=== PATIENT | male | born 1960 | race African-American/Black ===

== ENCOUNTER 2016-11-20 01:21 | Inpatient (IN) | payer MEDICARE ==
[2016-11-20] MEDS ORDERED: SODIUM CHLORIDE 1,000 ML IV STA ×2 (02:19→08:28)
--- NOTE | 2016-11-20 02:20 | PDOC ---
History of Present Illness - General History Source: Family Exam Limitations: No Limitations - History of Present Illness Initial Comments: The patient is a 56 yo M with a PMHx of HTN, nearly dx DM was discharged from [facility] 3 days with prescriptions he was unable to fill yet one was metformin. History is provided by patients nephew. Prior to presentation, the nephew noticed that the patient was having what appeared to be a seizure. Prior to presentation, pt was given multiple doses of Versed to stop the seizure and he was combative. The patient denies chest pain, palpitations and lightheadedness. The patient denies drug use. The patient is a Smoker. Allergies: NKDA <Katie Lawson - Last Filed: 11/20/16 04:18> - General History Source: Patient <CristinoJosue dowell - Last Filed: 11/24/16 19:55> - General Chief Complaint: Seizure Stated Complaint: SIEZURES Time Seen by Provider: 11/20/16 02:13 Past History <Katie Lawson - Last Filed: 11/20/16 04:18> - Past Medical History Diabetes: Yes Seizures: Yes - Psycho/Social/Smoking Cessation Hx Suicidal Ideation: No Smoking History: Unknown if ever smoked Information on smoking cessation initiated: No Hx Alcohol Use: No Drug/Substance Use Hx: No Substance Use Type: None <Josue Wyman - Last Filed: 11/24/16 19:55> - Past Medical History Allergies/Adverse Reactions: Allergies Allergy/AdvReac Type Severity Reaction Status Date / Time No Known Allergies Allergy Verified 11/20/16 01:29 Home Medications: Ambulatory Orders Amlodipine Besylate [Norvasc -] 5 mg PO DAILY 11/21/16 Aspirin [ASA -] 81 mg PO DAILY 11/21/16 Metformin HCl [Glucophage -] 850 mg PO BID 11/21/16 Simvastatin 40 mg PO DAILY 11/21/16 Review of Systems - Review of Systems Able to Perform ROS?: Yes Comments:: CONSTITUTIONAL: Absent: fever, chills, diaphoresis, generalized weakness, malaise, loss of appetite HEENT: Absent: rhinorrhea, nasal congestion, throat pain, throat swelling, difficulty swallowing, mouth swelling, ear pain, eye pain, visual Changes CARDIOVASCULAR: Absent: chest pain, syncope, palpitations, irregular heart rate, lightheadedness , peripheral edema RESPIRATORY: Absent: cough, shortness of breath, dyspnea with exertion, orthopnea, wheezing, stridor, hemoptysis GASTROINTESTINAL: Absent: abdominal pain, abdominal distension, nausea, vomiting, diarrhea, constipation, melena, hematochezia GENITOURINARY: Absent: dysuria, frequency, urgency, hesitancy, hematuria, flank pain, genital pain MUSCULOSKELETAL: Absent: myalgia, arthralgia, joint swelling SKIN: Absent: rash, itching, pallor HEMATOLOGIC/IMMUNOLOGIC: Absent: easy bleeding, easy bruising, lymphadenopathy, frequent infections ENDOCRINE: Absent: unexplained weight gain, unexplained weight loss, heat intolerance, cold intolerance NEUROLOGIC: Absent: headache, focal weakness or paresthesias, dizziness, unsteady gait, seizure, mental status changes, bladder or bowel incontinence PSYCHIATRIC: Absent: anxiety, depression, suicidal or homicidal ideation, hallucinations. <Katie Lawson - Last Filed: 11/20/16 04:18> *Physical Exam - Vital Signs Last Vital Signs Temp Pulse Resp BP Pulse Ox 97.9 F 116 H 20 80/56 95 11/20/16 01:30 11/20/16 01:30 11/20/16 01:30 11/20/16 01:30 11/20/16 01:30 - Physical Exam Comments: GENERAL: Well developed, well nourished. Alert and answering questions appropriately. No acute distress. HEENT: Normocephalic, atraumatic. PERRLA, EOMI. No conjunctival pallor. Sclera are non- icteric. Moist mucous membranes. Oropharynx is clear. NECK: Supple. Full ROM. No JVD. Carotid pulses 2+ and symmetric, without bruits. No thyromegaly. No lymphadenopathy. CARDIOVASCULAR: Regular rate and rhythm. No murmurs, rubs, or gallops. Distal pulses are 2+ and symmetric. PULMONARY: No evidence of respiratory distress. Lungs clear to auscultation bilaterally. No wheezing, rales or rhonchi. ABDOMINAL: Soft. Non-tender. Non-distended. No rebound or guarding. No organomegaly. Normoactive bowel sounds. MUSCULOSKELETAL Normal range of motion at all joints. No bony deformities or tenderness. No CVA tenderness. EXTREMITIES: No cyanosis. No clubbing. No edema. No calf tenderness. SKIN: Warm and dry. Normal capillary refill. No rashes. No jaundice. NEUROLOGICAL: No gross focal neurological deficits. PSYCHIATRIC: Cooperative. Good eye contact. Appropriate mood and affect. <Katie Lawson - Last Filed: 11/20/16 04:18> - Vital Signs Last Vital Signs Temp Pulse Resp BP Pulse Ox 97.9 F 116 H 20 80/56 95 11/20/16 01:30 11/20/16 01:30 11/20/16 01:30 11/20/16 01:30 11/20/16 01:30 <Josue Wyman - Last Filed: 11/24/16 19:55> Heart Score/ECG Review #1 NSR @ 80 bpm. Possible L atrial enlargement. Left axis deviation. Left ventricular hypertrophy with QRS widening. <Katie Lawson - Last Filed: 11/20/16 04:18> ED Treatment Course - LABORATORY CBC & Chemistry Diagram: 11/20/16 02:30 11/20/16 02:30 <Katie Lawson - Last Filed: 11/20/16 04:18> - LABORATORY CBC & Chemistry Diagram: 11/24/16 05:10 11/24/16 05:10 <Josue Wyman - Last Filed: 11/24/16 19:55> Medical Decision Making - Medical Decision Making 11/24/16 19:55 Dr. Wyman: The scribe's documentation has been prepared under my direction and personally reviewed by me in its entirery. I confirm that the note above accurately reflects all work, treatment, procedures, and medical decision making performed by me. <Josue Wyman - Last Filed: 11/24/16 19:55> *DC/Admit/Observation/Transfer - Attestations Scribe Attestion: Documentation prepared by Katie Lawson, acting as biomedical engineering internship for Josue Wyman MD/DO. <Katie Lawson - Last Filed: 11/20/16 04:18> - Discharge Dispostion Admit: Yes <Josue Wyman - Last Filed: 11/24/16 19:55> Diagnosis at time of Disposition: New onset seizure, Diabetes mellitus, new onset, Hyperglycemia
[2016-11-20 02:41] LABS: MEAN CELL VOLUME 72.2 fl (80-96)
[2016-11-20 02:44] LABS: BASOPHIL 1.1 % (0-2.0); EOSINOPHIL 0.9 % (0-4.5); MCH 22.5 pg (25.7-33.7); MCHC 31.1 g/dl (32.0-35.9); MEAN PLT VOLUME 9.3 fl (7.5-11.1); NEUTROPHILS 72.8 % (42.8-82.8); PLATELET COUNT 228 K/MM3 (134-434); RDW 13.1 % (11.9-15.9); WHITE BLOOD COUNT 9.8 K/mm3 (4.0-10.0)
[2016-11-20 02:54] LABS: INR 1.1 (0.82-1.09); PROTHROMBIN TIME (PATIENT) 12.1 SEC (9.98-11.88)
[2016-11-20 03:07] LABS: ALBUMIN 3.6 g/dl (3.4-5.0); ANION GAP 17 (8-16); BILIRUBIN,TOTAL 0.7 mg/dL (0.2-1.0); CALCIUM 8.9 mg/dL (8.5-10.1); CO2 20 mmol/L (21-32); CREATININE 1.6 mg/dL (0.7-1.3); SGPT/ALT 22 U/L (12-78); TOT PROT 7.1 g/dl (6.4-8.2)
[2016-11-20 03:10] LABS: ALK PHOS 68 U/L (45-117); TROPONIN I < 0.02 ng/ml (0.00-0.05)
[2016-11-20 03:13] LABS: SGOT/AST 26 U/L (15-37)
[2016-11-20 03:15] LABS: GLUCOSE,RANDOM 415 mg/dL (74-106)
[2016-11-20 03:33] LABS: MAGNESIUM 2.3 mg/dL (1.8-2.4)
[2016-11-20] MEDS ORDERED: INSULIN REGULAR HUMAN 100 UNITS/ML *VIAL IVPUSH ONE (03:52)
[2016-11-20] MEDS ORDERED: INSULIN REGULAR HUMAN 100 UNITS/ML *VIAL ONE (04:39)
[2016-11-20 06:27] LABS: URINE APPEARANCE CLEAR; URINE BILIRUBIN NEGATIVE (NEGATIVE); URINE BLOOD 1+ (NEGATIVE); URINE COLOR LTYELLOW; URINE GLUCOSE (UA) 3+ (NEGATIVE); URINE KETONE 1+ (NEGATIVE); URINE LEUK ESTERASE NEGATIVE (NEGATIVE); URINE NITRITE NEGATIVE (NEGATIVE); URINE UROBILINOGEN NEGATIVE mg/dL (0.2-1.0)
[2016-11-20 06:29] LABS: URINE PROTEIN 2+ (NEGATIVE)
[2016-11-20 06:31] LABS: URINE BACTERIA FEW /hpf (NONE SEEN); URINE HYALINE CAST 5 /lpf; URINE MUCUS RARE; URINE RBC 1 /hpf (0-3); URINE WBC 3 /hpf (3-5)
[2016-11-20 06:38] LABS: URINE MARIJUANA THC NEGATIVE ng/ml (CUTOFF=50)
[2016-11-20 06:48] LABS: ALBUMIN 3.5 g/dl (3.4-5.0); ALK PHOS 70 U/L (45-117); ANION GAP 13 (8-16); BILIRUBIN,TOTAL 0.8 mg/dL (0.2-1.0); CALCIUM 8.8 mg/dL (8.5-10.1); CO2 22 mmol/L (21-32); CREATININE 1.1 mg/dL (0.7-1.3); GLUCOSE,RANDOM 259 mg/dL (74-106); SGOT/AST 21 U/L (15-37); SGPT/ALT 19 U/L (12-78); TOT PROT 6.9 g/dl (6.4-8.2)
--- NOTE | 2016-11-20 07:48 | HP ---
CHIEF COMPLAINT:Seizure PCP:None HISTORY OF PRESENT ILLNESS: 56M PMH of HTN, HLD, DM, recently discharged from [facility] 3 days ago, presents to the hospital brought in by ambulance after being called by his nephews whom he lives with, for new onset seizure. He was at [facility] because of headache found to be hyperglycemic and admitted. Patient can not recall the event. History taken from the patient and the ED chart. History provided to ED by patient's nephew. Nephew saw what he thought was a seizure. Patient describes what sounds like an aura for about a minute before the event where he saw lights next thing he remembers is waking up in the hospital with a nurse. Patient denies bowel or bladder function loss. He endorses on and off blurry vision. He states he had tremors in arms and legs since 11/16/16. Denies history of seizure. Patient given a few doses of versed by EMS to stop the seizure and he was noted to be combative at that time. Patient did not waste picker any medications from the pharmacy that he was discharged with from [facility]. He states he was discharged with 4 medications. One is for blood pressure, one for diabetes which he states is metformin, one for high cholesterol, and one is aspirin. The patient denies nausea vomiting fevers chills chest pain, shortness of breath palpitations and lightheadedness. Lives at home with his nephews. ER course was notable for: (1)Labs EKG (2)CXR (3)Head CT Recent Travel:Denies PAST MEDICAL HISTORY:HTN HLD DM PAST SURGICAL HISTORY:Denies Social History: Smoking:Smoker 40 pack years Alcohol:States he used to be an alcoholic but now only has 1 drink a month Drugs:Denies Allergies Family History: Sister from massive heart attack with history of alcoholism No Known Allergies Allergy (Verified 11/20/16 01:29) HOME MEDICATIONS: REVIEW OF SYSTEMS CONSTITUTIONAL: Absent: fever, chills, diaphoresis, generalized weakness, malaise, loss of appetite, weight change HEENT: Absent: rhinorrhea, nasal congestion, throat pain, throat swelling, difficulty swallowing, mouth swelling, ear pain, eye pain, Present: On and off blurry vision CARDIOVASCULAR: Absent: chest pain, syncope, palpitations, irregular heart rate, lightheadedness , peripheral edema RESPIRATORY: Absent: cough, shortness of breath, dyspnea with exertion, orthopnea, wheezing, stridor, hemoptysis GASTROINTESTINAL: Absent: abdominal pain, abdominal distension, nausea, vomiting, diarrhea, melena , hematochezia Present: constipation GENITOURINARY: Absent: dysuria, frequency, urgency, hesitancy, hematuria, flank pain, genital pain MUSCULOSKELETAL: Absent: myalgia, arthralgia, joint swelling, back pain, neck pain SKIN: Absent: rash, itching, pallor HEMATOLOGIC/IMMUNOLOGIC: Absent: easy bleeding, easy bruising, lymphadenopathy, frequent infections ENDOCRINE: Absent: unexplained weight gain, unexplained weight loss, heat intolerance, cold intolerance NEUROLOGIC: Absent: headache, focal weakness or paresthesias, dizziness, unsteady gait, mental status changes, bladder or bowel incontinence Present: seizure, Tremor PSYCHIATRIC: Absent: anxiety, depression, suicidal or homicidal ideation, hallucinations. PHYSICAL EXAMINATION Vital Signs - 24 hr 11/20/16 07:33 Temperature 98.3 F Pulse Rate [ 81 Right] Respiratory 16 Rate Blood Pressure 154/91 [Right] O2 Sat by Pulse 98 Oximetry (%) GENERAL: Awake, alert, and fully oriented, in no acute distress. Patient has poor hygiene. HEAD: Normal with no signs of trauma. EYES: Pupils equal, round and reactive to light, extraocular movements intact, sclera anicteric, EARS, NOSE, THROAT: Dry mucous membranes. Poor dentition. Poor dental hygiene. Missing multiple teeth NECK: Normal range of motion, supple LUNGS: Breath sounds equal, clear to auscultation bilaterally. No wheezes, and no crackles. No accessory muscle use. HEART: Regular rate and rhythm, normal S1 and S2 without murmur, rub or gallop. ABDOMEN: Soft, obese, nontender, not distended, normoactive bowel sounds, no guarding, no rebound, no masses. MUSCULOSKELETAL: Normal range of motion at all joints UPPER EXTREMITIES: warm, well-perfused. No peripheral edema. LOWER EXTREMITIES: warm, well-perfused. No calf tenderness. Trace nonpitting peripheral edema. Left great toe nail bed peeling up. NEUROLOGICAL: Cranial nerves II-XII intact. Normal speech. Global muscle strength 5/5 knee jerk and biceps jerk is 2+. Dizziness present with abrupt postural changes. SKIN: Warm, dry Laboratory Results - last 24 hr 11/20/16 11/20/16 11/20/16 06:12 06:12 06:16 Sodium 137 Potassium 4.1 Chloride 102 Carbon Dioxide 22 Anion Gap 13 BUN 18 Creatinine 1.1 D Creat Clearance w eGFR > 60 Random Glucose 259 H D Calcium 8.8 Magnesium 2.5 H Total Bilirubin 0.8 AST 21 ALT 19 Alkaline Phosphatase 70 Total Protein 6.9 Albumin 3.5 Urine Color Ltyellow Urine Appearance Clear Urine pH 5.0 Urine Protein 2+ H Urine Glucose (UA) 3+ H Urine Ketones 1+ H Urine Blood 1+ H Urine Nitrite Negative Urine Bilirubin Negative Urine Urobilinogen Negative Ur Leukocyte Esterase Negative Urine RBC 1 Urine WBC 3 Ur Epithelial Cells Rare Urine Bacteria Few Hyaline Casts 5 Urine Mucus Rare Opiates Screen Methadone Screen Barbiturate Screen Phencyclidine Screen Ur Amphetamines Screen MDMA (Ecstasy) Screen Benzodiazepines Screen Cocaine Screen U Marijuana (THC) Screen 11/20/16 06:16 Sodium Potassium Chloride Carbon Dioxide Anion Gap BUN Creatinine Creat Clearance w eGFR Random Glucose Calcium Magnesium Total Bilirubin AST ALT Alkaline Phosphatase Total Protein Albumin Urine Color Urine Appearance Urine pH Urine Protein Urine Glucose (UA) Urine Ketones Urine Blood Urine Nitrite Urine Bilirubin Urine Urobilinogen Ur Leukocyte Esterase Urine RBC Urine WBC Ur Epithelial Cells Urine Bacteria Hyaline Casts Urine Mucus Opiates Screen Negative Methadone Screen Negative Barbiturate Screen Negative Phencyclidine Screen Negative Ur Amphetamines Screen Negative MDMA (Ecstasy) Screen Negative Benzodiazepines Screen Positive Cocaine Screen Negative U Marijuana (THC) Screen Negative EKG: NSR @ 80 bpm. Possible L atrial enlargement. Left axis deviation. Left ventricular hypertrophy with QRS widening\ CXR: clear on my read Head CT: unremarkable ASSESSMENT/PLAN: 56M with history of HTN HLD DM presents to the ED with new onset seizure. New onset seizure/Tremor: Denies drinking alcohol on a daily basis. Admit to med/surg Neurology consult head CT negative Needs MRI brain neurochecks q2h may need an EEG will defer neurology DM/Hyperglycemia: uncontrolled diabetes due to medication non compliance ISS ACHS BGM ACHS Lactic acidosis: 5.5 Likely transient secondary to seizure will repeat Acute kidney injury: From transient hypotension secondary to seizure vs large amounts of versed- patient was hypotensive to SBP to 80's could also be due to mild rhabdomyolysis though unlikely Now Resolved Rhabdomyolysis: CK slightly elevated secondary to seizure Give 1 liter bolus then start NS @ 50ml/hr for 24 hours HTN: Trend BP Call pharmacy and restart home medications when appropriate Will hold for now Possible orthostatic hypotension: will get orthostatics Peeling toe nail: Will consult podiatry HLD: call pharmacy restart home medications restart aspirin FEN: no IVF no electrolyte issues diabetic diet PPx: HSQ/SCDs no GI PPx indicated no PT consult needed at this time Case discussed with attending and medical team. Visit type - Emergency Visit Emergency Visit: Yes ED Registration Date: 11/20/16 Care time: The patient presented to the Emergency Department on the above date and was hospitalized for further evaluation of their emergent condition. - New Patient This patient is new to me today: Yes Date on this admission: 11/20/16 - Critical Care Critical Care patient: No
[2016-11-20] MEDS ORDERED: SODIUM CHLORIDE 1,000 ML IV SCH (09:30)
--- NOTE | 2016-11-20 10:15 | EKG ---
Test Reason : Blood Pressure : / mmHG Vent. Rate : 080 BPM Atrial Rate : 080 BPM P-R Int : 166 ms QRS Dur : 118 ms QT Int : 372 ms P-R-T Axes : 065 -42 019 degrees QTc Int : 429 ms NORMAL SINUS RHYTHM POSSIBLE LEFT ATRIAL ENLARGEMENT LEFT AXIS DEVIATION LEFT VENTRICULAR HYPERTROPHY WITH QRS WIDENING ABNORMAL ECG NO PREVIOUS ECGS AVAILABLE Confirmed by MD CAILIN, ZHANG ([id number]) on 11/20/2016 10:15:15 AM Referred By: Confirmed By:ZHANG SIMEON MD
[2016-11-20 11:20] VITALS: BMI 40.4
[2016-11-20] MEDS: INSULIN SLIDING SCALE (NOVOLOG) 1 VIAL SQ SCH ×3 (11:34→21:20)
[2016-11-20] MEDS: ASPIRIN 81 MG CHEWABLE TABLETS PO SCH (14:42)
[2016-11-20] MEDS: LISINOPRIL 10 MG TABLET (FP) PO SCH (14:42)
[2016-11-20] MEDS: HEPARIN NA (PORCINE) 5,000 UNITS/ML 1ML VIAL SQ SCH ×2 (14:42→21:16)
--- NOTE | 2016-11-20 17:00 | CON.NEURO ---
Consult Consult Specialty:: neurology - History of Present Illness History of Present Illness: 56M PMH of HTN, HLD, DM, recently discharged from [facility] 3 days ago, presents to the hospital brought in by ambulance after being called by his nephews whom he lives with, for new onset seizure. He was at [facility] because of headache found to be hyperglycemic and admitted. Patient can not recall the event. History taken from the patient and the ED chart. . Nephew saw what he thought was a seizure (he is not here now) Patient describes what sounds like an aura for about a minute before the event where he saw lights next thing he remembers is waking up in the hospital with a nurse. Patient denies bowel or bladder function loss. He endorses on and off blurry vision. He states he had tremors in arms and legs since 11/16/16. states left leg may shake then whole body may shake--they HE IS AWAKE and talking during the event. Denies history of seizure. 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. He states he was discharged with 4 medications. One is for blood pressure, one for diabetes which he states is metformin, one for high cholesterol, and one is aspirin. The patient denies nausea vomiting fevers chills chest pain, shortness of breath palpitations and lightheadedness. Lives at home with his nephews. pt back to baseline and denies any new c/o. CT HD (-) - Alcohol/Substance Use Hx Alcohol Use: No - Smoking History Smoking history: Current every day smoker Have you smoked in the past 12 months: Yes Aproximately how many cigarettes per day: 12 Home Medications - Allergies Allergies/Adverse Reactions: Allergies Allergy/AdvReac Type Severity Reaction Status Date / Time No Known Allergies Allergy Verified 11/20/16 01:29 Physical Exam-Neuro Vital Signs: Vital Signs Temperature 98.8 F 11/20/16 15:42 Pulse Rate 82 11/20/16 15:42 Respiratory Rate 18 11/20/16 15:42 Blood Pressure 125/74 11/20/16 15:42 O2 Sat by Pulse Oximetry (%) 98 11/20/16 11:05 Constitutional: Yes: Well Nourished Neck: Yes: Supple Labs: CBC, BMP 11/20/16 06:12 INR, PTT INR 1.10 (0.82-1.09) 11/20/16 02:30 - Neuro Exam Level Of Consciousness: Yes: Alert, Oriented to Person (EOMI, VFF, no facial, motor 5/5, no level, reflexes trace, ) NIH Stroke Scale - Total Score NIH Stroke Scale Score: 0 Imaging - Results Cat Scan: Report Reviewed, Image Reviewed Problem List - Problems (1) Diabetes mellitus, new onset Code(s): E11.9 - TYPE 2 DIABETES MELLITUS WITHOUT COMPLICATIONS (2) Hyperglycemia Code(s): R73.9 - HYPERGLYCEMIA, UNSPECIFIED (3) New onset seizure Code(s): R56.9 - UNSPECIFIED CONVULSIONS Assessment/Plan New onset shaking tremor episodes, though BL shaking with preserved consciousness would be unusual for seizure; though This last episode did appear to involve consciousness. ? metabolic vs rx effect vs seizure CT HD (-) would get routine EEG (not sure if feasible over weekend) . Check MRI BRAIN Can start Keppra 500BID empirically , though may not require this group home, may need VEEG ( as outpt). Dr Campo [phone]
--- NOTE | 2016-11-20 18:21 | PN ---
Teaching Attending Note Name of Resident: Eloy Montejo ATTENDING PHYSICIAN STATEMENT I saw and evaluated the patient. I reviewed the resident's note and discussed the case with the resident. I agree with the resident's findings and plan as documented. SUBJECTIVE: Patient was brought in for having Seizures. Patient admits for having headache that started on 11/10/2016. Does not remember of having seizures, denies any urinary and fecal incontinence, no bitting of his tongue. Was recently discharged from [facility]. OBJECTIVE: Vital Signs Temperature 98.2 F 11/20/16 18:06 Pulse Rate 73 11/20/16 18:06 Respiratory Rate 18 11/20/16 18:06 Blood Pressure 128/76 11/20/16 18:06 O2 Sat by Pulse Oximetry (%) 98 11/20/16 11:05 CBCD WBC 9.8 K/mm3 (4.0-10.0) 11/20/16 02:30 RBC 5.06 M/mm3 (4.00-5.60) 11/20/16 02:30 Hgb 11.4 GM/dL (11.7-16.9) L 11/20/16 02:30 Hct 36.5 % (35.4-49) 11/20/16 02:30 MCV 72.2 fl (80-96) L 11/20/16 02:30 MCHC 31.1 g/dl (32.0-35.9) L 11/20/16 02:30 RDW 13.1 % (11.9-15.9) 11/20/16 02:30 Plt Count 228 K/MM3 (134-434) 11/20/16 02:30 MPV 9.3 fl (7.5-11.1) 11/20/16 02:30 CMP Sodium 137 mmol/L (136-145) 11/20/16 06:12 Potassium 4.1 mmol/L (3.5-5.1) 11/20/16 06:12 Chloride 102 mmol/L (98-107) 11/20/16 06:12 Carbon Dioxide 22 mmol/L (21-32) 11/20/16 06:12 Anion Gap 13 (8-16) 11/20/16 06:12 BUN 18 mg/dL (7-18) 11/20/16 06:12 Creatinine 1.1 mg/dL (0.7-1.3) D 11/20/16 06:12 Creat Clearance w eGFR > 60 (>60) 11/20/16 06:12 Random Glucose 259 mg/dL (74-106) H D 11/20/16 06:12 Calcium 8.8 mg/dL (8.5-10.1) 11/20/16 06:12 Total Bilirubin 0.8 mg/dL (0.2-1.0) 11/20/16 06:12 AST 21 U/L (15-37) 11/20/16 06:12 ALT 19 U/L (12-78) 11/20/16 06:12 Alkaline Phosphatase 70 U/L (45-117) 11/20/16 06:12 Total Protein 6.9 g/dl (6.4-8.2) 11/20/16 06:12 Albumin 3.5 g/dl (3.4-5.0) 11/20/16 06:12 CARDIAC ENZYMES Creatine Kinase 622 IU/L (39-308) H 11/20/16 02:30 Troponin I < 0.02 ng/ml (0.00-0.05) 11/20/16 02:30 CBCD WBC 9.8 K/mm3 (4.0-10.0) 11/20/16 02:30 RBC 5.06 M/mm3 (4.00-5.60) 11/20/16 02:30 Hgb 11.4 GM/dL (11.7-16.9) L 11/20/16 02:30 Hct 36.5 % (35.4-49) 11/20/16 02:30 MCV 72.2 fl (80-96) L 11/20/16 02:30 MCHC 31.1 g/dl (32.0-35.9) L 11/20/16 02:30 RDW 13.1 % (11.9-15.9) 11/20/16 02:30 Plt Count 228 K/MM3 (134-434) 11/20/16 02:30 MPV 9.3 fl (7.5-11.1) 11/20/16 02:30 CMP Sodium 137 mmol/L (136-145) 11/20/16 06:12 Potassium 4.1 mmol/L (3.5-5.1) 11/20/16 06:12 Chloride 102 mmol/L (98-107) 11/20/16 06:12 Carbon Dioxide 22 mmol/L (21-32) 11/20/16 06:12 Anion Gap 13 (8-16) 11/20/16 06:12 BUN 18 mg/dL (7-18) 11/20/16 06:12 Creatinine 1.1 mg/dL (0.7-1.3) D 11/20/16 06:12 Creat Clearance w eGFR > 60 (>60) 11/20/16 06:12 Random Glucose 259 mg/dL (74-106) H D 11/20/16 06:12 Calcium 8.8 mg/dL (8.5-10.1) 11/20/16 06:12 Total Bilirubin 0.8 mg/dL (0.2-1.0) 11/20/16 06:12 AST 21 U/L (15-37) 11/20/16 06:12 ALT 19 U/L (12-78) 11/20/16 06:12 Alkaline Phosphatase 70 U/L (45-117) 11/20/16 06:12 Total Protein 6.9 g/dl (6.4-8.2) 11/20/16 06:12 Albumin 3.5 g/dl (3.4-5.0) 11/20/16 06:12 CARDIAC ENZYMES Creatine Kinase 622 IU/L (39-308) H 11/20/16 02:30 Troponin I < 0.02 ng/ml (0.00-0.05) 11/20/16 02:30 Current Medications Generic Name Dose Route Start Last Admin Trade Name Philipq PRN Reason Stop Dose Admin Aspirin 81 mg 11/20/16 13:30 11/20/16 14:42 Asa - PO 81 mg DAILY MELANIA Administration Atorvastatin Calcium 20 mg 11/20/16 22:00 Lipitor - PO HS MELANIA Heparin Sodium (Porcine) 5,000 unit 11/20/16 14:00 11/20/16 14:42 Heparin - SQ 5,000 unit TID MELANIA Administration Sodium Chloride 1,000 mls @ 50 mls/hr 11/20/16 09:30 11/20/16 09:09 Normal Saline - IV 11/21/16 09:29 50 mls/hr ASDIR MELANIA Administration Insulin Aspart 1 vial 11/20/16 11:00 11/20/16 11:34 Novolog Vial Sliding Scale - SQ 4 units ACHS MELANIA Administration Protocol Levetiracetam 500 mg 11/20/16 22:00 Keppra - PO BID MELANIA Lisinopril 10 mg 11/20/16 13:30 11/20/16 14:42 Prinivil PO 10 mg DAILY MELANIA Administration EKG: NSR @ 80 bpm. Possible L atrial enlargement. Left axis deviation. Left ventricular hypertrophy with QRS widening\ CXR: No acute pathology Head CT: unremarkable ASSESSMENT AND PLAN: Patient is a 56M PMH of HTN, HLD, DM, recently discharged from [facility] 3 days ago, presents to the hospital brought in by ambulance after being called by his nephews whom he lives with, for new onset seizure. #New onset seizure shaking vs metabolic reasons; patient is diabetic ;CT HD (-) would get routine EEG , MRI BRAIN ordered without contrast , as per neurology to start the patient on Keppra 500BID empirically , though may not require this long-term, may need VEEG ( as outpt). Neurologist ;Dr Campo. Denies drinking alcohol on a daily basis. Admit to med/surg.Neurology consult MRI brain ordered, neurochecks q2h for 8 hrs then q4, seizure precaution. #DM/Hyperglycemia: uncontrolled diabetes due to non compliance; ss with coverage # Lactic acidosis: 5.5 improved post IVF , most likely due to seizure # Acute kidney injury:1.2 now monitor, repeat labs in am # acute Rhabdomyolysis: CK slightly elevated secondary to seizure s/p 1 liter bolus then start NS @ 50ml/hr for 24 hours #Possible orthostatic hypotension: check Bp for orthostatic # Left TOE INJURY will get automobile repossessor to evaluate the patient. DVT px:
[2016-11-20] MEDS ORDERED: INSULIN (NOVOLOG) ASPART 100 UNITS/ML 10ML VIAL ONE ×2 (18:35→20:43)
[2016-11-20] MEDS: ATORVASTATIN CA 20 MG TABLET (FP) PO SCH (21:16)
[2016-11-20] MEDS ORDERED: levETIRAcetam 500 MG TABLET (FP) PO SCH (22:00)
[2016-11-21] MEDS: INSULIN SLIDING SCALE (NOVOLOG) 1 VIAL SQ SCH ×4 (06:21→21:50)
[2016-11-21] MEDS: HEPARIN NA (PORCINE) 5,000 UNITS/ML 1ML VIAL SQ SCH ×3 (06:21→21:50)
--- NOTE | 2016-11-21 07:59 | PN ---
Progress Note (short form) - Note Progress Note: 56M PMH of HTN, HLD, DM, recently discharged from [facility] 3 days ago, presents to the hospital brought in by ambulance after being called by his nephews whom he lives with, for new onset seizure. He was at [facility] because of headache found to be hyperglycemic and admitted. Patient can not recall the event. History taken from the patient and the ED chart. . Nephew saw what he thought was a seizure (he is not here now) Patient describes what sounds like an aura for about a minute before the event where he saw lights next thing he remembers is waking up in the hospital with a nurse. Patient denies bowel or bladder function loss. He endorses on and off blurry vision. He states he had tremors in arms and legs since 11/16/16. states left leg may shake then whole body may shake--they HE IS AWAKE and talking during the event. Denies history of seizure. 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 He states he was discharged with 4 medications. One is for blood pressure, one for diabetes which he states is metformin, one for high cholesterol, and one is aspirin. The patient denies nausea vomiting fevers chills chest pain, shortness of breath palpitations and lightheadedness. Lives at home with his nephews. pt back to baseline and denies any new c/o. F/U: He states that has had an episode of L body shakiness lasted few seconds last night . He c/o visual symptoms and not able to see clearly happens when he change his position and sometimes when he walks ; denies any dizziness or blackout. While I was examining him he had an episode of turning his head toward L side and not able to look at me but no AMS , was able to tell the year and his name. He felt he is shaking on the L side but I did not notice any shakiness. CT HD (-) MRI brain indicated chronic R BG infarct carotid U/S ; no stenosis PE: VS stable A & O x2 CN2-12 INT, no gaze preferance or face symmetria; eye exam optic disc sharp Motor: 5/5 Sensory: INT LT/PP Cerebellum: no dysmetria DTR: trace CV: RRR Lungs: CTA B/L A/P: New onset focal seizure with awareness , EEG pending VEEG as OP ? diabetic retinopathy R BG lacunar infarct will increase keppra 750 mg bid MRA head and neck asp 81 mg statin Ophthamology consult Thank you. Tay Munguia M.D. [phone]
[2016-11-21 08:25] LABS: MCH 22.5 pg (25.7-33.7); MCHC 30.9 g/dl (32.0-35.9); MEAN CELL VOLUME 72.7 fl (80-96); PLATELET COUNT 190 K/MM3 (134-434); RDW 13.2 % (11.9-15.9); WHITE BLOOD COUNT 8.6 K/mm3 (4.0-10.0)
[2016-11-21 08:55] LABS: ANION GAP 7 (8-16); CALCIUM 8.6 mg/dL (8.5-10.1); CO2 26 mmol/L (21-32); GLUCOSE,RANDOM 263 mg/dL (74-106); MAGNESIUM 2.1 mg/dL (1.8-2.4)
[2016-11-21] MEDS ORDERED: levETIRAcetam 250 MG TABLET (FP) PO SCH (10:00)
[2016-11-21] MEDS: levETIRAcetam 250 MG TABLET (FP) PO SCH ×2 (10:09→21:50)
[2016-11-21] MEDS: ASPIRIN 81 MG CHEWABLE TABLETS PO SCH (10:09)
[2016-11-21] MEDS: LISINOPRIL 10 MG TABLET (FP) PO SCH (10:10)
[2016-11-21] MEDS: levETIRAcetam 500 MG TABLET (FP) PO SCH ×2 (10:10→21:50)
--- NOTE | 2016-11-21 11:05 | PN ---
Progress Note (short form) - Note Progress Note: Patient is afraid to walk since states that he is having skewed like vision Vital Signs Temperature 98 F 11/21/16 10:05 Pulse Rate 78 11/21/16 10:05 Respiratory Rate 18 11/21/16 10:05 Blood Pressure 146/60 11/21/16 10:05 O2 Sat by Pulse Oximetry (%) 98 11/21/16 09:00 GENERAL: Awake, alert, and fully oriented, in no acute distress. Patient has poor hygiene. HEAD: Normal with no signs of trauma. EYES: Pupils equal, round and reactive to light, extraocular movements intact, sclera anicteric, EARS, NOSE, THROAT: Dry mucous membranes. Poor dentition. Poor dental hygiene. Missing multiple teeth NECK: Normal range of motion, supple LUNGS: Breath sounds equal, clear to auscultation bilaterally. No wheezes, and no crackles. No accessory muscle use. HEART: Regular rate and rhythm, normal S1 and S2 without murmur, rub or gallop. ABDOMEN: Soft, NT, not distended, positive bowel sounds, no guarding, no rebound , no masses. MUSCULOSKELETAL: Normal range of motion at all joints EXTREMITIES: warm, well-perfused. No calf tenderness. non-pitting peripheral edema. Left great toe nail bed peeling up. NEUROLOGICAL: Cranial nerves II-XII intact. Normal speech. Global muscle strength 5/5, knee jerk and biceps jerk is 2+. Dizziness present with abrupt postural changes. SKIN: Warm, dry , CBCD WBC 8.6 K/mm3 (4.0-10.0) 11/21/16 07:55 RBC 4.62 M/mm3 (4.00-5.60) 11/21/16 07:55 Hgb 10.4 GM/dL (11.7-16.9) L 11/21/16 07:55 Hct 33.6 % (35.4-49) L 11/21/16 07:55 MCV 72.7 fl (80-96) L 11/21/16 07:55 MCHC 30.9 g/dl (32.0-35.9) L 11/21/16 07:55 RDW 13.2 % (11.9-15.9) 11/21/16 07:55 Plt Count 190 K/MM3 (134-434) 11/21/16 07:55 MPV 8.0 fl (7.5-11.1) D 11/21/16 07:55 CMP Sodium 137 mmol/L (136-145) 11/21/16 07:55 Potassium 3.8 mmol/L (3.5-5.1) 11/21/16 07:55 Chloride 104 mmol/L (98-107) 11/21/16 07:55 Carbon Dioxide 26 mmol/L (21-32) 11/21/16 07:55 Anion Gap 7 (8-16) L 11/21/16 07:55 BUN 14 mg/dL (7-18) D 11/21/16 07:55 Creatinine 1.0 mg/dL (0.7-1.3) 11/21/16 07:55 Creat Clearance w eGFR > 60 (>60) 11/20/16 06:12 Random Glucose 263 mg/dL (74-106) H 11/21/16 07:55 Calcium 8.6 mg/dL (8.5-10.1) 11/21/16 07:55 Total Bilirubin 0.8 mg/dL (0.2-1.0) 11/20/16 06:12 AST 21 U/L (15-37) 11/20/16 06:12 ALT 19 U/L (12-78) 11/20/16 06:12 Alkaline Phosphatase 70 U/L (45-117) 11/20/16 06:12 Total Protein 6.9 g/dl (6.4-8.2) 11/20/16 06:12 Albumin 3.5 g/dl (3.4-5.0) 11/20/16 06:12 CARDIAC ENZYMES Creatine Kinase 622 IU/L (39-308) H 11/20/16 02:30 Troponin I < 0.02 ng/ml (0.00-0.05) 11/20/16 02:30 Current Medications Generic Name Dose Route Start Last Admin Trade Name Salas PRN Reason Stop Dose Admin Aspirin 81 mg 11/20/16 13:30 11/21/16 10:09 Asa - PO 81 mg DAILY MELANIA Administration Atorvastatin Calcium 20 mg 11/20/16 22:00 11/20/16 21:16 Lipitor - PO 20 mg HS MELANIA Administration Heparin Sodium (Porcine) 5,000 unit 11/20/16 14:00 11/21/16 06:21 Heparin - SQ 5,000 unit TID MELANIA Administration Insulin Aspart 1 vial 11/20/16 11:00 11/21/16 06:21 Novolog Vial Sliding Scale - SQ 6 units ACHS MELANIA Administration Protocol Levetiracetam 500 mg 11/21/16 10:00 11/21/16 10:10 Keppra - PO 500 mg BID MELANIA Administration Levetiracetam 250 mg 11/21/16 10:00 11/21/16 10:09 Keppra - PO 250 mg BID MELANIA Administration Lisinopril 10 mg 11/20/16 13:30 11/21/16 10:10 Prinivil PO 10 mg DAILY MELANIA Administration Home Medications Medication Instructions Recorded Amlodipine Besylate [Norvasc -] 5 mg PO DAILY 11/21/16 Aspirin [ASA -] 81 mg PO DAILY 11/21/16 Metformin HCl [Glucophage -] 850 mg PO BID 11/21/16 Simvastatin 40 mg PO DAILY 11/21/16 EKG: NSR @ 80 bpm. Possible L atrial enlargement. Left axis deviation. Left ventricular hypertrophy with QRS widening\ CXR: No acute pathology Head CT: unremarkable MRI of the brain: right Basal ganglia lacunar infarct. ASSESSMENT AND PLAN: Patient is a 56M PMH of HTN, HLD, DM, recently discharged from [facility] 3 days ago, presents to the hospital brought in by ambulance after being called by his nephews whom he lives with, for new onset seizure. # Right Basal Ganglia lacunar infarct on MRI report, patient has no deficits, only c/o having trouble with vision when standing up. Will get ophthalmology consult to evaluate the patient further. MRA head and neck , aspirin 81mg daily , lipitor 20mg po daily. 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 #T2Dm/Hyperglycemia: uncontrolled diabetes due to non compliance; ss with coverage # Lactic acidosis: 5.5 improved post IVF , most likely due to seizure # Acute kidney injury:1.2-->1.0 now post IVF. # acute Rhabdomyolysis: CK slightly elevated secondary to seizure s/p 1 liter bolus then start NS @ 50ml/hr for 24 hours #Possible orthostatic hypotension: check Bp for orthostatic # Left TOE INJURY will get engraver hand hard metals to evaluate the patient. DVT px: heparin Visit type - Emergency Visit Emergency Visit: Yes ED Registration Date: 11/20/16 Care time: The patient presented to the Emergency Department on the above date and was hospitalized for further evaluation of their emergent condition. - New Patient This patient is new to me today: No - Critical Care Critical Care patient: No - Discharge Referral Referred to [facility] Yes Physician Referral: Larry Morales MD ([facility])
[2016-11-21] MEDS ORDERED: PT OWN MED DRAWER 7, Y5N ONE (21:22)
[2016-11-21] MEDS: ATORVASTATIN CA 20 MG TABLET (FP) PO SCH (21:50)
--- NOTE | 2016-11-21 23:09 | FALL ---
Fall Exam - Event Witnessed fall: Yes Location of Fall: Bathroom Fall from: While ambulating (pt used bathroom and pt was receiving assistance by nursing assitant to walk out of bathroom when pt "lost his vision" and stood with his back to the walk and gently went down to floor, he sat on the floor. pt denies loss of conscionsness, can describe entire event without gaps. no abnormal extremity movements.) - Pre-Fall Fall Risk: High Risk Mental Status: Alert, Oriented, Cooperative Current Medications: Current Medications Generic Name Dose Route Start Last Admin Trade Name Salas PRN Reason Stop Dose Admin Aspirin 81 mg 11/20/16 13:30 11/21/16 10:09 Asa - PO 81 mg DAILY MELANIA Administration Atorvastatin Calcium 20 mg 11/20/16 22:00 11/21/16 21:50 Lipitor - PO 20 mg HS MELANIA Administration Heparin Sodium (Porcine) 5,000 unit 11/20/16 14:00 11/21/16 21:50 Heparin - SQ 5,000 unit TID MELANIA Administration Insulin Aspart 1 vial 11/20/16 11:00 11/21/16 21:50 Novolog Vial Sliding Scale - SQ 6 units ACHS MELANIA Administration Protocol Levetiracetam 500 mg 11/21/16 10:00 11/21/16 21:50 Keppra - PO 500 mg BID MELANIA Administration Levetiracetam 250 mg 11/21/16 10:00 11/21/16 21:50 Keppra - PO 250 mg BID MELANIA Administration Lisinopril 10 mg 11/20/16 13:30 11/21/16 10:10 Prinivil PO 10 mg DAILY MELANIA Administration 11/21/16 23:33 Pt had an MRA tonight with Head CT on 11/20 2:18AM. - Post-Fall Patient Outcome: No Injury Exam Findings: pt in no NAD. declined head CT. Treatment: None Vital Signs: Vital Signs Temperature 97.5 F L 11/21/16 18:53 Pulse Rate 73 11/21/16 18:53 Respiratory Rate 20 11/21/16 18:53 Blood Pressure 136/82 11/21/16 18:53 O2 Sat by Pulse Oximetry (%) 98 11/21/16 09:00 5/5 strength in UE and LE throughout, sensation intact, facial symmetry, clear speech. CTAB NAD s1, s2, no mrg soft obese abdomen. no LE edema. LOC Post-Fall: Unchanged, Awake, Alert, Oriented Identify factors for HIGH RISK for Head Injury: Pt on anticoagulant (witnessed fall without head trauma/abnormal extremity movements, no LOC. head CT 11/20, MRA tonight)
[2016-11-22 00:40] LABS: INR 1.05 (0.82-1.09); PROTHROMBIN TIME (PATIENT) 11.6 SEC (9.98-11.88)
[2016-11-22 00:42] LABS: ACTIVATED PTT 31.5 SECONDS (26.9-34.4)
[2016-11-22] MEDS: INSULIN SLIDING SCALE (NOVOLOG) 1 VIAL SQ SCH ×2 (06:21→11:34)
[2016-11-22] MEDS: HEPARIN NA (PORCINE) 5,000 UNITS/ML 1ML VIAL SQ SCH ×3 (06:21→22:21)
--- NOTE | 2016-11-22 09:15 | PN ---
Teaching Attending Note Name of Resident: Patrick Muniz ATTENDING PHYSICIAN STATEMENT I saw and evaluated the patient. I reviewed the resident's note and discussed the case with the resident. I agree with the resident's findings and plan as documented. SUBJECTIVE: Events are noted. As per nurses, patient had seizure ;grand mal seizure, as per patient he was aware that he was having seizure and was having tremors on his left side. c/o having headache. During the day patient had episodes of L sided body shaking with preserved consciousness. No feveror chills, no shortness of breath. OBJECTIVE: Vital Signs Temperature 99.0 F 11/22/16 06:00 Pulse Rate 66 11/22/16 06:00 Respiratory Rate 22 11/22/16 06:00 Blood Pressure 142/86 11/22/16 06:00 O2 Sat by Pulse Oximetry (%) 96 11/21/16 22:00 CBCD WBC 8.6 K/mm3 (4.0-10.0) 11/21/16 07:55 RBC 4.62 M/mm3 (4.00-5.60) 11/21/16 07:55 Hgb 10.4 GM/dL (11.7-16.9) L 11/21/16 07:55 Hct 33.6 % (35.4-49) L 11/21/16 07:55 MCV 72.7 fl (80-96) L 11/21/16 07:55 MCHC 30.9 g/dl (32.0-35.9) L 11/21/16 07:55 RDW 13.2 % (11.9-15.9) 11/21/16 07:55 Plt Count 190 K/MM3 (134-434) 11/21/16 07:55 MPV 8.0 fl (7.5-11.1) D 11/21/16 07:55 CMP Sodium 137 mmol/L (136-145) 11/21/16 07:55 Potassium 3.8 mmol/L (3.5-5.1) 11/21/16 07:55 Chloride 104 mmol/L (98-107) 11/21/16 07:55 Carbon Dioxide 26 mmol/L (21-32) 11/21/16 07:55 Anion Gap 7 (8-16) L 11/21/16 07:55 BUN 14 mg/dL (7-18) D 11/21/16 07:55 Creatinine 1.0 mg/dL (0.7-1.3) 11/21/16 07:55 Creat Clearance w eGFR > 60 (>60) 11/20/16 06:12 Random Glucose 263 mg/dL (74-106) H 11/21/16 07:55 Calcium 8.6 mg/dL (8.5-10.1) 11/21/16 07:55 Total Bilirubin 0.8 mg/dL (0.2-1.0) 11/20/16 06:12 AST 21 U/L (15-37) 11/20/16 06:12 ALT 19 U/L (12-78) 11/20/16 06:12 Alkaline Phosphatase 70 U/L (45-117) 11/20/16 06:12 Total Protein 6.9 g/dl (6.4-8.2) 11/20/16 06:12 Albumin 3.5 g/dl (3.4-5.0) 11/20/16 06:12 CARDIAC ENZYMES Creatine Kinase 622 IU/L (39-308) H 11/20/16 02:30 Troponin I < 0.02 ng/ml (0.00-0.05) 11/20/16 02:30 Current Medications Generic Name Dose Route Start Last Admin Trade Name Salas PRN Reason Stop Dose Admin Aspirin 81 mg 11/20/16 13:30 11/21/16 10:09 Asa - PO 81 mg DAILY MELANIA Administration Atorvastatin Calcium 20 mg 11/20/16 22:00 11/21/16 21:50 Lipitor - PO 20 mg HS MELANIA Administration Heparin Sodium (Porcine) 5,000 unit 11/20/16 14:00 11/22/16 06:21 Heparin - SQ 5,000 unit TID MELANIA Administration Insulin Aspart 1 vial 11/20/16 11:00 11/22/16 06:21 Novolog Vial Sliding Scale - SQ 8 units ACHS MELANIA Administration Protocol Levetiracetam 500 mg 11/21/16 10:00 11/21/16 21:50 Keppra - PO 500 mg BID MELANIA Administration Levetiracetam 250 mg 11/21/16 10:00 11/21/16 21:50 Keppra - PO 250 mg BID MELANIA Administration Lisinopril 10 mg 11/20/16 13:30 11/21/16 10:10 Prinivil PO 10 mg DAILY MELANIA Administration Home Medications Medication Instructions Recorded Amlodipine Besylate [Norvasc -] 5 mg PO DAILY 11/21/16 Aspirin [ASA -] 81 mg PO DAILY 11/21/16 Metformin HCl [Glucophage -] 850 mg PO BID 11/21/16 Simvastatin 40 mg PO DAILY 11/21/16 PE: Neurological exam: L homonymous hemianopia. weakness of left side 4/5 lower and upper. rest of physical exam by resident's note EKG: NSR @ 80 bpm. Possible L atrial enlargement. Left axis deviation. Left ventricular hypertrophy with QRS widening\ CXR: No acute pathology Head CT: unremarkable MRA head only remarkable for atherosclerosis of mid basilar artery carotid U/S : negative for stenosis MRI brain - Restricted diffusion involving R occipital cortex + R posterior temporal cortex. Chronic punctate R basil ganglia infarct. Mild chronic microvascular ischemic changes ASSESSMENT AND PLAN: Patient is a 56M PMH of HTN, HLD, DM, recently discharged from [facility] 3 days ago, presents to the hospital brought in by ambulance after being called by his nephews whom he lives with, for new onset seizure. # Acute Right occipital infarct with right posterior temporal cortex discussed with Neuro.will start the patient on Plavix and aspirin, patient is going for CTA head and neck to exclude vascular abnormalities, Discussed with Neurologist an discussed with patternmaker apprentice metal. Pending EEG, pending CTA of neck and head. # New onset focal seizure with awareness (partial seizure); witnessed seizure, on Keppra 1000mg po BId, given extra dose of Keppra today seizure precautions such as no driving , taking bathtub , swimming or operating heavy machinery was discussed with him and he verbalized understanding. # Right Basal Ganglia lacunar infarct on MRI report. added Plavix , aspirin 81mg daily, lipitor 20mg po daily. # Acute Left homonymous hemianopia. Ophthamology consult appreciated #T2Dm/Hyperglycemia: uncontrolled diabetes due to non compliance; ss with coverage # Lactic acidosis: 5.5 improved post IVF , most likely due to seizure # Acute kidney injury:1.2-->1.0 now post IVF. # acute Rhabdomyolysis: CK slightly elevated secondary to seizure s/p 1 liter bolus then start NS @ 50ml/hr for 24 hours # Left TOE INJURY ;Total nail avulsion performed with sterile scissors and forceps by certified performance technologist , appreciated. Dry dressing. DVT px: heparin
[2016-11-22] MEDS: levETIRAcetam 250 MG TABLET (FP) PO SCH (09:34)
[2016-11-22] MEDS: ASPIRIN 81 MG CHEWABLE TABLETS PO SCH (09:34)
[2016-11-22] MEDS: levETIRAcetam 500 MG TABLET (FP) PO SCH (09:34)
[2016-11-22] MEDS: LISINOPRIL 10 MG TABLET (FP) PO SCH (09:34)
[2016-11-22] MEDS ORDERED: LORAZEPAM CARPU-JECT 2 MG/ML DISP.SYRIN IVPUSH ONE ×3 (10:00→22:05)
[2016-11-22] MEDS ORDERED: levETIRAcetam 500 MG TABLET (FP) PO SCH ×2 (10:30→22:00)
[2016-11-22] MEDS ORDERED: amLODIPine BESYLATE 10 MG TABLET (FP) PO SCH (10:45)
[2016-11-22] MEDS ORDERED: levETIRAcetam 250 MG TABLET (FP) PO ONE (11:00)
[2016-11-22] MEDS ORDERED: INSULIN (NOVOLOG) ASPART 100 UNITS/ML 10ML VIAL ONE (11:28)
--- NOTE | 2016-11-22 11:57 | CONSULT ---
Consult - text type - Consultation Consultation Note: Podiatry Consultation: 56 year old DM M presents for admission for new-onset seizure activity. Podiatry consultation requested for L great toe nail loosening s/p trauma from seizure activity. Patient reports hitting his great toe during the seizure activity. Did report significant pain to the L great toe, however currently improved. Denies F/V?N/C/SOB/CP. Afebrile, VSS. PMHx: DM, HTN, HLP, (+) smoking Meds: noted in chart ALL: NKMA TAMAR: L foot: pedal pulses 1/4, TG wnl, CFT brisk to all toes. There is total loosening of L great toe nail with mild tenderness to palpation. There is some tethering to the proximal nail fold. I am able to freely manipulate the nail unit. There is no purulent drainage, no fluctuance, no periwound erythema, no ascending cellulitis, no signs of active infection. There is no active bleeding. Post-removal shows a granular nail bed with no laceration noted, no bone exposed. WBC: 8.6 L foot XR: no acute pathology noted Imp: 56 year old M with avulsed L great toe s/p trauma 1. Total nail avulsion performed with sterile scissors and forceps. No local anesthesia necessary as nail was fully loose. Patient tolerated the procedure well without complications. 2. Bacitracin + DSD L great toe. 3. No further intervention. Thank you for the courtesy of this consultation. Susan Kong DPM
[2016-11-22] MEDS ORDERED: levETIRAcetam 500 MG TABLET (FP) PO ONE (15:05)
[2016-11-22] MEDS ORDERED: SODIUM CHLORIDE 1,000 ML IV SCH ×2 (15:15→23:49)
--- NOTE | 2016-11-22 15:19 | PN ---
Progress Note (short form) - Note Progress Note: 56M PMH of HTN, HLD, DM, recently discharged from [facility] few days ago, presents to the hospital brought in by ambulance after being called by his nephews whom he lives with, for new onset seizure. He was at [facility] because of headache found to be hyperglycemic and admitted. Patient can not recall the event. F/U Today; I saw and examined the pt at the bedside . He c/o visual defect at his L side ; he reports his visual symptoms started from October and he is not able to see people standing at his L side ; he has had poor vision generally .Today like yesterday , he had another episode of head turning to the L side w mild L UE shakiness with awareness which lasted 10 seconds ;I did a full eye exam w lamp cleaner at the bedside. PE: VS : stable MS: A & O x2, no dyarthria or dysphasia CN:2-12 INT, no gaze preferance or face symmetria;EXCEPT ; L homonymous hemianopia ; eye exam , diabetic retinopathy , optic disc sharp; large cup to disc ratio at L eye ; Alvarez gun +deniz at L eye Motor: 5/5 Sensory: INT LT/PP Cerebellum: no dysmetria DTR: trace CV: RRR Lungs: CTA B/L CT HD (-) MRI brain indicated chronic R BG infarct; at my review of images ; there is small R occipital lesion , subacute/ chronic infarct so I called the radiology department and the addendum confirmed a minimal restricted diffusion at R occipital lobe and R post temporal lobe. . MRA head only remarkable for atherosclerosis of mid basilar artery carotid U/S ; no stenosis A/P: 56M PMH of HTN, HLD, DM, recently discharged from [facility] few days ago, p/w focal seizure w awareness and visual symptoms since past October ;on neuro exam, L homonymous hemianopia , Alvarez gun +deniz at L eye ; MRI / A brain official report indicated old R BG lacunar infarct initially , on my review of image there is area of minimal restricted diffusion at at L occipital . -New onset focal seizure with awareness ( formerly called simple partial seizure ) -Subacute R occipital and R post Temporal infarct due to ? thromboembolic events , not a tPA candidate , out of window . -Diabetic retinopathy -L eye glaucoma ( Large cup to disc ratio 75% at L eye) - CTA head and neck to exclude vascular abnormalities.(will review the images w radiologist ) -EEG pending -VEEG as OP -will increase keppra 1000 mg bid -Partially load w keppra 500 mg stat -start plavix + asp 81 mg for 3 months (chance study) and will c/w baby asp thereafter. -statin -ECHO -MARIE if eho unrevealing -Need hypercoagulopathy w/u to evaluate the cause of stroke in young adult , including PrC, PrS, Factor 5, ERNA, Thrombin, Lupus anticoagulant, fibrinogen, b12, RPR, ETC -Ophthamology f/u -seizure precautions such as no driving , taking bathtub , swimming or operating heavy machinery was discussed with him and he verbalized understanding. Thank you. Tay Munguia M.D. [phone] ADDENDUM; Pt has developed 2 more seizure this evening , 1 episode w L U and L ext shaking , and no LOC and second one 2 hours later w GTC and LOC ; A/P: Focal seizure w secondary generalization -Load w fosphenytoin 20 mg /kg -Dilantin 100 mg tid iv -check dilantin level 30 min later and tomorrow am -Low threshold for intubation , watch for status epilepticus -Tx to ICU -C/W Keppra -EEG stat -Plan was d/w the house staff. Thank you. GALE
--- NOTE | 2016-11-22 15:27 | CONSULT ---
Consult Consult Specialty:: Endocrinology Referred by:: Dr Magana Reason for Consultation:: HYperglycemia - History of Present Illness Chief Complaint: Seizure History of Present Illness: This is a 56 yo M with h/o HTN, T2DM since 2011,not taking any antidiabetic agents, who was discharged from [facility] 3 days ago who presented to ED , after nephew noticed that the patient was having what appeared to be a seizure. Pt found to be hyperglycemic and referred for management. Pt was admitted to [facility] with headache and found to be hyperglycemic. Pt was discharged on Metformin and medication for HTN which he hasnt' filled yet. Pt says he has taken Insulin in the past but has not been taking anything recently. Doesn't do BGM at home. Denies polyuria, polydipsia, nocturia, blurred vision or recent change in weight. Pt has left sided homonymous hemianopsia. - History Source History Provided By: Patient, Medical Record - Past Medical History Endocrine: Yes: Diabetes Mellitus - Alcohol/Substance Use Hx Alcohol Use: No - Smoking History Smoking history: Current every day smoker Have you smoked in the past 12 months: Yes Aproximately how many cigarettes per day: 12 Home Medications - Allergies Allergies/Adverse Reactions: Allergies Allergy/AdvReac Type Severity Reaction Status Date / Time No Known Allergies Allergy Verified 11/20/16 01:29 - Home Medications Home Medications: Ambulatory Orders Amlodipine Besylate [Norvasc -] 5 mg PO DAILY 11/21/16 Aspirin [ASA -] 81 mg PO DAILY 11/21/16 Metformin HCl [Glucophage -] 850 mg PO BID 11/21/16 Simvastatin 40 mg PO DAILY 11/21/16 Family Disease History - Family Disease History Family Disease History: Diabetes: Father Review of Systems - Review of Systems Constitutional: reports: No Symptoms Eyes: reports: No Symptoms HENT: reports: No Symptoms Neck: reports: No Symptoms Cardiovascular: reports: No Symptoms Respiratory: reports: No Symptoms Gastrointestinal: reports: No Symptoms Genitourinary: reports: No Symptoms Integumentary: reports: No Symptoms Neurological: reports: No Symptoms Endocrine: reports: No Symptoms Hematology/Lymphatic: reports: No Symptoms Physical Exam Vital Signs: Vital Signs Temperature 98.8 F 11/22/16 11:35 Pulse Rate 78 11/22/16 11:35 Respiratory Rate 20 11/22/16 11:35 Blood Pressure 159/81 11/22/16 11:35 O2 Sat by Pulse Oximetry (%) 96 11/22/16 09:00 Constitutional: Yes: No Distress, Calm Eyes: Yes: Conjunctiva Clear, EOM Intact HENT: Yes: Atraumatic, Normocephalic Neck: Yes: Supple, Trachea Midline Cardiovascular: Yes: Regular Rate and Rhythm Respiratory: Yes: Regular, CTA Bilaterally Gastrointestinal: Yes: Normal Bowel Sounds, Soft Musculoskeletal: Yes: WNL Extremities: Yes: Other (Left big toe dressing) Labs: CBC, BMP 11/21/16 07:55 11/21/16 07:55 Imaging - Results Cat Scan: Report Reviewed MRI: Report Reviewed Assessment/Plan T2DM: uncontrolled, A1c 11.5 Non compliant with meds Nutrition consult Start Lememir 10 units daily at HS Novolog ss coverage Seizure disorder Left homonymous hemianopia HTN Lactic Acidosis Left Big toe injury Neurology and podiatry consult noted
--- NOTE | 2016-11-22 16:20 | PN ---
Physical Exam: SUBJECTIVE: Patient seen and examined this AM. No CP, no SOB. Patient complains of headaches and continued tremors. Nurses state that patient at times will have mild tremors along with L head tilt with preserved consciousness. During the day patient had episodes of L sided body shaking with preserved consciousness. These are new findings compared to yesterday as per nurse. OBJECTIVE: Vital Signs Period Temp Pulse Resp BP Sys/Navarrete Pulse Ox Last 24 Hr 97.5 F-99.0 F 66-109 18-22 135-161/74-93 96-96 GENERAL: The patient is awake, alert, and fully oriented, in no acute distress. HEAD: Normal with no signs of trauma. EYES: PERRLA, L homonymous hemianopsia on exam, able to move eyes on command, unable to see/follow objects on left side ENT: Missing teeth, oral hygiene is compromised NECK: Trachea midline, full range of motion, supple. LUNGS: Breath sounds equal, clear to auscultation bilaterally, no wheezes, no crackles, no accessory muscle use. HEART: Regular rate and rhythm, S1, S2 without murmur, rub or gallop. ABDOMEN: Soft, nontender, nondistended, normoactive bowel sounds, no guarding, no rebound, no hepatosplenomegaly, no masses. EXTREMITIES: 2+ pulses, warm, well-perfused, no edema. NEUROLOGICAL: - Orientation: Oriented x3 - Cranial nerves III through XII grossly intact, CNII exam notes Left Homonymous Hemianopsia - Muscular: 5/5 in RUE, 4/5 in LUE, 5/5 in RLE, 3/5 in LLE - Sensation: Equal and intact in face; increased sensitivity in RLE > LLE - Reflexes: 1+ in all extremities - Cerebellar: FTN intact, difficult to perform due to L homo shaan - Normal speech, gait not observed, on seizure precautions Laboratory Results - last 24 hr 11/21/16 11/21/16 11/22/16 17:45 21:49 00:15 INR 1.05 PTT (Actin FS) 31.5 POC Glucometer 285 314 11/22/16 11/22/16 06:20 11:33 INR PTT (Actin FS) POC Glucometer 355 244 Active Medications Generic Name Dose Route Start Last Admin Trade Name Freq PRN Reason Stop Dose Admin Amlodipine Besylate 10 mg 11/22/16 10:45 11/22/16 11:32 Norvasc - PO 10 mg DAILY MELANIA Administration Aspirin 325 mg 11/23/16 10:00 Asa - PO DAILY MELANIA Atorvastatin Calcium 20 mg 11/20/16 22:00 11/21/16 21:50 Lipitor - PO 20 mg HS MELANIA Administration Heparin Sodium (Porcine) 5,000 unit 11/20/16 14:00 11/22/16 15:00 Heparin - SQ 5,000 unit TID MELANIA Administration Sodium Chloride 1,000 mls @ 75 mls/hr 11/22/16 15:15 Normal Saline - IV 11/23/16 04:34 ASDIR MELANIA Insulin Aspart 1 vial 11/22/16 22:00 Novolog Vial Sliding Scale - SQ HS MELANIA Protocol Insulin Aspart 0 units 11/22/16 16:30 Novolog SQ TIDAC MELANIA Protocol Insulin Detemir 10 units 11/22/16 22:00 Levemir Vial SQ HS MELANIA Levetiracetam 1,000 mg 11/22/16 22:00 Keppra - PO BID MELANIA Lisinopril 10 mg 11/20/16 13:30 11/22/16 09:34 Prinivil PO 10 mg DAILY MELANIA Administration IMAGING: Non-contrast CT Head - Negative MRI brain - Restricted diffusion involving R occipital cortex + R posterior temporal cortex. Chronic punctate R basil ganglia infarct. Mild chronic microvascular ischemic changes MRA head & neck - Mild stenosis of the mid basilar artery Carotid U/S - no stenosis CTA head & neck - pending ASSESSMENT/PLAN: 56M with history of HTN HLD DM presents to the ED with new onset seizure with aura. He received several doses of Versed in the ER, and was admitted for further management. He endorses new onset shaking tremors as well with preserved consciousness. # New onset Focal Seizures - likely from subacute infarct - These seizures generally involve shaking of L side of the body, with preserved consciousness (except for first one), without post-ictal phase - Most likely due to subacute/acute infarct seen on diffusion restriction involving R posterior temporal cortex. Possible new stroke causing L sided UE and LE weakness + edema causing focal seizures to the L side. 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 Ryan recommended Levemir 10u QHS + Novolog SSI with BGMs - Nutrition consult pending # Diabetic Retinopathy w/ L eye glaucoma - Pt states he has blurry vision - Opthalmology exam noted large cup to disc ratio 75% in L eye - F/u with web marketing analyst outpatient # Lactic acidosis w/ HAG - Patient presented with LA 5.5 and AG 17 which normalized quickly - Likely transient 2/2 seizure # Acute kidney injury - Presented with Cr 1.6 - Now resolved w/ IVF - Possible from transient hypotension (SBP in 80s at one pt) 2/2 seizure vs multiple doses of versed in ED vs unlikely rhabdomyolysis - Monitor especially after post-contrast from CTA of Head & neck # Elevated CK - CK slightly elevated secondary to seizure - Improved with fluids # L great toenail avulsion - Performed by Podiatry at bedside - Bacitracin + DSD for L great toe # Hx of HTN well controlled - Continue Norvasc 10mg PO QD - Will start Lisinopril 10mg QD bc patient is diabetic - Trend BPs # Hx of HLD - Started equivocal formulary dose of home statin (Atorvastatin 20mg) # CAD Risk - Was on Aspirin 81mg PO daily --> Changed to 325mgPO QD for possible stroke # FEN: - Fluids: On NS IV 75ml/hr - Electrolytes: Monitor - Nutrition: Diabetic diet # Prophylaxis - DVT: Heparin SQ, SCDs - GI: None indicated - Deconditioning: No PT consult need at this time, pt is ambulatory # Disposition - Transfer to Tele Visit type - Emergency Visit Emergency Visit: No - New Patient This patient is new to me today: No - Critical Care Critical Care patient: No - Discharge Referral Referred to [facility] No
[2016-11-22] MEDS ORDERED: Insulin (LOG) Aspart 100 UNITS/ML VIAL SQ SCH (16:30)
[2016-11-22] MEDS ORDERED: CLOPIDOGREL BISULFATE 75 MG TABLET (FP) PO SCH (16:45)
--- NOTE | 2016-11-22 20:53 | RAPID ---
Physical Examination Vital Signs: Vital Signs Temperature 98.2 F 11/22/16 14:39 Pulse Rate 88 11/22/16 14:39 Respiratory Rate 22 11/22/16 14:39 Blood Pressure 138/79 11/22/16 14:39 O2 Sat by Pulse Oximetry (%) 96 11/22/16 09:00 Last Vital Signs Labs: CBC, BMP 11/21/16 07:55 11/21/16 07:55 Rapid Response - Rapid Response Assessment: Rapid response were called for Robin Dhillon around 8. 30 PM Patient had a tonic clonic seizure in all his 4 extremities , he lost his consciousness during the seizure, which last about 15-30 seconds. It was witnessed by me and the nurse. 1 mg Ativan IVPUSH was given. patient went back to his base line after the seizure. Patient was transmitted to the ICU for better neurological monitoring Q2H His Neurologist DR. Carrillo was contacted by phone who recommend fosphenytoin 20 mg/KG IVBP as a loading dose, and 100 mg TID starting to veronica at 10 AM. His vitals t 98.6, BP 112/58, HR 89, O2 Sat 93 % on Room air.
[2016-11-22] MEDS ORDERED: PHENYTOIN SODIUM 100 MG/2 ML VIAL IVPB ONE (20:57)
[2016-11-22] MEDS ORDERED: SODIUM CHLORIDE IVPB ONE ×3 (21:15→21:30)
[2016-11-22] MEDS ORDERED: PHENYTOIN SODIUM IVPB ONE (21:15)
[2016-11-22] MEDS ORDERED: FOSPHENYTOIN SODIUM IVPB ONE ×2 (21:19→21:30)
[2016-11-22] MEDS ORDERED: INSULIN DETEMIR 100 UNITS/ML MDV SQ SCH (22:00)
[2016-11-22] MEDS ORDERED: INSULIN SLIDING SCALE (NOVOLOG) 1 VIAL SQ SCH (22:00)
[2016-11-22] MEDS ORDERED: LORazepam 2 MG/ML SDV VIAL ONE (22:03)
--- NOTE | 2016-11-22 22:20 | CONSULT ---
Consult Consult Specialty:: PULM / CCM Referred by:: Winston Greer Reason for Consultation:: Szs - History of Present Illness Chief Complaint: Szs History of Present Illness: Mr. Ace is a 56 y/o man w/ HTN, HLD, & DM, well known non-compliant) recently d/c'ed from [facility] 3 days [employer] [facility] [place], re-presents to the hospital on 11/20 BIBA for Szs. Patient denies bowel or bladder function loss. He does endorse on and off blurry vision. He states he had tremors in arms and legs since 11/16/16. Of note, pt can describe his own Sz activity: states left leg may shake then whole body may shake HE IS AWAKE and talking during the event. Denies history of seizure. The patient denies nausea vomiting fevers chills chest pain, shortness of breath palpitations and lightheadedness. W/u reveals possible micro infarcts on brain imaging. 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 ENGINEER: No: Seizure Cardio/Vascular: Yes: HTN, Hyperlipdemia Pulmonary: No: Asthma, COPD Gastrointestinal: No: Constipation, GERD Hepatobiliary: No: Cirrhosis Renal/: No: Renal Failure Heme/Onc: No: Anemia Infectious Disease: No: AIDS, HIV Psych: No: Addictions Musculoskeletal: No: Chronic low back pain Rheumatology: No: Lupus ENT: No: Allergic Rhinitis Endocrine: Yes: Diabetes Mellitus - Past Surgical History Past Surgical History: Yes: None - Alcohol/Substance Use Hx Alcohol Use: No - Smoking History Smoking history: Current every day smoker Have you smoked in the past 12 months: Yes Aproximately how many cigarettes per day: 12 - Social History Usual Living Arrangement: Other (Nephews) ADL: Independent History of Recent Travel: No Home Medications - Allergies Allergies/Adverse Reactions: Allergies Allergy/AdvReac Type Severity Reaction Status Date / Time No Known Allergies Allergy Verified 11/20/16 01:29 - Home Medications Home Medications: Ambulatory Orders Amlodipine Besylate [Norvasc -] 5 mg PO DAILY 11/21/16 Aspirin [ASA -] 81 mg PO DAILY 11/21/16 Metformin HCl [Glucophage -] 850 mg PO BID 11/21/16 Simvastatin 40 mg PO DAILY 07/22/17 Family Disease History - Family Disease History Family History: Unable to Obtain (On Ativan s/p Sz) Family Disease History: Diabetes: Father Review of Systems Unable to obtain ROS, reason: On Ativan s/p Sz Physical Exam Vital Signs: Vital Signs Temperature 98.7 F 11/22/16 20:15 Pulse Rate 88 11/22/16 20:15 Respiratory Rate 20 11/22/16 20:15 Blood Pressure 112/58 11/22/16 20:15 O2 Sat by Pulse Oximetry (%) 96 11/22/16 09:00 Intake & Output 11/20/16 11/21/16 11/22/16 11/23/16 23:59 23:59 23:59 23:59 Intake Total 450 1935 600 Output Total 900 600 Balance 450 1035 0 Weight 135.397 kg Constitutional: Yes: Well Nourished, No Distress, Calm, Poor Hygeine Eyes: Yes: WNL, Conjunctiva Clear, EOM Intact HENT: Yes: WNL, Atraumatic, Normocephalic Neck: Yes: WNL, Supple, Trachea Midline Cardiovascular: Yes: WNL, Regular Rate and Rhythm Respiratory: Yes: WNL, Regular, CTA Bilaterally Gastrointestinal: Yes: WNL, Normal Bowel Sounds, Soft, Abdomen, Obese ...Rectal Exam: Yes: Deferred Renal/: Yes: WNL Breast(s): Yes: Gynecomastia Musculoskeletal: Yes: WNL Extremities: Yes: WNL Edema: No Peripheral Pulses WNL: Yes Integumentary: Yes: WNL Neurological: Yes: WNL, Alert, Oriented ...Motor Strength: WNL Psychiatric: Yes: WNL Labs: CBC, BMP 11/21/16 07:55 11/21/16 07:55 INR, PTT INR 1.05 (0.82-1.09) 11/22/16 00:15 Imaging - Results Cat Scan: Report Reviewed MRI: Report Reviewed EKG: Image Reviewed (NSR @ 80 bpm. Possible L atrial enlargement. Left axis deviation. Left ventricular hypertrophy with QRS widening.) Problem List - Problems (1) Diabetes mellitus, new onset Code(s): E11.9 - TYPE 2 DIABETES MELLITUS WITHOUT COMPLICATIONS (2) New onset seizure Code(s): R56.9 - UNSPECIFIED CONVULSIONS (3) Hypertension Code(s): I10 - ESSENTIAL (PRIMARY) HYPERTENSION (4) Hyperlipidemia Code(s): E78.5 - HYPERLIPIDEMIA, UNSPECIFIED Assessment/Plan ASSESS: This is a 56 y/o man w/ HTN, HL, & DM whom presents now w/ NEw onset Sz- like activity. Problems: -R/o CVA -Szs -T2DM: uncontrolled, A1c 11.5 -Non compliant -?Seizure disorder -Left homonymous hemianopia -HTN -Lactic Acidosis -Left Big toe injury PLAN: -Supp FiO2 for an SpO2 > 92% -HOB > 30 -Sz Precautuions/asp precautuions -Nebs -IS -EEG -Load w/ AEDs (Keppra & Phenytoin) -Cont Ca2+ Brennan -Cont ASA -Cont Plavix -NEURO -Strict I's & O's -Trend BUN/Cr -Replete e-lytes prn -FSs -SS -Fall precautions -Nutrition consult -SQ -SCDs -Pepcid -D/c Back to floor for cont w/u
[2016-11-22] MEDS: ATORVASTATIN CA 20 MG TABLET (FP) PO SCH (22:21)
[2016-11-23] MEDS: HEPARIN NA (PORCINE) 5,000 UNITS/ML 1ML VIAL SQ SCH ×3 (05:25→21:10)
[2016-11-23] MEDS: INSULIN SLIDING SCALE (NOVOLOG) 1 VIAL SQ SCH ×3 (06:22→21:11)
[2016-11-23 06:23] LABS: MCH 22.6 pg (25.7-33.7); MCHC 30.7 g/dl (32.0-35.9); MEAN CELL VOLUME 73.5 fl (80-96); MEAN PLT VOLUME 8.9 fl (7.5-11.1); PLATELET COUNT 240 K/MM3 (134-434); RDW 13.2 % (11.9-15.9); WHITE BLOOD COUNT 10.5 K/mm3 (4.0-10.0)
[2016-11-23 06:51] LABS: ANION GAP 8 (8-16); CALCIUM 8.5 mg/dL (8.5-10.1); CO2 28 mmol/L (21-32); CREATININE 1.1 mg/dL (0.7-1.3); GLUCOSE,RANDOM 280 mg/dL (74-106)
--- NOTE | 2016-11-23 08:33 | PN ---
Physical Exam: SUBJECTIVE: Patient seen and examined this AM. Yesterday Rapid response was called on this patient. Pt had witnessed seizure with bilateral extremity movement and loss of consciousness. Dr. Munguia was notified and advised starting patient on Fosphenytoin 20mg/kg loading dose with scheduled 100mg TID starting today. Today on examination patient feels much better. States that his vision is much improved, sees more of his left side. As per nurse, patient only had an episode of focal seizure (involving UE, LE, and head turning), but no episodes of bilateral extremity tonic/clonic movements. The patient ahs no CP, no SOB, no fevers, no chills. OBJECTIVE: Vital Signs Period Temp Pulse Resp BP Sys/Navarrete Pulse Ox Last 24 Hr 98.2 F-99.6 F 66-109 13-22 112-161/58-88 96-97 GENERAL: The patient is awake, alert, and fully oriented, in no acute distress. HEAD: Normal with no signs of trauma. EYES: PERRLA, L homonymous hemianopsia on exam (much improved), able to move eyes on command, visual field restriction has gotten better ENT: Missing teeth, oral hygiene is compromised NECK: Trachea midline, full range of motion, supple. LUNGS: Breath sounds equal, clear to auscultation bilaterally, no wheezes, no crackles, no accessory muscle use. HEART: Regular rate and rhythm, S1, S2 without murmur, rub or gallop. ABDOMEN: Soft, nontender, nondistended, normoactive bowel sounds, no guarding, no rebound, no hepatosplenomegaly, no masses. EXTREMITIES: 2+ pulses, warm, well-perfused, no edema. NEUROLOGICAL: - Orientation: Oriented x3 - Cranial nerves III through XII grossly intact, CNII exam notes Left Homonymous Hemianopsia, which is improvin - Muscular: 5/5 in RUE, 5/5 in LUE, 5/5 in RLE, 4/5 in LLE - Sensation: Equal and intact in face; increased sensitivity in RLE > LLE - Reflexes: 2+ in all extremities - Cerebellar: FTN intact, difficult to perform due to L homo shaan - Normal speech, gait not observed, on seizure precautions Laboratory Results - last 24 hr 11/22/16 11/22/16 11/22/16 11:33 17:31 20:55 WBC RBC Hgb Hct MCV MCH MCHC RDW Plt Count MPV Sodium Potassium Chloride Carbon Dioxide Anion Gap BUN Creatinine POC Glucometer 244 289 216 Random Glucose Calcium Phenytoin 11/22/16 11/22/16 11/23/16 22:31 23:23 05:05 WBC 10.5 H RBC 4.54 Hgb 10.2 L Hct 33.4 L MCV 73.5 L MCH 22.6 L MCHC 30.7 L RDW 13.2 Plt Count 240 D MPV 8.9 D Sodium Potassium Chloride Carbon Dioxide Anion Gap BUN Creatinine POC Glucometer 200.71755 Random Glucose Calcium Phenytoin 27.4 H* 11/23/16 11/23/16 05:05 06:20 WBC RBC Hgb Hct MCV MCH MCHC RDW Plt Count MPV Sodium 137 Potassium 4.1 Chloride 101 Carbon Dioxide 28 Anion Gap 8 BUN 12 Creatinine 1.1 POC Glucometer 295.15829 Random Glucose 280 H Calcium 8.5 Phenytoin Active Medications Generic Name Dose Route Start Last Admin Trade Name Freq PRN Reason Stop Dose Admin Amlodipine Besylate 10 mg 11/23/16 10:00 Norvasc - PO DAILY [facility] Aspirin 81 mg 11/23/16 10:00 Ecotrin - PO DAILY [facility] Atorvastatin Calcium 20 mg 11/23/16 22:00 Lipitor - PO HS [facility] Clopidogrel Bisulfate 75 mg 11/23/16 10:00 Plavix - PO DAILY [facility] Fosphenytoin Sodium 100 mg 11/23/16 10:00 Cerebyx - IVPB TID [facility] Heparin Sodium (Porcine) 5,000 unit 11/23/16 06:00 11/23/16 05:25 Heparin - SQ 5,000 unit TID [facility] Administration Insulin Aspart 1 vial 11/23/16 22:00 Novolog Vial Sliding Scale - SQ HS [facility] Protocol Insulin Aspart 1 vial 11/23/16 07:00 11/23/16 06:22 Novolog Vial Sliding Scale - SQ 6 units TIDAC [facility] Administration Protocol Insulin Detemir 10 units 11/23/16 22:00 Levemir Vial SQ HS [facility] Levetiracetam 1,000 mg 11/23/16 10:00 Keppra - PO BID [facility] Lisinopril 10 mg 11/23/16 10:00 Prinivil PO DAILY [facility] IMAGING: Non-contrast CT Head - Negative MRI brain - Restricted diffusion involving R occipital cortex + R posterior temporal cortex. Chronic punctate R basil ganglia infarct. 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 He received several doses of Versed in the ER, and was admitted for further management. He endorses new onset shaking tremors as well with preserved consciousness. # New onset Focal Seizures - likely from subacute infarct - These seizures generally involve shaking of L side of the body, with preserved consciousness (except for first one), without post-ictal phase - Most likely due to subacute/acute infarct seen on diffusion restriction involving R posterior temporal cortex. ?CVA - CTA H&N negative for thrombus, Echo negative for clots. 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 Ryan recommended Levemir 15u QHS + Novolog SSI with BGMs - Nutrition consult pending # Diabetic Retinopathy w/ L eye glaucoma - Pt states he has blurry vision - Opthalmology exam noted large cup to disc ratio 75% in L eye - F/u with goat driver outpatient # Lactic acidosis w/ HAG - resolved - Patient presented with LA 5.5 and AG 17 which normalized quickly - Likely transient 2/2 seizure # Acute kidney injury - resolved - Presented with Cr 1.6 - Now resolved w/ IVF, Cr today is 1.1 even post CTA H&N - Possible from transient hypotension (SBP in 80s at one pt) 2/2 seizure vs multiple doses of versed in ED vs unlikely rhabdomyolysis # Elevated CK - resolving - CK slightly elevated secondary to seizure - Improved with fluids # L great toenail avulsion - Performed by Podiatry at bedside - Bacitracin + DSD for L great toe # Hx of HTN well controlled - Continue Norvasc 10mg PO QD - Continue Lisinopril 10mg QD bc patient is diabetic - Trend BPs - BP stable # Hx of HLD - Started equivocal formulary dose of home statin (Atorvastatin 20mg) # CAD Risk - On Aspirin 81mg PO daily # FEN: - Fluids: Not on fluids - Electrolytes: Monitor - Nutrition: Diabetic diet # Prophylaxis - DVT: Heparin SQ, SCDs - GI: None indicated - Deconditioning: No PT consult need at this time, pt is ambulatory # Disposition - Transfer to Tele Visit type - Emergency Visit Emergency Visit: No - New Patient This patient is new to me today: No - Critical Care Critical Care patient: No - Discharge Referral Referred to [facility] No
[2016-11-23] MEDS ORDERED: PT OWN MED DRAWER 7, Y5N ONE (09:38)
[2016-11-23] MEDS: levETIRAcetam 500 MG TABLET (FP) PO SCH ×2 (09:44→21:10)
[2016-11-23] MEDS: LISINOPRIL 10 MG TABLET (FP) PO SCH (09:44)
[2016-11-23] MEDS: ASPIRIN COATED 81 MG TABLET.EC PO SCH (09:44)
[2016-11-23] MEDS: amLODIPine BESYLATE 10 MG TABLET (FP) PO SCH (09:44)
[2016-11-23] MEDS ORDERED: CLOPIDOGREL BISULFATE 75 MG TABLET (FP) PO SCH (10:00)
[2016-11-23] MEDS ORDERED: FOSPHENYTOIN SODIUM 100 MG/2 ML VIAL IVPB SCH (10:00)
[2016-11-23] MEDS ORDERED: ASPIRIN 325 MG TABLET PO SCH (10:00)
[2016-11-23] MEDS ORDERED: ASPIRIN COATED 81 MG TABLET.EC PO SCH (10:00)
[2016-11-23] MEDS ORDERED: PHENYTOIN 50 MG TAB.CHEW PO SCH (10:00)
[2016-11-23] MEDS: FOSPHENYTOIN SODIUM 100 MG/2 ML VIAL IVPB SCH ×2 (10:46→21:11)
--- NOTE | 2016-11-23 13:25 | PN ---
Progress Note (short form) - Note Progress Note: Events noted Transferred to ICU after episode of seizure Blood sugar slightly better but suboptimal No hypos apetite good Vital Signs Period Temp Pulse Resp BP Sys/Navarrete Pulse Ox Last 24 Hr 98 F-99.6 F 66-88 13-22 112-148/58-88 97-100 PE: AOx2 Neck: Supple, No JVD HEENT:PERRL, EOMI Lungs: CTA Abd: Benign CVS: S1S2 Ext: No edema CMP Sodium 137 mmol/L (136-145) 11/23/16 05:05 Potassium 4.1 mmol/L (3.5-5.1) 11/23/16 05:05 Chloride 101 mmol/L (98-107) 11/23/16 05:05 Carbon Dioxide 28 mmol/L (21-32) 11/23/16 05:05 Anion Gap 8 (8-16) 11/23/16 05:05 BUN 12 mg/dL (7-18) 11/23/16 05:05 Creatinine 1.1 mg/dL (0.7-1.3) 11/23/16 05:05 Creat Clearance w eGFR > 60 (>60) 11/20/16 06:12 POC Glucometer 242.50550 UNITS (()) 11/23/16 11:13 Random Glucose 280 mg/dL (74-106) H 11/23/16 05:05 Hemoglobin A1c % 11.5 % (4.8-6.0) H 11/20/16 11:36 Lactic Acid 0.8 mmol/L (0.4-2.0) 11/20/16 09:22 Calcium 8.5 mg/dL (8.5-10.1) 11/23/16 05:05 Phosphorus 4.0 mg/dL (2.5-4.9) 11/21/16 07:55 Magnesium 2.1 mg/dL (1.8-2.4) 11/21/16 07:55 Total Bilirubin 0.8 mg/dL (0.2-1.0) 11/20/16 06:12 AST 21 U/L (15-37) 11/20/16 06:12 ALT 19 U/L (12-78) 11/20/16 06:12 Alkaline Phosphatase 70 U/L (45-117) 11/20/16 06:12 Creatine Kinase 622 IU/L (39-308) H 11/20/16 02:30 Creatine Kinase Index 0.3 % (0.0-5.0) 11/20/16 02:30 CK-MB (CK-2) 1.794 ng/ml (0.5-3.6) 11/20/16 02:30 CK-MB (CK-2) Rel Index Cancelled 11/20/16 02:30 Troponin I < 0.02 ng/ml (0.00-0.05) 11/20/16 02:30 Total Protein 6.9 g/dl (6.4-8.2) 11/20/16 06:12 Albumin 3.5 g/dl (3.4-5.0) 11/20/16 06:12 Lipase 137 U/L (73-393) 11/20/16 02:30 Current Medications Generic Name Dose Route Start Last Admin Trade Name Freq PRN Reason Stop Dose Admin Amlodipine Besylate 10 mg 11/23/16 10:00 11/23/16 09:44 Norvasc - PO 10 mg DAILY [facility]ELANIA Administration Aspirin 81 mg 11/23/16 10:00 11/23/16 09:44 Ecotrin - PO 81 mg DAILY [facility] Administration Atorvastatin Calcium 20 mg 11/23/16 22:00 Lipitor - PO HS [facility] Clopidogrel Bisulfate 75 mg 11/23/16 10:00 11/23/16 09:44 Plavix - PO 75 mg DAILY MELANIA Administration Fosphenytoin Sodium 100 mg 11/23/16 10:00 11/23/16 10:46 Cerebyx - IVPB 100 mg BID MELANIA Administration Heparin Sodium (Porcine) 5,000 unit 11/23/16 06:00 11/23/16 05:25 Heparin - SQ 5,000 unit TID [facility] Administration Insulin Aspart 1 vial 11/23/16 22:00 Novolog Vial Sliding Scale - SQ HS [facility] Protocol Insulin Aspart 1 vial 11/23/16 07:00 11/23/16 11:14 Novolog Vial Sliding Scale - SQ 4 units TIDAC [facility] Administration Protocol Insulin Detemir 15 units 11/23/16 22:00 Levemir Vial SQ HS [facility] Levetiracetam 1,000 mg 11/23/16 10:00 11/23/16 09:44 Keppra - PO 1,000 mg BID M[facility]ANIA Administration Lisinopril 10 mg 11/23/16 10:00 11/23/16 09:44 Prinivil PO 10 mg DAILY MELANIA Administration T2DM: uncontrolled, A1c 11.5 Non compliant with meds Nutrition consult Agree with Lememir 15 units daily at HS Increase Novolog ss coverage premeals Seizure disorder Left homonymous hemianopia HTN Lactic Acidosis Left Big toe injury Neurology and podiatry consult noted
[2016-11-23] MEDS ORDERED: INSULIN SLIDING SCALE (NOVOLOG) 1 VIAL SQ SCH ×2 (13:26→22:00)
--- NOTE | 2016-11-23 13:32 | PN ---
Teaching Attending Note Name of Resident: Jovan Shaikh ATTENDING PHYSICIAN STATEMENT I saw and evaluated the patient. I reviewed the resident's note and discussed the case with the resident. I agree with the resident's findings and plan as documented. SUBJECTIVE: Pt seen and examined in the ICU. No further seizure activity since ICU admission. Denies headache, nausea or vomiting. No fevers or chills. OBJECTIVE: Last Vital Signs Temp Pulse Resp BP Pulse Ox 98 F 74 14 120/85 100 11/23/16 10:00 11/23/16 12:00 11/23/16 12:00 11/23/16 12:00 11/23/16 09:00 Intake & Output 11/20/16 11/21/16 11/22/16 11/23/16 23:59 23:59 23:59 23:59 Intake Total 450 1935 1110 570 Output Total 900 1000 200 Balance 450 1035 110 370 Weight 298 lb 8 oz Gen: NAD at rest Heart: RRR Lung: decreased breath sounds at the bases Abd: soft, nontender Ext: no edema CBC, BMP 11/23/16 05:05 11/23/16 05:05 Active Medications Amlodipine Besylate (Norvasc -) 10 mg PO DAILY [facility] Last Admin: 11/23/16 09:44 Dose: 10 mg Aspirin (Ecotrin -) 81 mg PO DAILY [facility] Last Admin: 11/23/16 09:44 Dose: 81 mg Atorvastatin Calcium (Lipitor -) 20 mg PO HS [facility] Clopidogrel Bisulfate (Plavix -) 75 mg PO DAILY [facility] Last Admin: 11/23/16 09:44 Dose: 75 mg Fosphenytoin Sodium (Cerebyx -) 100 mg IVPB BID [facility] Last Admin: 11/23/16 10:46 Dose: 100 mg Heparin Sodium (Porcine) (Heparin -) 5,000 unit SQ TID [facility] Last Admin: 11/23/16 05:25 Dose: 5,000 unit Insulin Aspart (Novolog Vial Sliding Scale -) 1 vial SQ HS [facility] PRN Reason: Protocol Insulin Aspart (Novolog Vial Sliding Scale -) 1 vial SQ TIDAC [facility] PRN Reason: Protocol Insulin Detemir (Levemir Vial) 15 units SQ HS [facility] Levetiracetam (Keppra -) 1,000 mg PO BID [facility] Last Admin: 11/23/16 09:44 Dose: 1,000 mg Lisinopril (Prinivil) 10 mg PO DAILY [facility] Last Admin: 11/23/16 09:44 Dose: 10 mg ASSESSMENT AND PLAN: r/o Seizures Lactic Acidosis HTN DM Hyperlipidemia - antiepileptics per neuro - seizure precautions - EEG - glucose control - neuro f/u - can monitor on floor if ok with neuro
--- NOTE | 2016-11-23 15:15 | CON.CARD ---
Consult Consult Specialty:: cardiology Referred by:: camden Reason for Consultation:: cva - History of Present Illness Chief Complaint: seizure History of Present Illness: 56M PMH of HTN, HLD, DM, recently discharged from [facility] presents with new onset seizure, seen by neuro with no acute CVA and left hemianopsia resolving. Being treated for seizures without recurrence. No cp sob orthopnea, pnd or edema. Baseline exercise tolerance is poor. Echo 11/23/16 nlef, trace mr, LAE, ANOOP. - History Source History Provided By: Patient, Medical Record - Past Medical History DIRECTOR WHOLESALE: No: Seizure Cardio/Vascular: Yes: HTN, Hyperlipdemia Pulmonary: No: Asthma, COPD Gastrointestinal: No: Constipation, GERD Hepatobiliary: No: Cirrhosis Renal/: No: Renal Failure Infectious Disease: No: AIDS, HIV Psych: No: Addictions Musculoskeletal: No: Chronic low back pain Rheumatology: No: Lupus ENT: No: Allergic Rhinitis Endocrine: Yes: Diabetes Mellitus - Past Surgical History Past Surgical History: Yes: None - Alcohol/Substance Use Hx Alcohol Use: No - Smoking History Smoking history: Current every day smoker Have you smoked in the past 12 months: Yes Aproximately how many cigarettes per day: 12 - Social History Usual Living Arrangement: Other (Nephews) ADL: Independent History of Recent Travel: No Home Medications - Allergies Allergies/Adverse Reactions: Allergies Allergy/AdvReac Type Severity Reaction Status Date / Time No Known Allergies Allergy Verified 11/20/16 01:29 - Home Medications Home Medications: Ambulatory Orders Amlodipine Besylate [Norvasc -] 5 mg PO DAILY 11/21/16 Aspirin [ASA -] 81 mg PO DAILY 11/21/16 Metformin HCl [Glucophage -] 850 mg PO BID 11/21/16 Simvastatin 40 mg PO DAILY 11/21/16 Family Disease History - Family Disease History Family Disease History: Diabetes: Father Review of Systems - Review of Systems Constitutional: reports: No Symptoms Eyes: reports: Recent Change in Vision HENT: reports: No Symptoms Neck: reports: No Symptoms Cardiovascular: reports: No Symptoms Respiratory: reports: No Symptoms Vital Signs: Vital Signs Temperature 98 F 11/23/16 10:00 Pulse Rate 72 11/23/16 14:00 Respiratory Rate 16 11/23/16 14:00 Blood Pressure 92/54 11/23/16 14:00 O2 Sat by Pulse Oximetry (%) 100 11/23/16 09:00 Constitutional: Yes: No Distress, Calm Eyes: Yes: Conjunctiva Clear, EOM Intact HENT: Yes: Atraumatic, Normocephalic Neck: Yes: Supple, Trachea Midline Respiratory: Yes: CTA Bilaterally Gastrointestinal: Yes: Normal Bowel Sounds, Soft, Abdomen, Obese Cardiovascular: Yes: Regular Rate and Rhythm JVD: No Carotid Bruit: No PMI: Non-Displaced Heart Sounds: Yes: S1, S2 Edema: No Peripheral Pulses WNL: Yes - Other Data Labs, Other Data: CBC, BMP 11/23/16 05:05 11/23/16 05:05 INR, PTT INR 1.05 (0.82-1.09) 11/22/16 00:15 Imaging - Results EKG: Report Reviewed (nsr lae lvh) Assessment/Plan echo is unremarkable. Tele negative for arrhythmia, there is low suspicion of acute CVA or embolic event. would continue neuro workup. further cardiac rivera can be done as an outpatient. Continue bp and chol regimen.
--- NOTE | 2016-11-23 15:16 | PN ---
Physical Exam: SUBJECTIVE: Patient seen and examined at bedside in iCU. Pts history is inconsistent with previous chart notes and is a poor historian. He states he remembers all his seizures including the one that led him to the ICU last night. He denies biting of tongue, bowel or bladder incontinence, nausea, vomiting, post-ictal confusion. He states he slept well overall after coming to the ICU. No acute events since coming to ICU. OBJECTIVE: Vital Signs Temperature 98 F 11/23/16 10:00 Pulse Rate 72 11/23/16 14:00 Respiratory Rate 16 11/23/16 14:00 Blood Pressure 92/54 11/23/16 14:00 O2 Sat by Pulse Oximetry (%) 100 11/23/16 09:00 GENERAL: The patient is awake, alert, and fully oriented, in no acute distress. EYES: extraocular movements intact ENT: Ears normal, nares patent NECK: Trachea midline LUNGS: Breath sounds equal, clear to auscultation bilaterally HEART: Regular rate and rhythm, S1, S2 ABDOMEN: Obese, Soft, nontender, nondistended, normoactive bowel sounds EXTREMITIES: warm, well-perfused, no edema. 5/5 UE and LE strength. NEUROLOGICAL: Normal speech, gait not observed. PSYCH: Normal mood, normal affect. SKIN: Warm, dry Laboratory Results - last 24 hr 11/22/16 11/22/16 11/22/16 17:31 20:55 22:31 WBC RBC Hgb Hct MCV MCH MCHC RDW Plt Count MPV Sodium Potassium Chloride Carbon Dioxide Anion Gap BUN Creatinine POC Glucometer 289 [phone] Random Glucose Calcium Phenytoin 11/22/16 11/23/16 11/23/16 23:23 05:05 05:05 WBC 10.5 H RBC 4.54 Hgb 10.2 L Hct 33.4 L MCV 73.5 L MCH 22.6 L MCHC 30.7 L RDW 13.2 Plt Count 240 D MPV 8.9 D Sodium 137 Potassium 4.1 Chloride 101 Carbon Dioxide 28 Anion Gap 8 BUN 12 Creatinine 1.1 POC Glucometer Random Glucose 280 H Calcium 8.5 Phenytoin 27.4 H* 11/23/16 11/23/16 06:20 11:13 WBC RBC Hgb Hct MCV MCH MCHC RDW Plt Count MPV Sodium Potassium Chloride Carbon Dioxide Anion Gap BUN Creatinine POC Glucometer [phone] Random Glucose Calcium Phenytoin Active Medications Generic Name Dose Route Start Last Admin Trade Name Salas PRN Reason Stop Dose Admin Amlodipine Besylate 10 mg 11/23/16 10:00 11/23/16 09:44 Norvasc - PO 10 mg DAILY [facility] Administration Aspirin 81 mg 11/23/16 10:00 11/23/16 09:44 Ecotrin - PO 81 mg DAILY [facility] Administration Atorvastatin Calcium 20 mg 11/23/16 22:00 Lipitor - PO HS [facility] Clopidogrel Bisulfate 75 mg 11/23/16 10:00 11/23/16 09:44 Plavix - PO 75 mg DAILY [facility] Administration Fosphenytoin Sodium 100 mg 11/23/16 10:00 11/23/16 10:46 Cerebyx - IVPB 100 mg BID [facility] Administration Heparin Sodium (Porcine) 5,000 unit 11/23/16 06:00 11/23/16 14:19 Heparin - SQ 5,000 unit TID [facility] Administration Insulin Aspart 1 vial 11/23/16 22:00 Novolog Vial Sliding Scale - SQ HS [facility] Protocol Insulin Aspart 1 vial 11/23/16 22:00 Novolog Vial Sliding Scale - SQ TIDAC [facility] Protocol Insulin Detemir 15 units 11/23/16 22:00 Levemir Vial SQ HS [facility] Levetiracetam 1,000 mg 11/23/16 10:00 11/23/16 09:44 Keppra - PO 1,000 mg BID [facility] Administration Lisinopril 10 mg 11/23/16 10:00 11/23/16 09:44 Prinivil PO 10 mg DAILY [facility] Administration ASSESSMENT/PLAN: 56 y/o M w/PMH of HTN, HLD, DM (non-compliant) presents to [facility] for new onset seizures. He had a rapid response last night for witness seizure and transferred to the ICU. -Neuro -New onset seizures -c/w keppra 1000 mg po bid, fosphenytoin 100 mg bid (decreased from tid as phenytoin level elevated at 27.4) -neuro on board -f/u free phenytoin levels -case discussed with Dr. Campo (neuro) who recommends observing pt - if pt has seizure within 24 hours of last will require transfer to another facility and if no seizure will need video EEG as outpatient -Subacute chronic infarcts -f/u echo; Head and Neck CTA negative -Endocrine -DM -endocrine on board -levemir 15 units qhs -ISS TIDAC, BGMs -Cardio -HTN -c/w lisinopril 10 mg po qd, norvasc 10 mg po qd -CAD -c/w asa 81 po qd, Plavix 75 mg po qd, lipitor 20 mg po qhs -L 1st toe avulsion -podiatry on board -Prophylaxis -DVT: heparin 5000 units sq TID -FEN -no fluids -monitor electrolytes -Diabetic diet -Dispo -will continue to monitor in ICU Problem List - Problems (1) Hyperglycemia Code(s): R73.9 - HYPERGLYCEMIA, UNSPECIFIED (2) Hyperlipidemia Code(s): E78.5 - HYPERLIPIDEMIA, UNSPECIFIED (3) Hypertension Code(s): I10 - ESSENTIAL (PRIMARY) HYPERTENSION (4) New onset seizure Code(s): R56.9 - UNSPECIFIED CONVULSIONS (5) Diabetes type 2, uncontrolled Code(s): E11.65 - TYPE 2 DIABETES MELLITUS WITH HYPERGLYCEMIA Visit type - Emergency Visit Emergency Visit: Yes ED Registration Date: 11/20/16 Care time: The patient presented to the Emergency Department on the above date and was hospitalized for further evaluation of their emergent condition. - New Patient This patient is new to me today: Yes Date on this admission: 11/23/16 - Critical Care Critical Care patient: Yes Total Critical Care Time (in minutes): 35 Critical Care Statement: The care of this patient involved high complexity decision making to prevent further life threatening deterioration of the patient 's condition and/or to evalute & treat vital organ system(s) failure or risk of failure.
--- NOTE | 2016-11-23 17:00 | PN ---
Progress Note (short form) - Note Progress Note: 56M PMH of HTN, HLD, DM, recently discharged from [facility] few days ago, presents to the hospital brought in by ambulance after being called by his nephews whom he lives with, for new onset seizure. He was at [facility] because of headache found to be hyperglycemic and admitted. Patient can not recall the event. F/U Today; no seizure events after dilantin load as of 8:30 AM he deal feels faint like sensation this am, though no shaking. CTA Head and neck (-) MRI : no acute stroke PE: Vital Signs Temperature 98.6 F 11/23/16 15:31 Pulse Rate 74 11/23/16 15:31 Respiratory Rate 16 11/23/16 14:00 Blood Pressure 92/54 11/23/16 14:00 O2 Sat by Pulse Oximetry (%) 98 11/23/16 15:17 MS: A & O x2, no dyarthria or dysphasia CN:2-12 INT, no gaze preferance or face symmetria;EXCEPT ; L homonymous hemianopia ; eye exam , diabetic retinopathy , optic disc sharp; large cup to disc ratio at L eye ; Alvarez gun +deniz at L eye Motor: 5/5 Sensory: INT LT/PP Cerebellum: no dysmetria DTR: trace CV: RRR Lungs: CTA B/L CT HD (-) MRI brain indicated chronic R BG infarct; at my review of images ; there is small R occipital lesion , subacute/ chronic infarct so I called the radiology department and the addendum confirmed a minimal restricted diffusion at R occipital lobe and R post temporal lobe. . MRA head only remarkable for atherosclerosis of mid basilar artery carotid U/S ; no stenosis A/P: 56M PMH of HTN, HLD, DM, recently discharged from [facility] few days ago, p/w focal seizure w awareness and visual symptoms since past October ; ? new onset localized epilepsy , no clear strokes on MRI (chronic infarcts) and CTA (-) inconsistent field cut L--would get OPTHO eval as oupt, unclear if tied to this presentation cont Keppra and dilantin, reduce 100BID given elevated level, check level again in AM ideally if no seizure events will do get oupt EEG monitoring I have Dc plavix , and will cont ASA poorly controlled sugars--- needs endocrine /PMD FU Dr Campo Problem List - Problems (1) Diabetes mellitus, new onset Code(s): E11.9 - TYPE 2 DIABETES MELLITUS WITHOUT COMPLICATIONS (2) Hyperglycemia Code(s): R73.9 - HYPERGLYCEMIA, UNSPECIFIED (3) New onset seizure Code(s): R56.9 - UNSPECIFIED CONVULSIONS
--- NOTE | 2016-11-23 19:20 | PN ---
Teaching Attending Note Name of Resident: Patrick Muniz ATTENDING PHYSICIAN STATEMENT I saw and evaluated the patient. I reviewed the resident's note and discussed the case with the resident. I agree with the resident's findings and plan as documented. SUBJECTIVE: Events noted overnight. Patient was transferred to ICU. had seizure overnight. started the patient on Cerebyx. Patient improved his symptoms. Has no vision problems at this time. OBJECTIVE: Vital Signs Temperature 98 F 11/23/16 18:00 Pulse Rate 70 11/23/16 18:00 Respiratory Rate 16 11/23/16 18:00 Blood Pressure 100/60 11/23/16 18:00 O2 Sat by Pulse Oximetry (%) 98 11/23/16 15:17 CBCD WBC 10.5 K/mm3 (4.0-10.0) H 11/23/16 05:05 RBC 4.54 M/mm3 (4.00-5.60) 11/23/16 05:05 Hgb 10.2 GM/dL (11.7-16.9) L 11/23/16 05:05 Hct 33.4 % (35.4-49) L 11/23/16 05:05 MCV 73.5 fl (80-96) L 11/23/16 05:05 MCHC 30.7 g/dl (32.0-35.9) L 11/23/16 05:05 RDW 13.2 % (11.9-15.9) 11/23/16 05:05 Plt Count 240 K/MM3 (134-434) D 11/23/16 05:05 MPV 8.9 fl (7.5-11.1) D 11/23/16 05:05 CMP Sodium 137 mmol/L (136-145) 11/23/16 05:05 Potassium 4.1 mmol/L (3.5-5.1) 11/23/16 05:05 Chloride 101 mmol/L (98-107) 11/23/16 05:05 Carbon Dioxide 28 mmol/L (21-32) 11/23/16 05:05 Anion Gap 8 (8-16) 11/23/16 05:05 BUN 12 mg/dL (7-18) 11/23/16 05:05 Creatinine 1.1 mg/dL (0.7-1.3) 11/23/16 05:05 Creat Clearance w eGFR > 60 (>60) 11/20/16 06:12 Random Glucose 280 mg/dL (74-106) H 11/23/16 05:05 Calcium 8.5 mg/dL (8.5-10.1) 11/23/16 05:05 Total Bilirubin 0.8 mg/dL (0.2-1.0) 11/20/16 06:12 AST 21 U/L (15-37) 11/20/16 06:12 ALT 19 U/L (12-78) 11/20/16 06:12 Alkaline Phosphatase 70 U/L (45-117) 11/20/16 06:12 Total Protein 6.9 g/dl (6.4-8.2) 11/20/16 06:12 Albumin 3.5 g/dl (3.4-5.0) 11/20/16 06:12 CARDIAC ENZYMES Creatine Kinase 622 IU/L (39-308) H 11/20/16 02:30 Troponin I < 0.02 ng/ml (0.00-0.05) 11/20/16 02:30 Current Medications Generic Name Dose Route Start Last Admin Trade Name Freq PRN Reason Stop Dose Admin Amlodipine Besylate 10 mg 11/23/16 10:00 11/23/16 09:44 Norvasc - PO 10 mg DAILY [facility] Administration Aspirin 81 mg 11/23/16 10:00 11/23/16 09:44 Ecotrin - PO 81 mg DAILY [facility] Administration Atorvastatin Calcium 20 mg 11/23/16 22:00 Lipitor - PO HS [facility] Fosphenytoin Sodium 100 mg 11/23/16 10:00 11/23/16 10:46 Cerebyx - IVPB 100 mg BID [facility] Administration Heparin Sodium (Porcine) 5,000 unit 11/23/16 06:00 11/23/16 14:19 Heparin - SQ 5,000 unit TID [facility] Administration Insulin Aspart 1 vial 11/23/16 22:00 Novolog Vial Sliding Scale - SQ HS [facility] Protocol Insulin Aspart 1 vial 11/23/16 22:00 Novolog Vial Sliding Scale - SQ TIDAC [facility] Protocol Insulin Aspart 6 units 11/24/16 17:00 Novolog SQ 11/24/16 17:01 ONCE ONE Insulin Detemir 15 units 11/23/16 22:00 Levemir Vial SQ HS [facility] Levetiracetam 1,000 mg 11/23/16 10:00 11/23/16 09:44 Keppra - PO 1,000 mg BID [facility] Administration Lisinopril 10 mg 11/23/16 10:00 11/23/16 09:44 Prinivil PO 10 mg DAILY [facility] Administration Home Medications Medication Instructions Recorded Amlodipine Besylate [Norvasc -] 5 mg PO DAILY 11/21/16 Aspirin [ASA -] 81 mg PO DAILY 11/21/16 Metformin HCl [Glucophage -] 850 mg PO BID 11/21/16 Simvastatin 40 mg PO DAILY 11/21/16 PE: Neurological exam: L homonymous hemianopia improved . weakness of left side 4/5 lower and upper. rest of physical exam by resident's note EKG: NSR @ 80 bpm. Possible L atrial enlargement. Left axis deviation. Left ventricular hypertrophy with QRS widening\ CXR: No acute pathology Head CT: unremarkable MRA head only remarkable for atherosclerosis of mid basilar artery carotid U/S : negative for stenosis MRI brain - Restricted diffusion involving R occipital cortex + R posterior temporal cortex. Chronic punctate R basil ganglia infarct. Mild chronic microvascular ischemic changes CTA: negative ASSESSMENT AND PLAN: Patient is a 56M PMH of HTN, HLD, DM, recently discharged from [facility] 3 days ago, presents to the hospital brought in by ambulance after being called by his nephews whom he lives with, for new onset seizure. # Acute Right occipital infarct with right posterior temporal cortex discussed with Neuro. continue the patient on Plavix and aspirin, patient improved his symptoms . CTA head and neck negative, will get to evaluate the patient for hypercoagulable work up. Discussed with Neurologist. Pending EEG, # New onset focal seizure with awareness (partial seizure); witnessed seizure, on Keppra 1000mg po BId, addded Cerebryx , patient had no further seizure today . seizure precautions such as no driving , taking bathtub , swimming or operating heavy machinery was discussed with him and he verbalized understanding. # Right Basal Ganglia lacunar infarct on MRI report. added Plavix , aspirin 81mg daily, lipitor 20mg po daily. # Acute Left homonymous hemianopia. Ophthamology consult appreciated #T2Dm/Hyperglycemia: uncontrolled diabetes due to non compliance; ss with coverage # Lactic acidosis: 5.5 improved post IVF , most likely due to seizure # Acute kidney injury:1.2-->1.0 now post IVF. # acute Rhabdomyolysis: CK slightly elevated secondary to seizure s/p 1 liter bolus then start NS @ 50ml/hr for 24 hours # Left TOE INJURY ;Total nail avulsion performed with sterile scissors and forceps by shopping centre manager , appreciated. Dry dressing. DVT px: heparin
[2016-11-23] MEDS ORDERED: INSULIN DETEMIR 100 UNITS/ML MDV SQ SCH ×2 (22:00)
[2016-11-23] MEDS ORDERED: ATORVASTATIN CA 20 MG TABLET (FP) PO SCH (22:00)
[2016-11-24 06:06] LABS: MCH 22.7 pg (25.7-33.7); MCHC 31.2 g/dl (32.0-35.9); MEAN CELL VOLUME 72.9 fl (80-96); MEAN PLT VOLUME 8.4 fl (7.5-11.1); PLATELET COUNT 200 K/MM3 (134-434); RDW 13.6 % (11.9-15.9); WHITE BLOOD COUNT 8.7 K/mm3 (4.0-10.0)
[2016-11-24] MEDS: HEPARIN NA (PORCINE) 5,000 UNITS/ML 1ML VIAL SQ SCH ×3 (06:36→21:55)
[2016-11-24] MEDS: INSULIN SLIDING SCALE (NOVOLOG) 1 VIAL SQ SCH ×4 (06:36→21:57)
[2016-11-24 06:37] LABS: ANION GAP 8 (8-16); CALCIUM 8.4 mg/dL (8.5-10.1); CO2 28 mmol/L (21-32); CREATININE 0.8 mg/dL (0.7-1.3); GLUCOSE,RANDOM 142 mg/dL (74-106)
--- NOTE | 2016-11-24 08:07 | CONSULT ---
Consult Consult Specialty:: Hematology-Oncology Referred by:: Reason for Consultation:: ?? Hypercoagulable state - History of Present Illness Chief Complaint: New onset of seizures after discharge from [facility] History of Present Illness: History of HBP, HLD, DM, obesity, presents with new onset of seizures and found to have right occipital and right temporal infarct with old right basal ganglia infarct and microvascular ischemic changes in vessels. 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 No: Cancer, Constipation , GERD Hepatobiliary: No: Cirrhosis Renal/: No: Renal Failure, Cancer Infectious Disease: No: AIDS, HIV Psych: No: Addictions Musculoskeletal: No: Chronic low back pain Rheumatology: No: Lupus ENT: No: Allergic Rhinitis Endocrine: Yes: Diabetes Mellitus - Past Surgical History Past Surgical History: Yes: None - Alcohol/Substance Use Hx Alcohol Use: No (former heavy drinker in of one quart perr day ) - Smoking History Smoking history: Current every day smoker Have you smoked in the past 12 months: Yes Aproximately how many cigarettes per day: 12 (since age 19) - Social History ADL: Independent Occupation: currently not working History of Recent Travel: No Home Medications - Allergies Allergies/Adverse Reactions: Allergies Allergy/AdvReac Type Severity Reaction Status Date / Time No Known Allergies Allergy Verified 11/20/16 01:29 - Home Medications Home Medications: Ambulatory Orders Amlodipine Besylate [Norvasc -] 5 mg PO DAILY 11/21/16 Aspirin [ASA -] 81 mg PO DAILY 11/21/16 Metformin HCl [Glucophage -] 850 mg PO BID 11/21/16 Simvastatin 40 mg PO DAILY 11/21/16 Family Disease History - Family Disease History Family Disease History: Diabetes: Father ( , stroke), Other: Mother ( dementia- alive ), Sister ( of alcohol related issues) Other Family History: no history of cancer, blood clots, pulmonary emboli in family ; only father with history of stroke in 70's Review of Systems - Review of Systems Constitutional: denies: Malaise, Night Sweats, Unintentional Wgt. Loss Eyes: reports: Other (field cut) HENT: denies: Difficult Swallowing, Hearing Loss, Nasal Congestion, Throat Pain Neck: denies: Pain on Movement, Stiffness, Swollen Glands, Tenderness Cardiovascular: denies: Chest Pain, Palpitations, Shortness of Breath Respiratory: denies: Hemoptysis, SOB, SOB on Exertion, Wheezing Gastrointestinal: reports: Other (never had colonoscopy). denies: Melena, Nausea, Vomiting Genitourinary: reports: Frequency, Other (nocturia 4-6 x per night). denies: Burning, Discharge Musculoskeletal: denies: Back Pain, Extremity Pain, Muscle Pain, Muscle Cramps Integumentary: reports: Other. denies: Bruising, Eczema, Erythema Neurological: reports: Headache, Seizure, Other (left sided weakness) Physical Exam Vital Signs: Vital Signs Temperature 98.2 F 11/24/16 06:00 Pulse Rate 70 11/24/16 06:00 Respiratory Rate 17 11/24/16 06:00 Blood Pressure 139/99 11/24/16 06:00 O2 Sat by Pulse Oximetry (%) 98 11/23/16 20:05 Constitutional: Yes: No Distress Eyes: Yes: Conjunctiva Clear, PERRL. No: Diplopia, Ptosis, Sclera Icterus HENT: Yes: Normocephalic. No: Epistaxis, Hoarseness, Thrush, Tonsillar Exudate Neck: Yes: Supple, Trachea Midline. No: Lymphadenopathy, Tenderness, Thyromegaly Cardiovascular: Yes: Regular Rate and Rhythm Respiratory: Yes: CTA Bilaterally Gastrointestinal: Yes: Normal Bowel Sounds, Soft. No: Abdomen, Obese, Splenomegaly Renal/: No: CVA Tenderness - Left, CVA Tenderness - Right Musculoskeletal: No: Back Pain, Muscle Pain, Muscle Weakness Extremities: Yes: Internal Rotation. No: Calf Tenderness, Erythema Integumentary: No: Bruising, Erythema, Jaundice Wound/Incision: Yes: Other (toe dressed) Neurological: Yes: Oriented, Cran Nerves II-XII Intact, Seizure ...Motor Strength: WNL Psychiatric: Yes: WNL Labs: CBC, BMP 11/24/16 05:10 11/24/16 05:10 Imaging - Results Chest X-ray: Report Reviewed Cat Scan: Report Reviewed Other: Report Reviewed (right occipital and right temporal infarct ; old basal ganglia infarct) Problem List - Problems (1) Diabetes type 2, uncontrolled Assessment/Plan: Poorly controlled Code(s): E11.65 - TYPE 2 DIABETES MELLITUS WITH HYPERGLYCEMIA (2) New onset seizure Assessment/Plan: New onset of seizures with right occipital and posterior temporal infarct with old basal ganglia infarct and microvascular ischemic vessel changes Code(s): R56.9 - UNSPECIFIED CONVULSIONS (3) Hypertension Assessment/Plan: Poorly controlled Code(s): I10 - ESSENTIAL (PRIMARY) HYPERTENSION Assessment/Plan 56year old with new onset of seizures. Risk factors of obesity, poorly controlled diabetes, hypertension , hyperlipedemia. smoking, past history of alcohol and substance abuse. Has right occipital and right posterior temporal infarct and basal ganglia infarct. Will screen for hypercoagulability. History of father with stroke. No family history of blood clots , pulmonary emboli, sickle cell disease or cancer. Currently on anti-platelet and anti-seizure thrapy.
--- NOTE | 2016-11-24 08:29 | PN ---
Progress Note (short form) - Note Progress Note: 56M PMH of HTN, HLD, DM, recently discharged from [facility] few days ago, presents to the hospital brought in by ambulance after being called by his nephews whom he lives with, for new onset seizure. He was at [facility] because of headache found to be hyperglycemic and admitted. Patient can not recall the event. F/U Today; no seizure events after dilantin load no evenst > 24 hours as per team. hem notes reviewed--multiple RF for stroke, doubt primary hypercoagability CTA Head and neck (-) MRI : no acute stroke PE: Vital Signs Temperature 98.2 F 11/24/16 06:00 Pulse Rate 70 11/24/16 06:00 Respiratory Rate 17 11/24/16 06:00 Blood Pressure 139/99 11/24/16 06:00 O2 Sat by Pulse Oximetry (%) 98 11/23/16 20:05 CBCD WBC 8.7 K/mm3 (4.0-10.0) 11/24/16 05:10 RBC 4.43 M/mm3 (4.00-5.60) 11/24/16 05:10 Hgb 10.1 GM/dL (11.7-16.9) L 11/24/16 05:10 Hct 32.3 % (35.4-49) L 11/24/16 05:10 MCV 72.9 fl (80-96) L 11/24/16 05:10 MCHC 31.2 g/dl (32.0-35.9) L 11/24/16 05:10 RDW 13.6 % (11.9-15.9) 11/24/16 05:10 Plt Count 200 K/MM3 (134-434) 11/24/16 05:10 MPV 8.4 fl (7.5-11.1) 11/24/16 05:10 CMP Sodium 140 mmol/L (136-145) 11/24/16 05:10 Potassium 3.7 mmol/L (3.5-5.1) 11/24/16 05:10 Chloride 104 mmol/L (98-107) 11/24/16 05:10 Carbon Dioxide 28 mmol/L (21-32) 11/24/16 05:10 Anion Gap 8 (8-16) 11/24/16 05:10 BUN 14 mg/dL (7-18) 11/24/16 05:10 Creatinine 0.8 mg/dL (0.7-1.3) D 11/24/16 05:10 Creat Clearance w eGFR > 60 (>60) 11/20/16 06:12 Calcium 8.4 mg/dL (8.5-10.1) L 11/24/16 05:10 Total Bilirubin 0.8 mg/dL (0.2-1.0) 11/20/16 06:12 AST 21 U/L (15-37) 11/20/16 06:12 ALT 19 U/L (12-78) 11/20/16 06:12 Alkaline Phosphatase 70 U/L (45-117) 11/20/16 06:12 Total Protein 6.9 g/dl (6.4-8.2) 11/20/16 06:12 Albumin 3.5 g/dl (3.4-5.0) 11/20/16 06:12 MS: A & O x2, no dyarthria or dysphasia CN:2-12 INT, no gaze preferance or face symmetria;EXCEPT ; L homonymous hemianopia ; eye exam , diabetic retinopathy , optic disc sharp; large cup to disc ratio at L eye ; Alvarez gun +deniz at L eye Motor: 5/5 Sensory: INT LT/PP Cerebellum: no dysmetria DTR: trace CV: RRR Lungs: CTA B/L CT HD (-) MRI brain indicated chronic R BG infarct; at my review of images ; there is small R occipital lesion , subacute/ chronic infarct so I called the radiology department and the addendum confirmed a minimal restricted diffusion at R occipital lobe and R post temporal lobe. . MRA head only remarkable for atherosclerosis of mid basilar artery carotid U/S ; no stenosis A/P: 56M PMH of HTN, HLD, DM, recently discharged from [facility] few days ago, p/w focal seizure w awareness and visual symptoms since past October ; ? new onset localized epilepsy , no clear strokes on MRI (chronic infarcts) and CTA (-) inconsistent field cut L--would get OPTHO eval as oupt, unclear if tied to this presentation cont Keppra and dilantin, await Dilantin level, based on his weight, would revert back to TID (can call if questions) will obtain oupt EEG monitoring I have Dc plavix , and will cont ASA poorly controlled sugars--- needs endocrine /PMD FU neuro stable can FU him up as outpt one week Dr Campo [phone] Problem List - Problems (1) Diabetes mellitus, new onset Code(s): E11.9 - TYPE 2 DIABETES MELLITUS WITHOUT COMPLICATIONS (2) Hyperglycemia Code(s): R73.9 - HYPERGLYCEMIA, UNSPECIFIED (3) New onset seizure Code(s): R56.9 - UNSPECIFIED CONVULSIONS
--- NOTE | 2016-11-24 09:09 | PN ---
Progress Note (short form) - Note Progress Note: Denies any complaints Blood sugar 142 in the morning No hypos apetite good Vital Signs Period Temp Pulse Resp BP Sys/Navarrete Pulse Ox Last 24 Hr 98 F-98.6 F 64-74 14-18 92-140/54-99 98-98 PE: AOx2 Neck: Supple, No JVD HEENT:PERRL, EOMI Lungs: CTA Abd: Benign CVS: S1S2 Ext: No edema CMP Sodium 140 mmol/L (136-145) 11/24/16 05:10 Potassium 3.7 mmol/L (3.5-5.1) 11/24/16 05:10 Chloride 104 mmol/L (98-107) 11/24/16 05:10 Carbon Dioxide 28 mmol/L (21-32) 11/24/16 05:10 Anion Gap 8 (8-16) 11/24/16 05:10 BUN 14 mg/dL (7-18) 11/24/16 05:10 Creatinine 0.8 mg/dL (0.7-1.3) D 11/24/16 05:10 Creat Clearance w eGFR > 60 (>60) 11/20/16 06:12 POC Glucometer 377.44857 UNITS (()) 11/23/16 21:02 Random Glucose 142 mg/dL (74-106) H D 11/24/16 05:10 Hemoglobin A1c % 11.5 % (4.8-6.0) H 11/20/16 11:36 Lactic Acid 0.8 mmol/L (0.4-2.0) 11/20/16 09:22 Calcium 8.4 mg/dL (8.5-10.1) L 11/24/16 05:10 Phosphorus 4.0 mg/dL (2.5-4.9) 11/21/16 07:55 Magnesium 2.1 mg/dL (1.8-2.4) 11/21/16 07:55 Total Bilirubin 0.8 mg/dL (0.2-1.0) 11/20/16 06:12 AST 21 U/L (15-37) 11/20/16 06:12 ALT 19 U/L (12-78) 11/20/16 06:12 Alkaline Phosphatase 70 U/L (45-117) 11/20/16 06:12 Creatine Kinase 622 IU/L (39-308) H 11/20/16 02:30 Creatine Kinase Index 0.3 % (0.0-5.0) 11/20/16 02:30 CK-MB (CK-2) 1.794 ng/ml (0.5-3.6) 11/20/16 02:30 CK-MB (CK-2) Rel Index Cancelled 11/20/16 02:30 Troponin I < 0.02 ng/ml (0.00-0.05) 11/20/16 02:30 Total Protein 6.9 g/dl (6.4-8.2) 11/20/16 06:12 Albumin 3.5 g/dl (3.4-5.0) 11/20/16 06:12 Lipase 137 U/L (73-393) 11/20/16 02:30 Current Medications Generic Name Dose Route Start Last Admin Trade Name Philipq PRN Reason Stop Dose Admin Amlodipine Besylate 10 mg 11/23/16 10:00 11/23/16 09:44 Norvasc - PO 10 mg DAILY MELANIA Administration Aspirin 81 mg 11/23/16 10:00 11/23/16 09:44 Ecotrin - PO 81 mg DAILY MELANIA Administration Atorvastatin Calcium 20 mg 11/23/16 22:00 11/23/16 21:10 Lipitor - PO 20 mg HS MELANIA Administration Fosphenytoin Sodium 100 mg 11/23/16 10:00 11/23/16 21:11 Cerebyx - IVPB 100 mg BID MELANIA Administration Heparin Sodium (Porcine) 5,000 unit 11/23/16 06:00 11/24/16 06:36 Heparin - SQ 5,000 unit TID MELANIA Administration Insulin Aspart 1 vial 11/23/16 22:00 11/23/16 21:12 Novolog Vial Sliding Scale - SQ Not Given HS [facility] Protocol Insulin Aspart 1 vial 11/23/16 22:00 11/24/16 06:36 Novolog Vial Sliding Scale - SQ 2 units TIDAC MELANIA Administration Protocol Insulin Aspart 6 units 11/24/16 17:00 Novolog SQ 11/24/16 17:01 ONCE ONE Insulin Detemir 15 units 11/23/16 22:00 11/23/16 21:12 Levemir Vial SQ 15 units HS MELANIA Administration Levetiracetam 1,000 mg 11/23/16 10:00 11/23/16 21:10 Keppra - PO 1,000 mg BID MELANIA Administration Lisinopril 10 mg 11/23/16 10:00 11/23/16 09:44 Prinivil PO 10 mg DAILY MELANIA Administration T2DM: uncontrolled, A1c 11.5 Non compliant with meds Nutrition consult Lememir 15 units daily at HS Novolog ss coverage premeals. Monitor blood sugar on current regimen. Pt got no Novolog for dinner yesterday and got Novolog today morning at 6:36 a.m. Will need to recheck BGM and give Novolog for breakfast if necessary Seizure disorder Left homonymous hemianopia HTN Lactic Acidosis Left Big toe injury
[2016-11-24] MEDS: FOSPHENYTOIN SODIUM 100 MG/2 ML VIAL IVPB SCH ×3 (09:37→22:06)
[2016-11-24] MEDS: ASPIRIN COATED 81 MG TABLET.EC PO SCH (09:38)
[2016-11-24] MEDS: amLODIPine BESYLATE 10 MG TABLET (FP) PO SCH (09:38)
[2016-11-24] MEDS: levETIRAcetam 500 MG TABLET (FP) PO SCH ×2 (09:38→21:56)
[2016-11-24] MEDS: LISINOPRIL 10 MG TABLET (FP) PO SCH ×2 (09:38→12:00)
--- NOTE | 2016-11-24 10:39 | CONS ---
DATE OF CONSULTATION: 11/22/2016 Consult called by the hospitalist regarding this patient with complaints of visual disorientation. Patient was admitted with seizures and for diabetic workup on November 20, 2016, and was being followed in the hospital by Neurology, Dr. Munguia. He has had a CT of the head and an MRI of the brain during his hospital stay, and his current complaints are for blurry vision in both eyes, equal, as well as loss of field of vision which he states comes when he has a seizure and then clears up after the seizure event is over. He has no significant past ocular or past ocular surgical history. He does not have an medication coordinator. He has only been checked for reading glasses in the past, nothing recently, and he has not had his potential diabetic retinopathy ever checked. After reviewing the chart completely, the following are significant findings: Visual acuity is 20/60 at near in both eyes without correction equal. Intraocular pressure is finger tension normal and measured at 18 mmHg in both eyes. External exam reveals full ductions and versions without limitation or restriction. No evidence of nystagmus. Cranial nerves 3, 5, and 7 are intact. He is orthophoric. The anterior segment reveals the conjunctivae not injected. Cornea clear. Anterior chambers deep and clear. Lens is clear. Iris and pupil round and reactive with the possibility of a mild afferent pupillary defect in the left eye of less than 1. However, it is possible this patient did receive eye drops prior to the exam and prior to my arrival. Funduscopic exam reveals sharp and pink optic nerves without papilledema or papillitis. The cup-to-disc ratios are large at 0.5 and 0.6, respectively right to left. The macular area is flat and clear, devoid of hemorrhage or exudates. There are scattered dot hemorrhages outside of the macular arcades. The peripheral retina is flat and clear 360 degrees without retinal detachment, tear or hole. The vitreous is clear in both eyes. Further exam revealed visual field by confrontation was constricted and showed what appears to be a fairly consistent left homonymous hemianopia, which will be consistent with a vascular cerebral event. However, it does appear that there may be an element of left homonymous quadrantanopia. ASSESSMENT: 1. Significant visual field defect with a left homonymous hemianopia, left homonymous quadrantanopia which would be consistent with either a cerebral event, a cerebrovascular accident, or a temporal lobe lesion if the quadrantanopia played out on visual field testing which would have to be done as an outpatient. However, his MRI and CT scans have been read as essentially within normal limits with no evidence of acute intracranial hemorrhage or ischemic changes, and therefore, I believe that these scans need to be relooked at, and I have spoken with the neurologist regarding this as well as CT scan with angiogram and CT with contrast to further delineate any missed lesion. It would be extremely unusual to have these field defects without some evidence of a cerebral accident. Carotid Dopplers have been done, but carotid angiogram should be done if no further evidence of cerebrovascular accident has been found. At this point, given the patient's seizures which are being treated during his hospital stay, I do not believe they are related to this event, and it is questionable as to how long this patient has had the current visual field defect. 2. Evidence of mild background diabetic retinopathy which will be evaluated as an outpatient. 3. Cupping of the optic nerve consistent with glaucoma which will be evaluated as an outpatient. 4. No evidence of retinal detachment which would account for a field defect. 5. No evidence of macular degenerative change which would account for visual disorientation or vision loss. I have spoken directly with the neurologist and the house physician who will further work up this patient on a neurologic basis. If I can be of further assistance during his hospital stay, please feel free to contact me at your convenience. Best regards, NANCY RABAGO M.D. [phone]
--- NOTE | 2016-11-24 12:27 | PN ---
Teaching Attending Note Name of Resident: Jovan Shaikh ATTENDING PHYSICIAN STATEMENT I saw and evaluated the patient. I reviewed the resident's note and discussed the case with the resident. I agree with the resident's findings and plan as documented. SUBJECTIVE: Pt seen and examined in the ICU. No further seizures. Still some visual disturbances but no headache or nausea. OBJECTIVE: Last Vital Signs Temp Pulse Resp BP Pulse Ox 98 F 74 16 154/88 96 11/24/16 10:00 11/24/16 10:00 11/24/16 10:00 11/24/16 10:00 11/24/16 09:00 Intake & Output 11/21/16 11/22/16 11/23/16 11/24/16 23:59 23:59 23:59 23:59 Intake Total 1935 1110 1780 100 Output Total 900 1000 1600 Balance 1035 110 180 100 Weight 309 lb 8.464 oz Gen: NAD at rest Heart: RRR Lung: decreased breath sounds at the bases Abd: soft, nontender Ext: no edema CBC, BMP 11/24/16 05:10 11/24/16 05:10 Active Medications Amlodipine Besylate (Norvasc -) 10 mg PO DAILY [facility] Last Admin: 11/24/16 09:38 Dose: 10 mg Aspirin (Ecotrin -) 81 mg PO DAILY [facility] Last Admin: 11/24/16 09:38 Dose: 81 mg Atorvastatin Calcium (Lipitor -) 20 mg PO HS [facility] Last Admin: 11/23/16 21:10 Dose: 20 mg Fosphenytoin Sodium (Cerebyx -) 100 mg IVPB TID [facility] Heparin Sodium (Porcine) (Heparin -) 5,000 unit SQ TID [facility] Last Admin: 11/24/16 06:36 Dose: 5,000 unit Insulin Aspart (Novolog Vial Sliding Scale -) 1 vial SQ [facility] PRN Reason: Protocol Last Admin: 11/23/16 21:12 Dose: Not Given Insulin Aspart (Novolog Vial Sliding Scale -) 1 vial SQ [facility]IDAC [facility] PRN Reason: Protocol Last Admin: 11/24/16 11:30 Dose: 4 units Insulin Aspart (Novolog) 6 units SQ ONCE ONE Stop: 11/24/16 17:01 Insulin Detemir (Levemir Vial) 15 units SQ [facility] Last Admin: 11/23/16 21:12 Dose: 15 units Levetiracetam (Keppra -) 1,000 mg PO BID [facility] Last Admin: 11/24/16 09:38 Dose: 1,000 mg Lisinopril (Prinivil) 10 mg PO DAILY [facility] Last Admin: 11/23/16 09:44 Dose: 10 mg ASSESSMENT AND PLAN: Seizures Lactic Acidosis HTN DM Hyperlipidemia - antiepileptics per neuro - seizure precautions - glucose control - neuro f/u - can monitor on floor
[2016-11-24] MEDS ORDERED: FOSPHENYTOIN SODIUM 100 MG/2 ML VIAL IVPB SCH (14:00)
--- NOTE | 2016-11-24 14:14 | PN ---
Physical Exam: SUBJECTIVE: Patient seen and examined at bedside in ICU. Pt denies any issues overnight. States he had no trouble sleeping, denies any seizure like activity. He denies N/V/F/C, SOB, CP. He feels like his weakness has overall improved. OBJECTIVE: Vital Signs Temperature 98 F 11/24/16 10:00 Pulse Rate 70 11/24/16 12:00 Respiratory Rate 16 11/24/16 12:00 Blood Pressure 126/64 11/24/16 12:00 O2 Sat by Pulse Oximetry (%) 96 11/24/16 09:00 GENERAL: The patient is awake, alert, and fully oriented, in no acute distress. EYES: extraocular movements intact ENT: Ears normal, nares patent NECK: Trachea midline LUNGS: Breath sounds equal, clear to auscultation bilaterally HEART: Regular rate and rhythm, S1, S2 ABDOMEN: Obese, Soft, nontender, nondistended, normoactive bowel sounds EXTREMITIES: warm, well-perfused, no edema. 5/5 UE and LE strength. NEUROLOGICAL: Normal speech, gait not observed. PSYCH: Normal mood, normal affect. SKIN: Warm, dry Laboratory Results - last 24 hr 11/23/16 11/23/16 11/24/16 16:53 21:02 05:10 WBC 8.7 RBC 4.43 Hgb 10.1 L Hct 32.3 L MCV 72.9 L MCH 22.7 L MCHC 31.2 L RDW 13.6 Plt Count 200 MPV 8.4 Sodium Potassium Chloride Carbon Dioxide Anion Gap BUN Creatinine POC Glucometer 335.21940 377.84351 Random Glucose Calcium 11/24/16 11/24/16 11/24/16 05:10 05:44 11:24 WBC RBC Hgb Hct MCV MCH MCHC RDW Plt Count MPV Sodium 140 Potassium 3.7 Chloride 104 Carbon Dioxide 28 Anion Gap 8 BUN 14 Creatinine 0.8 D POC Glucometer 145.00395 182.39569 Random Glucose 142 H D Calcium 8.4 L Active Medications Generic Name Dose Route Start Last Admin Trade Name Freq PRN Reason Stop Dose Admin Amlodipine Besylate 10 mg 11/25/16 10:00 Norvasc - PO DAILY MELANIA Aspirin 81 mg 11/25/16 10:00 Ecotrin - PO DAILY MELANIA Atorvastatin Calcium 20 mg 11/24/16 22:00 Lipitor - PO HS MELANIA Fosphenytoin Sodium 100 mg 11/24/16 14:00 Cerebyx - IVPB TID [facility] Heparin Sodium (Porcine) 5,000 unit 11/24/16 14:00 Heparin - SQ TID [facility] Insulin Aspart 1 vial 11/24/16 16:30 Novolog Vial Sliding Scale - SQ TIDAC [facility] Protocol Insulin Aspart 1 vial 11/24/16 22:00 Novolog Vial Sliding Scale - SQ HS [facility] Protocol Insulin Aspart 6 units 11/24/16 17:00 Novolog SQ 11/24/16 17:01 ONCE ONE Insulin Detemir 15 units 11/24/16 22:00 Levemir Vial SQ HS [facility] Levetiracetam 1,000 mg 11/24/16 22:00 Keppra - PO BID MELANIA Lisinopril 10 mg 11/25/16 10:00 Prinivil PO DAILY [facility] ASSESSMENT/PLAN: 56 y/o M w/PMH of HTN, HLD, DM (non-compliant) presents to [facility] for new onset seizures. He had a rapid response last night for witness seizure and transferred to the ICU. -Neuro -New onset seizures -c/w keppra 1000 mg po bid, increase fosphenytoin 100 mg tid -neuro on board -f/u free phenytoin levels -case discussed with Dr. Campo (neuro) who recommends fosphenytoin 100 mg tid and keppra 1000 mg bid for outpatient regimen and to f/u with neuro within 1 week of discharge. -Subacute chronic infarcts -echo - no cardiac source of emboli noted. LV is borderline dilated. LVSF is normal. RV is normal in size and function. Trace mitral regurg. LA and RA are both mildly dilated. -Endocrine -DM -endocrine on board -levemir 15 units qhs -ISS TIDAC, BGMs -Cardio -HTN -c/w lisinopril 10 mg po qd, norvasc 10 mg po qd -CAD -c/w asa 81 po qd, Plavix 75 mg po qd, lipitor 20 mg po qhs -L 1st toe avulsion -podiatry on board -Prophylaxis -DVT: heparin 5000 units sq TID -FEN -no fluids -monitor electrolytes -Diabetic diet -Dispo -transfer to med-surg Problem List - Problems (1) Hyperglycemia Code(s): R73.9 - HYPERGLYCEMIA, UNSPECIFIED (2) Hyperlipidemia Code(s): E78.5 - HYPERLIPIDEMIA, UNSPECIFIED (3) Hypertension Code(s): I10 - ESSENTIAL (PRIMARY) HYPERTENSION (4) New onset seizure Code(s): R56.9 - UNSPECIFIED CONVULSIONS (5) Diabetes type 2, uncontrolled Code(s): E11.65 - TYPE 2 DIABETES MELLITUS WITH HYPERGLYCEMIA Visit type - Emergency Visit Emergency Visit: Yes ED Registration Date: 11/20/16 Care time: The patient presented to the Emergency Department on the above date and was hospitalized for further evaluation of their emergent condition. - New Patient This patient is new to me today: No - Critical Care Critical Care patient: Yes Total Critical Care Time (in minutes): 35 Critical Care Statement: The care of this patient involved high complexity decision making to prevent further life threatening deterioration of the patient 's condition and/or to evalute & treat vital organ system(s) failure or risk of failure.
[2016-11-24] MEDS ORDERED: Insulin (LOG) Aspart 100 UNITS/ML VIAL SQ ONE ×2 (17:00)
--- NOTE | 2016-11-24 17:17 | PN ---
Teaching Attending Note Name of Resident: Patrick Muniz ATTENDING PHYSICIAN STATEMENT I saw and evaluated the patient. I reviewed the resident's note and discussed the case with the resident. I agree with the resident's findings and plan as documented. SUBJECTIVE: Patient is feeling better, vision is better, no further seizure today. OBJECTIVE: Vital Signs Temperature 98 F 11/24/16 16:00 Pulse Rate 74 11/24/16 16:00 Respiratory Rate 18 11/24/16 16:00 Blood Pressure 128/68 11/24/16 16:00 O2 Sat by Pulse Oximetry (%) 96 11/24/16 09:00 CBCD WBC 8.7 K/mm3 (4.0-10.0) 11/24/16 05:10 RBC 4.43 M/mm3 (4.00-5.60) 11/24/16 05:10 Hgb 10.1 GM/dL (11.7-16.9) L 11/24/16 05:10 Hct 32.3 % (35.4-49) L 11/24/16 05:10 MCV 72.9 fl (80-96) L 11/24/16 05:10 MCHC 31.2 g/dl (32.0-35.9) L 11/24/16 05:10 RDW 13.6 % (11.9-15.9) 11/24/16 05:10 Plt Count 200 K/MM3 (134-434) 11/24/16 05:10 MPV 8.4 fl (7.5-11.1) 11/24/16 05:10 CMP Sodium 140 mmol/L (136-145) 11/24/16 05:10 Potassium 3.7 mmol/L (3.5-5.1) 11/24/16 05:10 Chloride 104 mmol/L (98-107) 11/24/16 05:10 Carbon Dioxide 28 mmol/L (21-32) 11/24/16 05:10 Anion Gap 8 (8-16) 11/24/16 05:10 BUN 14 mg/dL (7-18) 11/24/16 05:10 Creatinine 0.8 mg/dL (0.7-1.3) D 11/24/16 05:10 Creat Clearance w eGFR > 60 (>60) 11/20/16 06:12 Random Glucose 142 mg/dL (74-106) H D 11/24/16 05:10 Calcium 8.4 mg/dL (8.5-10.1) L 11/24/16 05:10 Total Bilirubin 0.8 mg/dL (0.2-1.0) 11/20/16 06:12 AST 21 U/L (15-37) 11/20/16 06:12 ALT 19 U/L (12-78) 11/20/16 06:12 Alkaline Phosphatase 70 U/L (45-117) 11/20/16 06:12 Total Protein 6.9 g/dl (6.4-8.2) 11/20/16 06:12 Albumin 3.5 g/dl (3.4-5.0) 11/20/16 06:12 CARDIAC ENZYMES Creatine Kinase 622 IU/L (39-308) H 11/20/16 02:30 Troponin I < 0.02 ng/ml (0.00-0.05) 11/20/16 02:30 Current Medications Generic Name Dose Route Start Last Admin Trade Name Salas PRN Reason Stop Dose Admin Amlodipine Besylate 10 mg 11/25/16 10:00 Norvasc - PO DAILY [facility] Aspirin 81 mg 11/25/16 10:00 Ecotrin - PO DAILY [facility] Atorvastatin Calcium 20 mg 11/24/16 22:00 Lipitor - PO HS [facility] Fosphenytoin Sodium 100 mg 11/24/16 14:00 11/24/16 14:42 Cerebyx - IVPB 100 mg TID [facility] Administration Heparin Sodium (Porcine) 5,000 unit 11/24/16 14:00 11/24/16 14:47 Heparin - SQ 5,000 unit TID [facility] Administration Insulin Aspart 1 vial 11/24/16 16:30 11/24/16 16:21 Novolog Vial Sliding Scale - SQ 6 units TIDAC [facility] Administration Protocol Insulin Aspart 1 vial 11/24/16 22:00 Novolog Vial Sliding Scale - SQ HS [facility] Protocol Insulin Detemir 15 units 11/24/16 22:00 Levemir Vial SQ HS [facility] Levetiracetam 1,000 mg 11/24/16 22:00 Keppra - PO BID [facility] Lisinopril 10 mg 11/25/16 12:00 Prinivil PO DAILY@1200 [facility] Home Medications Medication Instructions Recorded Amlodipine Besylate [Norvasc -] 5 mg PO DAILY 11/21/16 Aspirin [ASA -] 81 mg PO DAILY 11/21/16 Metformin HCl [Glucophage -] 850 mg PO BID 11/21/16 Simvastatin 40 mg PO DAILY 11/21/16 PE: Neurological exam: L homonymous hemianopia improving . weakness of left side 4/5 lower and upper. rest of physical exam by resident's note EKG: NSR @ 80 bpm. Possible L atrial enlargement. Left axis deviation. Left ventricular hypertrophy with QRS widening\ CXR: No acute pathology Head CT: unremarkable MRA head only remarkable for atherosclerosis of mid basilar artery carotid U/S : negative for stenosis MRI brain - Restricted diffusion involving R occipital cortex + R posterior temporal cortex. Chronic punctate R basil ganglia infarct. Mild chronic microvascular ischemic changes CTA: negative ASSESSMENT AND PLAN: Patient is a 56M PMH of HTN, HLD, DM, recently discharged from [facility] 3 days ago, presents to the hospital brought in by ambulance after being called by his nephews whom he lives with, for new onset seizure. # Acute Right occipital infarct with right posterior temporal cortex with left homonymous hemianopia discussed with Neuro. , Discontinued Plavix per neuro ,continue aspirin, patient improving symptoms . CTA head and neck negative, hypercoagulable work up is in process by . Pending EEG. # New onset focal seizure with awareness (partial seizure); witnessed seizure, on Keppra 1000mg po BId, addded Cerebryx , no further seizure noted . seizure precautions such as no driving , taking bathtub , swimming or operating heavy machinery was discussed with him and he verbalized understanding. # Right Basal Ganglia lacunar infarct on MRI report. Off Plavix , continue aspirin 81mg daily, lipitor 20mg po daily. # Acute Left homonymous hemianopia. Ophthamology consult appreciated #T2Dm/Hyperglycemia: uncontrolled diabetes due to non compliance; ss with coverage # Lactic acidosis: 5.5 improved post IVF , most likely due to seizure # Acute kidney injury:1.2-->1.0 now post IVF. # acute Rhabdomyolysis resolved: CK slightly elevated secondary to seizure s/ p 1 liter bolus then start NS @ 50ml/hr for 24 hours # Left TOE INJURY ;Total nail avulsion performed with sterile scissors and forceps by parts processor , appreciated. Dry dressing. DVT px: heparin possible discharge to rehab.
[2016-11-24] MEDS ORDERED: PT OWN MED DRAWER 7, Y5N ONE (21:27)
--- NOTE | 2016-11-24 21:43 | PN ---
Physical Exam: SUBJECTIVE: Patient seen and examined this AM. No complaints. No CP, no SOB, no headaches. During the exam, patient had episode of left head turning with eyes deviating towards the left. Patient was not shaking. Stated his name, , location during the episode. States that he feels light and like "he is falling into an abyss". OBJECTIVE: Vital Signs Period Temp Pulse Resp BP Sys/Navarrete Pulse Ox Last 24 Hr 98 F-98.2 F 64-74 14-18 102-154/63-99 96 GENERAL: The patient is awake, alert, and fully oriented, in no acute distress. HEAD: Normal with no signs of trauma. EYES: PERRLA, L homonymous hemianopsia on exam, able to move eyes on command, visual field restriction has gotten better ENT: Missing teeth, oral hygiene is compromised NECK: Trachea midline, full range of motion, supple. LUNGS: Breath sounds equal, clear to auscultation bilaterally, no wheezes, no crackles, no accessory muscle use. HEART: Regular rate and rhythm, S1, S2 without murmur, rub or gallop. ABDOMEN: Soft, nontender, nondistended, normoactive bowel sounds, no guarding, no rebound, no hepatosplenomegaly, no masses. EXTREMITIES: 2+ pulses, warm, well-perfused, no edema. NEUROLOGICAL: - Orientation: Oriented x3 - Cranial nerves III through XII grossly intact, CNII exam notes Left Homonymous Hemianopsia, which is improvin - Muscular: 5/5 in RUE, 5/5 in LUE, 5/5 in RLE, 4/5 in LLE - Sensation: Equal and intact in face; equal and intact in body - Reflexes: 2+ in all extremities - Cerebellar: FTN intact - Normal speech, gait not observed, on seizure precautions Laboratory Results - last 24 hr 11/23/16 11/24/16 11/24/16 21:02 05:10 05:10 WBC 8.7 RBC 4.43 Hgb 10.1 L Hct 32.3 L MCV 72.9 L MCH 22.7 L MCHC 31.2 L RDW 13.6 Plt Count 200 MPV 8.4 Sodium 140 Potassium 3.7 Chloride 104 Carbon Dioxide 28 Anion Gap 8 BUN 14 Creatinine 0.8 D POC Glucometer [phone] Random Glucose 142 H D Calcium 8.4 L 11/24/16 11/24/16 11/24/16 05:44 11:24 16:15 WBC RBC Hgb Hct MCV MCH MCHC RDW Plt Count MPV Sodium Potassium Chloride Carbon Dioxide Anion Gap BUN Creatinine POC Glucometer [phone] [phone] Random Glucose Calcium Active Medications Generic Name Dose Route Start Last Admin Trade Name Freq PRN Reason Stop Dose Admin Amlodipine Besylate 10 mg 11/25/16 10:00 Norvasc - PO DAILY [facility] Aspirin 81 mg 11/25/16 10:00 Ecotrin - PO DAILY [facility] Atorvastatin Calcium 20 mg 11/24/16 22:00 Lipitor - PO HS [facility] Fosphenytoin Sodium 100 mg 11/24/16 14:00 11/24/16 14:42 Cerebyx - IVPB 100 mg TID [facility] Administration Heparin Sodium (Porcine) 5,000 unit 11/24/16 14:00 11/24/16 14:47 Heparin - SQ 5,000 unit TID [facility] Administration Insulin Aspart 1 vial 11/24/16 16:30 11/24/16 16:21 Novolog Vial Sliding Scale - SQ 6 units TIDAC [facility] Administration Protocol Insulin Aspart 1 vial 11/24/16 22:00 Novolog Vial Sliding Scale - SQ HS [facility] Protocol Insulin Detemir 15 units 11/24/16 22:00 Levemir Vial SQ HS [facility] Levetiracetam 1,000 mg 11/24/16 22:00 Keppra - PO BID [facility] Lisinopril 10 mg 11/25/16 12:00 Prinivil PO DAILY@1200 [facility] ASSESSMENT/PLAN: IMAGING: Non-contrast CT Head - Negative MRI brain - Restricted diffusion involving R occipital cortex + R posterior temporal cortex. Chronic punctate R basil ganglia infarct. 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 He received several doses of Versed in the ER, and was admitted for further management. He has had subsequent episodes of focal seizures with preserved consciousness. # New onset Focal Seizures - likely from subacute infarct - Possibly due to subacute/acute infarct seen on diffusion restriction involving R posterior temporal cortex. ?Thromboembolic event - CTA H&N negative for thrombus, Echo negative for clots. 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 Ryan on case - Nutrition consult pending # Diabetic Retinopathy w/ L eye glaucoma - Pt states he has blurry vision - Opthalmology exam noted large cup to disc ratio 75% in L eye - F/u with table setter outpatient # Lactic acidosis w/ HAG - resolved - Patient presented with LA 5.5 and AG 17 which normalized quickly - Likely transient 2/2 seizure # Acute kidney injury - resolved - Presented with Cr 1.6 - Now resolved w/ IVF, Cr today is 1.1 even post CTA H&N - Possible from transient hypotension (SBP in 80s at one pt) 2/2 seizure vs multiple doses of versed in ED vs unlikely rhabdomyolysis # Elevated CK - resolving - CK slightly elevated secondary to seizure - Improved with fluids # L great toenail avulsion - Performed by Podiatry at bedside - Bacitracin + DSD for L great toe # Hx of HTN well controlled - Continue Norvasc 10mg PO QD - Continue Lisinopril 10mg QD bc patient is diabetic - Trend BPs - BP stable # Hx of HLD - Started equivocal formulary dose of home statin (Atorvastatin 20mg) # CAD Risk - On Aspirin 81mg PO daily # FEN: - Fluids: Not on fluids - Electrolytes: Monitor - Nutrition: Diabetic diet # Prophylaxis - DVT: Heparin SQ, SCDs - GI: None indicated - Deconditioning: PT consult prior to discharge # Disposition - Transfer from ICU to Tele Visit type - Emergency Visit Emergency Visit: No - New Patient This patient is new to me today: No - Critical Care Critical Care patient: No - Discharge Referral Referred to [facility] Med P.C.: No
[2016-11-24] MEDS: ATORVASTATIN CA 20 MG TABLET (FP) PO SCH (21:57)
[2016-11-24] MEDS ORDERED: INSULIN (NOVOLOG) ASPART 100 UNITS/ML 10ML VIAL ONE (22:03)
[2016-11-24] MEDS: INSULIN DETEMIR 100 UNITS/ML MDV SQ SCH (22:07)
[2016-11-25] MEDS: FOSPHENYTOIN SODIUM 100 MG/2 ML VIAL IVPB SCH ×2 (06:30→16:18)
[2016-11-25] MEDS: HEPARIN NA (PORCINE) 5,000 UNITS/ML 1ML VIAL SQ SCH ×3 (06:31→23:20)
[2016-11-25] MEDS: INSULIN SLIDING SCALE (NOVOLOG) 1 VIAL SQ SCH ×4 (06:32→23:27)
[2016-11-25 08:52] LABS: MCHC 31.2 g/dl (32.0-35.9); MEAN CELL VOLUME 73.9 fl (80-96); MEAN PLT VOLUME 8.4 fl (7.5-11.1); PLATELET COUNT 183 K/MM3 (134-434); RDW 13.3 % (11.9-15.9); WHITE BLOOD COUNT 8.2 K/mm3 (4.0-10.0)
[2016-11-25 09:23] LABS: ANION GAP 10 (8-16); CO2 27 mmol/L (21-32); CREATININE 0.8 mg/dL (0.7-1.3); GLUCOSE,RANDOM 144 mg/dL (74-106); LDH 148 U/L (87-241)
--- NOTE | 2016-11-25 09:31 | PN ---
Progress Note, Physician History of Present Illness: Pt. reports he is doing well, no further seizures. On Keppra/Cerebyx. F/U Today; no seizure events after dilantin load no evenst > 24 hours as per team. hem notes reviewed--multiple RF for stroke, doubt primary hypercoagability CTA Head and neck (-) MRI : no acute stroke Suggest: Can change to oral Dilantin 100mg tid. Cont. Keppra. Kindly have pt. f/u as outpt. with us. Thanks, Dmitry Thompson MD [phone] - Current Medication List Current Medications: Active Medications Amlodipine Besylate (Norvasc -) 10 mg PO DAILY [facility] Aspirin (Ecotrin -) 81 mg PO DAILY [facility] Atorvastatin Calcium (Lipitor -) 20 mg PO HS [facility] Last Admin: 11/24/16 21:57 Dose: 20 mg Fosphenytoin Sodium (Cerebyx -) 100 mg IVPB TID [facility] Last Admin: 11/25/16 06:30 Dose: 100 mg Heparin Sodium (Porcine) (Heparin -) 5,000 unit SQ TID [facility] Last Admin: 11/25/16 06:31 Dose: 5,000 unit Insulin Aspart (Novolog Vial Sliding Scale -) 1 vial SQ TIDAC [facility] PRN Reason: Protocol Last Admin: 11/25/16 06:32 Dose: 4 units Insulin Aspart (Novolog Vial Sliding Scale -) 1 vial SQ HS [facility] PRN Reason: Protocol Last Admin: 11/24/16 21:57 Dose: Not Given Insulin Detemir (Levemir Vial) 15 units SQ HS [facility] Last Admin: 11/24/16 22:07 Dose: 15 units Levetiracetam (Keppra -) 1,000 mg PO BID [facility] Last Admin: 11/24/16 21:56 Dose: 1,000 mg Lisinopril (Prinivil) 10 mg PO DAILY@1200 [facility] - Objective Vital Signs: Vital Signs Temperature 98.4 F 11/25/16 06:12 Pulse Rate 72 11/25/16 06:12 Respiratory Rate 18 11/25/16 06:12 Blood Pressure 116/72 11/25/16 06:12 O2 Sat by Pulse Oximetry (%) 96 11/24/16 21:00 Labs: CBC, BMP 11/25/16 06:35 11/25/16 06:35 INR, PTT INR 1.05 (0.82-1.09) 11/22/16 00:15
[2016-11-25] MEDS: ASPIRIN COATED 81 MG TABLET.EC PO SCH (09:44)
[2016-11-25] MEDS: amLODIPine BESYLATE 10 MG TABLET (FP) PO SCH (09:44)
[2016-11-25] MEDS: levETIRAcetam 500 MG TABLET (FP) PO SCH ×2 (09:44→23:20)
[2016-11-25] MEDS ORDERED: LISINOPRIL 10 MG TABLET (FP) PO SCH (10:00)
[2016-11-25] MEDS ORDERED: INSULIN (NOVOLOG) ASPART 100 UNITS/ML 10ML VIAL ONE ×2 (11:45→22:22)
[2016-11-25] MEDS: LISINOPRIL 10 MG TABLET (FP) PO SCH (11:46)
[2016-11-25] MEDS ORDERED: PT OWN MED DRAWER 7, Y5N ONE ×3 (14:07→23:22)
[2016-11-25] MEDS: BACITRACIN 15 GM TUBE TOPICAL OINTMENT TP SCH (16:20)
--- NOTE | 2016-11-25 18:21 | PN ---
Teaching Attending Note Name of Resident: Patrick Muniz ATTENDING PHYSICIAN STATEMENT I saw and evaluated the patient. I reviewed the resident's note and discussed the case with the resident. I agree with the resident's findings and plan as documented. SUBJECTIVE: no fever or chills. has o weakness, numbness or tingling. has no HUNG or visual changes , no seizure activity over night OBJECTIVE: NAD , AAOx3. MMM CV : RRR Lungs: CTAB Ext : no edema or erythema Neuro: EOMI, no facial droop, round equal pupils reactive to light, nl facial sensation, strength 5/5 in upper and lower ext proximally and distally. sensation to light touch is nl. reflexes : 1+ knee jerk and 1+ biceps reflexes b/l. visual filed , NL ASSESSMENT AND PLAN: 56 y/o gentleman with h/o HTN, DM , HLP who presented with a new onset seizure like activity. he was to have R occiptal stroke . 1- New onset focal seizure: nor ecurrence on cerebyx, and keppra. pending further Neuro recs on Out patient regimen might need VEEG as out pt 2- R occipital acute stroke. causing L homonymous hemianopsia : now improved - cont aspirin - was started o n lipitor 20 . will check level of LDL - cont ACEi - echo reviewed. - hypercoagulable w/u in progress - MRA with mild stenosis in mid basilar artery , no other lesions or aneurysms 3- uncontrolled Dm , not on any meds at home. no sugar is better controlled. - cont levemir 15 u at HS - cont ssi - unlikely was in DKA at presentation 4- lactic acidosis with elevated AG at presentation , likely due to seizure , resolved 5- MALOU : due to rahabdo, resolved with IVF 6- PT eval , pt did not walk . will repeat in AM ( dc held for that )
--- NOTE | 2016-11-25 19:47 | PN ---
Addendum entered and electronically signed by Patrick Muniz RES 11/25/16 21: 37: Correction: #New onset seizures - likely from a focus in the R frontal lobe since it affects frontal eye sequeira, unlikely from the subacute infarct. Original Note: Physical Exam: SUBJECTIVE: Patient seen and examined this AM. No Cp, no SOB, no fevers, no chills. States he felt drowsy this AM. OBJECTIVE: Vital Signs Period Temp Pulse Resp BP Sys/Navarrete Pulse Ox Last 24 Hr 98.1 F-98.7 F 70-80 17-18 116-143/55-84 96-97 GENERAL: The patient is awake, alert, and fully oriented, in no acute distress. HEAD: Normal with no signs of trauma. EYES: PERRLA, much improved L homonymous hemianopsia on exam, able to move eyes on command, visual field restriction has gotten better ENT: Missing teeth, oral hygiene is compromised NECK: Trachea midline, full range of motion, supple. LUNGS: Breath sounds equal, clear to auscultation bilaterally, no wheezes, no crackles, no accessory muscle use. HEART: Regular rate and rhythm, S1, S2 without murmur, rub or gallop. ABDOMEN: Soft, nontender, nondistended, normoactive bowel sounds, no guarding, no rebound, no hepatosplenomegaly, no masses. EXTREMITIES: 2+ pulses, warm, well-perfused, no edema. NEUROLOGICAL: - Orientation: Oriented x3 - Cranial nerves III through XII grossly intact, CNII exam notes major improvement of LHH - Muscular: 5/5 in RUE, 5/5 in LUE, 5/5 in RLE, 4/5 in LLE - Sensation: Equal and intact in face; equal and intact in body - Reflexes: 2+ in all extremities - Cerebellar: FTN intact - Normal speech, gait slow, shuffled, says he has ankle pain Laboratory Results - last 24 hr 11/24/16 11/25/16 11/25/16 21:45 05:38 06:35 WBC RBC Hgb Hct MCV MCH MCHC RDW Plt Count MPV PTT (Actin FS) Fibrinogen 386.0 Sodium Potassium Chloride Carbon Dioxide Anion Gap BUN Creatinine POC Glucometer 193 188 Random Glucose Calcium LD Total Globulin Albumin/Globulin Ratio IgG IgA IgM 11/25/16 11/25/1617 06:35 06:35 06:35 WBC RBC Hgb Hct MCV MCH MCHC RDW Plt Count MPV PTT (Actin FS) 33.2 Fibrinogen Sodium 141 Potassium 3.5 Chloride 104 Carbon Dioxide 27 Anion Gap 10 BUN 10 D Creatinine 0.8 POC Glucometer Random Glucose 144 H Calcium 8.0 L LD Total 148 Globulin Cancelled Albumin/Globulin Ratio Cancelled IgG Cancelled IgA Cancelled IgM Cancelled 11/25/16 11/25/16 11/25/16 06:35 11:41 17:25 WBC 8.2 RBC 4.19 Hgb 9.6 L Hct 31.0 L MCV 73.9 L MCH 23.0 L MCHC 31.2 L RDW 13.3 Plt Count 183 MPV 8.4 PTT (Actin FS) Fibrinogen Sodium Potassium Chloride Carbon Dioxide Anion Gap BUN Creatinine POC Glucometer 280 292 Random Glucose Calcium LD Total Globulin Albumin/Globulin Ratio IgG IgA IgM Active Medications Generic Name Dose Route Start Last Admin Trade Name Freq PRN Reason Stop Dose Admin Amlodipine Besylate 10 mg 11/25/16 10:00 11/25/16 09:44 Norvasc - PO 10 mg DAILY [facility] Administration Aspirin 81 mg 11/25/16 10:00 11/25/16 09:44 Ecotrin - PO 81 mg DAILY [facility] Administration Atorvastatin Calcium 20 mg 11/24/16 22:00 11/24/16 21:57 Lipitor - PO 20 mg HS [facility] Administration Bacitracin 1 applic 11/25/16 14:45 11/25/16 16:20 Bacitracin - TP 1 applic DAILY [facility] Administration Heparin Sodium (Porcine) 5,000 unit 11/24/16 14:00 11/25/16 16:19 Heparin - SQ 5,000 unit TID [facility] Administration Insulin Aspart 1 vial 11/24/16 16:30 11/25/16 17:25 Novolog Vial Sliding Scale - SQ 8 units TIDAC [facility] Administration Protocol Insulin Aspart 1 vial 11/24/16 22:00 11/24/16 21:57 Novolog Vial Sliding Scale - SQ Not Given HS [facility] Protocol Insulin Detemir 15 units 11/24/16 22:00 11/24/16 22:07 Levemir Vial SQ 15 units HS [facility] Administration Levetiracetam 1,000 mg 11/24/16 22:00 11/25/16 09:44 Keppra - PO 1,000 mg BID [facility] Administration Lisinopril 10 mg 11/25/16 12:00 11/25/16 11:46 Prinivil PO 10 mg DAILY@1200 [facility] Administration Phenytoin Sodium 100 mg 11/25/16 22:00 Dilantin - PO TID [facility] IMAGING: Non-contrast CT Head - Negative MRI brain - Restricted diffusion involving R occipital cortex + R posterior temporal cortex. Chronic punctate R basil ganglia infarct. 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 He received several doses of Versed in the ER, and was admitted for further management. He has had subsequent episodes of focal seizures with preserved consciousness. 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 ?Hypercoagulable - heme consulted, labs ordered - On ASA 81mg - Echo + Hypercoag workup pending # DM/Hyperglycemia (A1C 11.5) - not controlled - Uncontrolled diabetes due to medication non compliance - Pt on Levemir 15u QHS + Novolog SSI with BGMs, will d/c on metformin - Endocrinology Dr. Ryan on case # Diabetic Retinopathy w/ L eye glaucoma - Pt states he has blurry vision - Opthalmology exam noted large cup to disc ratio 75% in L eye - F/u with infrastructure tech outpatient # Lactic acidosis w/ HAG - resolved - Patient presented with LA 5.5 and AG 17 which normalized quickly - Likely transient 2/2 seizure # Acute kidney injury - resolved - Presented with Cr 1.6 - Now resolved w/ IVF, Cr today is 1.1 even post CTA H&N - Possible from transient hypotension (SBP in 80s at one pt) 2/2 seizure vs multiple doses of versed in ED vs unlikely rhabdomyolysis # Elevated CK - resolving - CK slightly elevated secondary to seizure - Improved with fluids # L great toenail avulsion - Performed by Podiatry at bedside - Bacitracin + DSD for L great toe # Hx of HTN well controlled - Continue Norvasc 10mg PO QD - Continue Lisinopril 10mg QD bc patient is diabetic - Trend BPs - BP stable # Hx of HLD - Started equivocal formulary dose of home statin (Atorvastatin 20mg) # CAD Risk - On Aspirin 81mg PO daily # FEN: - Fluids: Not on fluids - Electrolytes: Monitor - Nutrition: Diabetic diet # Prophylaxis - DVT: Heparin SQ, SCDs - GI: None indicated - Deconditioning: PT consult prior to discharge # Disposition - Awaiting PT tmrw, PT was not able to walk with patient today because they state he got dizzy and could not see. Visit type - Emergency Visit Emergency Visit: No - New Patient This patient is new to me today: No - Critical Care Critical Care patient: No - Discharge Referral Referred to [facility] Med P.C.: No
[2016-11-25] MEDS: PHENYTOIN NA EXTENDED 100 MG CAPSULE (FP) PO SCH (23:20)
[2016-11-25] MEDS: ATORVASTATIN CA 20 MG TABLET (FP) PO SCH (23:21)
[2016-11-25] MEDS: INSULIN DETEMIR 100 UNITS/ML MDV SQ SCH (23:28)
[2016-11-26 00:10] LABS: PROTEIN C FUNCTIONAL 147 % (73-180); PROTEIN S FREE 73 % (57-157); PROTEIN S TOTAL 96 % (60-150)
[2016-11-26 06:06] LABS: ANTITHROMBIN III 108 % (75-135); BETA-2-GLYCOPROTEIN I IGA <9 (0-25)
--- NOTE | 2016-11-26 06:37 | PN ---
Physical Exam: SUBJECTIVE: Patient seen and examined this AM. No complaints, no seizure activity last night. Statse that he was unable to walk yesterday because of L foot pain. He will try again today. No Cp, no SOB, no fevers, no chills. OBJECTIVE: Vital Signs Period Temp Pulse Resp BP Sys/Navarrete Pulse Ox Last 24 Hr 98.1 F-98.7 F 70-81 17-18 123-146/55-79 97-97 GENERAL: The patient is awake, alert, and fully oriented, in no acute distress. HEAD: Normal with no signs of trauma. EYES: PERRLA, much improved L homonymous hemianopsia on exam, able to move eyes on command, visual field restriction has gotten better ENT: Missing teeth, oral hygiene is compromised NECK: Trachea midline, full range of motion, supple. LUNGS: Breath sounds equal, clear to auscultation bilaterally, no wheezes, no crackles, no accessory muscle use. HEART: Regular rate and rhythm, S1, S2 without murmur, rub or gallop. ABDOMEN: Soft, nontender, nondistended, normoactive bowel sounds, no guarding, no rebound, no hepatosplenomegaly, no masses. EXTREMITIES: 2+ pulses, warm, well-perfused, no edema. No tenderness to palpation in L foot NEUROLOGICAL: - Orientation: Oriented x3 - Cranial nerves III through XII grossly intact, no L homonymous hemianopsia - Muscular: 5/5 in RUE, 5/5 in LUE, 5/5 in RLE, 5/5 in LLE - Sensation: Equal and intact in face; equal and intact in body - Reflexes: 2+ in all extremities - Cerebellar: FTN intact - Normal speech, gait slow, shuffled, says he has ankle pain Laboratory Results - last 24 hr 11/23/16 11/24/16 11/24/16 05:05 05:10 11:15 WBC RBC Hgb Hct MCV MCH MCHC RDW Plt Count MPV PTT (Actin FS) Fibrinogen Free Protein S Total Protein S Func Antithrombin III 108 Sodium Potassium Chloride Carbon Dioxide Anion Gap BUN Creatinine POC Glucometer Random Glucose Calcium LD Total Globulin Albumin/Globulin Ratio Mtyl-3-Fcnoplxlfblt Free/Total Phenytoin 1.9 2.2 H IgG IgA IgM Mivc-8-Ozaeftnpcdca Ab Beta-2-GPI IgM Ab Anti-Cardiolipin IgG Ab Anti-Cardiolipin IgA Ab Anti-Cardiolipin IgM Ab 11/24/16 11/25/16 11/25/16 11:15 06:35 06:35 WBC RBC Hgb Hct MCV MCH MCHC RDW Plt Count MPV PTT (Actin FS) Fibrinogen 386.0 Free Protein S 73 Total Protein S 96 Func Antithrombin III Sodium 141 Potassium 3.5 Chloride 104 Carbon Dioxide 27 Anion Gap 10 BUN 10 D Creatinine 0.8 POC Glucometer Random Glucose 144 H Calcium 8.0 L LD Total 148 Globulin Albumin/Globulin Ratio Fhkn-4-Wbpwepvkjmkq <9 Free/Total Phenytoin IgG IgA IgM Zpqp-7-Udcugqqiykpx Ab <9 Beta-2-GPI IgM Ab <9 Anti-Cardiolipin IgG Ab <9 Anti-Cardiolipin IgA Ab <9 Anti-Cardiolipin IgM Ab <9 11/25/16 11/25/16 11/25/16 06:35 06:35 06:35 WBC 8.2 RBC 4.19 Hgb 9.6 L Hct 31.0 L MCV 73.9 L MCH 23.0 L MCHC 31.2 L RDW 13.3 Plt Count 183 MPV 8.4 PTT (Actin FS) 33.2 Fibrinogen Free Protein S Total Protein S Func Antithrombin III Sodium Potassium Chloride Carbon Dioxide Anion Gap BUN Creatinine POC Glucometer Random Glucose Calcium LD Total Globulin Cancelled Albumin/Globulin Ratio Cancelled Srqg-4-Jmcfnaaayudi Free/Total Phenytoin IgG Cancelled IgA Cancelled IgM Cancelled Lijc-6-Enfgbepwjfff Ab Beta-2-GPI IgM Ab Anti-Cardiolipin IgG Ab Anti-Cardiolipin IgA Ab Anti-Cardiolipin IgM Ab 11/25/16 11/25/16 11/25/16 11:41 17:25 23:26 WBC RBC Hgb Hct MCV MCH MCHC RDW Plt Count MPV PTT (Actin FS) Fibrinogen Free Protein S Total Protein S Func Antithrombin III Sodium Potassium Chloride Carbon Dioxide Anion Gap BUN Creatinine POC Glucometer 280 292 208 Random Glucose Calcium LD Total Globulin Albumin/Globulin Ratio Rffc-4-Sveathwbraii Free/Total Phenytoin IgG IgA IgM Uors-0-Qgkhltdxzufy Ab Beta-2-GPI IgM Ab Anti-Cardiolipin IgG Ab Anti-Cardiolipin IgA Ab Anti-Cardiolipin IgM Ab Active Medications Generic Name Dose Route Start Last Admin Trade Name Freq PRN Reason Stop Dose Admin Amlodipine Besylate 10 mg 11/25/16 10:00 11/25/16 09:44 Norvasc - PO 10 mg DAILY [facility] Administration Aspirin 81 mg 11/25/16 10:00 11/25/16 09:44 Ecotrin - PO 81 mg DAILY [facility] Administration Atorvastatin Calcium 20 mg 11/24/16 22:00 11/25/16 23:21 Lipitor - PO 20 mg HS [facility] Administration Bacitracin 1 applic 11/25/16 14:45 11/25/16 16:20 Bacitracin - TP 1 applic DAILY [facility] Administration Heparin Sodium (Porcine) 5,000 unit 11/24/16 14:00 11/25/16 23:20 Heparin - SQ 5,000 unit TID [facility] Administration Insulin Aspart 1 vial 11/24/16 16:30 11/25/16 17:25 Novolog Vial Sliding Scale - SQ 8 units TIDAC [facility] Administration Protocol Insulin Aspart 1 vial 11/24/16 22:00 11/25/16 23:27 Novolog Vial Sliding Scale - SQ 2 units HS [facility] Administration Protocol Insulin Detemir 15 units 11/24/16 22:00 11/25/16 23:28 Levemir Vial SQ 15 units HS [facility] Administration Levetiracetam 1,000 mg 11/24/16 22:00 11/25/16 23:20 Keppra - PO 1,000 mg BID [facility] Administration Lisinopril 10 mg 11/25/16 12:00 11/25/16 11:46 Prinivil PO 10 mg DAILY@1200 [facility] Administration Phenytoin Sodium 100 mg 11/25/16 22:00 11/25/16 23:20 Dilantin - PO 100 mg TID [facility] Administration ASSESSMENT/PLAN:
[2016-11-26] MEDS: HEPARIN NA (PORCINE) 5,000 UNITS/ML 1ML VIAL SQ SCH ×2 (06:55→14:08)
[2016-11-26] MEDS: PHENYTOIN NA EXTENDED 100 MG CAPSULE (FP) PO SCH ×2 (06:56→14:08)
[2016-11-26] MEDS: INSULIN SLIDING SCALE (NOVOLOG) 1 VIAL SQ SCH ×3 (07:03→17:30)
[2016-11-26 07:53] LABS: ANION GAP 8 (8-16); CALCIUM 8.3 mg/dL (8.5-10.1); CHOLESTEROL 195 mg/dL (50-200); CO2 29 mmol/L (21-32); CREATININE 0.9 mg/dL (0.7-1.3); GLUCOSE,RANDOM 172 mg/dL (74-106)
[2016-11-26 08:03] LABS: LDL CHOLESTEROL (ONLY SJRH) 121 mg/dL (5-100); URIC ACID 4.8 mg/dL (2.6-7.2)
--- NOTE | 2016-11-26 09:17 | PN ---
Teaching Attending Note Name of Resident: Patrick Muniz ATTENDING PHYSICIAN STATEMENT I saw and evaluated the patient. I reviewed the resident's note and discussed the case with the resident. I agree with the resident's findings and plan as documented. SUBJECTIVE: no fever or chills , has n o pain or SOB. has no weakness. reported not doing well with PT yesterday due to foot pain. he denied any dizziness with PT yesterday. Denies an y colored vision OBJECTIVE: NAD, AAOx3. MMM CV: RRR. 2/6 SM at RUSB , no radiation to carotids Lungs: CTAB Ext: no edema or erythema Neuro: EOMI, no facial droop, round equal pupils reactive to light, nl facial sensation, strength 5/5 in upper and lower ext proximally and distally. sensation to light touch is nl. reflexes : 1+ knee jerk and 1+ biceps reflexes b/l. visual filed , NL ASSESSMENT AND PLAN: 56 y/o gentleman with h/o HTN, DM , HLP who presented with a new onset seizure like activity. he was to have R occiptal stroke . 1- New onset focal seizure: no events lately might need VEEG as out pt COnt Dilantin and Keppra after dc 2- R occipital acute stroke. causing L homonymous hemianopsia : now visual filed is NL - cont aspirin - LDL 121, above goal . cont lipitor ( started here ) - cont ACEI - hypercoagulable w/u in progress. To follow with house repairer as out pt - MRA with mild stenosis in mid basilar artery , no other lesions or aneurysms 3- Uncontrolled Dm , not on any meds at home. - Increase HS levemir - cont SSI 4- Lactic acidosis with elevated AG at presentation , likely due to seizure , resolved 5- MALOU : due to rahabdo, resolved with IVF Dispo : repeat PT eval twice today. Does not qualify for rehab due to lack of insurance. plan to dc home if safe per PT
[2016-11-26] MEDS ORDERED: PT OWN MED DRAWER 7, Y5N ONE (10:44)
[2016-11-26] MEDS: ASPIRIN COATED 81 MG TABLET.EC PO SCH (10:46)
[2016-11-26] MEDS: levETIRAcetam 500 MG TABLET (FP) PO SCH (10:46)
[2016-11-26] MEDS: amLODIPine BESYLATE 10 MG TABLET (FP) PO SCH (10:46)
[2016-11-26] MEDS: BACITRACIN 15 GM TUBE TOPICAL OINTMENT TP SCH (10:49)
[2016-11-26] MEDS: LISINOPRIL 10 MG TABLET (FP) PO SCH (11:42)
[2016-11-26] MEDS ORDERED: INSULIN DETEMIR 100 UNITS/ML MDV SQ SCH (11:50)
--- NOTE | 2016-11-26 16:00 | DS ---
Physical Exam: SUBJECTIVE: Patient seen and examined this AM without complaints. No headaches, no seizure activity. No CP, no SOB, no fever, no chills. OBJECTIVE: Vital Signs Period Temp Pulse Resp BP Sys/Navarrete Pulse Ox Last 24 Hr 98.1 F-99.3 F 68-81 16-19 125-146/59-79 94-97 PHYSICAL EXAM GENERAL: The patient is awake, alert, and fully oriented, in no acute distress. HEAD: Normal with no signs of trauma. EYES: PERRLA, no L homonymous hemianopsia on exam, able to move eyes on command , visual field restriction has gotten better ENT: Missing teeth, oral hygiene is compromised NECK: Trachea midline, full range of motion, supple. LUNGS: Breath sounds equal, clear to auscultation bilaterally, no wheezes, no crackles, no accessory muscle use. HEART: Regular rate and rhythm, S1, S2 without murmur, rub or gallop. ABDOMEN: Soft, nontender, nondistended, normoactive bowel sounds, no guarding, no rebound, no hepatosplenomegaly, no masses. EXTREMITIES: 2+ pulses, warm, well-perfused, no edema. No tenderness to palpation in L foot NEUROLOGICAL: - Orientation: Oriented x3 - Cranial nerves III through XII grossly intact, no L homonymous hemianopsia - Muscular: 5/5 in RUE, 5/5 in LUE, 5/5 in RLE, 5/5 in LLE - Sensation: Equal and intact in face; equal and intact in body - Reflexes: 2+ in all extremities - Cerebellar: FTN intact - Normal speech, gait slow, shuffled, says he has ankle pain LABS Laboratory Results - last 24 hr 11/23/16 11/24/16 11/24/16 05:05 05:10 11:15 Free Protein S Total Protein S Func Antithrombin III 108 Sodium Potassium Chloride Carbon Dioxide Anion Gap BUN Creatinine POC Glucometer Random Glucose Uric Acid Calcium Triglycerides Cholesterol Total LDL Cholesterol HDL Cholesterol Phospholipids Rvmu-1-Syjdnajzevob Phenytoin Free/Total Phenytoin 1.9 2.2 H Wlis-7-Pultuwrxnelg Ab Beta-2-GPI IgM Ab Anti-Cardiolipin IgG Ab Anti-Cardiolipin IgA Ab Anti-Cardiolipin IgM Ab 11/24/16 11/25/16 11/25/16 11:15 11:41 17:25 Free Protein S 73 Total Protein S 96 Func Antithrombin III Sodium Potassium Chloride Carbon Dioxide Anion Gap BUN Creatinine POC Glucometer 280 292 Random Glucose Uric Acid Calcium Triglycerides Cholesterol Total LDL Cholesterol HDL Cholesterol Phospholipids 219 Qidc-9-Fafrhuuqnipa <9 Phenytoin Free/Total Phenytoin Oukk-0-Efahigpnckhz Ab <9 Beta-2-GPI IgM Ab <9 Anti-Cardiolipin IgG Ab <9 Anti-Cardiolipin IgA Ab <9 Anti-Cardiolipin IgM Ab <9 11/25/16 11/26/16 11/26/16 23:26 06:35 06:35 Free Protein S Total Protein S Func Antithrombin III Sodium 141 Potassium 3.9 Chloride 104 Carbon Dioxide 29 Anion Gap 8 BUN 10 Creatinine 0.9 POC Glucometer 208 Random Glucose 172 H Uric Acid 4.8 Calcium 8.3 L Triglycerides 204 H Cholesterol 195 Total LDL Cholesterol 121 H HDL Cholesterol 38 L Phospholipids Tkhv-4-Zjicqneobgoo Phenytoin 17.5 D Free/Total Phenytoin Qktp-3-Vhfzfxvtmjuy Ab Beta-2-GPI IgM Ab Anti-Cardiolipin IgG Ab Anti-Cardiolipin IgA Ab Anti-Cardiolipin IgM Ab 11/26/16 11/26/16 06:58 11:30 Free Protein S Total Protein S Func Antithrombin III Sodium Potassium Chloride Carbon Dioxide Anion Gap BUN Creatinine POC Glucometer 169 214 Random Glucose Uric Acid Calcium Triglycerides Cholesterol Total LDL Cholesterol HDL Cholesterol Phospholipids Fvmk-7-Rrobtnrnzako Phenytoin Free/Total Phenytoin Oobz-9-Dozavaietsde Ab Beta-2-GPI IgM Ab Anti-Cardiolipin IgG Ab Anti-Cardiolipin IgA Ab Anti-Cardiolipin IgM Ab IMAGING: Non-contrast CT Head - Negative MRI brain - Restricted diffusion involving R occipital cortex + R posterior temporal cortex. Chronic punctate R basil ganglia infarct. Mild chronic microvascular ischemic changes MRA head & neck - Mild stenosis of the mid basilar artery Carotid U/S - no stenosis CTA head & neck - negative HOSPITAL COURSE: Date of Admission:11/20/16 Date of Discharge: 11/26/16 Mr. Robin Ace is a 56yo M with HTN, HLD, Uncontrolled DM2 who presented to the ER with new onset seizures witnessed by the patient's nephew and hyperglycemia. # New onset focal seizures - The patient was given multiple doses of Versed in the ED, with resolution of seizures. Noncontrast Head CT showed no acute bleeds. During the hospitalization , the patient has had focal seizures involving L arm and L leg shaking with L head turning and L eye deviation with preserved consciousness. He also had 2 episodes of bilateral upper and lower extremity movements with loss of consciousness. Dr Campo and Dr. Canada from Neurology were consulted and the patient was started on Keppra 500mg PO BID which was titrated up to 1000mg BID with the addition of IV Fosphenytoin 100mg TID to better control the seizures. The patient has had no seizures since the new seizure regimen has been initiated. The patient will be discharged on Keppra 1,000mg BID + Phenytoin 100mg TID. The patients Dilantin level is currently therapeutic at 17.8 # Subacute CVA - Brain MRI was significant for minimal restricted diffusions in the right occipital and right posterior temporal cortices. There was concern for a CVA, since the patient also developed L sided weakness and sensation loss and had new onset left homonymous hemianopsia. A stroke workup was initiated. The patient was started on ASA and Plavix. Carotid Doppler was negative and CTA Head & Neck showed patency of all vessels. Echocardiogram was negative for clots. A hypercoagulable workup was performed and most of those labs are still pending and need to be followed up by a PCP. The patients L sided deficits resolved with time, and upon discharge, there were no focal neurological findings. The visual field deficits improved with time, and on discharge there were no field deficits. # Diabetes mellitus - uncontrolled (HgbA1c 11.5) - The patient admits to noncompliance with his meds, and presented with a blood glucose of 415. The patient was treated with insulin, and his blood glucose was controlled with a basal and sliding scale insulin. The patient was seen by ophthalmology who noted that he has L eye glaucoma with evidence of mild background diabetic retinopathy. We were going to discharge him on Levemir 20u QHS and a sliding scale insulin, but all basal insulins were too expensive for the patient and he is still working on getting insurance. We discharged the patient on Glipizide 10mg QD, and would request him to switch to followup with a PCP and switch to a basal insulin when he obtains insurance. We would also like him to follow up with Ophthalmology as an outpatient # Other - L Great Toe Nail Avulsion No fracture noted on XR, seen by podiatry and given Bacitracin and DSD, needs podiatry O/P followup - Lactic acidosis Initial lactate was 5.5 in the ED secondary to seizure activity. Repeat lactic acid resolved to 0.8. - Acute Kidney Injury Initial Cr was 1.6, likely due to rhabdo/seizure activity , but resolved with fluids to 0.8 - Hx of Hypertension - controlled with home medications of Norvasc 10mg PO QD. Lisinopril 10mg PO QD was added per patient's diabetic status. - Hx of Hyperlipidemia (controlled) - Patient will be discharged on home statin The patient was made aware of the hospital course and agrees with the plan PLEASE NOTE THAT DISCHARGE MEDICATIONS BELOW ARE INCORRECT: THE PATIENT WAS NOT DISCONTINUED ON LEVEMIR 20u QHS, HE WAS DISCHARGED ON GLIPIZIDE 10mg QD DUE TO MEDICATION COST Minutes to complete discharge: 55 Discharge Summary Reason For Visit: NEW ONSET SEIZURE HYPERGLYCEMIA DIABETES Current Active Problems New onset seizure (Acute) Diabetes mellitus, new onset (Chronic) Diabetes type 2, uncontrolled (Chronic) Hyperlipidemia (Chronic) Hypertension (Chronic) Condition: Improved - Instructions Diet, Activity, Other Instructions: You were admitted to the hospital because you had a new onset seizure that was witnessed by your nephew. We believe your left sided tremors are called focal seizures, and sometimes they can cause a whole body tremors which are called generalized seizures. We are starting you on anti-seizure medications, and you MUST take them without missing a dose New Seizure Medications: Keppra 1,000mg two times a day Phenytoin ER 100mg three times a day Please avoid driving, swimming, climbing trees, using ladders or heavy machinery until your neurologist tells you that you can resume those activities. You will also need a video EEG. We are also adding you on New Diabetes Medications: Levemir 20 units at night Aspart Sliding Scale Insulin For the Sliding Scale Insulin, please check your glucose before meals and give yourself the following units of insulin depending on your blood glucose BLOOD GLUCOSE UNITS 101-150 --> 0 151-200 --> 2 201-250 --> 4 251-300 --> 6 301-350 --> 8 351-400 --> 10 > 400 --> 12 Please followup with your management architect, your neurologist Because you do not have a primary care provider, we recommend you go to Dr. Morales ([phone]) in 2 weeks. If that does not work out, you can call our free clinic at [facility] and come in for a free appointment ([phone]) If you have any serious symptoms please return to the ER Referrals: Larry Dixon MD [Staff Physician] - 2 Weeks (Patient does not have PCP. No insurance.) Sunny Campo DO [Staff Physician] - 1 Week (Needs VEEG) Alhaji Mccall MD [Staff Physician] - Akbar Tapia MD [Staff Physician] - 2 Weeks Delores Redd MD [Staff Physician] - Disposition: HOME - Home Medications Comprehensive Discharge Medication List: Ambulatory Orders Aspirin [ASA -] 81 mg PO DAILY 11/21/16 Metformin HCl [Glucophage -] 850 mg PO BID 11/21/16 Simvastatin 40 mg PO DAILY 11/21/16 Amlodipine Besylate [Norvasc -] 10 mg PO DAILY #30 tablet 11/25/16 Bacitracin - [Bacitracin Topical Ointment -] 1 applic TP DAILY #1 tube 11/25/16 Levetiracetam [Keppra -] 1,000 mg PO BID #60 tablet 11/25/16 Lisinopril [Prinivil] 10 mg PO DAILY@1200 #30 tablet 11/25/16 Insulin (Levemir) [Levemir Flexpen -] 20 units SQ HS #2 pen 11/26/16 Insulin Aspart [Novolog Flexpen] See Protocol SQ AC #1 insuln.pen 11/26/16 Miscellaneous Medical Supply [Outpatient Order] 1 each ASDIR #1 misc Phenytoin Na Extended [Dilantin -] 100 mg PO TID #90 capsule 11/26/16 This patient is new to me today: No Emergency Visit: No Critical Care patient: No - Discharge Referral Referred to [facility] Med [facility].C[facility] No Physician Referral: Larry Morales MD ([facility])
[2016-11-26] MEDS ORDERED: INSULIN (NOVOLOG) ASPART 100 UNITS/ML 10ML VIAL ONE ×2 (17:23→17:41)
[2016-11-26] MEDS ORDERED: INSULIN DETEMIR 100 UNITS/ML MDV SQ ONE (17:41)
[2016-11-26 19:11] VITALS: BP 124/69; PULSE 82; TEMP 98.4
[2016-11-27 00:07] LABS: REFERENCES 131 % (.)
[2016-11-27 14:16] LABS: Hgb A2 1.9 % (0.7-3.1)
[2016-11-28 00:08] LABS: ALBUMIN 2.9 g/dL (2.9-4.4); ALPHA-1-GLOBULIN 0.2 g/dL (0.0-0.4); GAMMA GLOBULIN 1.1 g/dL (0.4-1.8); GLOBULIN, TOTAL 3.2 g/dL (2.2-3.9); M-SPIKE Not Observed g/dL (Not Observed); TOTAL PROTEIN 6.1 g/dL (6.0-8.5)
== END 2016-11-26 19:14 | disposition home or self-care (01) | DRG 420 ==
LOC: JER 01:21 → JERBED 05:14 → UNDOADMIN 06:29 → JERBED 06:29 → J5S 10:46 → J4W 11-22 19:36 → JICU 11-22 21:37 → J5S 11-24 16:54
PROVIDERS: ADMIT Internal Medicine; ATTEND Internal Medicine
PROC: 0HDRXZZ Extraction of Toe Nail, External Approach (ICD-10-PCS; principal; 2016-11-22)
DX: E11.65 Type 2 diabetes mellitus with hyperglycemia (principal); E87.2 Acidosis; H53.462 Homonymous bilateral field defects, left side; N17.9 Acute kidney failure, unspecified; M62.82 Rhabdomyolysis; F17.210 Nicotine dependence, cigarettes, uncomplicated; I95.1 Orthostatic hypotension; H53.47 Heteronymous bilateral field defects; S91.209A Unspecified open wound of unspecified toe(s) with damage to nail, initial encounter; W18.39XA Other fall on same level, initial encounter; Y92.89 Other specified places as the place of occurrence of the external cause; E11.319 Type 2 diabetes mellitus with unspecified diabetic retinopathy without macular edema; Z91.14 Patient's other noncompliance with medication regimen; E78.5 Hyperlipidemia, unspecified; I10 Essential (primary) hypertension; E66.8 Other obesity; Z68.41 Body mass index [BMI] 40.0-44.9, adult; H40.812 Glaucoma with increased episcleral venous pressure, left eye; I63.8 Other cerebral infarction
CPT/HCPCS: 36415; 70450-TC; 70496-TC; 70498-TC; 70544-TC; 70547-TC; 70551-TC; 71010-TC; 73630-TC-LT; 80048; 80053; 80061; 80185; 80186; 80307; 81003; 81015; 81240; 81241; 81291; 82550; 82553; 82784; 83021; 83036; 83090; 83605; 83615; 83690; 83721; 83735; 84100; 84155; 84165; 84311; 84484; 84550; 85025; 85027; 85300; 85303; 85305; 85306; 85384; 85610; 85660; 85730; 86146; 86334; 86850; 86900; 86901; 93005; 93010; 93306-TC; 93880-TC; 95816; 97116-GP; 97162-GP; 99283-25; J1644

== ENCOUNTER 2016-11-29 03:09 | Inpatient (IN) | payer OTHER ==
--- NOTE | 2016-11-29 03:48 | PDOC ---
History of Present Illness - General History Source: Patient Exam Limitations: No Limitations - History of Present Illness Initial Comments: 11/29/16 03:58 Patient is 56 year old male with a significant past medical history of HTN, DM, HLD and seizure who presents to the ED with left leg swelling. Patient reports swelling of the left LE and calf tenderness. He states that he was dc from [facility] 2 days ago after being admitted for new onset seizure. He denies any cp, nausea or fever. He denies hx of DVT. He denies any recent trauma. SH - 40 pack year history, hx of alcoholism now drinks 1/month ALL - NKA <Paty Giordano - Last Filed: 11/29/16 04:10> <Cecily Cleary - Last Filed: 11/29/16 06:12> - General Stated Complaint: LEFT LEG IN PAIN Time Seen by Provider: 11/29/16 03:40 Past History <Paty Giordano - Last Filed: 11/29/16 04:10> - Past Medical History Diabetes: Yes Seizures: Yes - Psycho/Social/Smoking Cessation Hx Suicidal Ideation: No Smoking History: Unknown if ever smoked Have you smoked in the past 12 months: Yes Number of Cigarettes Smoked Daily: 12 (since age 19) 'Breaking Loose' booklet given: 11/20/16 Hx Alcohol Use: No Drug/Substance Use Hx: No Substance Use Type: None <Cecily Cleary - Last Filed: 11/29/16 06:12> - Past Medical History Allergies/Adverse Reactions: Allergies Allergy/AdvReac Type Severity Reaction Status Date / Time No Known Allergies Allergy Verified 11/20/16 01:29 Home Medications: Ambulatory Orders Amlodipine Besylate [Norvasc -] 10 mg PO DAILY #30 tablet 11/25/16 Bacitracin - [Bacitracin Topical Ointment -] 1 applic TP DAILY #1 tube 11/25/16 Levetiracetam [Keppra -] 1,000 mg PO BID #60 tablet 11/25/16 Lisinopril [Prinivil] 10 mg PO DAILY@1200 #30 tablet 11/25/16 Aspirin [ASA -] 81 mg PO DAILY #30 tab 11/26/16 Glipizide [Glipizide ER] 10 mg PO DAILY #10 tab.er.24 11/26/16 Insulin Aspart [Novolog Flexpen] See Protocol SQ AC #1 insuln.pen 11/26/16 Metformin HCl [Glucophage -] 850 mg PO BID #60 tab 11/26/16 Miscellaneous Medical Supply [Outpatient Order] 1 each ASDIR #1 misc Phenytoin Na Extended [Dilantin -] 100 mg PO TID #90 capsule 11/26/16 Simvastatin 40 mg PO DAILY #30 tab 11/26/16 Review of Systems - Review of Systems Able to Perform ROS?: Yes Comments:: 11/29/16 03:59 GENERAL/CONSTITUTIONAL: No fever or chills. No weakness. HEAD, EYES, EARS, NOSE AND THROAT: No change in vision. No ear pain or discharge. No sore throat. CARDIOVASCULAR: No chest pain or shortness of breath. RESPIRATORY: No cough, wheezing, or hemoptysis. GASTROINTESTINAL: No nausea, vomiting, diarrhea or constipation. GENITOURINARY: No dysuria, frequency, or change in urination. MUSCULOSKELETAL: (+)left calf tenderness and swelling. No neck or back pain. SKIN: No rash NEUROLOGIC: No headache, vertigo, loss of consciousness, or change in strength/ sensation. ENDOCRINE: No increased thirst. No abnormal weight change. HEMATOLOGIC/LYMPHATIC: No anemia, easy bleeding, or history of blood clots. ALLERGIC/IMMUNOLOGIC: No hives or skin allergy. <Paty Giordano - Last Filed: 11/29/16 04:10> *Physical Exam - Physical Exam Comments: 11/29/16 03:59 GENERAL: Awake, alert, and fully oriented, in no acute distress HEAD: No signs of trauma EYES: PERRLA, EOMI, sclera anicteric, conjunctiva clear ENT: Auricles normal inspection, hearing grossly normal, nares patent, oropharynx clear without exudates. Moist mucosa NECK: Normal ROM, supple, no lymphadenopathy, JVD, or masses LUNGS: Breath sounds equal, clear to auscultation bilaterally. No wheezes, and no crackles HEART: Regular rate and rhythm, normal S1 and S2, no murmurs, rubs or gallops ABDOMEN: Soft, nontender, normoactive bowel sounds. No guarding, no rebound. No masses EXTREMITIES: (+) left LE erythema and warmth up to the knee. +left calf tenderness, edema but not rock hard. Good pulses. Left leg warmer than right, left first toe nail came off no surrounding cellulitis or erythema. Normal range of motion. No clubbing or cyanosis. No cords. NEUROLOGICAL: Cranial nerves II through XII grossly intact. Normal speech. SKIN: Warm, Dry, normal turgor, no rashes or lesions noted. <Paty Giordano - Last Filed: 11/29/16 04:10> ED Treatment Course - LABORATORY CBC & Chemistry Diagram: 11/29/16 04:11 11/29/16 04:57 <Cecily Cleary - Last Filed: 11/29/16 06:12> Medical Decision Making - Medical Decision Making 11/29/16 06:10 PT COMES WITH SWOLLEN LEFT LOWER LEG AND CALF PAIN. HE WAS ADMITTED TO OUR HOSPITAL LAST WEEK AND HE WAS DISCHARGED HOME 2 DAYS AGO. PT WILL BE TREATED FOR DVT GIVEN HIS CLINICAL PICTURE. PT'S CALF IS NOR ROCK HARD, AND HE HAS NO PAIN WITH PASSIVE ROM; PT DOESN'T HAVE A COMPARTMENT SYNDROME. PT HAS GOOD PULSES AND THE SWOLLEN LEG IS MINIMALLY HOTTER THAT THE NON-SWOLLEN LEG. HE HAS NO FOVER AND THIS IS NOT CELLIULITIS OR OTHER INFECTION. PT WILL BE ADMITTED TO HOSPITALIST FOR DVT WORKUP. SONOGRAM LEGS CAN BE DONE IN THE MORNING. <Cecily Cleary - Last Filed: 11/29/16 06:12> *DC/Admit/Observation/Transfer - Attestations Scribe Attestion: 11/29/16 03:59 Documentation prepared by VIRGINIA Brennan, acting as medical staffing coordinator for Cecily Cleary MD. <Paty Giordano - Last Filed: 11/29/16 04:10> - Discharge Dispostion Admit: Yes <Cecily Cleary - Last Filed: 11/29/16 06:12> Diagnosis at time of Disposition: Left leg swelling - Discharge Dispostion Condition at time of disposition: Fair - Referrals Referrals: STAFF,NOT ON [Primary Care Provider] -
[2016-11-29] MEDS ORDERED: ENOXAPARIN NA (PORCINE) 120 MG/0.8 ML DISP.SYRIN SQ ONE (04:00)
[2016-11-29] MEDS ORDERED: ENOXAPARIN NA (PORCINE) 120 MG/0.8 ML DISP.SYRIN SQ SCH (04:00)
[2016-11-29 04:33] LABS: MCH 22.6 pg (25.7-33.7); MCHC 30.3 g/dl (32.0-35.9); MEAN CELL VOLUME 74.6 fl (80-96); MEAN PLT VOLUME 8.1 fl (7.5-11.1); PLATELET COUNT 224 K/MM3 (134-434); WHITE BLOOD COUNT 19.2 K/mm3 (4.0-10.0)
[2016-11-29 05:32] LABS: INR 1.26 (0.82-1.09); PROTHROMBIN TIME (PATIENT) 13.9 SEC (9.98-11.88)
[2016-11-29 05:35] LABS: ACTIVATED PTT 38.9 SECONDS (26.9-34.4)
[2016-11-29 05:48] LABS: ALBUMIN 3.9 g/dl (3.4-5.0); ANION GAP 17 (8-16); BILIRUBIN,TOTAL 0.8 mg/dL (0.2-1.0); CALCIUM 8.8 mg/dL (8.5-10.1); CO2 22 mmol/L (21-32); CREATININE 2.1 mg/dL (0.7-1.3); GLUCOSE,RANDOM 258 mg/dL (74-106); SGOT/AST 27 U/L (15-37); SGPT/ALT 33 U/L (12-78)
[2016-11-29 05:49] LABS: ALK PHOS 121 U/L (45-117)
[2016-11-29 05:54] LABS: INR 1.27 (0.82-1.09)
[2016-11-29 05:56] LABS: D-DIMER > 5000 ng/ml (<200-235)
[2016-11-29 05:59] LABS: PLATELET ESTIMATE ADEQUATE (NORMAL)
[2016-11-29 06:00] LABS: ANISOCYTOSIS 1+; HYPOCHROMIA 1+; MICROCYTOSIS 1+; PLATELET COMMENT2 NO CLOTTING DETECTED; POIKILOCYTOSIS 1+; POLYCHROMASIA 1+
[2016-11-29] MEDS ORDERED: SODIUM CHLORIDE 0.9% 500 ML INFUS.BAG IV ONE (06:21)
--- NOTE | 2016-11-29 08:17 | HP ---
CHIEF COMPLAINT: left lower extremity swelling PCP: none, will refer to Dr. Morales HISTORY OF PRESENT ILLNESS: 56 yr old man with newly diagnosed seizure d/o/HTN/DM II, presents with 2 days of left lower leg swelling and pain in his thigh since this morning. He was recently discharged from [facility]. Since discharge he has not been ambulating much, mostly to the bathroom and back to sofa/bed. Swelling developed gradually, pain was sudden in the anterior thigh this morning and has been continous since onset , is worse with weight bearing, does not radiate. Has not been able get the walker yet. Has been talking his medications as prescribed from the previous admission. BGM's at home between 100-130's, nothing greater or lower. Tmax at home 99F. denies sob, chest pain, lightheadedness, dysuria, vomiting, diarrhea, seizures, change urine color/frequency/dysuria, fever, chills, cough, changes in vision. No change in left great toe wound. ER course was notable for: (1) ekg- no acute changes (2) cxy: no acute pathology (3) left leg u/s - positive for DVT, given lovenox 120mg once Recent Travel: none PAST MEDICAL HISTORY: newly dx'd HTN, HLD, DM, seizure d/o PAST SURGICAL HISTORY: none Social History: Smoking: current everyday smoker, started at age 19 Alcohol: hx of alcoholism, "now for yrs only drinks rarely" Drugs: denies Family History: sister from [place] Allergies No Known Allergies Allergy (Verified 11/20/16 01:29) HOME MEDICATIONS: Home Medications Medication Instructions Recorded Amlodipine Besylate [Norvasc -] 10 mg PO DAILY #30 tablet 11/25/16 Bacitracin - [Bacitracin Topical 1 applic TP DAILY #1 tube 11/25/16 Ointment -] Levetiracetam [Keppra -] 1,000 mg PO BID #60 tablet 11/25/16 Lisinopril [Prinivil] 10 mg PO DAILY@1200 #30 tablet 11/25/16 Aspirin [ASA -] 81 mg PO DAILY #30 tab 11/26/16 Glipizide [Glipizide ER] 10 mg PO DAILY #10 tab.er.24 11/26/16 Insulin Aspart [Novolog Flexpen] See Protocol SQ AC #1 insuln.pen 11/26/16 Metformin HCl [Glucophage -] 850 mg PO BID #60 tab 11/26/16 Miscellaneous Medical Supply 1 each ASDIR #1 mis 11/26/16 [Outpatient Order] Phenytoin Na Extended [Dilantin -] 100 mg PO TID #90 capsule 11/26/16 Simvastatin 40 mg PO DAILY #30 tab 11/26/16 REVIEW OF SYSTEMS CONSTITUTIONAL: Present:fever, Absent: chills, diaphoresis, generalized weakness, malaise, loss of appetite, weight change HEENT: Absent: throat pain, throat swelling, difficulty swallowing, visual changes CARDIOVASCULAR: Present: peripheral edema Absent: chest pain, syncope, palpitations, irregular heart rate, lightheadedness , RESPIRATORY: Absent: cough, shortness of breath, hemoptysis GASTROINTESTINAL: Absent: abdominal pain, abdominal distension, nausea, vomiting, diarrhea, constipation, melena, hematochezia GENITOURINARY: Absent: dysuria, frequency, urgency, hesitancy, hematuria, flank pain MUSCULOSKELETAL: Absent: myalgia, arthralgia, joint swelling, back pain, neck pain SKIN: Absent: rash, itching, pallor NEUROLOGIC: Absent: headache, focal weakness or paresthesias, dizziness, unsteady gait, seizure, mental status changes, bladder or bowel incontinence PSYCHIATRIC: Absent: anxiety, depression, suicidal or homicidal ideation, hallucinations. PHYSICAL EXAMINATION Vital Signs - 24 hr 11/29/16 07:16 Temperature 98.6 F Pulse Rate [ 78 Left Apical] Respiratory 16 Rate Blood Pressure 107/74 [Right Arm] O2 Sat by Pulse 98 Oximetry (%) Laboratory Results - last 24 hr 11/29/16 11/29/16 11/29/16 04:11 04:11 04:11 WBC 19.2 H D RBC 4.77 Hgb 10.8 L D Hct 35.6 MCV 74.6 L MCH 22.6 L MCHC 30.3 L RDW 14.0 Plt Count 224 D MPV 8.1 Neutrophils % 76.0 Lymphocytes % 16.0 Monocytes % 4.0 Band Neutrophils 4.0 Platelet Estimate Adequate Platelet Comment No clotting detected Polychromasia 1+ Hypochromic-Microcytic 1+ Poikilocytosis 1+ Anisocytosis 1+ Microcytosis 1+ INR Cancelled PTT (Actin FS) D-Dimer Sodium Cancelled Potassium Cancelled Chloride Cancelled Carbon Dioxide Cancelled Anion Gap Cancelled BUN Cancelled Creatinine Cancelled Creat Clearance w eGFR Cancelled POC Glucometer Random Glucose Cancelled Lactic Acid Calcium Cancelled Total Bilirubin Cancelled AST Cancelled ALT Cancelled Alkaline Phosphatase Cancelled Total Protein Cancelled Albumin Cancelled Urine Color Urine Appearance Urine pH Urine Protein Urine Glucose (UA) Urine Ketones Urine Blood Urine Nitrite Urine Bilirubin Urine Urobilinogen Ur Leukocyte Esterase Urine RBC Urine WBC Ur Epithelial Cells Urine Mucus Ur Random Sodium Ur Random Potassium Ur Random Chloride Ur Random Urea Nitrogn Urine Creatinine 11/29/16 11/29/16 11/29/16 04:11 04:53 04:57 WBC RBC Hgb Hct MCV MCH MCHC RDW Plt Count MPV Neutrophils % Lymphocytes % Monocytes % Band Neutrophils Platelet Estimate Platelet Comment Polychromasia Hypochromic-Microcytic Poikilocytosis Anisocytosis Microcytosis INR 1.27 H 1.26 H PTT (Actin FS) 38.9 H D-Dimer Cancelled > 5000 H Sodium Potassium Chloride Carbon Dioxide Anion Gap BUN Creatinine Creat Clearance w eGFR POC Glucometer Random Glucose Lactic Acid Calcium Total Bilirubin AST ALT Alkaline Phosphatase Total Protein Albumin Urine Color Urine Appearance Urine pH Urine Protein Urine Glucose (UA) Urine Ketones Urine Blood Urine Nitrite Urine Bilirubin Urine Urobilinogen Ur Leukocyte Esterase Urine RBC Urine WBC Ur Epithelial Cells Urine Mucus Ur Random Sodium Ur Random Potassium Ur Random Chloride Ur Random Urea Nitrogn Urine Creatinine 11/29/16 11/29/16 11/29/16 04:57 07:33 08:30 WBC RBC Hgb Hct MCV MCH MCHC RDW Plt Count MPV Neutrophils % Lymphocytes % Monocytes % Band Neutrophils Platelet Estimate Platelet Comment Polychromasia Hypochromic-Microcytic Poikilocytosis Anisocytosis Microcytosis INR PTT (Actin FS) D-Dimer Sodium 133 L Potassium 4.8 D Chloride 94 L Carbon Dioxide 22 D Anion Gap 17 H BUN 18 D Creatinine 2.1 H D Creat Clearance w eGFR 32.95 POC Glucometer Random Glucose 258 H D Lactic Acid Calcium 8.8 Total Bilirubin 0.8 AST 27 D ALT 33 D Alkaline Phosphatase 121 H D Total Protein 8.0 Albumin 3.9 Urine Color Urine Appearance Urine pH Urine Protein Urine Glucose (UA) Urine Ketones Urine Blood Urine Nitrite Urine Bilirubin Urine Urobilinogen Ur Leukocyte Esterase Urine RBC Urine WBC Ur Epithelial Cells Urine Mucus Ur Random Sodium 62 Ur Random Potassium 46.7 Ur Random Chloride 60 Ur Random Urea Nitrogn 707 Urine Creatinine 282.0 Cancelled 11/29/16 11/29/16 11/29/16 08:30 08:30 10:21 WBC RBC Hgb Hct MCV MCH MCHC RDW Plt Count MPV Neutrophils % Lymphocytes % Monocytes % Band Neutrophils Platelet Estimate Platelet Comment Polychromasia Hypochromic-Microcytic Poikilocytosis Anisocytosis Microcytosis INR PTT (Actin FS) D-Dimer Sodium Potassium Chloride Carbon Dioxide Anion Gap BUN Creatinine Creat Clearance w eGFR POC Glucometer 310 Random Glucose Lactic Acid 3.8 H* Calcium Total Bilirubin AST ALT Alkaline Phosphatase Total Protein Albumin Urine Color Crystal Urine Appearance Cloudy Urine pH 5.0 Urine Protein 2+ H Urine Glucose (UA) Negative Urine Ketones 1+ H Urine Blood Negative Urine Nitrite Negative Urine Bilirubin Negative Urine Urobilinogen 4.0 e.u/dl Ur Leukocyte Esterase 1+ H Urine RBC 22 Urine WBC 71 Ur Epithelial Cells Moderate Urine Mucus Many Ur Random Sodium Ur Random Potassium Ur Random Chloride Ur Random Urea Nitrogn Urine Creatinine Active Medications Atorvastatin Calcium (Lipitor -) 20 mg PO HS MELANIA Bacitracin (Bacitracin -) 1 applic TP DAILY MELANIA Ceftriaxone Sodium (Rocephin 1gm Ivpb (Pre-Docked)) 50 mls @ 100 mls/hr IVPB DAILY MELANIA Sodium Chloride (Normal Saline -) 1,000 mls @ 125 mls/hr IV ASDIR MELANIA Insulin Aspart (Novolog Vial Sliding Scale -) 1 vial SQ Q2H MELANIA PRN Reason: Protocol Phenytoin Sodium (Dilantin -) 100 mg PO TID MELANIA Warfarin Sodium (Coumadin -) 5 mg PO ONCE@1800 ONE Stop: 11/29/16 18:01 GENERAL: Awake, alert, and fully oriented, in no acute distress. HEAD: Normal with no signs of trauma. EYES: Pupils equal, round and reactive to light, extraocular movements intact, sclera anicteric, conjunctiva clear. No lid lag. EARS, NOSE, THROAT: Ears normal, nares patent, oropharynx clear without exudates. moist mucous membranes. poor dentition/missing dentition, no oral lesions NECK: Normal range of motion, supple without lymphadenopathy, JVD, or masses. LUNGS: Breath sounds equal, clear to auscultation bilaterally. No wheezes, and no crackles. No accessory muscle use. HEART: Regular rate and rhythm, normal S1 and S2 without murmur, rub or gallop. ABDOMEN: Obese, soft, nontender, not distended, normoactive bowel sounds, no guarding, no rebound, no masses MUSCULOSKELETAL: Normal range of motion at all joints. No CVA tenderness. UPPER EXTREMITIES: 2+ radial b/l pulses, warm, well-perfused. No cyanosis. No clubbing. No peripheral edema. LOWER EXTREMITIES: Left lower leg swelling from anklet to thigh, nonpitting edema, no erythema, nontender, pulses intact 1+ at DP, TP, weak popliteal and 2+ femoral. mildly warmer than right leg. No calf tenderness. sensation intact throughout. --great toe with toenail missing, no surrounding erythema, no drainage, no erythema, nontender, covered in clean dry gauze. small scab on 2nd toe anteriorly without drainage/erythema. Right lower leg: no edema, no calf tenderness. FROM at hip, knee and ankle. NEUROLOGICAL: Cranial nerves II-XII intact. Normal speech. facial symmetry PSYCHIATRIC: Cooperative. Good eye contact. Appropriate mood and affect. SKIN: Warm, dry, normal turgor, no rashes or lesions noted, normal capillary refill. ASSESSMENT/PLAN: 56 yr old man with multiple co-morbidities recently discharged from [facility] admitted for MALOU, acute DVT, possible DKA and UTI. #Acute DVT in left lower leg - likely provoked from prolonged immobilization/poor ambulation - given lovenox in ED, due to elevated Cr, will start on warfarin 5mg tonight and continue for treatment of DVT #Lactic acidosis - multiple etiologies possibly due to metformin or keppra or infective source from UTI - blood and urine cx to r.o infection - treat UTI (leuk est +, not positive on previous admission) rocephin 1gm daily - hold metformin and keppra - consult Dr. Campo for recommendations on alternatives for keppra #MALOU - likley prerenal from poor po intake and new medication use - FeNa 0.3% and FeUrea 29.2% - indicates pre-renal cause, continue IVF - keppra held that is the cause of his MALOU - consult Dr. Campo for recommendation on alternatives for keppra #Leucocytosis - reactive or infectious, either from DVT or UTI - 1gm rocephin - will repeat in the AM IDDM - uncontrolled - NISS, BGM ACHS - diabetic diet HTN - hold amlodipine and lisinopril for now, will restart if BP rises Seizure d/o - dilantin 100mg po TID Left great toe wound - keep clean and dry, dressing changes daily, apply bacitracin daily DVT prophylaxis - received lovenox, will be on warfarin diet: low sodium/diabetic Visit type - Emergency Visit Emergency Visit: Yes ED Registration Date: 11/29/16 Care time: The patient presented to the Emergency Department on the above date and was hospitalized for further evaluation of their emergent condition. - New Patient This patient is new to me today: Yes Date on this admission: 11/29/16 - Critical Care Critical Care patient: No
[2016-11-29 08:45] LABS: URINE APPEARANCE CLOUDY; URINE BILIRUBIN NEGATIVE (NEGATIVE); URINE BLOOD NEGATIVE (NEGATIVE); URINE COLOR AMBER; URINE GLUCOSE (UA) NEGATIVE (NEGATIVE); URINE KETONE 1+ (NEGATIVE); URINE NITRITE NEGATIVE (NEGATIVE); URINE UROBILINOGEN 4.0 E.U/dl mg/dL (0.2-1.0)
[2016-11-29 08:51] LABS: URINE LEUK ESTERASE 1+ (NEGATIVE); URINE PROTEIN 2+ (NEGATIVE)
[2016-11-29 08:57] LABS: URINE MUCUS MANY; URINE RBC 22 /hpf (0-3); URINE WBC 71 /hpf (3-5)
[2016-11-29] MEDS ORDERED: SODIUM CHLORIDE 1,000 ML IV SCH (09:45)
[2016-11-29] MEDS ORDERED: BACITRACIN 15 GM TUBE TOPICAL OINTMENT TP SCH (10:00)
[2016-11-29] MEDS ORDERED: INSULIN (NOVOLOG) ASPART 100 UNITS/ML 10ML VIAL SQ STA (10:37)
--- NOTE | 2016-11-29 10:55 | PN ---
Teaching Attending Note Name of Resident: Shaheen Benson ATTENDING PHYSICIAN STATEMENT I saw and evaluated the patient. I reviewed the resident's note and discussed the case with the resident. I agree with the resident's findings and plan as documented. SUBJECTIVE:c/o LLE pain that been progressively worsening since recent discharge. states he is compliant with his medications and have been taking them daily. FS at home 100-250. no seizure like activity at home. denies CP, SOB ,fever, chills, N/V/C/D, dysuria, hematuria or urinary frequency OBJECTIVE: Last Vital Signs Temp Pulse Resp BP Pulse Ox 97.5 F L 92 H 20 99/57 98 11/29/16 09:35 11/29/16 09:35 11/29/16 09:35 11/29/16 09:35 11/29/16 07:16 General NAD CV S1 S2 RRR no murmur/rub/gallop Lungs CTA B/L no wheezing/rales/rhonchi Abdomen soft NT/ND no suprapubic tenderness Extremities LLE swollen and calf tenderness no pitting edema ASSESSMENT AND PLAN: 56yo M with PMH DM, HTN, seizure, dyslipidemia presented to the ER with LLE swelling 1. LLE DVT- medicine admission. possible from decreased mobility and hospital stay but was on hep sq during that time which minimizes risk however can still develop DVT. will need workup for DVT as outpatient after completion of treatment. will start coumadin at this time as pt has no insurance and will not be able to afford NOAC. pt is hemodynamically stable 2. AG metabolic acidosis- likely due to lactic acidosis presumably from metformin use however can not r/o DKA. will give insulin 8units now and repeat labs in 2H. NPO, IVF. initiate DKA protocol 3. Lactic acidosis- likely due to metformin however cannot r/o infectious or metabolic etiology. IVF. repeat in 2H 4. UTI-will treat in setting of leukocytosis, lactic acidosis and is diabetic despite being asymptomatic. start Ceftriaxone 1g 5. MALOU- possible due to keppra or ACEI vs infection. will hold for now. check urine studies. renal u/s. avoid nephrotoxic agents. 6. Pseudohyponatremia- Corrected Na 137. IVF. repeat 7. seizure- no seizure like activity. cont dilantin. hold keppra due to malou. consult neuro for further recommendations. seizure and fall precautions 8. HTN- currently hypotensive. hold oral agents 9. dyslipidemia- cont statin
[2016-11-29] MEDS ORDERED: INSULIN SLIDING SCALE (NOVOLOG) 1 VIAL SQ SCH (11:00)
[2016-11-29] MEDS ORDERED: CEFTRIAXONE 50 ML IVPB SCH (11:15)
[2016-11-29 11:18] VITALS: BMI 41.8
[2016-11-29] MEDS: INSULIN SLIDING SCALE (NOVOLOG) 1 VIAL SQ SCH ×7 (13:00→23:32)
[2016-11-29] MEDS ORDERED: cefTRIAXone SODIUM 1 GM VIAL ONE (13:04)
[2016-11-29] MEDS ORDERED: DEXTROSE 5%-WATER - 50 ML IVPB ONE (13:04)
[2016-11-29] MEDS: SODIUM CHLORIDE 1,000 ML IV SCH ×2 (13:07→21:21)
[2016-11-29] MEDS: PHENYTOIN NA EXTENDED 100 MG CAPSULE (FP) PO SCH ×2 (13:08→21:21)
[2016-11-29 13:54] LABS: ANION GAP 14 (8-16); CALCIUM 8.7 mg/dL (8.5-10.1); CO2 23 mmol/L (21-32); CREATININE 2.5 mg/dL (0.7-1.3); GLUCOSE,RANDOM 239 mg/dL (74-106)
[2016-11-29] MEDS ORDERED: SODIUM POLYSTYRENE SULFONATE 15 GM/60 ML BOTTLE PO ONE (14:55)
[2016-11-29] MEDS: CEFTRIAXONE 1 GM in DEXTROSE 5%-WATER - 50 ML IVPB SCH (15:20)
--- NOTE | 2016-11-29 17:05 | CON.NEURO ---
Consult Consult Specialty:: NEUROLOGY-PASTORA TRUONG Reason for Consultation:: Hx. of recently dx. seizures. - History of Present Illness History of Present Illness: 56 yr old man with newly diagnosed seizure d/o/HTN/DM II, presents with 2 days of left lower leg swelling and pain in his thigh since this morning. He was recently discharged from [facility]. Since discharge he has not been ambulating much, mostly to the bathroom and back to sofa/bed. Swelling developed gradually, pain was sudden in the anterior thigh this morning and has been continous since onset , is worse with weight bearing, does not radiate. Has not been able get the walker yet. Has been talking his medications as prescribed from the previous admission. BGM's at home between 100-130's, nothing greater or lower. Tmax at home 99F. denies sob, chest pain, lightheadedness, dysuria, vomiting, diarrhea, seizures, change urine color/frequency/dysuria, fever, chills, cough, changes in vision. No change in left great toe wound. Pt. denies further seizures since discharge.He reports taking both Dilantin and Keppra 1000mg bid at home, these were his discharge meds from last admission last week. ER course was notable for: (1) ekg- no acute changes (2) cxy: no acute pathology (3) left leg u/s - positive for DVT, given lovenox 120mg once Reviewed pts chart/Dr. Menard note- essentially pt. had his first seizure on the 17 of November, was admitted to [facility] where he was placed on Dilantin. He was admitted on 11/19 to this hospital with what is described a s a gen. seizure with aura and was placed on Keppra 1000mg bid in addition to Dilantin, he reports he was taking both Dilantin and Keppra. Denies all neurologic complaints , on Warfarin now for left leg DVT. - Past Medical History [employer]: Yes: Seizure, Other (neew onset seizures) Cardio/Vascular: Yes: HTN, Hyperlipdemia Gastrointestinal: Yes: Other (never had colonoscopy). No: Cancer, Constipation , GERD Renal/: No: Renal Failure, Cancer Endocrine: Yes: Diabetes Mellitus - Past Surgical History Past Surgical History: Yes: None - Alcohol/Substance Use Hx Alcohol Use: No - Smoking History Smoking history: Unknown if ever smoked Have you smoked in the past 12 months: Yes Aproximately how many cigarettes per day: 12 (since age 19) - Social History Usual Living Arrangement: Other ([employer]) ADL: Independent Occupation: currently not working History of Recent Travel: No Home Medications - Allergies Allergies/Adverse Reactions: Allergies Allergy/AdvReac Type Severity Reaction Status Date / Time No Known Allergies Allergy Verified 11/20/16 01:29 - Home Medications Home Medications: Ambulatory Orders Amlodipine Besylate [Norvasc -] 10 mg PO DAILY #30 tablet 11/25/16 Bacitracin - [Bacitracin Topical Ointment -] 1 applic TP DAILY #1 tube 11/25/16 Levetiracetam [Keppra -] 1,000 mg PO BID #60 tablet 11/25/16 Lisinopril [Prinivil] 10 mg PO DAILY@1200 #30 tablet 11/25/16 Aspirin [ASA -] 81 mg PO DAILY #30 tab 11/26/16 Glipizide [Glipizide ER] 10 mg PO DAILY #10 tab.er.24 11/26/16 Insulin Aspart [Novolog Flexpen] See Protocol SQ AC #1 insuln.pen 11/26/16 Metformin HCl [Glucophage -] 850 mg PO BID #60 tab 11/26/16 Miscellaneous Medical Supply [Outpatient Order] 1 each ASDIR #1 misc Phenytoin Na Extended [Dilantin -] 100 mg PO TID #90 capsule 11/26/16 Simvastatin 40 mg PO DAILY #30 tab 11/26/16 Family Disease History - Family Disease History Family Disease History: Diabetes: Father ( , stroke), Other: Mother ( dementia- alive ), Sister ( of alcohol related issues) Physical Exam-Neuro Vital Signs: Vital Signs Temperature 99.0 F 11/29/16 14:40 Pulse Rate 82 11/29/16 14:40 Respiratory Rate 20 11/29/16 09:35 Blood Pressure 165/77 11/29/16 14:40 O2 Sat by Pulse Oximetry (%) 98 11/29/16 07:16 Labs: CBC, BMP 11/29/16 12:50 INR, PTT INR 1.26 (0.82-1.09) H 11/29/16 04:57 - Neuro Exam DTR's: 0 Left Achilles (Unable to test), 1+ Left Bicep, 1+ Right Bicep, 1+ Left Tricep, 1+ Right Tricep, 1+ Left Brachioradialis, 1+ Right Brachioradialis, 1+ Right Achilles Babinski: Absent Response to light touch: Normal Response to pain prick: Normal (Left leg-Left lower leg swelling from ankle to thigh, nonpitting edema, no erythema, nontender, pulses intact 1+ at DP, TP, mildly warmer than right leg. No calf tenderness. sensation intact throughout. Indurated) NIH Stroke Scale - Total Score NIH Stroke Scale Score: 0 Imaging - Results Cat Scan: Report Reviewed MRI: Report Reviewed (MRI brain last admission-probable punctate righ BG punctate infarct. MRA Brain without sig. abn) Assessment/Plan Pt. with hx. of recently diagnosed seizure d/o. The type/character of seizures is unclear and he was deemed a candidate for VEEG monitoring electively, on Dilantin and Keppra at home. Now without seizures, admitted for DVT, placed on Warfain. Suggest: 1) Would restart Keppra 1000mg BID and cont Dilantin for now with the idea that Dilantin will be d/quinn because of its possible interactions with Warfarin- Warfarin reduces phenytoin levels and phenytoin elevates warfarin levels. 2) Will d/w Dr. Campo. 3) Will follow. Thank you, Dmitry Thompson MD [phone]
--- NOTE | 2016-11-29 17:08 | EKG ---
Test Reason : Blood Pressure : / mmHG Vent. Rate : 089 BPM Atrial Rate : 089 BPM P-R Int : 174 ms QRS Dur : 140 ms QT Int : 384 ms P-R-T Axes : 065 -49 088 degrees QTc Int : 467 ms NORMAL SINUS RHYTHM LEFT ATRIAL ABNORMALITY CLBBB ABNORMAL ECG WHEN COMPARED WITH ECG OF 20-NOV-2016 04:11, QRS DURATION HAS INCREASED CLINICAL CORRELATION IS RECOMMENDED Confirmed by SÁNCHEZ ALFRED MD ([id number]) on 11/29/2016 5:08:53 PM Referred By: Confirmed By:SÁNCHEZ ALFRED MD
[2016-11-29] MEDS ORDERED: WARFARIN NA 5 MG TABLET (UD) PO ONE (18:00)
[2016-11-29] MEDS: levETIRAcetam 500 MG TABLET (FP) PO SCH (21:21)
[2016-11-29] MEDS: ATORVASTATIN CA 20 MG TABLET (FP) PO SCH (21:21)
[2016-11-30] MEDS: INSULIN SLIDING SCALE (NOVOLOG) 1 VIAL SQ SCH ×6 (01:44→16:57)
[2016-11-30] MEDS ORDERED: morphine CARPU-JECT 4 MG/1 ML DISP.SYRIN IVPUSH ONE (01:56)
[2016-11-30] MEDS: SODIUM CHLORIDE 1,000 ML IV SCH ×2 (04:00→13:39)
[2016-11-30] MEDS: PHENYTOIN NA EXTENDED 100 MG CAPSULE (FP) PO SCH ×3 (06:12→22:39)
[2016-11-30 07:06] LABS: BASOPHIL 0.5 % (0-2.0); EOSINOPHIL 3.8 % (0-4.5); MCH 23.2 pg (25.7-33.7); MCHC 31.3 g/dl (32.0-35.9); MEAN PLT VOLUME 7.9 fl (7.5-11.1); NEUTROPHILS 64.5 % (42.8-82.8); PLATELET COUNT 196 K/MM3 (134-434); RDW 13.8 % (11.9-15.9)
[2016-11-30 07:07] LABS: INR 1.23 (0.82-1.09); PROTHROMBIN TIME (PATIENT) 13.6 SEC (9.98-11.88)
[2016-11-30 07:28] LABS: ANION GAP 11 (8-16); CALCIUM 8.1 mg/dL (8.5-10.1); CO2 26 mmol/L (21-32); CREATININE 1.9 mg/dL (0.7-1.3); GLUCOSE,RANDOM 142 mg/dL (74-106)
[2016-11-30] MEDS ORDERED: HEPARIN NA (PORCINE) 5,000 UNITS/ML 1ML VIAL IVPUSH PRN ×2 (08:15)
[2016-11-30] MEDS ORDERED: HEPARIN NA (PORCINE) 5,000 UNITS/ML 1ML VIAL IVPUSH ONE (08:20)
[2016-11-30] MEDS ORDERED: cefTRIAXone SODIUM 1 GM VIAL ONE (08:29)
[2016-11-30] MEDS ORDERED: DEXTROSE 5%-WATER - 50 ML IVPB ONE (08:30)
[2016-11-30] MEDS ORDERED: oxyCODONE HCL 5 MG TABLET PO ONE (09:28)
[2016-11-30] MEDS: CEFTRIAXONE 1 GM in DEXTROSE 5%-WATER - 50 ML IVPB SCH (09:32)
[2016-11-30] MEDS: HEPARIN - 25,000 UNIT in SODIUM CHLORIDE 495 ML IV SCH ×2 (09:33→22:47)
[2016-11-30] MEDS: levETIRAcetam 500 MG TABLET (FP) PO SCH ×2 (09:39→22:39)
[2016-11-30] MEDS ORDERED: INSULIN (NOVOLOG) ASPART 100 UNITS/ML 10ML VIAL ONE ×2 (11:19→16:39)
[2016-11-30] MEDS: BACITRACIN 15 GM TUBE TOPICAL OINTMENT TP SCH (11:21)
--- NOTE | 2016-11-30 12:08 | PN ---
Teaching Attending Note Name of Resident: Patrick Muniz ATTENDING PHYSICIAN STATEMENT I saw and evaluated the patient. I reviewed the resident's note and discussed the case with the resident. I agree with the resident's findings and plan as documented. SUBJECTIVE: has pain in L leg , has no PC or SOB , has no fever or chills . denies any numbness tingling or weakness in Legs OBJECTIVE: NAD, AAOx3. MMM CV: RRR. 2/6 SM at RUSB , no radiation to carotids Lungs: CTAB EXT : L LE circumference > RLE . TTP over the leg and thigh , has tight skin and erythema over leg. DP 2+ on R , can't feel a DP or TP on L. has nl feeling to light touch in L leg and foot , can move his ankle and toes. limited L knee flexion due to pain ASSESSMENT AND PLAN: 56 y/o gentleman with h/o HTN, DM , HLP, newly diagnosed with seizure and occipital stroke last admission , who presented with L LE pain and edema . 1- LLE DVT: it seems like there is a compromise of blood flow due to the DVT in LLE . - Heparin gtt . goal PTT 60-80. cont bridging to coumadin - ? thrombectomy - spoke to Dr. Shaikh , who will evaluate patient urgently - Keep NPO in if he needs a procedure 2- Seizure disorder ( partial and partial seizures with secondary generalization ) . - no events in house . - cont Keppra and Dilantin. 3- Recent diagnosis of a stroke : - while on AC, will hold asa 4- LActic acidosis ,probably due to severe sepsis from UTI. - cont Ceftriaxone - follow blood and urine cx - cont IVF 5- DM: - SSI . - might start glipizid in am 6- MALOU: likely due to sepsis , newly start ACEI, and possible prerenal component - cont IVF - renal US reviewed. 7- DVT px : on heparin gtt HLOC
--- NOTE | 2016-11-30 13:10 | CONSULT ---
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 No: Cancer, Constipation , GERD Renal/: No: Renal Failure, Cancer Endocrine: Yes: Diabetes Mellitus - Past Surgical History Past Surgical History: Yes: None - Alcohol/Substance Use Hx Alcohol Use: No - Smoking History Smoking history: Unknown if ever smoked Have you smoked in the past 12 months: Yes Aproximately how many cigarettes per day: 12 (since age 19) - Social History Usual Living Arrangement: Other ([employer]) ADL: Independent Occupation: currently not working History of Recent Travel: No Home Medications - Allergies Allergies/Adverse Reactions: Allergies Allergy/AdvReac Type Severity Reaction Status Date / Time No Known Allergies Allergy Verified 11/20/16 01:29 - Home Medications Home Medications: Ambulatory Orders Amlodipine Besylate [Norvasc -] 10 mg PO DAILY #30 tablet 11/25/16 Bacitracin - [Bacitracin Topical Ointment -] 1 applic TP DAILY #1 tube 11/25/16 Levetiracetam [Keppra -] 1,000 mg PO BID #60 tablet 11/25/16 Lisinopril [Prinivil] 10 mg PO DAILY@1200 #30 tablet 11/25/16 Aspirin [ASA -] 81 mg PO DAILY #30 tab 11/26/16 Glipizide [Glipizide ER] 10 mg PO DAILY #10 tab.er.24 11/26/16 Insulin Aspart [Novolog Flexpen] See Protocol SQ AC #1 insuln.pen 11/26/16 Metformin HCl [Glucophage -] 850 mg PO BID #60 tab 11/26/16 Miscellaneous Medical Supply [Outpatient Order] 1 each ASDIR #1 misc Phenytoin Na Extended [Dilantin -] 100 mg PO TID #90 capsule 11/26/16 Simvastatin 40 mg PO DAILY #30 tab 11/26/16 Family Disease History - Family Disease History Family Disease History: Diabetes: Father ( , stroke), Other: Mother ( dementia- alive ), Sister ( of alcohol related issues) Physical Exam Vital Signs: Vital Signs Temperature 98.6 F 11/30/16 05:00 Pulse Rate 95 H 11/30/16 10:00 Respiratory Rate 18 11/30/16 10:00 Blood Pressure 122/66 11/30/16 10:00 O2 Sat by Pulse Oximetry (%) 98 11/29/16 21:00 Labs: CBC, BMP 11/30/16 05:55 11/30/16 05:55 Assessment/Plan VAscular Surgery Patient is 56 year old male with a significant past medical history of HTN, DM, HLD and seizure who presents to the ED with left leg swelling. Patient reports swelling of the left LE and calf tenderness. He states that he was dc from [facility] 2 days ago after being admitted for new onset seizure. He denies any cp, nausea or fever. He denies hx of DVT. He denies any recent trauma. SH - 40 pack year history, hx of alcoholism now drinks 1/month ALL - NKA <Paty Giordano - Last Filed: 11/29/16 04:10> <Cecily Cleary - Last Filed: 11/29/16 06:12> - General Stated Complaint: LEFT LEG IN PAIN Time Seen by Provider: 11/29/16 03:40 Past History <Paty Giordano - Last Filed: 11/29/16 04:10> - Past Medical History Diabetes: Yes Seizures: Yes - Psycho/Social/Smoking Cessation Hx Suicidal Ideation: No Smoking History: Unknown if ever smoked Have you smoked in the past 12 months: Yes Number of Cigarettes Smoked Daily: 12 (since age 19) 'Breaking Loose' booklet given: 11/20/16 Hx Alcohol Use: No Drug/Substance Use Hx: No Substance Use Type: None <Cecily Cleary - Last Filed: 11/29/16 06:12> - Past Medical History Allergies/Adverse Reactions: Allergies Allergy/AdvReac Type Severity Reaction Status Date / Time No Known Allergies Allergy Verified 11/20/16 01:29 Home Medications: Ambulatory Orders Amlodipine Besylate [Norvasc -] 10 mg PO DAILY #30 tablet 11/25/16 Bacitracin - [Bacitracin Topical Ointment -] 1 applic TP DAILY #1 tube 11/25/16 Levetiracetam [Keppra -] 1,000 mg PO BID #60 tablet 11/25/16 Lisinopril [Prinivil] 10 mg PO DAILY@1200 #30 tablet 11/25/16 Aspirin [ASA -] 81 mg PO DAILY #30 tab 11/26/16 Glipizide [Glipizide ER] 10 mg PO DAILY #10 tab.er.24 11/26/16 Insulin Aspart [Novolog Flexpen] See Protocol SQ AC #1 insuln.pen 11/26/16 Metformin HCl [Glucophage -] 850 mg PO BID #60 tab 11/26/16 Miscellaneous Medical Supply [Outpatient Order] 1 each ASDIR #1 misc Phenytoin Na Extended [Dilantin -] 100 mg PO TID #90 capsule 11/26/16 Simvastatin 40 mg PO DAILY #30 tab 11/26/16 PE Head - NC/AT Lung - cTA Heart - RRR abd - soft,nt,nd ext - warm, LLE swelling. Motor and sensory intact. RAnge of motion intact. Due to DM no palpable pulses in bl feet. A/P Left Lower ext DVT. 1. IV heparin. 2. Will re-evaluate evita after 24 hours of heparin. If not better can do suction thrombectomy of DVT on wed. 3.Will follow. Jose Shaikh DO
[2016-11-30] MEDS ORDERED: SODIUM CHLORIDE 1,000 ML IV SCH (20:02)
--- NOTE | 2016-11-30 20:14 | PN ---
Physical Exam: SUBJECTIVE: Patient seen and examined this AM. Has pain in LLE. Received a dose of oxycodone. No fevers, chills, CP, SOB OBJECTIVE: Vital Signs Period Temp Pulse Resp BP Sys/Navarrete Pulse Ox Last 24 Hr 98.2 F-98.6 F 88-95 16-20 103-131/66-78 98 GENERAL: The patient is awake, alert, and fully oriented, in no acute distress. HEENT: PERRLA, EOMi, No LAD LUNGS: CTABL, No accessory muscle use HEART: S1, S2, RRR, no murmurs ABD: Soft, nontender, nondistended, normoactive bowel sounds UPPER EXTREMITIES: 2+ pulses, no edema, no erythema LOWER EXTREMITIES: 2+ pulse on RLE, non-palpable on LLE, L thigh + leg circumference > R thigh + leg, no erythema, no pitting edema NEURO: Cranial nerves intact, no facial droop. Sensation intact in face and body bilaterally, muscle strength 5/5 Laboratory Results - last 24 hr 11/29/16 11/29/16 11/30/16 21:19 23:29 01:35 WBC RBC Hgb Hct MCV MCH MCHC RDW Plt Count MPV Neutrophils % Lymphocytes % Monocytes % Eosinophils % Basophils % INR PTT (Actin FS) Sodium Potassium Chloride Carbon Dioxide Anion Gap BUN Creatinine POC Glucometer 183 152 129 Random Glucose Calcium 11/30/16 11/30/16 11/30/16 03:08 05:35 05:55 WBC 13.0 H D RBC 4.05 Hgb 9.4 L D Hct 30.0 L D MCV 74.0 L MCH 23.2 L MCHC 31.3 L RDW 13.8 Plt Count 196 MPV 7.9 Neutrophils % 64.5 Lymphocytes % 25.1 D Monocytes % 6.1 Eosinophils % 3.8 D Basophils % 0.5 INR PTT (Actin FS) Sodium Potassium Chloride Carbon Dioxide Anion Gap BUN Creatinine POC Glucometer 128 144 Random Glucose Calcium 11/30/16 11/30/16 11/30/16 05:55 05:55 06:53 WBC RBC Hgb Hct MCV MCH MCHC RDW Plt Count MPV Neutrophils % Lymphocytes % Monocytes % Eosinophils % Basophils % INR 1.23 H PTT (Actin FS) Sodium 135 L Potassium 4.3 D Chloride 98 Carbon Dioxide 26 Anion Gap 11 BUN 28 H D Creatinine 1.9 H D POC Glucometer 174 Random Glucose 142 H D Calcium 8.1 L 11/30/16 11/30/16 11/30/16 11:12 13:03 15:47 WBC RBC Hgb Hct MCV MCH MCHC RDW Plt Count MPV Neutrophils % Lymphocytes % Monocytes % Eosinophils % Basophils % INR PTT (Actin FS) 163.8 H D 157.3 H Sodium Potassium Chloride Carbon Dioxide Anion Gap BUN Creatinine POC Glucometer 247 Random Glucose Calcium 11/30/16 16:35 WBC RBC Hgb Hct MCV MCH MCHC RDW Plt Count MPV Neutrophils % Lymphocytes % Monocytes % Eosinophils % Basophils % INR PTT (Actin FS) Sodium Potassium Chloride Carbon Dioxide Anion Gap BUN Creatinine POC Glucometer 222 Random Glucose Calcium Active Medications Generic Name Dose Route Start Last Admin Trade Name Freq PRN Reason Stop Dose Admin Atorvastatin Calcium 20 mg 11/29/16 22:00 11/29/16 21:21 Lipitor - PO 20 mg HS MELANIA Administration Bacitracin 1 applic 11/29/16 10:00 11/30/16 11:21 Bacitracin - TP 1 applic DAILY MELANIA Administration Heparin Sodium (Porcine) 1,000 unit 11/30/16 08:15 Heparin - IVPUSH PRN PRN Heparin Heparin Sodium (Porcine) 5,000 unit 11/30/16 08:15 Heparin - IVPUSH PRN PRN Heparin Ceftriaxone Sodium 1 gm/ 50 mls @ 100 mls/hr 11/29/16 13:15 11/30/16 09:32 Dextrose IVPB 100 mls/hr DAILY MELANIA Administration Heparin Sodium (Porcine) 25, 500 mls @ 50 mls/hr 11/30/16 08:15 11/30/16 17:02 000 unit/ Sodium Chloride IV 2,200 unit/hr TITR MELANIA Titration Protocol 2,500 UNIT/HR Insulin Aspart 1 vial 11/30/16 11:00 11/30/16 16:57 Novolog Vial Sliding Scale - SQ 4 unit TIDAC MELANIA Administration Protocol Levetiracetam 1,000 mg 11/29/16 22:00 11/30/16 09:39 Keppra - PO 1,000 mg BID MELANIA Administration Phenytoin Sodium 100 mg 11/29/16 14:00 11/30/16 13:43 Dilantin - PO 100 mg TID MELANIA Administration ASSESSMENT/PLAN: Pt is a 56yo M with PMHx of seizure disorder, DM2, HTN, recently discharged from the hospital with new complaint of LLE swelling, found to have thrombus in L common femoral, femora, popliteal, and posterior tibial veins. # Acute LLE DVT - Thrombus extends from posterior tibial to common femoral - Likely due to immobility after d/c - Heparin drip --> then bridge to Coumadin - Pt has no palpable pulse LLE, Dr. Shaikh urgently consulted - Reassess pulses tomorrow - Possible thrombectomy - Keep NPO # UTI - UA shows pyuria + leuk esterase - Rocefin 1g QD - F/u urine cultures # Lactic Acidosis - resolved - Unlikely due to medication sfx - F/u blood + urine cultures to r/o infection - Held metformin # MALOU - improving - Pre-renal vs lisinopril (new med) vs keppra (new med) - IVF 100mL/hr - d/c'd Lisinopril - continue Keppra as per Neuro # Leukocytosis - Reactive vs infectious - Monitor # IDDM - BGM + SSI TID - Can start Glipizide tomorrow # Hx of HTN - Presented with low BP, held BP meds Amlodipine + Lisinopril - Can restart Amlodipine if BP can toelrate # Hx of Seizure Disorder - No seizure episodes - Continue Keppra + Dilantin # FEN - Fluids: 100mL/hr - Electrolytes: Continue to monitor - Nutrition: NPO for possible thrombectomy # Prophylaxis - DVT: On heparin drip - GI: Not indicated - PT: PT on hold until after procedure Visit type - Emergency Visit Emergency Visit: No - New Patient This patient is new to me today: No - Critical Care Critical Care patient: No - Discharge Referral Referred to [facility] Med P.C.: No
[2016-11-30] MEDS: ATORVASTATIN CA 20 MG TABLET (FP) PO SCH (22:39)
[2016-12-01] MEDS: HEPARIN - 25,000 UNIT in SODIUM CHLORIDE 495 ML IV SCH ×3 (01:32→21:30)
[2016-12-01] MEDS: PHENYTOIN NA EXTENDED 100 MG CAPSULE (FP) PO SCH ×3 (06:36→21:12)
[2016-12-01] MEDS: INSULIN SLIDING SCALE (NOVOLOG) 1 VIAL SQ SCH ×3 (06:37→16:59)
[2016-12-01 07:40] LABS: MCH 23.3 pg (25.7-33.7); MCHC 31.4 g/dl (32.0-35.9); MEAN CELL VOLUME 74.2 fl (80-96); MEAN PLT VOLUME 8.1 fl (7.5-11.1); PLATELET COUNT 164 K/MM3 (134-434); RDW 13.7 % (11.9-15.9); WHITE BLOOD COUNT 10.5 K/mm3 (4.0-10.0)
[2016-12-01 08:20] LABS: ANION GAP 7 (8-16); CALCIUM 8.1 mg/dL (8.5-10.1); CO2 25 mmol/L (21-32); CREATININE 1.1 mg/dL (0.7-1.3); GLUCOSE,RANDOM 160 mg/dL (74-106)
--- NOTE | 2016-12-01 09:09 | PN ---
Progress Note (short form) - Note Progress Note: 56 yr old man with newly diagnosed seizure d/o/HTN/DM II, presents with 2 days of left lower leg swelling and pain in his thigh since this morning. He was recently discharged from [facility]. Since discharge he has not been ambulating much, mostly to the bathroom and back to sofa/bed. Swelling developed gradually, pain was sudden in the anterior thigh this morning and has been continous since onset , is worse with weight bearing, does not radiate. Has not been able get the walker yet. Has been talking his medications as prescribed from the previous admission. BGM's at home between 100-130's, nothing greater or lower. Tmax at home 99F. denies sob, chest pain, lightheadedness, dysuria, vomiting, diarrhea, seizures, change urine color/frequency/dysuria, fever, chills, cough, changes in vision. No change in left great toe wound. Pt. denies further seizures since discharge.He reports taking both Dilantin and Keppra 1000mg bid at home, these were his discharge meds from last admission last week. FU : no neuro issues or seizures being trated for DVT on Warfarin now for left leg DVT. 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 No: Cancer, Constipation , GERD Renal/: No: Renal Failure, Cancer Endocrine: Yes: Diabetes Mellitus - Past Surgical History Past Surgical History: Yes: None - Alcohol/Substance Use Hx Alcohol Use: No - Smoking History Smoking history: Unknown if ever smoked Have you smoked in the past 12 months: Yes Aproximately how many cigarettes per day: 12 (since age 19) - Social History Usual Living Arrangement: Other ([employer]hews) ADL: Independent Occupation: currently not working History of Recent Travel: No Home Medications - Allergies Allergies/Adverse Reactions: Allergies Allergy/AdvReac Type Severity Reaction Status Date / Time No Known Allergies Allergy Verified 11/20/16 01:29 - Home Medications Home Medications: Ambulatory Orders Amlodipine Besylate [Norvasc -] 10 mg PO DAILY #30 tablet 11/25/16 Bacitracin - [Bacitracin Topical Ointment -] 1 applic TP DAILY #1 tube 11/25/16 Levetiracetam [Keppra -] 1,000 mg PO BID #60 tablet 11/25/16 Lisinopril [Prinivil] 10 mg PO DAILY@1200 #30 tablet 11/25/16 Aspirin [ASA -] 81 mg PO DAILY #30 tab 11/26/16 Glipizide [Glipizide ER] 10 mg PO DAILY #10 tab.er.24 11/26/16 Insulin Aspart [Novolog Flexpen] See Protocol SQ AC #1 insuln.pen 11/26/16 Metformin HCl [Glucophage -] 850 mg PO BID #60 tab 11/26/16 Miscellaneous Medical Supply [Outpatient Order] 1 each ASDIR #1 misc Phenytoin Na Extended [Dilantin -] 100 mg PO TID #90 capsule 11/26/16 Simvastatin 40 mg PO DAILY #30 tab 11/26/16 Family Disease History - Family Disease History Family Disease History: Diabetes: Father ( , stroke), Other: Mother ( dementia- alive ), Sister ( of alcohol related issues) Physical Exam-Neuro Vital Signs: Vital Signs Temperature 98.8 F 12/01/16 06:06 Pulse Rate 78 12/01/16 06:06 Respiratory Rate 18 12/01/16 06:06 Blood Pressure 149/89 12/01/16 06:06 O2 Sat by Pulse Oximetry (%) 98 11/30/16 21:00 Labs: CBCD WBC 10.5 K/mm3 (4.0-10.0) H 12/01/16 06:10 RBC 3.50 M/mm3 (4.00-5.60) L 12/01/16 06:10 Hgb 8.2 GM/dL (11.7-16.9) L D 12/01/16 06:10 Hct 26.0 % (35.4-49) L 12/01/16 06:10 MCV 74.2 fl (80-96) L 12/01/16 06:10 MCHC 31.4 g/dl (32.0-35.9) L 12/01/16 06:10 RDW 13.7 % (11.9-15.9) 12/01/16 06:10 Plt Count 164 K/MM3 (134-434) 12/01/16 06:10 MPV 8.1 fl (7.5-11.1) 12/01/16 06:10 CMP Sodium 135 mmol/L (136-145) L 12/01/16 06:00 Potassium 4.1 mmol/L (3.5-5.1) 12/01/16 06:00 Chloride 103 mmol/L (98-107) 12/01/16 06:00 Carbon Dioxide 25 mmol/L (21-32) 12/01/16 06:00 Anion Gap 7 (8-16) L 12/01/16 06:00 BUN 17 mg/dL (7-18) D 12/01/16 06:00 Creatinine 1.1 mg/dL (0.7-1.3) D 12/01/16 06:00 Creat Clearance w eGFR 32.95 (>60) 11/29/16 04:57 Random Glucose 160 mg/dL (74-106) H 12/01/16 06:00 Calcium 8.1 mg/dL (8.5-10.1) L 12/01/16 06:00 Total Bilirubin 0.8 mg/dL (0.2-1.0) 11/29/16 04:57 AST 27 U/L (15-37) D 11/29/16 04:57 ALT 33 U/L (12-78) D 11/29/16 04:57 Alkaline Phosphatase 121 U/L (45-117) H D 11/29/16 04:57 Total Protein 8.0 g/dl (6.4-8.2) 11/29/16 04:57 Albumin 3.9 g/dl (3.4-5.0) 11/29/16 04:57 - Neuro Exam DTR's: 0 Left Achilles (Unable to test), 1+ Left Bicep, 1+ Right Bicep, 1+ Left Tricep, 1+ Right Tricep, 1+ Left Brachioradialis, 1+ Right Brachioradialis, 1+ Right Achilles Babinski: Absent Response to light touch: Normal Response to pain prick: Normal (Left leg-Left lower leg swelling from ankle to thigh, nonpitting edema, no erythema, nontender, pulses intact 1+ at DP, TP, mildly warmer than right leg. No calf tenderness. sensation intact throughout. Indurated) NIH Stroke Scale - Total Score NIH Stroke Scale Score: 0 Imaging - Results Cat Scan: Report Reviewed MRI: Report Reviewed (MRI brain last admission-probable punctate righ BG punctate infarct. MRA Brain without sig. abn) Assessment/Plan Pt. with hx. of recently diagnosed seizure d/o. The type/character of seizures is unclear and he was deemed a candidate for VEEG monitoring electively, on Dilantin and Keppra at home. Now without seizures, admitted for DVT, placed on Warfain. Suggest: maintain Keppra 1000mg BID and attempt to taper dilantin (as may intercat with warfarin) 100BID today and in AM qd and then off; if he has more seziure like vents may have to be restarted. Dr Campo
[2016-12-01] MEDS ORDERED: DEXTROSE 5%-WATER - 50 ML IVPB ONE (09:28)
[2016-12-01] MEDS ORDERED: cefTRIAXone SODIUM 1 GM VIAL ONE (09:28)
[2016-12-01] MEDS: CEFTRIAXONE 1 GM in DEXTROSE 5%-WATER - 50 ML IVPB SCH (09:35)
[2016-12-01] MEDS: levETIRAcetam 500 MG TABLET (FP) PO SCH ×2 (09:37→21:13)
--- NOTE | 2016-12-01 09:49 | PN ---
Progress Note (short form) - Note Progress Note: Vascular Surgery Pt seen and examined. Left lower ext with swelling. On iv heparin Will do left femoral vein suction thrombectomy via popliteal approach evita to help decompress the leg. NPO past midnight. Jose Shaikh DO
[2016-12-01 13:28] LABS: INR 1.23 (0.82-1.09); PROTHROMBIN TIME (PATIENT) 13.6 SEC (9.98-11.88)
[2016-12-01] MEDS: BACITRACIN 15 GM TUBE TOPICAL OINTMENT TP SCH (16:05)
--- NOTE | 2016-12-01 17:53 | PN ---
Physical Exam: SUBJECTIVE: Patient seen and examined this AM. Still complains of leg pain. No CP, no SOB, no fevers, no chills. OBJECTIVE: Vital Signs Period Temp Pulse Resp BP Sys/Navarrete Pulse Ox Last 24 Hr 98.2 F-99.1 F 77-88 18-20 110-149/66-89 98-98 GENERAL: The patient is awake, alert, and fully oriented, in no acute distress. HEENT: PERRLA, EOMi, No LAD LUNGS: CTABL, No accessory muscle use HEART: S1, S2, RRR, no murmurs ABD: Soft, nontender, nondistended, normoactive bowel sounds UPPER EXTREMITIES: 2+ pulses, no edema, no erythema LOWER EXTREMITIES: 2+ pulse on RLE, non-palpable on LLE, feet still warm, well perfused, no concern of total compromise of arterial circulation, L thigh + leg circumference > R thigh + leg, no erythema, no pitting edema NEURO: Cranial nerves intact, no facial droop. Sensation intact in face and body bilaterally, muscle strength 5/5 Laboratory Results - last 24 hr 12/01/16 12/01/16 12/01/16 00:15 05:48 06:00 WBC RBC Hgb Hct MCV MCH MCHC RDW Plt Count MPV INR PTT (Actin FS) 94.3 H D Sodium 135 L Potassium 4.1 Chloride 103 Carbon Dioxide 25 Anion Gap 7 L BUN 17 D Creatinine 1.1 D POC Glucometer 171 Random Glucose 160 H Calcium 8.1 L 12/01/16 12/01/16 12/01/16 06:10 11:22 12:00 WBC 10.5 H RBC 3.50 L Hgb 8.2 L D Hct 26.0 L MCV 74.2 L MCH 23.3 L MCHC 31.4 L RDW 13.7 Plt Count 164 MPV 8.1 INR PTT (Actin FS) 59.5 H D Sodium Potassium Chloride Carbon Dioxide Anion Gap BUN Creatinine POC Glucometer 183 Random Glucose Calcium 12/01/16 12/01/16 12:00 16:19 WBC RBC Hgb Hct MCV MCH MCHC RDW Plt Count MPV INR 1.23 H PTT (Actin FS) Sodium Potassium Chloride Carbon Dioxide Anion Gap BUN Creatinine POC Glucometer 268 Random Glucose Calcium Active Medications Generic Name Dose Route Start Last Admin Trade Name Freq PRN Reason Stop Dose Admin Amlodipine Besylate 10 mg 12/02/16 10:00 Norvasc - PO DAILY MELANIA Atorvastatin Calcium 20 mg 11/29/16 22:00 11/30/16 22:39 Lipitor - PO 20 mg HS MELANIA Administration Bacitracin 1 applic 11/29/16 10:00 12/01/16 16:05 Bacitracin - TP 1 applic DAILY MELANIA Administration Heparin Sodium (Porcine) 1,000 unit 11/30/16 08:15 12/01/16 14:01 Heparin - IVPUSH 1,000 unit PRN PRN Administration Heparin Heparin Sodium (Porcine) 5,000 unit 11/30/16 08:15 Heparin - IVPUSH PRN PRN Heparin Ceftriaxone Sodium 1 gm/ 50 mls @ 100 mls/hr 11/29/16 13:15 12/01/16 09:35 Dextrose IVPB 100 mls/hr DAILY MELANIA Administration Heparin Sodium (Porcine) 25, 500 mls @ 50 mls/hr 11/30/16 08:15 12/01/16 16:04 000 unit/ Sodium Chloride IV 42 mls/hr TITR MELANIA Administration Protocol 2,500 UNIT/HR Sodium Chloride 1,000 mls @ 100 mls/hr 11/30/16 20:02 11/30/16 20:13 Normal Saline - IV 100 mls/hr ASDIR MELANIA Administration Insulin Aspart 1 vial 11/30/16 11:00 12/01/16 16:59 Novolog Vial Sliding Scale - SQ 6 unit TIDAC MELANIA Administration Protocol Levetiracetam 1,000 mg 11/29/16 22:00 12/01/16 09:37 Keppra - PO 1,000 mg BID MELANIA Administration Phenytoin Sodium 100 mg 12/01/16 10:00 12/01/16 12:17 Dilantin - PO 100 mg BID MELANIA Administration Warfarin Sodium 7.5 mg 12/01/16 18:00 12/01/16 16:59 Coumadin - PO 12/01/16 18:01 7.5 mg ONCE@1800 ONE Administration ASSESSMENT/PLAN: Pt is a 56yo M with PMHx of seizure disorder, DM2, HTN, recently discharged from the hospital with new complaint of LLE swelling, found to have thrombus in L common femoral, femora, popliteal, and posterior tibial veins. # Acute LLE DVT - Thrombus extends from posterior tibial to common femoral - Likely due to immobility after d/c - Heparin drip --> then bridge to Coumadin Heparin started on 11/30, continue Heparin drip for 5 days (last day December 04) After 5 days, check INR When therapeutic, overlap with Coumadin for 24 hours After 24 hrs, d/c heparin and continue Coumadin - Dr. Shaikh to do suction thrombectomy tomorrow - NPO after midnight # UTI - UA shows pyuria + leuk esterase - Rocefin 1g QD - F/u urine cx # Lactic Acidosis - resolved - Unlikely due to medication sfx - F/u blood + urine cultures to r/o infection - Held metformin # MALOU - improving - Pre-renal vs lisinopril (new med) vs keppra (new med) - IVF 100mL/hr - d/c'd Lisinopril - can continue if Cr is back to normal - continue Keppra as per Neuro # Hx of Seizure Disorder - No seizure episodes - Continue Keppra - Taper Dilantin from 100mg TID --> BID bc of interaction with Warfarin - Tomorrow 100mg QD, on Dec 03 d/c Dilantin - Watch for seizures - restart if needed # Leukocytosis - Reactive vs infectious - Monitor # IDDM - BGM + SSI TID - Can start Glipizide tomorrow # Hx of HTN - Presented with low BP, held BP meds Amlodipine + Lisinopril - Restarted Amlodipine # FEN - Fluids: 100mL/hr - Electrolytes: Continue to monitor - Nutrition: NPO after midnight for suction thrombectomy # Prophylaxis - DVT: On heparin drip - GI: Not indicated - PT: PT on hold until after procedure Visit type - Emergency Visit Emergency Visit: No - New Patient This patient is new to me today: No - Critical Care Critical Care patient: No - Discharge Referral Referred to [facility] Med P.C.: No
[2016-12-01] MEDS ORDERED: WARFARIN NA 7.5 MG TABLET (FP) PO ONE (18:00)
--- NOTE | 2016-12-01 18:49 | PN ---
Teaching Attending Note Name of Resident: Patrick Muniz ATTENDING PHYSICIAN STATEMENT I saw and evaluated the patient. I reviewed the resident's note and discussed the case with the resident. I agree with the resident's findings and plan as documented. SUBJECTIVE: no fever or chills has improved pain in LLE OBJECTIVE: NAD, AAOx3. MMM CV: RRR. 2/6 SM at RUSB , no radiation to carotids Lungs: CTAB EXT : L LE circumference > RLE . TTP over the leg and thigh , has tight skin and erythema over leg. DP 2+ on R , can't feel a DP or TP on L. has nl feeling to light touch in L leg and foot , can move his ankle and toes. limproved L knee flexion ASSESSMENT AND PLAN: 56 y/o gentleman with h/o HTN, DM , HLP, newly diagnosed with seizure and occipital stroke last admission , who presented with L LE pain and edema . 1- LLE DVT: with loss of pulse - cont Heparin gtt. goal PTT 60-80. - coumadin 7.5 otnight ( can't afford noacs ) - Suction thrombectomy tomorrow . d/w Dr. Shaikh - Keep NPO after mid night 2- Seizure disorder ( partial and partial seizures with secondary generalization ) . - no events in house . - cont Keppra 1000 bID - d/w Dr. Campo. his seizure was controlled last admision after adding dilantin . there is concern of recurrent seizures with Dc dilantin . will keep dilantin at 100 BID , and adjust coumadin dose according to INR ( interaction ) 3- Recent diagnosis of a stroke : - while on AC, will hold asa 4- LActic acidosis ,probably due to severe sepsis from UTI. - Urine cx neg , but it was drawn 1 day after starting Abx . - will treat for 10 days . Rocephin fro now can switch to po agent when WBC is NL. pay attention to INR 5- DM: - SSI . - might start 5 mg of glipizide on . NPO tomorrow for procedure 6- MALOU: likely due to sepsis , newly start ACEI, and possible prerenal component - cdc IVF 7- DVT px : on heparin gtt HLOC needs to finish bridging in house
[2016-12-01] MEDS: ATORVASTATIN CA 20 MG TABLET (FP) PO SCH (21:13)
[2016-12-02] MEDS: HEPARIN - 25,000 UNIT in SODIUM CHLORIDE 495 ML IV SCH ×2 (04:10→07:55)
[2016-12-02] MEDS: INSULIN SLIDING SCALE (NOVOLOG) 1 VIAL SQ SCH ×3 (06:11→18:05)
[2016-12-02 07:45] LABS: MCH 23.4 pg (25.7-33.7); MCHC 31.7 g/dl (32.0-35.9); MEAN CELL VOLUME 73.9 fl (80-96); MEAN PLT VOLUME 7.9 fl (7.5-11.1); PLATELET COUNT 209 K/MM3 (134-434); RDW 13.4 % (11.9-15.9); WHITE BLOOD COUNT 10.8 K/mm3 (4.0-10.0)
[2016-12-02 07:57] LABS: INR 1.18 (0.82-1.09)
[2016-12-02 08:21] LABS: ANION GAP 8 (8-16); CALCIUM 8.3 mg/dL (8.5-10.1); CO2 27 mmol/L (21-32); GLUCOSE,RANDOM 169 mg/dL (74-106)
[2016-12-02 08:23] LABS: CREATININE 0.9 mg/dL (0.7-1.3)
--- NOTE | 2016-12-02 08:38 | PN ---
Physical Exam: SUBJECTIVE: Patient seen and examined this AM. Still complains of leg pain. No CP, no SOB, no fevers, no chills OBJECTIVE: Vital Signs Period Temp Pulse Resp BP Sys/Navarrete Pulse Ox Last 24 Hr 98.6 F-99.1 F 76-96 18-20 118-150/66-85 98-98 GENERAL: The patient is awake, alert, and fully oriented, in no acute distress. HEENT: PERRLA, EOMi, No LAD LUNGS: CTABL, No accessory muscle use HEART: S1, S2, RRR, no murmurs ABD: Soft, nontender, nondistended, normoactive bowel sounds UPPER EXTREMITIES: 2+ pulses, no edema, no erythema LOWER EXTREMITIES: 2+ pulse on RLE, non-palpable on LLE, feet still warm, well perfused, no concern of total compromise of arterial circulation, L thigh + leg circumference > R thigh + leg, no erythema, no pitting edema NEURO: Cranial nerves intact, no facial droop. Sensation intact in face and body bilaterally, muscle strength 5/5 Laboratory Results - last 24 hr 12/01/16 12/01/16 12/01/16 11:22 12:00 12:00 WBC RBC Hgb Hct MCV MCH MCHC RDW Plt Count MPV INR 1.23 H PTT (Actin FS) 59.5 H D POC Glucometer 183 12/01/16 12/01/16 12/02/16 16:19 19:45 04:00 WBC RBC Hgb Hct MCV MCH MCHC RDW Plt Count MPV INR PTT (Actin FS) 87.8 H D 65.1 H POC Glucometer 268 12/02/16 12/02/16 12/02/16 06:06 07:00 07:00 WBC 10.8 H RBC 3.52 L Hgb 8.2 L Hct 26.0 L MCV 73.9 L MCH 23.4 L MCHC 31.7 L RDW 13.4 Plt Count 209 D MPV 7.9 INR PTT (Actin FS) 71.3 H POC Glucometer 178 12/02/16 07:00 WBC RBC Hgb Hct MCV MCH MCHC RDW Plt Count MPV INR 1.18 H PTT (Actin FS) POC Glucometer Active Medications Generic Name Dose Route Start Last Admin Trade Name Freq PRN Reason Stop Dose Admin Amlodipine Besylate 10 mg 12/02/16 10:00 Norvasc - PO DAILY MELANIA Atorvastatin Calcium 20 mg 11/29/16 22:00 12/01/16 21:13 Lipitor - PO 20 mg HS MELANIA Administration Bacitracin 1 applic 11/29/16 10:00 12/01/16 16:05 Bacitracin - TP 1 applic DAILY MELANIA Administration Heparin Sodium (Porcine) 1,000 unit 11/30/16 08:15 12/01/16 14:01 Heparin - IVPUSH 1,000 unit PRN PRN Administration Heparin Heparin Sodium (Porcine) 5,000 unit 11/30/16 08:15 Heparin - IVPUSH PRN PRN Heparin Heparin Sodium (Porcine) 25, 500 mls @ 50 mls/hr 11/30/16 08:15 12/02/16 07:55 000 unit/ Sodium Chloride IV 40 mls/hr TITR MELANIA Administration Protocol 2,500 UNIT/HR Insulin Aspart 1 vial 11/30/16 11:00 12/02/16 06:11 Novolog Vial Sliding Scale - SQ 2 unit TIDAC MELANIA Administration Protocol Levetiracetam 1,000 mg 11/29/16 22:00 12/01/16 21:13 Keppra - PO 1,000 mg BID MELANIA Administration Phenytoin Sodium 100 mg 12/01/16 10:00 12/01/16 21:12 Dilantin - PO 100 mg BID MELANIA Administration ASSESSMENT/PLAN: Pt is a 56yo M with PMHx of seizure disorder, DM2, HTN, recently discharged from the hospital with new complaint of LLE swelling, found to have thrombus in L common femoral, femora, popliteal, and posterior tibial veins. # Acute LLE DVT - Thrombus extends from posterior tibial to common femoral - Likely due to immobility after d/c - Dr. Shaikh to do suction thrombectomy today - Heparin drip --> then bridge to Coumadin Heparin started on 11/30, continue Heparin drip for 5 days (last day December 04) After 5 days, check INR When therapeutic, overlap with Coumadin for 24 hours After 24 hrs, d/c heparin and continue Coumadin - Pt received 7.5mg Coumadin yest, possibly 5mg tonight bc of Dilantin and prior abx - Monitor PT/INR # Lactic Acidosis - resolved - Unlikely due to medication sfx - F/u blood + urine cultures to r/o infection - Held metformin # MALOU - improving - Pre-renal vs lisinopril (new med) vs keppra (new med) - improved with fluids - d/c'd Lisinopril - can continue if Cr is back to normal - continue Keppra as per Neuro # Hx of Seizure Disorder - No seizure episodes - Continue Keppra - Taper Dilantin from 100mg TID --> BID bc of interaction with Warfarin - Watch for seizures # Leukocytosis - Reactive vs infectious - Monitor # Pyuria - Ucx negative, dc'd antibiotics # IDDM - BGM + SSI TID - Can start Glipizide on # Hx of HTN - Presented with low BP, held BP meds Amlodipine + Lisinopril - Restarted Amlodipine # FEN - Fluids: None - Electrolytes: Continue to monitor - Nutrition: NPO after midnight for suction thrombectomy # Prophylaxis - DVT: On heparin drip - GI: Not indicated - PT: PT on hold until after procedure Visit type - Emergency Visit Emergency Visit: No - New Patient This patient is new to me today: No - Critical Care Critical Care patient: No - Discharge Referral Referred to [facility] Med P.C.: No
--- NOTE | 2016-12-02 08:47 | PN ---
Progress Note (short form) - Note Progress Note: 56 yr old man with newly diagnosed seizure d/o/HTN/DM II, presents with 2 days of left lower leg swelling and pain in his thigh since this morning. He was recently discharged from [facility]. Since discharge he has not been ambulating much, mostly to the bathroom and back to sofa/bed. Swelling developed gradually, pain was sudden in the anterior thigh this morning and has been continous since onset , is worse with weight bearing, does not radiate. Has not been able get the walker yet. Has been talking his medications as prescribed from the previous admission. BGM's at home between 100-130's, nothing greater or lower. Tmax at home 99F. denies sob, chest pain, lightheadedness, dysuria, vomiting, diarrhea, seizures, change urine color/frequency/dysuria, fever, chills, cough, changes in vision. No change in left great toe wound. Pt. denies further seizures since discharge.He reports taking both Dilantin and Keppra 1000mg bid at home, these were his discharge meds from last admission last week. FU : no neuro issues or seizures being treated for DVT on dilantin 100BID on Warfarin now for left leg DVT. 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 No: Cancer, Constipation , GERD Renal/: No: Renal Failure, Cancer Endocrine: Yes: Diabetes Mellitus - Past Surgical History Past Surgical History: Yes: None - Alcohol/Substance Use Hx Alcohol Use: No - Smoking History Smoking history: Unknown if ever smoked Have you smoked in the past 12 months: Yes Aproximately how many cigarettes per day: 12 (since age 19) - Social History Usual Living Arrangement: Other (Nephews) ADL: Independent Occupation: currently not working History of Recent Travel: No Home Medications - Allergies Allergies/Adverse Reactions: Allergies Allergy/AdvReac Type Severity Reaction Status Date / Time No Known Allergies Allergy Verified 11/20/16 01:29 - Home Medications Home Medications: Ambulatory Orders Amlodipine Besylate [Norvasc -] 10 mg PO DAILY #30 tablet 11/25/16 Bacitracin - [Bacitracin Topical Ointment -] 1 applic TP DAILY #1 tube 11/25/16 Levetiracetam [Keppra -] 1,000 mg PO BID #60 tablet 11/25/16 Lisinopril [Prinivil] 10 mg PO DAILY@1200 #30 tablet 11/25/16 Aspirin [ASA -] 81 mg PO DAILY #30 tab 11/26/16 Glipizide [Glipizide ER] 10 mg PO DAILY #10 tab.er.24 11/26/16 Insulin Aspart [Novolog Flexpen] See Protocol SQ AC #1 insuln.pen 11/26/16 Metformin HCl [Glucophage -] 850 mg PO BID #60 tab 11/26/16 Miscellaneous Medical Supply [Outpatient Order] 1 each ASDIR #1 misc Phenytoin Na Extended [Dilantin -] 100 mg PO TID #90 capsule 11/26/16 Simvastatin 40 mg PO DAILY #30 tab 11/26/16 Family Disease History - Family Disease History Family Disease History: Diabetes: Father ( , stroke), Other: Mother ( dementia- alive ), Sister ( of alcohol related issues) Physical Exam-Neuro Vital Signs: Vital Signs Temperature 98.6 F 12/02/16 08:11 Pulse Rate 76 12/02/16 08:11 Respiratory Rate 18 12/02/16 08:11 Blood Pressure 144/85 12/02/16 08:11 O2 Sat by Pulse Oximetry (%) 98 12/01/16 21:00 Labs: CBCD WBC 10.5 K/mm3 (4.0-10.0) H 12/01/16 06:10 RBC 3.50 M/mm3 (4.00-5.60) L 12/01/16 06:10 Hgb 8.2 GM/dL (11.7-16.9) L D 12/01/16 06:10 Hct 26.0 % (35.4-49) L 12/01/16 06:10 MCV 74.2 fl (80-96) L 12/01/16 06:10 MCHC 31.4 g/dl (32.0-35.9) L 12/01/16 06:10 RDW 13.7 % (11.9-15.9) 12/01/16 06:10 Plt Count 164 K/MM3 (134-434) 12/01/16 06:10 MPV 8.1 fl (7.5-11.1) 12/01/16 06:10 CMP Sodium 135 mmol/L (136-145) L 12/01/16 06:00 Potassium 4.1 mmol/L (3.5-5.1) 12/01/16 06:00 Chloride 103 mmol/L (98-107) 12/01/16 06:00 Carbon Dioxide 25 mmol/L (21-32) 12/01/16 06:00 Anion Gap 7 (8-16) L 12/01/16 06:00 BUN 17 mg/dL (7-18) D 12/01/16 06:00 Creatinine 1.1 mg/dL (0.7-1.3) D 12/01/16 06:00 Creat Clearance w eGFR 32.95 (>60) 11/29/16 04:57 Random Glucose 160 mg/dL (74-106) H 12/01/16 06:00 Calcium 8.1 mg/dL (8.5-10.1) L 12/01/16 06:00 Total Bilirubin 0.8 mg/dL (0.2-1.0) 11/29/16 04:57 AST 27 U/L (15-37) D 11/29/16 04:57 ALT 33 U/L (12-78) D 11/29/16 04:57 Alkaline Phosphatase 121 U/L (45-117) H D 11/29/16 04:57 Total Protein 8.0 g/dl (6.4-8.2) 11/29/16 04:57 Albumin 3.9 g/dl (3.4-5.0) 11/29/16 04:57 - Neuro Exam DTR's: 0 Left Achilles (Unable to test), 1+ Left Bicep, 1+ Right Bicep, 1+ Left Tricep, 1+ Right Tricep, 1+ Left Brachioradialis, 1+ Right Brachioradialis, 1+ Right Achilles Babinski: Absent Response to light touch: Normal Response to pain prick: Normal (Left leg-Left lower leg swelling from ankle to thigh, nonpitting edema, no erythema, nontender, pulses intact 1+ at DP, TP, mildly warmer than right leg. No calf tenderness. sensation intact throughout. Indurated) NIH Stroke Scale - Total Score NIH Stroke Scale Score: 0 Imaging - Results Cat Scan: Report Reviewed MRI: Report Reviewed (MRI brain last admission-probable punctate righ BG punctate infarct. MRA Brain without sig. abn) Assessment/Plan Pt. with hx. of recently diagnosed seizure d/o. The type/character of seizures is unclear and he was deemed a candidate for VEEG monitoring electively, on Dilantin and Keppra at home. Now without seizures, admitted for DVT, placed on Warfain. Suggest: maintain Keppra 1000mg BID and will maintain dilantin 100BID (as prior seizures were eventually stabilized with dual AED TX) coumadin to be adjusted based on RX metabolism , check dilantin level Dr Campo
[2016-12-02] MEDS: levETIRAcetam 500 MG TABLET (FP) PO SCH ×2 (09:32→22:17)
[2016-12-02] MEDS: PHENYTOIN NA EXTENDED 100 MG CAPSULE (FP) PO SCH ×2 (09:32→22:17)
[2016-12-02] MEDS: BACITRACIN 15 GM TUBE TOPICAL OINTMENT TP SCH ×2 (09:33→11:27)
[2016-12-02] MEDS ORDERED: amLODIPine BESYLATE 10 MG TABLET (FP) PO SCH (10:00)
[2016-12-02] MEDS ORDERED: PT OWN MED DRAWER 7, Y5N ONE (11:26)
[2016-12-02] MEDS ORDERED: ALTEPLASE 2 MG VIAL IVPB ONE (13:15)
[2016-12-02] MEDS ORDERED: HEPARIN NA (PORCINE) 5,000 UNITS/ML 1ML VIAL ONE (13:33)
[2016-12-02] MEDS ORDERED: LIDOCAINE HCL 1%, 10 MG/ML (20ML VIAL) ONE (13:33)
[2016-12-02] MEDS ORDERED: MIDAZOLAM HCL 2 MG/2 ML SINGLE DOSE VIAL ONE ×5 (14:09→15:32)
[2016-12-02] MEDS ORDERED: ceFAZolin SODIUM 1 GM VIAL IVPB ONE (14:14)
[2016-12-02] MEDS ORDERED: ceFAZolin SODIUM 1 GM VIAL ONE (14:20)
--- NOTE | 2016-12-02 16:03 | OP ---
Operative Note - Note: Operative Date: 12/02/16 Pre-Operative Diagnosis: LLE DVT Operation: LLE femoral vein, iliac vein, IVC venogram, thrombolysis of femoral, iliac vein, Suction thrombectomy of femoral vein and iliac vein. Findings: femoral, iliac vein DVT Post-Operative Diagnosis: Same as Pre-op Surgeon: Jose Shaikh Anesthesia: Fractional Estimated Blood Loss (mls): 50 Operative Report Dictated: Yes
[2016-12-02] MEDS ORDERED: HEPARIN NA (PORCINE) 5,000 UNITS/ML 1ML VIAL IVPUSH PRN (16:04)
[2016-12-02] MEDS ORDERED: ONDANSETRON 4 MG/2 ML VIAL IVPUSH PRN (16:30)
[2016-12-02] MEDS ORDERED: WARFARIN NA 5 MG TABLET (UD) PO ONE (18:00)
[2016-12-02] MEDS: HEPARIN INFUSION - 500 ML IVPB SCH (18:08)
[2016-12-02] MEDS ORDERED: oxyCODONE HCL 5 MG TABLET PO PRN (18:33)
[2016-12-02] MEDS ORDERED: ACETAMINOPHEN 325 MG TABLET (FP) PO PRN (18:33)
[2016-12-02] MEDS: oxyCODONE HCL 5 MG TABLET PO PRN (18:45)
[2016-12-02] MEDS: ACETAMINOPHEN 325 MG TABLET (FP) PO PRN (18:46)
--- NOTE | 2016-12-02 18:51 | PN ---
Teaching Attending Note Name of Resident: Patrick Muniz ATTENDING PHYSICIAN STATEMENT I saw and evaluated the patient. I reviewed the resident's note and discussed the case with the resident. I agree with the resident's findings and plan as documented. SUBJECTIVE: Patient is comfortable with no acute distress, no shortness of breath, comfortable. OBJECTIVE: Vital Signs Temperature 97.8 F 12/02/16 18:31 Pulse Rate 88 12/02/16 18:31 Respiratory Rate 20 12/02/16 18:31 Blood Pressure 161/110 12/02/16 18:31 O2 Sat by Pulse Oximetry (%) 98 12/02/16 18:31 CBCD WBC 10.8 K/mm3 (4.0-10.0) H 12/02/16 07:00 RBC 3.52 M/mm3 (4.00-5.60) L 12/02/16 07:00 Hgb 8.2 GM/dL (11.7-16.9) L 12/02/16 07:00 Hct 26.0 % (35.4-49) L 12/02/16 07:00 MCV 73.9 fl (80-96) L 12/02/16 07:00 MCHC 31.7 g/dl (32.0-35.9) L 12/02/16 07:00 RDW 13.4 % (11.9-15.9) 12/02/16 07:00 Plt Count 209 K/MM3 (134-434) D 12/02/16 07:00 MPV 7.9 fl (7.5-11.1) 12/02/16 07:00 CMP Sodium 138 mmol/L (136-145) 12/02/16 07:00 Potassium 4.1 mmol/L (3.5-5.1) 12/02/16 07:00 Chloride 103 mmol/L (98-107) 12/02/16 07:00 Carbon Dioxide 27 mmol/L (21-32) 12/02/16 07:00 Anion Gap 8 (8-16) 12/02/16 07:00 BUN 10 mg/dL (7-18) D 12/02/16 07:00 Creatinine 0.9 mg/dL (0.7-1.3) 12/02/16 07:00 Creat Clearance w eGFR 32.95 (>60) 11/29/16 04:57 Random Glucose 169 mg/dL (74-106) H 12/02/16 07:00 Calcium 8.3 mg/dL (8.5-10.1) L 12/02/16 07:00 Total Bilirubin 0.8 mg/dL (0.2-1.0) 11/29/16 04:57 AST 27 U/L (15-37) D 11/29/16 04:57 ALT 33 U/L (12-78) D 11/29/16 04:57 Alkaline Phosphatase 121 U/L (45-117) H D 11/29/16 04:57 Total Protein 8.0 g/dl (6.4-8.2) 11/29/16 04:57 Albumin 3.9 g/dl (3.4-5.0) 11/29/16 04:57 Current Medications Generic Name Dose Route Start Last Admin Trade Name Freq PRN Reason Stop Dose Admin Acetaminophen 325 mg 12/02/16 18:26 12/02/16 18:46 Tylenol - PO 325 mg Q6H PRN Administration PAIN Acetaminophen 325 mg 12/02/16 18:33 Tylenol - PO Q6H PRN PAIN Amlodipine Besylate 10 mg 12/03/16 10:00 Norvasc - PO DAILY COUNT INCLUDES [facility] Atorvastatin Calcium 20 mg 12/02/16 22:00 Lipitor - PO HS COUNT INCLUDES THE [facility] Bacitracin 1 applic 12/03/16 10:00 Bacitracin - TP DAILY COUNT INCLUDES THE [facility] Fentanyl 50 mcg 12/02/16 16:30 Sublimaze Injection - IVPUSH 12/05/16 16:31 [id number] PRN PAIN Glipizide 10 mg 12/03/16 07:00 Glucotrol Xl - PO DAILY@0700 COUNT INCLUDES THE [facility] Heparin Sodium (Porcine) 5,000 unit 12/02/16 18:04 Heparin - IVPUSH PRN PRN Heparin Heparin Sodium (Porcine) 1,000 unit 12/02/16 16:04 Heparin - IVPUSH PRN PRN Heparin Heparin Sodium/Dextrose 500 mls @ 20 mls/hr 12/02/16 18:15 12/02/16 18:08 Heparin Infusion - IVPB 20 mls/hr TITR COUNT INCLUDES THE [facility] Administration Protocol 1,000 UNITS/HR Insulin Aspart 1 vial 12/03/16 07:00 Novolog Vial Sliding Scale - SQ TIDAC COUNT INCLUDES THE [facility] Protocol Levetiracetam 1,000 mg 12/02/16 22:00 Keppra - PO BID COUNT INCLUDES THE [facility] Ondansetron HCl 4 mg 12/02/16 16:30 Zofran Injection IVPUSH 12/02/16 22:31 Q6H PRN NAUSEA AND/OR VOMITING Oxycodone HCl 5 mg 12/02/16 18:26 12/02/16 18:45 Roxicodone - PO 5 mg Q6H PRN Administration PAIN Oxycodone HCl 5 mg 12/02/16 18:33 Roxicodone - PO Q6H PRN PAIN Phenytoin Sodium 100 mg 12/02/16 22:00 Dilantin - PO BID COUNT INCLUDES THE [facility] Home Medications Medication Instructions Recorded Amlodipine Besylate [Norvasc -] 10 mg PO DAILY #30 tablet 11/25/16 Bacitracin - [Bacitracin Topical 1 applic TP DAILY #1 tube 11/25/16 Ointment -] Levetiracetam [Keppra -] 1,000 mg PO BID #60 tablet 11/25/16 Lisinopril [Prinivil] 10 mg PO DAILY@1200 #30 tablet 11/25/16 Aspirin [ASA -] 81 mg PO DAILY #30 tab 11/26/16 Glipizide [Glipizide ER] 10 mg PO DAILY #10 tab.er.24 11/26/16 Insulin Aspart [Novolog Flexpen] See Protocol SQ AC #1 insuln.pen 11/26/16 Metformin HCl [Glucophage -] 850 mg PO BID #60 tab 11/26/16 Miscellaneous Medical Supply 1 each ASDIR #1 misc 11/26/16 [Outpatient Order] Phenytoin Na Extended [Dilantin -] 100 mg PO TID #90 capsule 11/26/16 Simvastatin 40 mg PO DAILY #30 tab 11/26/16 CHEST: CTABL Heart: S1S2 positive Extremities: LLE swollen 2x more than RLE, pulses are positive. ASSESSMENT AND PLAN: 56 y/o gentleman with h/o HTN, DM , HLP, newly diagnosed with seizure and occipital stroke last admission , who presented with LLE pain and edema . # Acute LLE DVT: s/p loss of pulse on heparin gtt. bridging with coumadin , s/ p suction thrombectomy of femoral vein and iliac vein regained pulses of LLE now , will monitor , continue goal PTT 60-80. on coumadin with PT/INR daily , s/p Suction thrombectomy of femoral vein and iliac vein. LLE femoral vein, iliac vein, IVC venogram, thrombolysis of femoral, iliac vein. Discussed with vascular surgeon , patient needs to be on it for life long. # Seizure disorder On Phenytoin and Keppra continue . # Recent diagnosis of a stroke with vision changes : On heparin drip and bridging with coumadin. # LActic acidosis ,probably due to severe sepsis from UTI. On IV Rocephin IV for now. Switch to po agent when WBC is NL. PT/INR daily # T2DM: SSI with coverage . # MALOU: likely due to sepsis , newly start ACEI, and possible prerenal component # Acute UTI given Rocephin and given Cefazolin IV today DVT px : on heparin gtt /coumadin
[2016-12-02] MEDS: ATORVASTATIN CA 20 MG TABLET (FP) PO SCH (22:17)
[2016-12-03] MEDS: ACETAMINOPHEN 325 MG TABLET (FP) PO PRN ×3 (00:43→21:17)
[2016-12-03] MEDS: oxyCODONE HCL 5 MG TABLET PO PRN ×3 (00:44→21:17)
[2016-12-03] MEDS: glipiZIDE-XL 10 MG TAB.ER.24 (FP) PO SCH (06:49)
[2016-12-03] MEDS: INSULIN SLIDING SCALE (NOVOLOG) 1 VIAL SQ SCH ×3 (06:50→16:43)
--- NOTE | 2016-12-03 07:40 | PN ---
Physical Exam: SUBJECTIVE: Patient seen and examined this AM. No CP, no SOB. Pt still has leg pain in L leg. Pt had fevers last night Tmax 100.5. Received Tylenol for pain. Tachy 101. No signs of infection. OBJECTIVE: Vital Signs Period Temp Pulse Resp BP Sys/Navarrete Pulse Ox Last 24 Hr 97.8 F-100.5 F 76-101 16-20 107-170/60-110 98-100 GENERAL: The patient is awake, alert, and fully oriented, in no acute distress. HEENT: PERRLA, EOMi, No LAD LUNGS: CTABL, No accessory muscle use HEART: S1, S2, RRR, no murmurs ABD: Soft, nontender, nondistended, normoactive bowel sounds UPPER EXTREMITIES: 2+ pulses, no edema, no erythema LOWER EXTREMITIES: 2+ pulse on RLE, faint pulses on LLE, feet still warm, well perfused, no concern of total compromise of arterial circulation, L thigh + leg circumference > R thigh + leg, no erythema, no pitting edema NEURO: Cranial nerves intact, no facial droop. Sensation intact in face and body bilaterally, muscle strength 5/5 Laboratory Results - last 24 hr 12/02/16 12/02/16 12/02/16 07:00 07:00 07:00 WBC 10.8 H RBC 3.52 L Hgb 8.2 L Hct 26.0 L MCV 73.9 L MCH 23.4 L MCHC 31.7 L RDW 13.4 Plt Count 209 D MPV 7.9 INR 1.18 H PTT (Actin FS) 71.3 H Sodium Potassium Chloride Carbon Dioxide Anion Gap BUN Creatinine POC Glucometer Random Glucose Calcium Phenytoin 12/02/16 12/02/16 12/02/16 07:00 07:00 11:10 WBC RBC Hgb Hct MCV MCH MCHC RDW Plt Count MPV INR PTT (Actin FS) Sodium 138 Potassium 4.1 Chloride 103 Carbon Dioxide 27 Anion Gap 8 BUN 10 D Creatinine 0.9 POC Glucometer 144 Random Glucose 169 H Calcium 8.3 L Phenytoin 9.8 L D 12/02/16 12/02/16 12/03/16 17:29 22:15 06:48 WBC RBC Hgb Hct MCV MCH MCHC RDW Plt Count MPV INR PTT (Actin FS) Sodium Potassium Chloride Carbon Dioxide Anion Gap BUN Creatinine POC Glucometer 167 247 204 Random Glucose Calcium Phenytoin Active Medications Generic Name Dose Route Start Last Admin Trade Name Freq PRN Reason Stop Dose Admin Acetaminophen 325 mg 12/02/16 18:26 12/03/16 00:43 Tylenol - PO 325 mg Q6H PRN Administration PAIN Acetaminophen 325 mg 12/02/16 18:33 Tylenol - PO Q6H PRN PAIN Amlodipine Besylate 10 mg 12/03/16 10:00 Norvasc - PO DAILY [facility] Atorvastatin Calcium 20 mg 12/02/16 22:00 12/02/16 22:17 Lipitor - PO 20 mg HS [facility] Administration Bacitracin 1 applic 12/03/16 10:00 Bacitracin - TP DAILY [facility] Fentanyl 50 mcg 12/02/16 16:30 Sublimaze Injection - IVPUSH 12/05/16 16:31 [id number] PRN PAIN Glipizide 10 mg 12/03/16 07:00 12/03/16 06:49 Glucotrol Xl - PO 10 mg DAILY@0700 [facility] Administration Heparin Sodium (Porcine) 5,000 unit 12/02/16 18:04 Heparin - IVPUSH PRN PRN Heparin Heparin Sodium (Porcine) 1,000 unit 12/02/16 16:04 Heparin - IVPUSH PRN PRN Heparin Heparin Sodium/Dextrose 500 mls @ 20 mls/hr 12/02/16 18:15 12/02/16 18:08 Heparin Infusion - IVPB 20 mls/hr TITR [facility] Administration Protocol 1,000 UNITS/HR Insulin Aspart 1 vial 12/03/16 07:00 12/03/16 06:50 Novolog Vial Sliding Scale - SQ 4 units TIDAC [facility] Administration Protocol Levetiracetam 1,000 mg 12/02/16 22:00 12/02/16 22:17 Keppra - PO 1,000 mg BID [facility] Administration Oxycodone HCl 5 mg 12/02/16 18:26 12/03/16 00:44 Roxicodone - PO 5 mg Q6H PRN Administration PAIN Oxycodone HCl 5 mg 12/02/16 18:33 Roxicodone - PO Q6H PRN PAIN Phenytoin Sodium 100 mg 12/02/16 22:00 12/02/16 22:17 Dilantin - PO 100 mg BID [facility] Administration ASSESSMENT/PLAN: Pt is a 56yo M with PMHx of seizure disorder, DM2, HTN, recently discharged from the hospital with new complaint of LLE swelling, found to have thrombus in L common femoral, femoral, popliteal, and posterior tibial veins. # Acute LLE DVT - Likely due to immobility after d/c - POD1 from suction thrombectomy (on 12/02) - Post-op fever, Tmax 100.5. No obvious signs of infection, continue to monitor - Heparin drip (started on 11/30) --> then bridge to Coumadin (Started 12/02) - Pt received 5mg yest bc of Dilantin and prior abx, 5mg today - Monitor PT/INR # Leukocytosis - More likely reactive, no signs of infection - Monitor # Lactic Acidosis - resolved - Unlikely due to medication sfx - F/u blood + urine cultures to r/o infection - Held metformin # MALOU - improving - Pre-renal vs lisinopril (new med) vs keppra (new med) - improved with fluids - d/c'd Lisinopril - can continue if Cr is back to normal - continue Keppra as per Neuro # Hx of Seizure Disorder - No seizure episodes - Continue Keppra - New dose of Dilantin 100mg BID bc of interaction with Warfarin - Watch for seizures # Pyuria - Ucx negative, dc'd antibiotics # IDDM - BGM + SSI TID - Continue glipizide 10mg # Hx of HTN - Continue amlodipine + lisinopril 10mg # FEN - Fluids: None - Electrolytes: Continue to monitor - Nutrition: Diabetic/sodium diet # Prophylaxis - DVT: On heparin drip - GI: Not indicated - PT: PT on hold until after procedure Visit type - Emergency Visit Emergency Visit: No - New Patient This patient is new to me today: No - Critical Care Critical Care patient: No
[2016-12-03 07:53] LABS: MCH 22.9 pg (25.7-33.7); MCHC 30.9 g/dl (32.0-35.9); MEAN CELL VOLUME 74.1 fl (80-96); MEAN PLT VOLUME 7.8 fl (7.5-11.1); PLATELET COUNT 208 K/MM3 (134-434); RDW 13.5 % (11.9-15.9); WHITE BLOOD COUNT 11.1 K/mm3 (4.0-10.0)
[2016-12-03 08:17] LABS: CALCIUM 8.8 mg/dL (8.5-10.1)
[2016-12-03 08:20] LABS: ANION GAP 9 (8-16); CO2 25 mmol/L (21-32); CREATININE 0.9 mg/dL (0.7-1.3); GLUCOSE,RANDOM 194 mg/dL (74-106)
[2016-12-03 08:23] LABS: INR 1.45 (0.82-1.09); PROTHROMBIN TIME (PATIENT) 16.1 SEC (9.98-11.88)
--- NOTE | 2016-12-03 08:38 | OP ---
DATE OF OPERATION: 12/02/2016 PREOPERATIVE DIAGNOSIS: Left lower extremity deep vein thrombosis. POSTOPERATIVE DIAGNOSIS: Left lower extremity deep vein thrombosis. PROCEDURE: Venogram, femoral vein, iliac vein, inferior vena cava; thrombolysis of the femoral and iliac vein; suction thrombectomy of femoral and iliac vein. SURGEON: Jose Hunter DO ANESTHESIA: Fractional. BLOOD LOSS: 50 mL. The patient is a 56-year-old male that came in with a left lower extremity DVT and he developed severe swelling. Preoperative ultrasound showed that he has DVT of the popliteal vein, femoral vein. It was decided that he would need suction thrombectomy with possible thrombolysis. Patient was consented for the procedure, understanding all risks, benefits, and alternatives. Then brought into the operating room and laid down in a prone manner. We then prepped and draped the left lower extremity in a sterile surgical manner. We then went ahead and visualized the left femoral vein above the knee and 10 mL of lidocaine 1% was injected there. We then took our micropuncture needle and punctured the vein. Micropuncture wire was inserted. Micropuncture sheath was inserted and a traditional 8-Samoan sheath was inserted. IV heparin 5000 units was administered to the patient. We then went ahead and brought up our guidewire along with a Priyank catheter all the way up into the iliac vein and a venogram was shot of the iliac vein showing that there was still clot in the iliac vein. We then shot a venogram of the femoral vein and there was clot present there as well. At this point, we placed a wire all the way up into the IVC and took a picture of the IVC and it was patent with a venogram. We then went ahead and took our Zelante catheter from [place] and did power pulse using 10 mg of tPA in 100 mL of normal saline and we went ahead and power pulsed the entire femoral vein and iliac vein with tPA. We then waited 10 minutes and we then went ahead and used the Zelante catheter and performed suction thrombectomy of the common femoral vein, the iliac vein, all the way up into the IVC. Completion venogram was then performed showing that the femoral vein was patent, the iliac vein was patent, and the IVC was patent. At this point, we removed the catheters and the sheath was removed and pressure was held on the left femoral vein for 5 minutes after which there was no bleeding. The area was wet and dried and Dermabond was placed. Patient tolerated the procedure with no complication. Patient transferred to PACU in stable condition. JOSE HUNTER DO NP/[id number]
[2016-12-03] MEDS: HEPARIN NA (PORCINE) 5,000 UNITS/ML 1ML VIAL IVPUSH PRN ×3 (09:00→23:41)
[2016-12-03] MEDS ORDERED: PT OWN MED DRAWER 7, Y5N ONE (09:19)
[2016-12-03] MEDS: levETIRAcetam 500 MG TABLET (FP) PO SCH ×2 (09:19→21:18)
[2016-12-03] MEDS: BACITRACIN 15 GM TUBE TOPICAL OINTMENT TP SCH (09:20)
[2016-12-03] MEDS: PHENYTOIN NA EXTENDED 100 MG CAPSULE (FP) PO SCH ×2 (09:20→21:17)
[2016-12-03] MEDS: amLODIPine BESYLATE 10 MG TABLET (FP) PO SCH (09:20)
[2016-12-03] MEDS ORDERED: INSULIN (NOVOLOG) ASPART 100 UNITS/ML 10ML VIAL ONE ×2 (12:14→16:33)
[2016-12-03] MEDS ORDERED: WARFARIN NA 5 MG TABLET (UD) PO ONE (18:00)
--- NOTE | 2016-12-03 19:41 | PN ---
Teaching Attending Note Name of Resident: Patrick Muniz ATTENDING PHYSICIAN STATEMENT I saw and evaluated the patient. I reviewed the resident's note and discussed the case with the resident. I agree with the resident's findings and plan as documented. SUBJECTIVE: Comfortable with no acute distress. OBJECTIVE: Vital Signs Temperature 98.2 F 12/03/16 16:04 Pulse Rate 84 12/03/16 16:04 Respiratory Rate 20 12/03/16 16:04 Blood Pressure 127/60 12/03/16 16:04 O2 Sat by Pulse Oximetry (%) 98 12/02/16 21:00 CBCD WBC 11.1 K/mm3 (4.0-10.0) H 12/03/16 06:00 RBC 3.45 M/mm3 (4.00-5.60) L 12/03/16 06:00 Hgb 7.9 GM/dL (11.7-16.9) L 12/03/16 06:00 Hct 25.6 % (35.4-49) L 12/03/16 06:00 MCV 74.1 fl (80-96) L 12/03/16 06:00 MCHC 30.9 g/dl (32.0-35.9) L 12/03/16 06:00 RDW 13.5 % (11.9-15.9) 12/03/16 06:00 Plt Count 208 K/MM3 (134-434) 12/03/16 06:00 MPV 7.8 fl (7.5-11.1) 12/03/16 06:00 CMP Sodium 136 mmol/L (136-145) 12/03/16 06:00 Potassium 4.3 mmol/L (3.5-5.1) 12/03/16 06:00 Chloride 102 mmol/L (98-107) 12/03/16 06:00 Carbon Dioxide 25 mmol/L (21-32) 12/03/16 06:00 Anion Gap 9 (8-16) 12/03/16 06:00 BUN 8 mg/dL (7-18) 12/03/16 06:00 Creatinine 0.9 mg/dL (0.7-1.3) 12/03/16 06:00 Creat Clearance w eGFR 32.95 (>60) 11/29/16 04:57 Random Glucose 194 mg/dL (74-106) H 12/03/16 06:00 Calcium 8.8 mg/dL (8.5-10.1) 12/03/16 06:00 Total Bilirubin 0.8 mg/dL (0.2-1.0) 11/29/16 04:57 AST 27 U/L (15-37) D 11/29/16 04:57 ALT 33 U/L (12-78) D 11/29/16 04:57 Alkaline Phosphatase 121 U/L (45-117) H D 11/29/16 04:57 Total Protein 8.0 g/dl (6.4-8.2) 11/29/16 04:57 Albumin 3.9 g/dl (3.4-5.0) 11/29/16 04:57 Current Medications Generic Name Dose Route Start Last Admin Trade Name Freq PRN Reason Stop Dose Admin Acetaminophen 325 mg 12/02/16 18:26 12/03/16 09:31 Tylenol - PO 325 mg Q6H PRN Administration PAIN Acetaminophen 325 mg 12/02/16 18:33 Tylenol - PO Q6H PRN PAIN Amlodipine Besylate 10 mg 12/03/16 10:00 12/03/16 09:20 Norvasc - PO 10 mg DAILY MELANIA Administration Atorvastatin Calcium 20 mg 12/02/16 22:00 12/02/16 22:17 Lipitor - PO 20 mg HS MELANIA Administration Bacitracin 1 applic 12/03/16 10:00 12/03/16 09:20 Bacitracin - TP 1 applic DAILY MELANIA Administration Fentanyl 50 mcg 12/02/16 16:30 Sublimaze Injection - IVPUSH 12/05/16 16:31 [id number] PRN PAIN Glipizide 10 mg 12/03/16 07:00 12/03/16 06:49 Glucotrol Xl - PO 10 mg DAILY@0700 MELANIA Administration Heparin Sodium (Porcine) 5,000 unit 12/02/16 18:04 12/03/16 16:35 Heparin - IVPUSH 5,000 unit PRN PRN Administration Heparin Heparin Sodium (Porcine) 1,000 unit 12/02/16 16:04 Heparin - IVPUSH PRN PRN Heparin Heparin Sodium/Dextrose 500 mls @ 20 mls/hr 12/02/16 18:15 12/03/16 16:35 Heparin Infusion - IVPB 1,300 units/hr TITR MELANIA Titration Protocol 1,000 UNITS/HR Insulin Aspart 1 vial 12/03/16 07:00 12/03/16 16:43 Novolog Vial Sliding Scale - SQ Not Given TIDAC [facility] Protocol Levetiracetam 1,000 mg 12/02/16 22:00 12/03/16 09:19 Keppra - PO 1,000 mg BID MELANIA Administration Lisinopril 10 mg 12/04/16 10:00 Prinivil PO DAILY MELANIA Oxycodone HCl 5 mg 12/02/16 18:26 12/03/16 09:31 Roxicodone - PO 5 mg Q6H PRN Administration PAIN Oxycodone HCl 5 mg 12/02/16 18:33 Roxicodone - PO Q6H PRN PAIN Phenytoin Sodium 100 mg 12/02/16 22:00 12/03/16 09:20 Dilantin - PO 100 mg BID MELANIA Administration Home Medications Medication Instructions Recorded Amlodipine Besylate [Norvasc -] 10 mg PO DAILY #30 tablet 11/25/16 Bacitracin - [Bacitracin Topical 1 applic TP DAILY #1 tube 11/25/16 Ointment -] Levetiracetam [Keppra -] 1,000 mg PO BID #60 tablet 11/25/16 Lisinopril [Prinivil] 10 mg PO DAILY@1200 #30 tablet 11/25/16 Aspirin [ASA -] 81 mg PO DAILY #30 tab 11/26/16 Glipizide [Glipizide ER] 10 mg PO DAILY #10 tab.er.24 11/26/16 Insulin Aspart [Novolog Flexpen] See Protocol SQ AC #1 insuln.pen 11/26/16 Metformin HCl [Glucophage -] 850 mg PO BID #60 tab 11/26/16 Miscellaneous Medical Supply 1 each ASDIR #1 misc 11/26/16 [Outpatient Order] Phenytoin Na Extended [Dilantin -] 100 mg PO TID #90 capsule 11/26/16 Simvastatin 40 mg PO DAILY #30 tab 11/26/16 PE: per resident's note Extremities: positive for pulses ASSESSMENT AND PLAN: 56 y/o gentleman with h/o HTN, DM , HLP, newly diagnosed with seizure and occipital stroke last admission , who presented with LLE pain and edema . # Acute LLE DVT: s/p suction thrombectomy of femoral vein and iliac vein regained pulses of LLE now,On heparin drip bridging with coumadin, PT/INR daily . Discussed with vascular surgeon , patient needs to be on it for life long. # Seizure disorder On Phenytoin and Keppra continue . # Recent diagnosis of a stroke with vision changes : On heparin drip and bridging with coumadin. # s/p LActic acidosis s/p UTI. s/p IV Rocephin # T2DM: SSI with coverage . # MALOU: likely due to sepsis , newly start ACEI, and possible prerenal component # s/p Acute UTI completed Rocephin and s/p Cefazolin IV. DVT px : on heparin gtt /coumadin
[2016-12-03] MEDS: ATORVASTATIN CA 20 MG TABLET (FP) PO SCH (21:17)
[2016-12-03] MEDS: HEPARIN INFUSION - 500 ML IVPB SCH ×2 (21:19→23:41)
[2016-12-03 22:29] LABS: INR 1.41 (0.82-1.09); PROTHROMBIN TIME (PATIENT) 15.6 SEC (9.98-11.88)
[2016-12-03 22:31] LABS: ACTIVATED PTT 36.2 SECONDS (26.9-34.4)
[2016-12-03] MEDS ORDERED: diphenhydrAMINE HCL 25 MG CAPSULE (FP) PO ONE (23:33)
[2016-12-04] MEDS: oxyCODONE HCL 5 MG TABLET PO PRN ×3 (03:23→20:38)
[2016-12-04] MEDS: ACETAMINOPHEN 325 MG TABLET (FP) PO PRN ×3 (03:24→20:39)
[2016-12-04] MEDS ORDERED: INSULIN (NOVOLOG) ASPART 100 UNITS/ML 10ML VIAL ONE ×3 (06:04→16:58)
[2016-12-04] MEDS: glipiZIDE-XL 10 MG TAB.ER.24 (FP) PO SCH (06:06)
[2016-12-04] MEDS: INSULIN SLIDING SCALE (NOVOLOG) 1 VIAL SQ SCH ×3 (06:06→17:00)
[2016-12-04 08:30] LABS: MCH 23.1 pg (25.7-33.7); MEAN CELL VOLUME 74.4 fl (80-96); MEAN PLT VOLUME 7.9 fl (7.5-11.1); PLATELET COUNT 237 K/MM3 (134-434); RDW 13.3 % (11.9-15.9); WHITE BLOOD COUNT 11.5 K/mm3 (4.0-10.0)
--- NOTE | 2016-12-04 08:32 | PN ---
Physical Exam: SUBJECTIVE: Patient seen and examined this AM. Pt states that pain is now in his medial L upper thigh. TTP, no signs of localized skin erythema, nodules, or infection. States pain is 10/10. On oxycodone + tylenol PRN for pain. Post-op fever resolved, no CP, no SOB, no fevers, no chills. On re-examination in the afternoon, the pain improved with massage. OBJECTIVE: Vital Signs Period Temp Pulse Resp BP Sys/Navarrete Pulse Ox Last 24 Hr 98.0 F-99.3 F 84-88 18-20 124-140/60-78 99 GENERAL: The patient is awake, alert, and fully oriented, in no acute distress. HEENT: PERRLA, EOMi, No LAD LUNGS: CTABL, No accessory muscle use HEART: S1, S2, RRR, no murmurs ABD: Soft, nontender, nondistended, normoactive bowel sounds UPPER EXTREMITIES: 2+ pulses, no edema, no erythema LOWER EXTREMITIES: 2+ pulse on RLE, 1+ on LLE, feet still warm, well perfused, no concern of total compromise of arterial circulation, L thigh circumference > R thigh, L leg circumference decreasing, no erythema, no pitting edema - TTP in medial L upper thigh, no signs of localized skin erythema, nodule, or infection NEURO: Cranial nerves intact, no facial droop. Sensation intact in face and body bilaterally, muscle strength 5/5 Laboratory Results - last 24 hr 12/03/16 12/03/16 12/03/16 06:00 06:00 11:05 INR 1.45 H PTT (Actin FS) Sodium 136 Potassium 4.3 Chloride 102 Carbon Dioxide 25 Anion Gap 9 BUN 8 Creatinine 0.9 POC Glucometer 179 Random Glucose 194 H Calcium 8.8 12/03/16 12/03/16 12/03/16 15:30 16:39 21:21 INR PTT (Actin FS) 39.6 H Sodium Potassium Chloride Carbon Dioxide Anion Gap BUN Creatinine POC Glucometer 127 167 Random Glucose Calcium 12/03/16 12/04/16 21:53 06:01 INR 1.41 H PTT (Actin FS) 36.2 H Sodium Potassium Chloride Carbon Dioxide Anion Gap BUN Creatinine POC Glucometer 158 Random Glucose Calcium Active Medications Generic Name Dose Route Start Last Admin Trade Name Freq PRN Reason Stop Dose Admin Acetaminophen 325 mg 12/02/16 18:26 12/04/16 03:24 Tylenol - PO 325 mg Q6H PRN Administration PAIN Acetaminophen 325 mg 12/02/16 18:33 Tylenol - PO Q6H PRN PAIN Amlodipine Besylate 10 mg 12/03/16 10:00 12/03/16 09:20 Norvasc - PO 10 mg DAILY MELANIA Administration Atorvastatin Calcium 20 mg 12/02/16 22:00 12/03/16 21:17 Lipitor - PO 20 mg HS MELANIA Administration Bacitracin 1 applic 12/03/16 10:00 12/03/16 09:20 Bacitracin - TP 1 applic DAILY [facility] Administration Fentanyl 50 mcg 12/02/16 16:30 Sublimaze Injection - IVPUSH 12/05/16 16:31 [id number] PRN PAIN Glipizide 10 mg 12/03/16 07:00 12/04/16 06:06 Glucotrol Xl - PO 10 mg DAILY@0700 MELANIA Administration Heparin Sodium (Porcine) 5,000 unit 12/02/16 18:04 12/03/16 23:41 Heparin - IVPUSH 5,000 unit PRN PRN Administration Heparin Heparin Sodium (Porcine) 1,000 unit 12/02/16 16:04 Heparin - IVPUSH PRN PRN Heparin Heparin Sodium/Dextrose 500 mls @ 20 mls/hr 12/02/16 18:15 12/03/16 23:41 Heparin Infusion - IVPB 29 mls/hr TITR MELANIA Administration Protocol 1,000 UNITS/HR Insulin Aspart 1 vial 12/03/16 07:00 12/04/16 06:06 Novolog Vial Sliding Scale - SQ 2 units TIDAC [facility] Administration Protocol Levetiracetam 1,000 mg 12/02/16 22:00 12/03/16 21:18 Keppra - PO 1,000 mg BID MELANIA Administration Lisinopril 10 mg 12/04/16 10:00 Prinivil PO DAILY [facility] Oxycodone HCl 5 mg 12/02/16 18:26 12/04/16 03:23 Roxicodone - PO 5 mg Q6H PRN Administration PAIN Oxycodone HCl 5 mg 12/02/16 18:33 Roxicodone - PO Q6H PRN PAIN Phenytoin Sodium 100 mg 12/02/16 22:00 12/03/16 21:17 Dilantin - PO 100 mg BID MELANIA Administration ASSESSMENT/PLAN: Pt is a 56yo M with PMHx of seizure disorder, DM2, HTN, recently discharged from the hospital with new complaint of LLE swelling, found to have thrombus in L common femoral, femora, popliteal, and posterior tibial veins. # Acute LLE DVT - Likely due to immobility after d/c - POD2 from suction thrombectomy (on 12/02) - Post-op fever resolved - Heparin drip (started on 11/30) --> then bridge to Coumadin (Started 12/02) - INR still not therapeutic, will give 7.5mg Coumadin today and monitor PT/INR - Monitor PT/INR # Leukocytosis - Still elevated, more likely reactive, no signs of infection - Continue to monitor # Lactic Acidosis - resolved - Unlikely due to medication sfx - Blood cx/Ucx negative - Held metformin # MALOU - resolved - Pre-renal vs lisinopril (new med) vs keppra (new med) - improved with fluids - Restarted Lisinopril 10mg # Hx of Seizure Disorder - No seizure episodes - Continue Keppra - New dose of Dilantin 100mg BID bc of interaction with Warfarin # Pyuria - Ucx negative, dc'd Rocephin antibiotics # IDDM - BGM + SSI TID - Continue glipizide 10mg # Hx of HTN - Continue amlodipine + lisinopril 10mg # FEN - Fluids: None - Electrolytes: Continue to monitor - Nutrition: Diabetic/sodium diet # Prophylaxis - DVT: On heparin drip + coumadin - GI: Not indicated - PT: Walked 60 feet with PT today # Disposition - Reach therapeutic INR and bridge to coumadin - Pain control Visit type - Emergency Visit Emergency Visit: No - New Patient This patient is new to me today: No - Critical Care Critical Care patient: No
[2016-12-04 09:38] LABS: INR 1.43 (0.82-1.09); PROTHROMBIN TIME (PATIENT) 15.9 SEC (9.98-11.88)
[2016-12-04] MEDS: HEPARIN NA (PORCINE) 5,000 UNITS/ML 1ML VIAL IVPUSH PRN ×2 (09:38→18:14)
[2016-12-04] MEDS: levETIRAcetam 500 MG TABLET (FP) PO SCH ×2 (09:38→21:24)
[2016-12-04] MEDS: PHENYTOIN NA EXTENDED 100 MG CAPSULE (FP) PO SCH ×2 (09:40→21:24)
[2016-12-04] MEDS: LISINOPRIL 10 MG TABLET (FP) PO SCH (09:40)
[2016-12-04] MEDS: amLODIPine BESYLATE 10 MG TABLET (FP) PO SCH (09:40)
[2016-12-04] MEDS: BACITRACIN 15 GM TUBE TOPICAL OINTMENT TP SCH (09:40)
--- NOTE | 2016-12-04 12:34 | PN ---
Progress Note (short form) - Note Progress Note: Vascular surgery Pt seen and examined. Doing well. Pt was complaining of left thigh pain. Feels better. PT for ambulation. Bridge to coumadin. Jose Shaikh DO
[2016-12-04] MEDS: HEPARIN INFUSION - 500 ML IVPB SCH ×2 (15:31→21:24)
[2016-12-04] MEDS ORDERED: WARFARIN NA 7.5 MG TABLET (FP) PO ONE (18:00)
--- NOTE | 2016-12-04 19:26 | PN ---
Teaching Attending Note Name of Resident: Patrick Muniz ATTENDING PHYSICIAN STATEMENT I saw and evaluated the patient. I reviewed the resident's note and discussed the case with the resident. I agree with the resident's findings and plan as documented. SUBJECTIVE: Comfortable with no acute distress, no nausea or vomiting. OBJECTIVE: Vital Signs Temperature 99.8 F H 12/04/16 15:46 Pulse Rate 92 H 12/04/16 15:46 Respiratory Rate 20 12/04/16 15:46 Blood Pressure 116/79 12/04/16 15:46 O2 Sat by Pulse Oximetry (%) 99 12/04/16 09:00 CBCD WBC 11.5 K/mm3 (4.0-10.0) H 12/04/16 06:00 RBC 3.32 M/mm3 (4.00-5.60) L 12/04/16 06:00 Hgb 7.6 GM/dL (11.7-16.9) L 12/04/16 06:00 Hct 24.7 % (35.4-49) L 12/04/16 06:00 MCV 74.4 fl (80-96) L 12/04/16 06:00 MCHC 31.0 g/dl (32.0-35.9) L 12/04/16 06:00 RDW 13.3 % (11.9-15.9) 12/04/16 06:00 Plt Count 237 K/MM3 (134-434) 12/04/16 06:00 MPV 7.9 fl (7.5-11.1) 12/04/16 06:00 CMP Sodium 136 mmol/L (136-145) 12/03/16 06:00 Potassium 4.3 mmol/L (3.5-5.1) 12/03/16 06:00 Chloride 102 mmol/L (98-107) 12/03/16 06:00 Carbon Dioxide 25 mmol/L (21-32) 12/03/16 06:00 Anion Gap 9 (8-16) 12/03/16 06:00 BUN 8 mg/dL (7-18) 12/03/16 06:00 Creatinine 0.9 mg/dL (0.7-1.3) 12/03/16 06:00 Creat Clearance w eGFR 32.95 (>60) 11/29/16 04:57 Random Glucose 194 mg/dL (74-106) H 12/03/16 06:00 Calcium 8.8 mg/dL (8.5-10.1) 12/03/16 06:00 Total Bilirubin 0.8 mg/dL (0.2-1.0) 11/29/16 04:57 AST 27 U/L (15-37) D 11/29/16 04:57 ALT 33 U/L (12-78) D 11/29/16 04:57 Alkaline Phosphatase 121 U/L (45-117) H D 11/29/16 04:57 Total Protein 8.0 g/dl (6.4-8.2) 11/29/16 04:57 Albumin 3.9 g/dl (3.4-5.0) 11/29/16 04:57 Home Medications Medication Instructions Recorded Amlodipine Besylate [Norvasc -] 10 mg PO DAILY #30 tablet 11/25/16 Bacitracin - [Bacitracin Topical 1 applic TP DAILY #1 tube 11/25/16 Ointment -] Levetiracetam [Keppra -] 1,000 mg PO BID #60 tablet 11/25/16 Lisinopril [Prinivil] 10 mg PO DAILY@1200 #30 tablet 11/25/16 Aspirin [ASA -] 81 mg PO DAILY #30 tab 11/26/16 Glipizide [Glipizide ER] 10 mg PO DAILY #10 tab.er.24 11/26/16 Insulin Aspart [Novolog Flexpen] See Protocol SQ AC #1 insuln.pen 11/26/16 Metformin HCl [Glucophage -] 850 mg PO BID #60 tab 11/26/16 Miscellaneous Medical Supply 1 each ASDIR #1 misc 11/26/16 [Outpatient Order] Phenytoin Na Extended [Dilantin -] 100 mg PO TID #90 capsule 11/26/16 Simvastatin 40 mg PO DAILY #30 tab 11/26/16 Laboratory Tests 12/02/16 12/03/16 12/03/16 07:00 06:00 21:53 INR 1.18 H 1.45 H 1.41 H 12/04/16 06:00 INR 1.43 H Current Medications Generic Name Dose Route Start Last Admin Trade Name Freq PRN Reason Stop Dose Admin Acetaminophen 325 mg 12/02/16 18:26 12/04/16 09:39 Tylenol - PO 325 mg Q6H PRN Administration PAIN Acetaminophen 325 mg 12/02/16 18:33 Tylenol - PO Q6H PRN PAIN Amlodipine Besylate 10 mg 12/03/16 10:00 12/04/16 09:40 Norvasc - PO 10 mg DAILY MELANIA Administration Atorvastatin Calcium 20 mg 12/02/16 22:00 12/03/16 21:17 Lipitor - PO 20 mg HS MELANIA Administration Bacitracin 1 applic 12/03/16 10:00 12/04/16 09:40 Bacitracin - TP 1 applic DAILY [facility] Administration Fentanyl 50 mcg 12/02/16 16:30 Sublimaze Injection - IVPUSH 12/05/16 16:31 [id number] PRN PAIN Glipizide 10 mg 12/03/16 07:00 12/04/16 06:06 Glucotrol Xl - PO 10 mg DAILY@0700 MELANIA Administration Heparin Sodium (Porcine) 5,000 unit 12/02/16 18:04 12/03/16 23:41 Heparin - IVPUSH 5,000 unit PRN PRN Administration Heparin Heparin Sodium (Porcine) 1,000 unit 12/02/16 16:04 12/04/16 18:14 Heparin - IVPUSH 1,000 unit PRN PRN Administration Heparin Heparin Sodium/Dextrose 500 mls @ 20 mls/hr 12/02/16 18:15 12/04/16 15:31 Heparin Infusion - IVPB 31 mls/hr TITR MELANIA Administration Protocol 1,000 UNITS/HR Insulin Aspart 1 vial 12/03/16 07:00 12/04/16 17:00 Novolog Vial Sliding Scale - SQ 4 units TIDAC [facility] Administration Protocol Levetiracetam 1,000 mg 12/02/16 22:00 12/04/16 09:38 Keppra - PO 1,000 mg BID MELANIA Administration Lisinopril 10 mg 12/04/16 10:00 12/04/16 09:40 Prinivil PO 10 mg DAILY MELANIA Administration Oxycodone HCl 5 mg 12/02/16 18:26 12/04/16 09:38 Roxicodone - PO 5 mg Q6H PRN Administration PAIN Oxycodone HCl 5 mg 12/02/16 18:33 Roxicodone - PO Q6H PRN PAIN Phenytoin Sodium 100 mg 12/02/16 22:00 12/04/16 09:40 Dilantin - PO 100 mg BID MELANIA Administration PE: per resident's note Extremities: positive for pulses ASSESSMENT AND PLAN: 56 y/o gentleman with h/o HTN, DM , HLP, newly diagnosed with seizure and occipital stroke last admission , who presented with LLE pain and edema . # Acute LLE DVT: s/p suction thrombectomy of femoral vein and iliac vein regained pulses of LLE now,On heparin drip bridging with coumadin, PT/INR daily . Discussed with vascular surgeon , patient needs to be on it for life long. # Seizure disorder On Phenytoin and Keppra continue . # Recent diagnosis of a stroke with vision changes : On heparin drip and bridging with coumadin 7.5mg tonight. daily PT/INR # s/p LActic acidosis s/p UTI. s/p IV Rocephin # T2DM: SSI with coverage . # MALOU: likely due to sepsis , newly start ACEI, and possible prerenal component # s/p Acute UTI completed Rocephin and s/p Cefazolin IV. DVT px : on heparin gtt /coumadin
[2016-12-04] MEDS: ATORVASTATIN CA 20 MG TABLET (FP) PO SCH (21:24)
[2016-12-05] MEDS: HEPARIN NA (PORCINE) 5,000 UNITS/ML 1ML VIAL IVPUSH PRN (01:32)
[2016-12-05] MEDS: HEPARIN INFUSION - 500 ML IVPB SCH ×2 (01:33→09:04)
[2016-12-05] MEDS: oxyCODONE HCL 5 MG TABLET PO PRN (02:26)
[2016-12-05] MEDS: ACETAMINOPHEN 325 MG TABLET (FP) PO PRN ×2 (02:28→20:09)
[2016-12-05] MEDS ORDERED: INSULIN (NOVOLOG) ASPART 100 UNITS/ML 10ML VIAL ONE (06:24)
[2016-12-05] MEDS: glipiZIDE-XL 10 MG TAB.ER.24 (FP) PO SCH (06:25)
[2016-12-05] MEDS: INSULIN SLIDING SCALE (NOVOLOG) 1 VIAL SQ SCH ×3 (06:25→17:14)
[2016-12-05 07:46] LABS: MCH 22.6 pg (25.7-33.7); MCHC 30.8 g/dl (32.0-35.9); MEAN CELL VOLUME 73.4 fl (80-96); MEAN PLT VOLUME 7.6 fl (7.5-11.1); PLATELET COUNT 267 K/MM3 (134-434); RDW 13.4 % (11.9-15.9)
[2016-12-05 08:07] LABS: INR 1.46 (0.82-1.09); PROTHROMBIN TIME (PATIENT) 16.2 SEC (9.98-11.88)
[2016-12-05 08:13] LABS: ANION GAP 9 (8-16); CALCIUM 8.3 mg/dL (8.5-10.1); CO2 27 mmol/L (21-32); CREATININE 0.8 mg/dL (0.7-1.3); GLUCOSE,RANDOM 149 mg/dL (74-106)
[2016-12-05] MEDS: PHENYTOIN NA EXTENDED 100 MG CAPSULE (FP) PO SCH ×2 (09:05→22:31)
[2016-12-05] MEDS: LISINOPRIL 10 MG TABLET (FP) PO SCH (09:05)
[2016-12-05] MEDS: amLODIPine BESYLATE 10 MG TABLET (FP) PO SCH (09:05)
[2016-12-05] MEDS: BACITRACIN 15 GM TUBE TOPICAL OINTMENT TP SCH (09:05)
[2016-12-05] MEDS: levETIRAcetam 500 MG TABLET (FP) PO SCH ×2 (09:05→22:31)
--- NOTE | 2016-12-05 10:42 | PN ---
Physical Exam: SUBJECTIVE: Patient seen and examined Patient is feeling better, no hemoptysis, no hematochezia. Patient mostly lying in bed, was explained that needs to sit up on the chair,needs to walk, not just lying in bed. OBJECTIVE: Vital Signs Temperature 99.2 F 12/05/16 06:00 Pulse Rate 82 12/05/16 06:00 Respiratory Rate 22 12/05/16 06:00 Blood Pressure 130/78 12/05/16 06:00 O2 Sat by Pulse Oximetry (%) 96 12/04/16 20:24 GENERAL: The patient is awake, alert, and fully oriented, in no acute distress. HEAD: Normal with no signs of trauma. EYES: PERRL, extraocular movements intact, sclera anicteric, conjunctiva clear. No ptosis. ENT: Ears normal, nares patent, oropharynx clear without exudates, moist mucous membranes. NECK: Trachea midline, full range of motion, supple. LUNGS: Breath sounds equal, clear to auscultation bilaterally, no wheezes, no crackles, no accessory muscle use. HEART: Regular rate and rhythm, S1, S2 without murmur, rub or gallop. ABDOMEN: Soft, nontender, nondistended, normoactive bowel sounds, no guarding, no rebound, no hepatosplenomegaly, no masses. EXTREMITIES: 2+ pulses, warm, well-perfused, left lower extremity 2x the size of right LE NEUROLOGICAL: Cranial nerves II through XII grossly intact. Normal speech, gait not observed. PSYCH: Normal mood, normal affect. SKIN: Warm, dry, normal turgor, no rashes or lesions noted Laboratory Results - last 24 hr 12/04/16 12/04/16 12/04/16 11:21 16:00 16:34 WBC RBC Hgb Hct MCV MCH MCHC RDW Plt Count MPV INR PTT (Actin FS) 51.1 H Sodium Potassium Chloride Carbon Dioxide Anion Gap BUN Creatinine POC Glucometer 182 205 Random Glucose Calcium Blood Type Antibody Screen Crossmatch 12/04/16 12/05/16 12/05/16 23:15 06:22 07:30 WBC RBC Hgb Hct MCV MCH MCHC RDW Plt Count MPV INR PTT (Actin FS) 46.3 H 72.0 H D Sodium Potassium Chloride Carbon Dioxide Anion Gap BUN Creatinine POC Glucometer 175 Random Glucose Calcium Blood Type Antibody Screen Crossmatch 12/05/16 12/05/16 12/05/16 07:31 07:31 07:31 WBC 12.0 H RBC 3.04 L Hgb 6.9 L* Hct 22.3 L MCV 73.4 L MCH 22.6 L MCHC 30.8 L RDW 13.4 Plt Count 267 MPV 7.6 INR 1.46 H PTT (Actin FS) Sodium 135 L Potassium 4.0 Chloride 99 Carbon Dioxide 27 Anion Gap 9 BUN 9 Creatinine 0.8 POC Glucometer Random Glucose 149 H D Calcium 8.3 L Blood Type Antibody Screen Crossmatch 12/05/16 08:40 WBC RBC Hgb Hct MCV MCH MCHC RDW Plt Count MPV INR PTT (Actin FS) Sodium Potassium Chloride Carbon Dioxide Anion Gap BUN Creatinine POC Glucometer Random Glucose Calcium Blood Type A POSITIVE Antibody Screen Negative Crossmatch See Detail Active Medications Generic Name Dose Route Start Last Admin Trade Name Freq PRN Reason Stop Dose Admin Acetaminophen 325 mg 12/02/16 18:26 12/05/16 02:28 Tylenol - PO 325 mg Q6H PRN Administration PAIN Acetaminophen 325 mg 12/02/16 18:33 Tylenol - PO Q6H PRN PAIN Amlodipine Besylate 10 mg 12/03/16 10:00 12/05/16 09:05 Norvasc - PO 10 mg DAILY MELANIA Administration Atorvastatin Calcium 20 mg 12/02/16 22:00 12/04/16 21:24 Lipitor - PO 20 mg HS MELANIA Administration Bacitracin 1 applic 12/03/16 10:00 12/05/16 09:05 Bacitracin - TP 1 applic DAILY MELANIA Administration Docusate Sodium 100 mg 12/05/16 10:45 Colace - PO BID MELANIA Fentanyl 50 mcg 12/02/16 16:30 Sublimaze Injection - IVPUSH 12/05/16 16:31 [id number] PRN PAIN Glipizide 10 mg 12/03/16 07:00 12/05/16 06:25 Glucotrol Xl - PO 10 mg DAILY@0700 MELANIA Administration Heparin Sodium (Porcine) 5,000 unit 12/02/16 18:04 12/03/16 23:41 Heparin - IVPUSH 5,000 unit PRN PRN Administration Heparin Heparin Sodium (Porcine) 1,000 unit 12/02/16 16:04 12/05/16 01:32 Heparin - IVPUSH 1,000 unit PRN PRN Administration Heparin Heparin Sodium/Dextrose 500 mls @ 20 mls/hr 12/02/16 18:15 12/05/16 09:04 Heparin Infusion - IVPB 33 mls/hr TITR MELANIA Administration Protocol 1,000 UNITS/HR Insulin Aspart 1 vial 12/03/16 07:00 12/05/16 06:25 Novolog Vial Sliding Scale - SQ 2 units TIDAC MELANIA Administration Protocol Levetiracetam 1,000 mg 12/02/16 22:00 12/05/16 09:05 Keppra - PO 1,000 mg BID MELANIA Administration Lisinopril 10 mg 12/04/16 10:00 12/05/16 09:05 Prinivil PO 10 mg DAILY MELANIA Administration Phenytoin Sodium 100 mg 12/02/16 22:00 12/05/16 09:05 Dilantin - PO 100 mg BID MELANIA Administration Warfarin Sodium 10 mg 12/05/16 18:00 Coumadin - PO 12/05/16 18:01 [email or web address] ONE Home Medications Medication Instructions Recorded Amlodipine Besylate [Norvasc -] 10 mg PO DAILY #30 tablet 11/25/16 Bacitracin - [Bacitracin Topical 1 applic TP DAILY #1 tube 11/25/16 Ointment -] Levetiracetam [Keppra -] 1,000 mg PO BID #60 tablet 11/25/16 Lisinopril [Prinivil] 10 mg PO DAILY@1200 #30 tablet 11/25/16 Aspirin [ASA -] 81 mg PO DAILY #30 tab 11/26/16 Glipizide [Glipizide ER] 10 mg PO DAILY #10 tab.er.24 11/26/16 Insulin Aspart [Novolog Flexpen] See Protocol SQ AC #1 insuln.pen 11/26/16 Metformin HCl [Glucophage -] 850 mg PO BID #60 tab 11/26/16 Miscellaneous Medical Supply 1 each ASDIR #1 misc 11/26/16 [Outpatient Order] Phenytoin Na Extended [Dilantin -] 100 mg PO TID #90 capsule 11/26/16 Simvastatin 40 mg PO DAILY #30 tab 11/26/16 ASSESSMENT/PLAN: 56 y/o gentleman with h/o HTN, DM , HLP, newly diagnosed with seizure and occipital stroke last admission , who presented with LLE pain and edema . # Acute anemia: type and cross for 2 units and transfuse will monitor # Acute LLE DVT: s/p suction thrombectomy of femoral vein and iliac vein regained pulses of LLE now,On heparin drip bridging with coumadin, PT/INR daily . Discussed with vascular surgeon , patient needs to be on it for life long. # Seizure disorder On Phenytoin and Keppra continue . # Acuet Constipation ; colace 200mg po tid. Miralax bid # Recent diagnosis of a stroke with vision changes : On heparin drip and bridging with coumadin 10mg tonight. daily PT/INR # s/p LActic acidosis s/p UTI. s/p IV Rocephin # T2DM: SSI with coverage . # MALOU: likely due to sepsis , newly start ACEI, and possible prerenal component # s/p Acute UTI completed Rocephin and s/p Cefazolin IV. DVT px : on heparin gtt /coumadin Subtherapeutic INR : will give 10mg coumadin tonight Visit type - Emergency Visit Emergency Visit: Yes ED Registration Date: 11/29/16 Care time: The patient presented to the Emergency Department on the above date and was hospitalized for further evaluation of their emergent condition. - New Patient This patient is new to me today: No - Critical Care Critical Care patient: No
[2016-12-05 11:49] LABS: PLATELET COMMENT2 NO CLOTTING DETECTED; PLATELET ESTIMATE ADEQUATE (NORMAL)
[2016-12-05 11:50] LABS: ANISOCYTOSIS 1+; HYPOCHROMIA 2+; POLYCHROMASIA 1+
[2016-12-05] MEDS: POLYETHYLENE GLYCOL 3350 119 GM BTL PO SCH ×2 (14:25→22:36)
[2016-12-05] MEDS: DOCUSATE SODIUM 100 MG CAPSULE (FP) PO SCH ×2 (14:26→22:31)
[2016-12-05] MEDS ORDERED: WARFARIN NA 10 MG TABLET (FP) PO ONE (18:00)
[2016-12-05] MEDS ORDERED: oxyCODONE HCL 5 MG TABLET PO PRN (19:41)
[2016-12-05] MEDS: ATORVASTATIN CA 20 MG TABLET (FP) PO SCH (22:31)
[2016-12-06] MEDS: HEPARIN INFUSION - 500 ML IVPB SCH ×3 (00:05→21:50)
[2016-12-06] MEDS: INSULIN SLIDING SCALE (NOVOLOG) 1 VIAL SQ SCH ×3 (06:24→17:15)
[2016-12-06] MEDS: glipiZIDE-XL 10 MG TAB.ER.24 (FP) PO SCH (06:24)
[2016-12-06] MEDS ORDERED: PT OWN MED DRAWER 7, Y5N ONE (10:43)
[2016-12-06] MEDS: PHENYTOIN NA EXTENDED 100 MG CAPSULE (FP) PO SCH ×2 (10:43→21:40)
[2016-12-06] MEDS: DOCUSATE SODIUM 100 MG CAPSULE (FP) PO SCH ×2 (10:43→21:40)
[2016-12-06] MEDS: levETIRAcetam 500 MG TABLET (FP) PO SCH ×2 (10:43→21:40)
[2016-12-06] MEDS: amLODIPine BESYLATE 10 MG TABLET (FP) PO SCH (10:44)
[2016-12-06] MEDS: LISINOPRIL 10 MG TABLET (FP) PO SCH (10:44)
[2016-12-06] MEDS: POLYETHYLENE GLYCOL 3350 119 GM BTL PO SCH ×2 (10:44→21:41)
[2016-12-06] MEDS: BACITRACIN 15 GM TUBE TOPICAL OINTMENT TP SCH (10:46)
[2016-12-06 11:28] LABS: MCH 23.7 pg (25.7-33.7); MEAN CELL VOLUME 74.1 fl (80-96); PLATELET COUNT 313 K/MM3 (134-434); RDW 14.1 % (11.9-15.9)
[2016-12-06 11:41] LABS: INR 1.56 (0.82-1.09); PROTHROMBIN TIME (PATIENT) 17.3 SEC (9.98-11.88)
--- NOTE | 2016-12-06 13:39 | PN ---
Progress Note (short form) - Note Progress Note: Comfortable with no acute distress. Temperature 99.0 F 12/06/16 07:55 Pulse Rate 84 12/06/16 07:55 Respiratory Rate 18 12/06/16 07:55 Blood Pressure 130/70 12/06/16 07:55 O2 Sat by Pulse Oximetry (%) 97 12/06/16 09:00 GENERAL: The patient is awake, alert, and fully oriented, in no acute distress. HEAD: Normal with no signs of trauma. EYES: PERRL, extraocular movements intact, sclera anicteric, conjunctiva clear. No ptosis. ENT: Ears normal, nares patent, oropharynx clear without exudates, moist mucous membranes. NECK: Trachea midline, full range of motion, supple. LUNGS: Breath sounds equal, clear to auscultation bilaterally, no wheezes, no crackles, no accessory muscle use. HEART: Regular rate and rhythm, S1, S2 without murmur, rub or gallop. ABDOMEN: Soft, nontender, nondistended, normoactive bowel sounds, no guarding, no rebound, no hepatosplenomegaly, no masses. EXTREMITIES: 2+ pulses, warm, well-perfused, left lower extremity 2x the size of right LE NEUROLOGICAL: Cranial nerves II through XII grossly intact. Normal speech, gait not observed. PSYCH: Normal mood, normal affect. SKIN: Warm, dry, normal turgor, no rashes or lesions noted CBCD WBC 11.0 K/mm3 (4.0-10.0) H 12/06/16 11:00 RBC 3.56 M/mm3 (4.00-5.60) L 12/06/16 11:00 Hgb 8.4 GM/dL (11.7-16.9) L D 12/06/16 11:00 Hct 26.4 % (35.4-49) L D 12/06/16 11:00 MCV 74.1 fl (80-96) L 12/06/16 11:00 MCHC 32.0 g/dl (32.0-35.9) 12/06/16 11:00 RDW 14.1 % (11.9-15.9) 12/06/16 11:00 Plt Count 313 K/MM3 (134-434) 12/06/16 11:00 MPV 7.0 fl (7.5-11.1) L 12/06/16 11:00 CMP Sodium 135 mmol/L (136-145) L 12/05/16 07:31 Potassium 4.0 mmol/L (3.5-5.1) 12/05/16 07:31 Chloride 99 mmol/L (98-107) 12/05/16 07:31 Carbon Dioxide 27 mmol/L (21-32) 12/05/16 07:31 Anion Gap 9 (8-16) 12/05/16 07:31 BUN 9 mg/dL (7-18) 12/05/16 07:31 Creatinine 0.8 mg/dL (0.7-1.3) 12/05/16 07:31 Creat Clearance w eGFR 32.95 (>60) 11/29/16 04:57 Random Glucose 149 mg/dL (74-106) H D 12/05/16 07:31 Calcium 8.3 mg/dL (8.5-10.1) L 12/05/16 07:31 Total Bilirubin 0.8 mg/dL (0.2-1.0) 11/29/16 04:57 AST 27 U/L (15-37) D 11/29/16 04:57 ALT 33 U/L (12-78) D 11/29/16 04:57 Alkaline Phosphatase 121 U/L (45-117) H D 11/29/16 04:57 Total Protein 8.0 g/dl (6.4-8.2) 11/29/16 04:57 Albumin 3.9 g/dl (3.4-5.0) 11/29/16 04:57 Current Medications Generic Name Dose Route Start Last Admin Trade Name Freq PRN Reason Stop Dose Admin Acetaminophen 325 mg 12/02/16 18:26 12/05/16 20:09 Tylenol - PO 325 mg Q6H PRN Administration PAIN Acetaminophen 325 mg 12/02/16 18:33 Tylenol - PO Q6H PRN PAIN Amlodipine Besylate 10 mg 12/03/16 10:00 12/06/16 10:44 Norvasc - PO 10 mg DAILY MELANIA Administration Atorvastatin Calcium 20 mg 12/02/16 22:00 12/05/16 22:31 Lipitor - PO 20 mg HS MELANIA Administration Bacitracin 1 applic 12/03/16 10:00 12/06/16 10:46 Bacitracin - TP 1 applic DAILY MELANIA Administration Docusate Sodium 100 mg 12/05/16 10:45 12/06/16 10:43 Colace - PO 100 mg BID MELANIA Administration Glipizide 10 mg 12/03/16 07:00 12/06/16 06:24 Glucotrol Xl - PO 10 mg DAILY@0700 MELANIA Administration Heparin Sodium (Porcine) 5,000 unit 12/02/16 18:04 12/03/16 23:41 Heparin - IVPUSH 5,000 unit PRN PRN Administration Heparin Heparin Sodium (Porcine) 1,000 unit 12/02/16 16:04 12/05/16 01:32 Heparin - IVPUSH 1,000 unit PRN PRN Administration Heparin Heparin Sodium/Dextrose 500 mls @ 20 mls/hr 12/02/16 18:15 12/06/16 13:13 Heparin Infusion - IVPB 35 mls/hr [facility] Administration Protocol 1,000 UNITS/HR Insulin Aspart 1 vial 12/03/16 07:00 12/06/16 11:20 Novolog Vial Sliding Scale - SQ Not Given [facility]AC [facility] Protocol Levetiracetam 1,000 mg 12/02/16 22:00 12/06/16 10:43 Keppra - PO 1,000 mg BID MELANIA Administration Lisinopril 10 mg 12/04/16 10:00 12/06/16 10:44 Prinivil PO 10 mg DAILY MELANIA Administration Oxycodone HCl 5 mg 12/05/16 19:41 12/05/16 20:10 Roxicodone - PO 5 mg Q6H PRN Administration PAIN Phenytoin Sodium 100 mg 12/02/16 22:00 12/06/16 10:43 Dilantin - PO 100 mg BID MELANIA Administration Polyethylene Glycol 17 gm 12/05/16 10:45 12/06/16 10:44 Miralax (For Daily Use) - PO 17 gm BID MELANIA Administration Home Medications Medication Instructions Recorded Amlodipine Besylate [Norvasc -] 10 mg PO DAILY #30 tablet 11/25/16 Bacitracin - [Bacitracin Topical 1 applic TP DAILY #1 tube 11/25/16 Ointment -] Levetiracetam [Keppra -] 1,000 mg PO BID #60 tablet 11/25/16 Lisinopril [Prinivil] 10 mg PO DAILY@1200 #30 tablet 11/25/16 Aspirin [ASA -] 81 mg PO DAILY #30 tab 11/26/16 Glipizide [Glipizide ER] 10 mg PO DAILY #10 tab.er.24 11/26/16 Insulin Aspart [Novolog Flexpen] See Protocol SQ AC #1 insuln.pen 11/26/16 Metformin HCl [Glucophage -] 850 mg PO BID #60 tab 11/26/16 Miscellaneous Medical Supply 1 each ASDIR #1 misc 11/26/16 [Outpatient Order] Phenytoin Na Extended [Dilantin -] 100 mg PO TID #90 capsule 11/26/16 Simvastatin 40 mg PO DAILY #30 tab 11/26/16 A/P: 56 y/o gentleman with h/o HTN, DM , HLP, newly diagnosed with seizure and occipital stroke last admission , who presented with LLE pain and edema . # Acute anemia: s/p 2 units of PRBC ;H/H 8.4 post transfusion, discussed with , possible that patient will have an IVC filter # Acute LLE DVT: s/p suction thrombectomy of femoral vein and iliac vein regained pulses of LLE now,On heparin drip bridging with coumadin, PT/INR daily . Discussed with vascular surgeon , patient needs to be on it for life long. # Seizure disorder On Phenytoin and Keppra continue . # Acuet Constipation ; colace 200mg po tid. Miralax bid # Recent diagnosis of a stroke with vision changes : On heparin drip and bridging with coumadin 12.5mg tonight. daily PT/INR # s/p LActic acidosis s/p UTI. s/p IV Rocephin # T2DM: SSI with coverage . # MALOU: likely due to sepsis , newly start ACEI, and possible prerenal component # s/p Acute UTI completed Rocephin and s/p Cefazolin IV. DVT px : on heparin gtt /coumadin Subtherapeutic INR : will give 12.5mg coumadin tonight; Daily PT/INR Visit type - Emergency Visit Emergency Visit: Yes ED Registration Date: 11/29/16 Care time: The patient presented to the Emergency Department on the above date and was hospitalized for further evaluation of their emergent condition. - New Patient This patient is new to me today: No - Critical Care Critical Care patient: No
[2016-12-06] MEDS ORDERED: WARFARIN NA 10 MG, WARFARIN NA 2.5 MG PO ONE (18:00)
[2016-12-06] MEDS ORDERED: WARFARIN NA 10 MG TABLET (FP) PO ONE (18:00)
[2016-12-06] MEDS ORDERED: WARFARIN NA 2.5 MG TABLET (FP) PO ONE (18:00)
[2016-12-06] MEDS: ATORVASTATIN CA 20 MG TABLET (FP) PO SCH (21:40)
[2016-12-06] MEDS: HEPARIN NA (PORCINE) 5,000 UNITS/ML 1ML VIAL IVPUSH PRN (21:40)
[2016-12-07] MEDS: glipiZIDE-XL 10 MG TAB.ER.24 (FP) PO SCH (05:59)
[2016-12-07] MEDS: INSULIN SLIDING SCALE (NOVOLOG) 1 VIAL SQ SCH ×3 (06:00→17:35)
[2016-12-07 07:59] LABS: BASOPHIL 0.6 % (0-2.0); MCH 23.6 pg (25.7-33.7); MCHC 31.6 g/dl (32.0-35.9); MEAN CELL VOLUME 74.7 fl (80-96); MEAN PLT VOLUME 7.1 fl (7.5-11.1); NEUTROPHILS 58.6 % (42.8-82.8); PLATELET COUNT 343 K/MM3 (134-434); RDW 14.3 % (11.9-15.9); WHITE BLOOD COUNT 11.4 K/mm3 (4.0-10.0)
[2016-12-07 08:15] LABS: INR 1.64 (0.82-1.09); PROTHROMBIN TIME (PATIENT) 18.2 SEC (9.98-11.88)
--- NOTE | 2016-12-07 08:19 | PN ---
Physical Exam: SUBJECTIVE: Patient seen and examined this AM. Still complains of L thigh pain, states he is not walking enough, encouraged to walk more. No CP, no SOB, no fevers, no chills. OBJECTIVE: Vital Signs Period Temp Pulse Resp BP Sys/Navarrete Pulse Ox Last 24 Hr 98.9 F-100.5 F 78-80 18-20 112-131/70-71 96-97 GENERAL: AAO x 3, AND HEENT: PERRLA, EOMi, No LAD LUNGS: CTABL, No accessory muscle use HEART: S1, S2, RRR, no murmurs ABD: Soft, nontender, nondistended, normoactive BS UPPER EXTREMITIES: 2+ pulses, no edema, no erythema LOWER EXTREMITIES: 2+ pulse on RLE, 1+ LLE, feet still warm, well perfused, no concern of total compromise of arterial circulation, L thigh + leg circumference > R thigh + leg, no erythema, no pitting edema NEURO: Cranial nerves intact, no facial droop. Sensation intact in face and body bilaterally, muscle strength 5/5 Laboratory Results - last 24 hr 12/06/16 12/06/16 12/06/16 11:00 11:00 11:00 WBC 11.0 H RBC 3.56 L Hgb 8.4 L D Hct 26.4 L D MCV 74.1 L MCH 23.7 L MCHC 32.0 RDW 14.1 Plt Count 313 MPV 7.0 L Neutrophils % Lymphocytes % Monocytes % Eosinophils % Basophils % INR 1.56 H PTT (Actin FS) 45.1 H D POC Glucometer 12/06/16 12/06/16 12/06/16 11:20 17:08 20:15 WBC RBC Hgb Hct MCV MCH MCHC RDW Plt Count MPV Neutrophils % Lymphocytes % Monocytes % Eosinophils % Basophils % INR PTT (Actin FS) 26.5 L D POC Glucometer 138 186 12/07/16 12/07/16 05:52 07:05 WBC 11.4 H RBC 3.55 L Hgb 8.4 L Hct 26.5 L MCV 74.7 L MCH 23.6 L MCHC 31.6 L RDW 14.3 Plt Count 343 MPV 7.1 L Neutrophils % 58.6 Lymphocytes % 30.7 D Monocytes % 7.1 Eosinophils % 3.0 Basophils % 0.6 INR PTT (Actin FS) POC Glucometer 147 Active Medications Generic Name Dose Route Start Last Admin Trade Name Freq PRN Reason Stop Dose Admin Acetaminophen 325 mg 12/02/16 18:26 12/05/16 20:09 Tylenol - PO 325 mg Q6H PRN Administration PAIN Acetaminophen 325 mg 12/02/16 18:33 Tylenol - PO Q6H PRN PAIN Amlodipine Besylate 10 mg 12/03/16 10:00 12/06/16 10:44 Norvasc - PO 10 mg DAILY MELANIA Administration Atorvastatin Calcium 20 mg 12/02/16 22:00 12/06/16 21:40 Lipitor - PO 20 mg HS [facility] Administration Bacitracin 1 applic 12/03/16 10:00 12/06/16 10:46 Bacitracin - TP 1 applic DAILY [facility] Administration Docusate Sodium 100 mg 12/05/16 10:45 12/06/16 21:40 Colace - PO 100 mg BID M[facility]ANIA Administration Glipizide 10 mg 12/03/16 07:00 12/07/16 05:59 Glucotrol Xl - PO 10 mg DAILY@0700 MELANIA Administration Heparin Sodium (Porcine) 5,000 unit 12/02/16 18:04 12/06/16 21:40 Heparin - IVPUSH 5,000 unit PRN PRN Administration Heparin Heparin Sodium (Porcine) 1,000 unit 12/02/16 16:04 12/05/16 01:32 Heparin - IVPUSH 1,000 unit PRN PRN Administration Heparin Heparin Sodium/Dextrose 500 mls @ 20 mls/hr 12/02/16 18:15 12/06/16 21:50 Heparin Infusion - IVPB 38 mls/hr TITR [facility] Administration Protocol 1,000 UNITS/HR Insulin Aspart 1 vial 12/03/16 07:00 12/07/16 06:00 Novolog Vial Sliding Scale - SQ Not Given TIDAC [facility] Protocol Levetiracetam 1,000 mg 12/02/16 22:00 12/06/16 21:40 Keppra - PO 1,000 mg BID M[facility] Administration Lisinopril 10 mg 12/04/16 10:00 12/06/16 10:44 Prinivil PO 10 mg DAILY MELANIA Administration Oxycodone HCl 5 mg 12/05/16 19:41 12/05/16 20:10 Roxicodone - PO 5 mg Q6H PRN Administration PAIN Phenytoin Sodium 100 mg 12/02/16 22:00 12/06/16 21:40 Dilantin - PO 100 mg BID M[facility] Administration Polyethylene Glycol 17 gm 12/05/16 10:45 12/06/16 21:41 Miralax (For Daily Use) - PO 17 gm BID MELANIA Administration ASSESSMENT/PLAN: Pt is a 56yo M with PMHx of seizure disorder, DM2, HTN, recently discharged from the hospital with immobility at home presents with new complaint of LLE swelling, found to have thrombus in L common femoral, femoral, popliteal, and posterior tibial veins. He received a suction thrombectomy (on 12/02) and is on Heparin drip (started 11/30), bridging with Coumadin (started 12/02) # Acute LLE DVT - POD5 from suction thrombectomy - Heparin Bridge to Coumadin - Will give 12.5mg today, INR still subtherapeutic - Monitor PT/INR - Minimal ambulation in hospital, encourage movement # Microcytic Anemia - S/p 2 units PRBC - improved - No bleeding - Consider Fe panel and o/p Colonoscopy # Leukocytosis - Still elevated, no signs of infection - Monitor # Lactic Acidosis - resolved - Unknown etiology, no infection - Blood and Ucx negative - Held metformin # MALOU - improving - Likely pre-renal - Improved with fluids - Restarted Lisinopril 10mg # Hx of Seizure Disorder - No seizure episodes - Continue Keppra - Continue Dilantin 100mg BID # Pyuria - Ucx negative, dc'd antibiotics # IDDM - BGM + SSI TID - Continue glipizide 10mg # Hx of HTN - Continue amlodipine + lisinopril 10mg # FEN - Fluids: None - Electrolytes: Continue to monitor - Nutrition: Diabetic/sodium diet # Prophylaxis - DVT: On heparin drip - GI: Not indicated - PT: PT ordered # Disposition - Reach thereapeutic INR and bridge to Coumadin - Pt has no insurance, spoke to about d/c meds Dr. Patrick Muniz MD - PGY1 Internal Medicine Visit type - Emergency Visit Emergency Visit: No - New Patient This patient is new to me today: No - Critical Care Critical Care patient: No - Discharge Referral Referred to [facility] Med P.C.: No
--- NOTE | 2016-12-07 09:26 | PN ---
Teaching Attending Note Name of Resident: Patrick Muniz ATTENDING PHYSICIAN STATEMENT I saw and evaluated the patient. I reviewed the resident's note and discussed the case with the resident. I agree with the resident's findings and plan as documented. SUBJECTIVE: Patient is feeling better, with no acute distress. OBJECTIVE: Vital Signs Temperature 98.2 F 12/07/16 08:43 Pulse Rate 73 12/07/16 08:43 Respiratory Rate 18 12/07/16 08:43 Blood Pressure 127/81 12/07/16 08:43 O2 Sat by Pulse Oximetry (%) 96 12/06/16 20:44 CBCD WBC 11.4 K/mm3 (4.0-10.0) H 12/07/16 07:05 RBC 3.55 M/mm3 (4.00-5.60) L 12/07/16 07:05 Hgb 8.4 GM/dL (11.7-16.9) L 12/07/16 07:05 Hct 26.5 % (35.4-49) L 12/07/16 07:05 MCV 74.7 fl (80-96) L 12/07/16 07:05 MCHC 31.6 g/dl (32.0-35.9) L 12/07/16 07:05 RDW 14.3 % (11.9-15.9) 12/07/16 07:05 Plt Count 343 K/MM3 (134-434) 12/07/16 07:05 MPV 7.1 fl (7.5-11.1) L 12/07/16 07:05 CMP Sodium 135 mmol/L (136-145) L 12/05/16 07:31 Potassium 4.0 mmol/L (3.5-5.1) 12/05/16 07:31 Chloride 99 mmol/L (98-107) 12/05/16 07:31 Carbon Dioxide 27 mmol/L (21-32) 12/05/16 07:31 Anion Gap 9 (8-16) 12/05/16 07:31 BUN 9 mg/dL (7-18) 12/05/16 07:31 Creatinine 0.8 mg/dL (0.7-1.3) 12/05/16 07:31 Creat Clearance w eGFR 32.95 (>60) 11/29/16 04:57 Random Glucose 149 mg/dL (74-106) H D 12/05/16 07:31 Calcium 8.3 mg/dL (8.5-10.1) L 12/05/16 07:31 Total Bilirubin 0.8 mg/dL (0.2-1.0) 11/29/16 04:57 AST 27 U/L (15-37) D 11/29/16 04:57 ALT 33 U/L (12-78) D 11/29/16 04:57 Alkaline Phosphatase 121 U/L (45-117) H D 11/29/16 04:57 Total Protein 8.0 g/dl (6.4-8.2) 11/29/16 04:57 Albumin 3.9 g/dl (3.4-5.0) 11/29/16 04:57 Current Medications Generic Name Dose Route Start Last Admin Trade Name Freq PRN Reason Stop Dose Admin Acetaminophen 325 mg 12/02/16 18:26 12/05/16 20:09 Tylenol - PO 325 mg Q6H PRN Administration PAIN Acetaminophen 325 mg 12/02/16 18:33 Tylenol - PO Q6H PRN PAIN Amlodipine Besylate 10 mg 12/03/16 10:00 12/06/16 10:44 Norvasc - PO 10 mg DAILY MELANIA Administration Atorvastatin Calcium 20 mg 12/02/16 22:00 12/06/16 21:40 Lipitor - PO 20 mg HS MELANIA Administration Bacitracin 1 applic 12/03/16 10:00 12/06/16 10:46 Bacitracin - TP 1 applic DAILY [facility] Administration Docusate Sodium 100 mg 12/05/16 10:45 12/06/16 21:40 Colace - PO 100 mg BID M[facility] Administration Glipizide 10 mg 12/03/16 07:00 12/07/16 05:59 Glucotrol Xl - PO 10 mg DAILY@0700 M[facility]ANIA Administration Heparin Sodium (Porcine) 5,000 unit 12/02/16 18:04 12/06/16 21:40 Heparin - IVPUSH 5,000 unit PRN PRN Administration Heparin Heparin Sodium (Porcine) 1,000 unit 12/02/16 16:04 12/05/16 01:32 Heparin - IVPUSH 1,000 unit PRN PRN Administration Heparin Heparin Sodium/Dextrose 500 mls @ 20 mls/hr 12/02/16 18:15 12/06/16 21:50 Heparin Infusion - IVPB 38 mls/hr TITR [facility] Administration Protocol 1,000 UNITS/HR Insulin Aspart 1 vial 12/03/16 07:00 12/07/16 06:00 Novolog Vial Sliding Scale - SQ Not Given TIDAC [facility] Protocol Levetiracetam 1,000 mg 12/02/16 22:00 12/06/16 21:40 Keppra - PO 1,000 mg BID M[facility] Administration Lisinopril 10 mg 12/04/16 10:00 12/06/16 10:44 Prinivil PO 10 mg DAILY [facility] Administration Oxycodone HCl 5 mg 12/05/16 19:41 12/05/16 20:10 Roxicodone - PO 5 mg Q6H PRN Administration PAIN Phenytoin Sodium 100 mg 12/02/16 22:00 12/06/16 21:40 Dilantin - PO 100 mg BID [facility] Administration Polyethylene Glycol 17 gm 12/05/16 10:45 12/06/16 21:41 Miralax (For Daily Use) - PO 17 gm BID M[facility]ANIA Administration PE: per resident's note ASSESSMENT AND PLAN: 56 y/o gentleman with h/o HTN, DM , HLP, newly diagnosed with seizure and occipital stroke last admission , who presented with LLE pain and edema . # Acute LLE DVT: s/p suction thrombectomy of femoral vein and iliac vein regained pulses of LLE now,On heparin drip bridging with coumadin, PT/INR daily . Discussed with vascular surgeon , patient needs to be on it for life long. As per ,had a long conversation with pt regarding anticoagulation and compliance with the coumadin the importance of it. Pt understands that he has to take coumadin -- probably life long. Explained to pt how important it is to not miss any doses. Explained to pt that if he feels he will not take his meds -- he will need a IVC filter to protect him from future DVT's leading to PE. Pt says he does not want a filter and that he will take his coumadin. He claims he has a very good support system at home. # Acute anemia: s/p 2 units of PRBC ;H/H 8.4 post transfusion, discussed with Dr.king , possible that patient will have an IVC filter # Seizure disorder On Phenytoin and Keppra continue . # Acuet Constipation ; colace 200mg po tid. Miralax bid # Recent diagnosis of a stroke with vision changes : On heparin drip and bridging with coumadin 12.5mg tonight. daily PT/INR # s/p LActic acidosis s/p UTI. s/p IV Rocephin # T2DM: SSI with coverage . # MALOU: likely due to sepsis , newly start ACEI, and possible prerenal component # s/p Acute UTI completed Rocephin and s/p Cefazolin IV. DVT px : on heparin gtt /coumadin Subtherapeutic INR : will give 12.5mg coumadin tonight; Daily PT/INR
[2016-12-07] MEDS: HEPARIN INFUSION - 500 ML IVPB SCH ×2 (10:00→18:39)
[2016-12-07] MEDS: PHENYTOIN NA EXTENDED 100 MG CAPSULE (FP) PO SCH ×2 (11:18→21:09)
[2016-12-07] MEDS: levETIRAcetam 500 MG TABLET (FP) PO SCH ×2 (11:18→21:09)
[2016-12-07] MEDS: DOCUSATE SODIUM 100 MG CAPSULE (FP) PO SCH ×2 (11:18→21:09)
[2016-12-07] MEDS: BACITRACIN 15 GM TUBE TOPICAL OINTMENT TP SCH (11:19)
[2016-12-07] MEDS: LISINOPRIL 10 MG TABLET (FP) PO SCH (11:19)
[2016-12-07] MEDS: amLODIPine BESYLATE 10 MG TABLET (FP) PO SCH (11:19)
[2016-12-07] MEDS: POLYETHYLENE GLYCOL 3350 119 GM BTL PO SCH ×2 (11:24→21:13)
[2016-12-07] MEDS ORDERED: WARFARIN NA 10 MG TABLET (FP) PO ONE (18:00)
[2016-12-07] MEDS ORDERED: WARFARIN NA PO ONE (18:00)
[2016-12-07] MEDS ORDERED: WARFARIN NA 5 MG TABLET (UD) ONE (18:24)
[2016-12-07] MEDS ORDERED: WARFARIN NA 7.5 MG TABLET (FP) ONE (18:24)
--- NOTE | 2016-12-07 19:34 | PN ---
Progress Note (short form) - Note Progress Note: Vascular Surgery Pt seen and examined. Had long conversation with pt Pt understands that he has to take coumadin -- probably life long. Explained to pt how important it is to not miss any doses. Explained to pt that if he feels he will not take his meds -- he will need a IVC filter to protect him from future DVT's leading to PE. Pt says he does not want a filter and that he will take his coumadin. He claims he has a very good support system at home. Jose Shaikh DO
[2016-12-07] MEDS: ATORVASTATIN CA 20 MG TABLET (FP) PO SCH (21:09)
[2016-12-08] MEDS ORDERED: PT OWN MED DRAWER 7, Y5N ONE (06:07)
[2016-12-08] MEDS: glipiZIDE-XL 10 MG TAB.ER.24 (FP) PO SCH (06:48)
[2016-12-08] MEDS: INSULIN SLIDING SCALE (NOVOLOG) 1 VIAL SQ SCH ×3 (06:48→17:12)
[2016-12-08] MEDS: HEPARIN INFUSION - 500 ML IVPB SCH ×3 (06:49→18:48)
[2016-12-08 09:47] LABS: MCH 24.2 pg (25.7-33.7); MCHC 32.3 g/dl (32.0-35.9); MEAN PLT VOLUME 7.2 fl (7.5-11.1); PLATELET COUNT 407 K/MM3 (134-434); RDW 14.6 % (11.9-15.9); WHITE BLOOD COUNT 10.6 K/mm3 (4.0-10.0)
[2016-12-08 10:01] LABS: INR 1.68 (0.82-1.09); PROTHROMBIN TIME (PATIENT) 18.7 SEC (9.98-11.88)
[2016-12-08] MEDS: POLYETHYLENE GLYCOL 3350 119 GM BTL PO SCH ×2 (10:44→21:56)
[2016-12-08] MEDS: PHENYTOIN NA EXTENDED 100 MG CAPSULE (FP) PO SCH ×2 (10:44→21:51)
[2016-12-08] MEDS: DOCUSATE SODIUM 100 MG CAPSULE (FP) PO SCH ×2 (10:44→21:51)
[2016-12-08] MEDS: levETIRAcetam 500 MG TABLET (FP) PO SCH ×2 (10:44→21:51)
[2016-12-08] MEDS: LISINOPRIL 10 MG TABLET (FP) PO SCH (10:44)
[2016-12-08] MEDS: amLODIPine BESYLATE 10 MG TABLET (FP) PO SCH (10:44)
--- NOTE | 2016-12-08 10:45 | PN ---
Physical Exam: SUBJECTIVE: Patient seen and examined this AM. Feels much better after ambulating more last night and this morning. No more leg pain, no CP, no SOB, fever has resolved. OBJECTIVE: Vital Signs Period Temp Pulse Resp BP Sys/Navarrete Pulse Ox Last 24 Hr 98.0 F-99.5 F 69-81 18-21 104-135/60-76 96 GENERAL: AAO x 3, AND HEENT: PERRLA, EOMi, No LAD LUNGS: CTABL, No accessory muscle use HEART: S1, S2, RRR, no murmurs ABD: Soft, nontender, nondistended, normoactive BS UPPER EXTREMITIES: 2+ pulses, no edema, no erythema LOWER EXTREMITIES: 2+ pulse on RLE, 1+ LLE, feet still warm, well perfused, no concern of total compromise of arterial circulation, L thigh + leg circumference > R thigh + leg, no erythema, no pitting edema NEURO: Cranial nerves intact, no facial droop. Sensation intact in face and body bilaterally, muscle strength 5/5 LABS: CBC, BMP 12/08/16 09:30 12/05/16 07:31 INR - 1.64 --> 1.68 Hypercoag Labs taken from previous admission: Fibrinogen - WNL Free Protein S - WNL Antithrombin III - WNL Factor 5 Leiden - Negative AUNG M- SPike - Negative Beta 2 Glycoprotein Ab - WNL Beta 2 GPI IgM Ab - WNL Anti-Cardiolipin IgG Ab - WNL Anti-Cardiolipin IgA Ab - WNL Anti-Cardiolipin IgM Ab - WNL MTHFR DNA Mutation - Negative Prothrombin [id number] Mutation - Negative Active Medications Generic Name Dose Route Start Last Admin Trade Name Freq PRN Reason Stop Dose Admin Acetaminophen 325 mg 12/02/16 18:26 12/05/16 20:09 Tylenol - PO 325 mg Q6H PRN Administration PAIN Acetaminophen 325 mg 12/02/16 18:33 Tylenol - PO Q6H PRN PAIN Amlodipine Besylate 10 mg 12/03/16 10:00 12/07/16 11:19 Norvasc - PO 10 mg DAILY [facility] Administration Atorvastatin Calcium 20 mg 12/02/16 22:00 12/07/16 21:09 Lipitor - PO 20 mg HS [facility] Administration Bacitracin 1 applic 12/03/16 10:00 12/07/16 11:19 Bacitracin - TP 1 applic DAILY [facility] Administration Docusate Sodium 100 mg 12/05/16 10:45 12/07/16 21:09 Colace - PO 100 mg BID [facility] Administration Glipizide 10 mg 12/03/16 07:00 12/08/16 06:48 Glucotrol Xl - PO 10 mg DAILY@0700 [facility] Administration Heparin Sodium (Porcine) 5,000 unit 12/02/16 18:04 12/06/16 21:40 Heparin - IVPUSH 5,000 unit PRN PRN Administration Heparin Heparin Sodium (Porcine) 1,000 unit 12/02/16 16:04 12/05/16 01:32 Heparin - IVPUSH 1,000 unit PRN PRN Administration Heparin Heparin Sodium/Dextrose 500 mls @ 20 mls/hr 12/02/16 18:15 12/08/16 06:49 Heparin Infusion - IVPB 39 mls/hr TITR [facility] Administration Protocol 1,000 UNITS/HR Insulin Aspart 1 vial 12/03/16 07:00 12/08/16 06:48 Novolog Vial Sliding Scale - SQ Not Given TIDAC [facility] Protocol Levetiracetam 1,000 mg 12/02/16 22:00 12/07/16 21:09 Keppra - PO 1,000 mg BID [facility] Administration Lisinopril 10 mg 12/04/16 10:00 12/07/16 11:19 Prinivil PO 10 mg DAILY [facility] Administration Oxycodone HCl 5 mg 12/05/16 19:41 12/05/16 20:10 Roxicodone - PO 5 mg Q6H PRN Administration PAIN Phenytoin Sodium 100 mg 12/02/16 22:00 12/07/16 21:09 Dilantin - PO 100 mg BID [facility] Administration Polyethylene Glycol 17 gm 12/05/16 10:45 12/07/16 21:13 Miralax (For Daily Use) - PO Not Given BID [facility] ASSESSMENT/PLAN: Pt is a 56yo M with PMHx of seizure disorder, DM2, HTN, recently discharged from the hospital with immobility at home presents with new complaint of LLE swelling, found to have thrombus in L common femoral, femoral, popliteal, and posterior tibial veins. He received a suction thrombectomy (on 12/02) and is on Heparin drip (started 11/30), bridging with Coumadin (started 12/02) # Acute LLE DVT - POD5 from suction thrombectomy - Heparin Bridge to Coumadin, pt aware he needs lifelong AC - Will give another 12.5mg today, INR still subtherapeutic - Hypercoagulable labs frmo last admission negative - Monitor PT/INR - Pt is ambulating more # Microcytic Anemia - S/p 2 units PRBC - improved - No bleeding - Consider Fe panel and o/p Colonoscopy # Leukocytosis - Down-trending, no signs of infection - Monitor # Lactic Acidosis - resolved - Unknown etiology, no infection - Blood and Ucx negative - Held metformin # MALOU - improving - Likely pre-renal - Improved with fluids - Restarted Lisinopril 10mg # Hx of Seizure Disorder - No seizure episodes - Continue Keppra - Continue Dilantin 100mg BID # Pyuria - Ucx negative, dc'd antibiotics # IDDM - BGM + SSI TID - Continue glipizide 10mg # Hx of HTN - Continue amlodipine + lisinopril 10mg # FEN - Fluids: None - Electrolytes: Continue to monitor - Nutrition: Diabetic/sodium diet # Prophylaxis - DVT: On heparin drip - GI: Not indicated - PT: PT on board # Disposition - Reach thereapeutic INR and bridge to Coumadin - Encourage compliance with Coumadin as o/p - F/u with Dr. Morales for INR monitoring Dr. Patrick Muniz MD - PGY1 Internal Medicine Visit type - Emergency Visit Emergency Visit: No - New Patient This patient is new to me today: No - Critical Care Critical Care patient: No - Discharge Referral Referred to [facility] Med P.C.: No
[2016-12-08] MEDS: BACITRACIN 15 GM TUBE TOPICAL OINTMENT TP SCH (10:46)
[2016-12-08] MEDS ORDERED: INSULIN (NOVOLOG) ASPART 100 UNITS/ML 10ML VIAL ONE ×2 (11:13→17:19)
--- NOTE | 2016-12-08 16:06 | PN ---
Teaching Attending Note Name of Resident: Patrick Muniz ATTENDING PHYSICIAN STATEMENT I saw and evaluated the patient. I reviewed the resident's note and discussed the case with the resident. I agree with the resident's findings and plan as documented. SUBJECTIVE: Patient is sitting on the bed. Comfortably OBJECTIVE: Vital Signs Temperature 98.0 F 12/08/16 08:38 Pulse Rate 81 12/08/16 08:38 Respiratory Rate 18 12/08/16 08:38 Blood Pressure 135/60 12/08/16 08:38 O2 Sat by Pulse Oximetry (%) 96 12/07/16 21:00 CBCD WBC 10.6 K/mm3 (4.0-10.0) H 12/08/16 09:30 RBC 3.72 M/mm3 (4.00-5.60) L 12/08/16 09:30 Hgb 9.0 GM/dL (11.7-16.9) L 12/08/16 09:30 Hct 27.9 % (35.4-49) L 12/08/16 09:30 MCV 75.0 fl (80-96) L 12/08/16 09:30 MCHC 32.3 g/dl (32.0-35.9) 12/08/16 09:30 RDW 14.6 % (11.9-15.9) 12/08/16 09:30 Plt Count 407 K/MM3 (134-434) 12/08/16 09:30 MPV 7.2 fl (7.5-11.1) L 12/08/16 09:30 CMP Sodium 135 mmol/L (136-145) L 12/05/16 07:31 Potassium 4.0 mmol/L (3.5-5.1) 12/05/16 07:31 Chloride 99 mmol/L (98-107) 12/05/16 07:31 Carbon Dioxide 27 mmol/L (21-32) 12/05/16 07:31 Anion Gap 9 (8-16) 12/05/16 07:31 BUN 9 mg/dL (7-18) 12/05/16 07:31 Creatinine 0.8 mg/dL (0.7-1.3) 12/05/16 07:31 Creat Clearance w eGFR 32.95 (>60) 11/29/16 04:57 Random Glucose 149 mg/dL (74-106) H D 12/05/16 07:31 Calcium 8.3 mg/dL (8.5-10.1) L 12/05/16 07:31 Total Bilirubin 0.8 mg/dL (0.2-1.0) 11/29/16 04:57 AST 27 U/L (15-37) D 11/29/16 04:57 ALT 33 U/L (12-78) D 11/29/16 04:57 Alkaline Phosphatase 121 U/L (45-117) H D 11/29/16 04:57 Total Protein 8.0 g/dl (6.4-8.2) 11/29/16 04:57 Albumin 3.9 g/dl (3.4-5.0) 11/29/16 04:57 Current Medications Generic Name Dose Route Start Last Admin Trade Name Freq PRN Reason Stop Dose Admin Acetaminophen 325 mg 12/02/16 18:26 12/05/16 20:09 Tylenol - PO 325 mg Q6H PRN Administration PAIN Acetaminophen 325 mg 12/02/16 18:33 Tylenol - PO Q6H PRN PAIN Amlodipine Besylate 10 mg 12/03/16 10:00 12/08/16 10:44 Norvasc - PO 10 mg DAILY MELANIA Administration Atorvastatin Calcium 20 mg 12/02/16 22:00 12/07/16 21:09 Lipitor - PO 20 mg HS MELANIA Administration Bacitracin 1 applic 12/03/16 10:00 12/08/16 10:46 Bacitracin - TP 1 applic DAILY MELANIA Administration Docusate Sodium 100 mg 12/05/16 10:45 12/08/16 10:44 Colace - PO 100 mg BID MELANIA Administration Glipizide 10 mg 12/03/16 07:00 12/08/16 06:48 Glucotrol Xl - PO 10 mg DAILY@0700 MELANIA Administration Heparin Sodium (Porcine) 5,000 unit 12/02/16 18:04 12/06/16 21:40 Heparin - IVPUSH 5,000 unit PRN PRN Administration Heparin Heparin Sodium (Porcine) 1,000 unit 12/02/16 16:04 12/05/16 01:32 Heparin - IVPUSH 1,000 unit PRN PRN Administration Heparin Heparin Sodium/Dextrose 500 mls @ 20 mls/hr 12/02/16 18:15 12/08/16 06:49 Heparin Infusion - IVPB 39 mls/hr TITR MELNAIA Administration Protocol 1,000 UNITS/HR Insulin Aspart 1 vial 12/03/16 07:00 12/08/16 11:30 Novolog Vial Sliding Scale - SQ Not Given TIDAC [facility] Protocol Levetiracetam 1,000 mg 12/02/16 22:00 12/08/16 10:44 Keppra - PO 1,000 mg BID MELANIA Administration Lisinopril 10 mg 12/04/16 10:00 12/08/16 10:44 Prinivil PO 10 mg DAILY MELANIA Administration Oxycodone HCl 5 mg 12/05/16 19:41 12/05/16 20:10 Roxicodone - PO 5 mg Q6H PRN Administration PAIN Phenytoin Sodium 100 mg 12/02/16 22:00 12/08/16 10:44 Dilantin - PO 100 mg BID MELANIA Administration Polyethylene Glycol 17 gm 12/05/16 10:45 12/08/16 10:44 Miralax (For Daily Use) - PO Not Given BID [facility] Home Medications Medication Instructions Recorded Amlodipine Besylate [Norvasc -] 10 mg PO DAILY #30 tablet 11/25/16 Bacitracin - [Bacitracin Topical 1 applic TP DAILY #1 tube 11/25/16 Ointment -] Levetiracetam [Keppra -] 1,000 mg PO BID #60 tablet 11/25/16 Lisinopril [Prinivil] 10 mg PO DAILY@1200 #30 tablet 11/25/16 Aspirin [ASA -] 81 mg PO DAILY #30 tab 11/26/16 Glipizide [Glipizide ER] 10 mg PO DAILY #10 tab.er.24 11/26/16 Insulin Aspart [Novolog Flexpen] See Protocol SQ AC #1 insuln.pen 11/26/16 Metformin HCl [Glucophage -] 850 mg PO BID #60 tab 11/26/16 Miscellaneous Medical Supply 1 each ASDIR #1 misc 11/26/16 [Outpatient Order] Phenytoin Na Extended [Dilantin -] 100 mg PO TID #90 capsule 11/26/16 Simvastatin 40 mg PO DAILY #30 tab 11/26/16 Laboratory Tests 12/02/16 12/03/16 12/03/16 07:00 06:00 21:53 INR 1.18 H 1.45 H 1.41 H PTT (Actin FS) 12/04/16 12/05/16 12/06/16 06:00 07:31 11:00 INR 1.43 H 1.46 H 1.56 H PTT (Actin FS) 12/07/16 12/07/16 12/08/16 07:05 07:05 06:00 INR 1.64 H 1.68 H PTT (Actin FS) 57.1 H D PE: per resident's note ASSESSMENT AND PLAN: 56 y/o gentleman with h/o HTN, DM , HLP, newly diagnosed with seizure and occipital stroke last admission , who presented with LLE pain and edema . # Acute LLE DVT: s/p suction thrombectomy of femoral vein and iliac vein regained pulses of LLE now,On heparin drip bridging with coumadin, PT/INR daily . INR is 1.68 today given 12.5mg dose yesterday , Discussed with vascular surgeon , patient needs to be on it for life long. As per ,had a long conversation with pt regarding anticoagulation and compliance with the coumadin the importance of it. Pt understands that he has to take coumadin -- probably life long. Explained to pt how important it is to not miss any doses. Explained to pt that if he feels he will not take his meds -- he will need a IVC filter to protect him from future DVT's leading to PE. Pt says he does not want a filter and that he will take his coumadin. He claims he has a very good support system at home. # Acute anemia: s/p 2 units of PRBC ;H/H 8.4 post transfusion, discussed with , possible that patient might need an IVC filter but patient is refusing IVC now. # Seizure disorder On Phenytoin and Keppra continue . # Acute Constipation ; colace 200mg po tid. Miralax bid # Recent diagnosis of a stroke with vision changes : On heparin drip and bridging with coumadin 12.5mg tonight. daily PT/INR # s/p LActic acidosis s/p UTI. s/p IV Rocephin # T2DM: SSI with coverage . # MALOU: likely due to sepsis , newly start ACEI, and possible prerenal component # s/p Acute UTI completed Rocephin and s/p Cefazolin IV. DVT px : on heparin gtt /coumadin Subtherapeutic INR : will give 12.5mg coumadin tonight( 3rd dose of 12.5MG) ; Daily PT/INR
[2016-12-08] MEDS ORDERED: WARFARIN NA PO ONE ×2 (19:30→21:45)
[2016-12-08] MEDS ORDERED: WARFARIN NA 5 MG TABLET (UD) ONE (21:49)
[2016-12-08] MEDS ORDERED: WARFARIN NA 7.5 MG TABLET (FP) ONE (21:49)
[2016-12-08] MEDS: ATORVASTATIN CA 20 MG TABLET (FP) PO SCH (21:51)
[2016-12-09] MEDS: glipiZIDE-XL 10 MG TAB.ER.24 (FP) PO SCH (06:46)
[2016-12-09] MEDS: INSULIN SLIDING SCALE (NOVOLOG) 1 VIAL SQ SCH ×3 (06:46→17:05)
[2016-12-09] MEDS: HEPARIN INFUSION - 500 ML IVPB SCH ×2 (08:41→21:53)
[2016-12-09 09:27] LABS: BASOPHIL 2.8 % (0-2.0); EOSINOPHIL 3.5 % (0-4.5); MCH 23.9 pg (25.7-33.7); MCHC 31.7 g/dl (32.0-35.9); MEAN CELL VOLUME 75.4 fl (80-96); MEAN PLT VOLUME 7.1 fl (7.5-11.1); NEUTROPHILS 50.3 % (42.8-82.8); PLATELET COUNT 398 K/MM3 (134-434); RDW 14.7 % (11.9-15.9); WHITE BLOOD COUNT 10.6 K/mm3 (4.0-10.0)
--- NOTE | 2016-12-09 09:30 | PN ---
Progress Note (short form) - Note Progress Note: 56 yr old man with newly diagnosed seizure d/o/HTN/DM II, presents with 2 days of left lower leg swelling and pain in his thigh since this morning. He was recently discharged from [facility]. Since discharge he has not been ambulating much, mostly to the bathroom and back to sofa/bed. Swelling developed gradually, pain was sudden in the anterior thigh this morning and has been continous since onset , is worse with weight bearing, does not radiate. Has not been able get the walker yet. Has been talking his medications as prescribed from the previous admission. BGM's at home between 100-130's, nothing greater or lower. Tmax at home 99F. denies sob, chest pain, lightheadedness, dysuria, vomiting, diarrhea, seizures, change urine color/frequency/dysuria, fever, chills, cough, changes in vision. No change in left great toe wound. Pt. denies further seizures since discharge.He reports taking both Dilantin and Keppra 1000mg bid at home, these were his discharge meds from last admission last week. FU : no neuro issues or seizures being treated for DVT on dilantin 100BID on Warfarin now for left leg DVT. INr still subtx - Past Medical History [employer]: Yes: Seizure, Other (neew onset seizures) Cardio/Vascular: Yes: HTN, Hyperlipdemia Gastrointestinal: Yes: Other (never had colonoscopy). No: Cancer, Constipation , GERD Renal/: No: Renal Failure, Cancer Endocrine: Yes: Diabetes Mellitus - Past Surgical History Past Surgical History: Yes: None - Alcohol/Substance Use Hx Alcohol Use: No - Smoking History Smoking history: Unknown if ever smoked Have you smoked in the past 12 months: Yes Aproximately how many cigarettes per day: 12 (since age 19) - Social History Usual Living Arrangement: Other (Nephews) ADL: Independent Occupation: currently not working History of Recent Travel: No Home Medications - Allergies Allergies/Adverse Reactions: Allergies Allergy/AdvReac Type Severity Reaction Status Date / Time No Known Allergies Allergy Verified 11/20/16 01:29 - Home Medications Home Medications: Ambulatory Orders Amlodipine Besylate [Norvasc -] 10 mg PO DAILY #30 tablet 11/25/16 Bacitracin - [Bacitracin Topical Ointment -] 1 applic TP DAILY #1 tube 11/25/16 Levetiracetam [Keppra -] 1,000 mg PO BID #60 tablet 11/25/16 Lisinopril [Prinivil] 10 mg PO DAILY@1200 #30 tablet 11/25/16 Aspirin [ASA -] 81 mg PO DAILY #30 tab 11/26/16 Glipizide [Glipizide ER] 10 mg PO DAILY #10 tab.er.24 11/26/16 Insulin Aspart [Novolog Flexpen] See Protocol SQ AC #1 insuln.pen 11/26/16 Metformin HCl [Glucophage -] 850 mg PO BID #60 tab 11/26/16 Miscellaneous Medical Supply [Outpatient Order] 1 each ASDIR #1 misc Phenytoin Na Extended [Dilantin -] 100 mg PO TID #90 capsule 11/26/16 Simvastatin 40 mg PO DAILY #30 tab 11/26/16 Family Disease History - Family Disease History Family Disease History: Diabetes: Father ( , stroke), Other: Mother ( dementia- alive ), Sister ( of alcohol related issues) Physical Exam-Neuro Vital Signs: Vital Signs Temperature 98.2 F 12/09/16 08:26 Pulse Rate 68 12/09/16 08:26 Respiratory Rate 18 12/09/16 08:26 Blood Pressure 92/58 12/09/16 08:26 O2 Sat by Pulse Oximetry (%) 96 12/08/16 09:00 Labs: CBCD WBC 10.6 K/mm3 (4.0-10.0) H 12/08/16 09:30 RBC 3.72 M/mm3 (4.00-5.60) L 12/08/16 09:30 Hgb 9.0 GM/dL (11.7-16.9) L 12/08/16 09:30 Hct 27.9 % (35.4-49) L 12/08/16 09:30 MCV 75.0 fl (80-96) L 12/08/16 09:30 MCHC 32.3 g/dl (32.0-35.9) 12/08/16 09:30 RDW 14.6 % (11.9-15.9) 12/08/16 09:30 Plt Count 407 K/MM3 (134-434) 12/08/16 09:30 MPV 7.2 fl (7.5-11.1) L 12/08/16 09:30 CMP Sodium 135 mmol/L (136-145) L 12/05/16 07:31 Potassium 4.0 mmol/L (3.5-5.1) 12/05/16 07:31 Chloride 99 mmol/L (98-107) 12/05/16 07:31 Carbon Dioxide 27 mmol/L (21-32) 12/05/16 07:31 Anion Gap 9 (8-16) 12/05/16 07:31 BUN 9 mg/dL (7-18) 12/05/16 07:31 Creatinine 0.8 mg/dL (0.7-1.3) 12/05/16 07:31 Creat Clearance w eGFR 32.95 (>60) 11/29/16 04:57 Calcium 8.3 mg/dL (8.5-10.1) L 12/05/16 07:31 Total Bilirubin 0.8 mg/dL (0.2-1.0) 11/29/16 04:57 AST 27 U/L (15-37) D 11/29/16 04:57 ALT 33 U/L (12-78) D 11/29/16 04:57 Alkaline Phosphatase 121 U/L (45-117) H D 11/29/16 04:57 Total Protein 8.0 g/dl (6.4-8.2) 11/29/16 04:57 Albumin 3.9 g/dl (3.4-5.0) 11/29/16 04:57 - Neuro Exam DTR's: 0 Left Achilles (Unable to test), 1+ Left Bicep, 1+ Right Bicep, 1+ Left Tricep, 1+ Right Tricep, 1+ Left Brachioradialis, 1+ Right Brachioradialis, 1+ Right Achilles Babinski: Absent Response to light touch: Normal Response to pain prick: Normal (Left leg-Left lower leg swelling from ankle to thigh, nonpitting edema, no erythema, nontender, pulses intact 1+ at DP, TP, mildly warmer than right leg. No calf tenderness. sensation intact throughout. Indurated) NIH Stroke Scale - Total Score NIH Stroke Scale Score: 0 Imaging - Results Cat Scan: Report Reviewed MRI: Report Reviewed (MRI brain last admission-probable punctate righ BG punctate infarct. MRA Brain without sig. abn) Assessment/Plan Pt. with hx. of recently diagnosed seizure d/o. Now without seizures, admitted for DVT, placed on Warfain. will inc dilantin to 100TID , perhaps CP450 metabolism , may inc INR/ effect of coumadin. Dr Campo
[2016-12-09 09:40] LABS: INR 1.67 (0.82-1.09); PROTHROMBIN TIME (PATIENT) 18.6 SEC (9.98-11.88)
[2016-12-09] MEDS: DOCUSATE SODIUM 100 MG CAPSULE (FP) PO SCH ×2 (10:43→21:48)
[2016-12-09] MEDS: amLODIPine BESYLATE 10 MG TABLET (FP) PO SCH (10:43)
[2016-12-09] MEDS: POLYETHYLENE GLYCOL 3350 119 GM BTL PO SCH ×2 (10:43→21:52)
[2016-12-09] MEDS: LISINOPRIL 10 MG TABLET (FP) PO SCH (10:43)
[2016-12-09] MEDS: levETIRAcetam 500 MG TABLET (FP) PO SCH ×2 (10:43→21:48)
[2016-12-09] MEDS: BACITRACIN 15 GM TUBE TOPICAL OINTMENT TP SCH (10:47)
[2016-12-09] MEDS: PHENYTOIN NA EXTENDED 100 MG CAPSULE (FP) PO SCH ×2 (13:39→21:48)
--- NOTE | 2016-12-09 14:17 | PN ---
Physical Exam: SUBJECTIVE: Patient seen and examined this AM. No complaints, no fevers, no chills, No CP, no SOB. Pt is ambulating more. Leg pain is less than before. OBJECTIVE: Vital Signs Period Temp Pulse Resp BP Sys/Navarrete Pulse Ox Last 24 Hr 98.0 F-98.6 F 64-76 18-20 92-118/49-71 GENERAL: AAO x 3, Pt ambulating well HEENT: PERRLA, EOMi, No LAD LUNGS: CTABL, No accessory muscle use HEART: S1, S2, RRR, no murmurs ABD: Soft, nontender, nondistended, normoactive BS UPPER EXTREMITIES: 2+ pulses, no edema, no erythema LOWER EXTREMITIES: 2+ pulse on RLE, 1+ LLE, L thigh circumference improving NEURO: Cranial nerves intact, no facial droop. Sensation intact in face and body bilaterally, muscle strength 5/5 Laboratory Results - last 24 hr 12/05/16 12/08/16 12/08/16 08:40 16:57 17:25 WBC RBC Hgb Hct MCV MCH MCHC RDW Plt Count MPV Neutrophils % Lymphocytes % Monocytes % Eosinophils % Basophils % INR PTT (Actin FS) 64.6 H POC Glucometer 175 Blood Type A POSITIVE Antibody Screen Negative Crossmatch See Detail 12/09/16 12/09/16 12/09/16 05:53 09:23 09:23 WBC 10.6 H RBC 3.49 L Hgb 8.3 L Hct 26.3 L MCV 75.4 L MCH 23.9 L MCHC 31.7 L RDW 14.7 Plt Count 398 MPV 7.1 L Neutrophils % 50.3 Lymphocytes % 39.2 D Monocytes % 4.2 Eosinophils % 3.5 Basophils % 2.8 H D INR 1.67 H PTT (Actin FS) POC Glucometer 135 Blood Type Antibody Screen Crossmatch 12/09/16 12/09/16 11:00 11:39 WBC RBC Hgb Hct MCV MCH MCHC RDW Plt Count MPV Neutrophils % Lymphocytes % Monocytes % Eosinophils % Basophils % INR PTT (Actin FS) 82.0 H POC Glucometer 128 Blood Type Antibody Screen Crossmatch Active Medications Generic Name Dose Route Start Last Admin Trade Name Freq PRN Reason Stop Dose Admin Amlodipine Besylate 10 mg 12/03/16 10:00 12/09/16 10:43 Norvasc - PO 10 mg DAILY MELANIA Administration Atorvastatin Calcium 20 mg 12/02/16 22:00 12/08/16 21:51 Lipitor - PO 20 mg HS MELANIA Administration Bacitracin 1 applic 12/03/16 10:00 12/09/16 10:47 Bacitracin - TP 1 applic DAILY MELANIA Administration Docusate Sodium 100 mg 12/05/16 10:45 12/09/16 10:43 Colace - PO 100 mg BID MELANIA Administration Glipizide 10 mg 12/03/16 07:00 12/09/16 06:46 Glucotrol Xl - PO 10 mg DAILY@0700 MELANIA Administration Heparin Sodium (Porcine) 5,000 unit 12/02/16 18:04 12/06/16 21:40 Heparin - IVPUSH 5,000 unit PRN PRN Administration Heparin Heparin Sodium (Porcine) 1,000 unit 12/02/16 16:04 12/05/16 01:32 Heparin - IVPUSH 1,000 unit PRN PRN Administration Heparin Heparin Sodium/Dextrose 500 mls @ 20 mls/hr 12/02/16 18:15 12/09/16 08:41 Heparin Infusion - IVPB 36 mls/hr TITR [facility] Administration Protocol 1,000 UNITS/HR Insulin Aspart 1 vial 12/03/16 07:00 12/09/16 12:02 Novolog Vial Sliding Scale - SQ Not Given TIDAC [facility] Protocol Levetiracetam 1,000 mg 12/02/16 22:00 12/09/16 10:43 Keppra - PO 1,000 mg BID MELANIA Administration Lisinopril 10 mg 12/04/16 10:00 12/09/16 10:43 Prinivil PO 10 mg DAILY MELANIA Administration Phenytoin Sodium 100 mg 12/09/16 14:00 12/09/16 13:39 Dilantin - PO 100 mg TID MELANIA Administration Polyethylene Glycol 17 gm 12/05/16 10:45 12/09/16 10:43 Miralax (For Daily Use) - PO 17 gm BID MELANIA Administration Warfarin Sodium 5 mg/ Warfarin 12.5 mg 12/09/16 18:00 Sodium 7.5 mg PO 12/09/16 18:01 ONCE@1800 ONE ASSESSMENT/PLAN: Pt is a 56yo M with PMHx of seizure disorder, DM2, HTN, recently discharged from the hospital with immobility at home presents with new complaint of LLE swelling, found to have thrombus in L common femoral, femoral, popliteal, and posterior tibial veins. He received a suction thrombectomy (on 12/02) and is on Heparin drip (started 11/30), bridging with Coumadin (started 12/02) # Acute LLE DVT - POD #6 from suction thrombectomy - Heparin Bridge to Coumadin, pt aware he needs lifelong AC - Will give another 12.5mg today, INR still subtherapeutic - Hypercoagulable labs from last admission negative - Will increase Dilantin to TID to help increase INR - Monitor PT/INR # Sever Sepsis - Resolved - Pt had pyuria, received 4 days of ceftriaxone - Ucx neg as it was drawn on abx. - We will repeat urine cx # Microcytic Anemia - S/p 2 units PRBC - improved - No bleeding - Consider Fe panel and o/p Colonoscopy # Leukocytosis - Down-trending, no signs of infection - Monitor # Lactic Acidosis - resolved - Unknown etiology, no infection - Blood and Ucx negative - Held metformin # MALOU - improving - Likely pre-renal - Improved with fluids - Restarted Lisinopril 10mg # Hx of Seizure Disorder - No seizure episodes - Continue Keppra - Increased Dilantin 100mg BID --> TID # IDDM - BGM + SSI TID - Continue glipizide 10mg # Hx of HTN - Continue amlodipine + lisinopril 10mg # FEN - Fluids: None - Electrolytes: Continue to monitor - Nutrition: Diabetic/sodium diet # Prophylaxis - DVT: On heparin drip - GI: Not indicated - PT: PT on board # Disposition - Reach thereapeutic INR and bridge to Coumadin - F/u with Dr. Morales for INR monitoring Dr. Patrick Muniz MD - PGY1 Internal Medicine Visit type - Emergency Visit Emergency Visit: No - New Patient This patient is new to me today: No - Critical Care Critical Care patient: No - Discharge Referral Referred to [facility] No
--- NOTE | 2016-12-09 16:10 | PN ---
Teaching Attending Note Name of Resident: Patrick Muniz ATTENDING PHYSICIAN STATEMENT I saw and evaluated the patient. I reviewed the resident's note and discussed the case with the resident. I agree with the resident's findings and plan as documented. SUBJECTIVE: no fever or chills . has decreased pain in LLE . no SOB or CP OBJECTIVE: NAD, AAOx3. MMM CV: RRR. 2/6 SM at RUSB , no radiation to carotids Lungs: CTAB EXT: L LE circumference > RLE but decreased from before. 2+ DP pulses ASSESSMENT AND PLAN: 56 y/o gentleman with h/o HTN, DM , HLP, newly diagnosed with seizure and occipital stroke last admission , who presented with L LE pain and edema . 1- LLE DVT: s/p thrombectomy with [facility] of DP pulse - cont heparin. Give 12.5 tonight - cont heparin gtt 2- Recent diagnosis of Seizure disorder - no events in house . - cont Keppra 1000 bID - d/w Dr. Campo. Increase dilantin to 100 TID 3- Recent diagnosis of a stroke : - while on AC, will hold asa 4- Severe sepsis, resolved . - pt received 4 days of ceftriaxone . U cx neg as it was drawn on abx. - repeat urine cx . 5- DM: - SSI . - cont glipizide 6- MALOU: resolved 7- DVT px : on heparin gtt HLOC pending therapeutic INR
[2016-12-09] MEDS ORDERED: WARFARIN NA 7.5 MG TABLET (FP) ONE (16:46)
[2016-12-09] MEDS ORDERED: INSULIN (NOVOLOG) ASPART 100 UNITS/ML 10ML VIAL ONE (16:47)
[2016-12-09] MEDS ORDERED: WARFARIN NA 5 MG TABLET (UD) ONE (16:47)
[2016-12-09] MEDS ORDERED: WARFARIN NA PO ONE (18:00)
[2016-12-09] MEDS ORDERED: WARFARIN NA 10 MG TABLET (FP) PO ONE ×2 (18:00)
[2016-12-09] MEDS: ATORVASTATIN CA 20 MG TABLET (FP) PO SCH (21:48)
[2016-12-10] MEDS: PHENYTOIN NA EXTENDED 100 MG CAPSULE (FP) PO SCH ×3 (06:36→21:39)
[2016-12-10] MEDS: glipiZIDE-XL 10 MG TAB.ER.24 (FP) PO SCH (06:36)
[2016-12-10] MEDS: INSULIN SLIDING SCALE (NOVOLOG) 1 VIAL SQ SCH ×3 (06:37→16:44)
[2016-12-10 09:04] LABS: INR 1.57 (0.82-1.09); PROTHROMBIN TIME (PATIENT) 17.4 SEC (9.98-11.88)
[2016-12-10 09:10] LABS: MCH 23.8 pg (25.7-33.7); MCHC 31.6 g/dl (32.0-35.9); MEAN CELL VOLUME 75.5 fl (80-96); MEAN PLT VOLUME 6.8 fl (7.5-11.1); PLATELET COUNT 410 K/MM3 (134-434); RDW 14.7 % (11.9-15.9)
[2016-12-10] MEDS: HEPARIN INFUSION - 500 ML IVPB SCH (09:38)
[2016-12-10] MEDS: levETIRAcetam 500 MG TABLET (FP) PO SCH ×2 (09:38→21:39)
[2016-12-10] MEDS: DOCUSATE SODIUM 100 MG CAPSULE (FP) PO SCH ×2 (09:38→21:39)
[2016-12-10] MEDS: amLODIPine BESYLATE 10 MG TABLET (FP) PO SCH (09:39)
[2016-12-10] MEDS: LISINOPRIL 10 MG TABLET (FP) PO SCH (09:39)
[2016-12-10] MEDS: BACITRACIN 15 GM TUBE TOPICAL OINTMENT TP SCH (09:41)
[2016-12-10] MEDS: POLYETHYLENE GLYCOL 3350 119 GM BTL PO SCH ×2 (09:42→21:42)
--- NOTE | 2016-12-10 14:50 | PN ---
Teaching Attending Note Name of Resident: Patrick Muniz ATTENDING PHYSICIAN STATEMENT I saw and evaluated the patient. I reviewed the resident's note and discussed the case with the resident. I agree with the resident's findings and plan as documented. SUBJECTIVE: pain has much improved in L leg . Cont to ambulate OBJECTIVE: NAD, AAOx3. MMM CV: RRR. 2/6 SM at RUSB , no radiation to carotids Lungs: CTAB EXT: L LE circumference > RLE . 1+ DP pulse on L , 2+ on R ASSESSMENT AND PLAN: 56 y/o gentleman with h/o HTN, DM , HLP, newly diagnosed with seizure and occipital stroke last admission , who presented with L LE pain and edema . 1- LLE DVT: s/p thrombectomy with tenriism of DP pulse - cont heparin. Give 15 mg of coumadin tonight - cont heparin gtt 2- Recent diagnosis of Seizure disorder - cont Keppra 1000 BID - cont dilantin to 100 TID 3- Recent diagnosis of a stroke : - while on AC, will hold asa 4- Severe sepsis, resolved . - s/p 4 days of bx - repeat urine cx pending . 5- DM: - SSI . - cont glipizide 6- MALOU: resolved 7- DVT px : on heparin gtt HLOC pending therapeutic INR
[2016-12-10] MEDS ORDERED: WARFARIN NA 5 MG TABLET (UD) PO ONE (18:00)
--- NOTE | 2016-12-10 21:07 | PN ---
Physical Exam: SUBJECTIVE: Patient seen and examined this AM. No complaints. No CP, no SOB, no fevers, no chills OBJECTIVE: Vital Signs Period Temp Pulse Resp BP Sys/Navarrete Pulse Ox Last 24 Hr 97.9 F-98.8 F 62-69 18-20 98-122/48-71 GENERAL: AAO x 3, Pt ambulating well HEENT: PERRLA, EOMi, No LAD LUNGS: CTABL, No accessory muscle use HEART: S1, S2, RRR, no murmurs ABD: Soft, nontender, nondistended, normoactive BS UPPER EXTREMITIES: 2+ pulses, no edema, no erythema LOWER EXTREMITIES: 2+ pulse on RLE, 1+ LLE, L thigh circumference improving NEURO: Cranial nerves intact, no facial droop. Sensation intact in face and body bilaterally, muscle strength 5/5 Laboratory Results - last 24 hr 12/10/16 12/10/16 12/10/16 06:05 08:40 08:40 WBC 10.0 RBC 3.60 L Hgb 8.6 L Hct 27.2 L MCV 75.5 L MCH 23.8 L MCHC 31.6 L RDW 14.7 Plt Count 410 MPV 6.8 L INR 1.57 H PTT (Actin FS) POC Glucometer 143 Stool Occult Blood 12/10/16 12/10/16 12/10/16 08:40 11:47 16:42 WBC RBC Hgb Hct MCV MCH MCHC RDW Plt Count MPV INR PTT (Actin FS) 85.6 H POC Glucometer 136 107 Stool Occult Blood 12/10/16 18:30 WBC RBC Hgb Hct MCV MCH MCHC RDW Plt Count MPV INR PTT (Actin FS) POC Glucometer Stool Occult Blood Negative Active Medications Generic Name Dose Route Start Last Admin Trade Name Freq PRN Reason Stop Dose Admin Amlodipine Besylate 10 mg 12/03/16 10:00 12/10/16 09:39 Norvasc - PO 10 mg DAILY MELANIA Administration Atorvastatin Calcium 20 mg 12/02/16 22:00 12/09/16 21:48 Lipitor - PO 20 mg HS MELANIA Administration Bacitracin 1 applic 12/03/16 10:00 12/10/16 09:41 Bacitracin - TP 1 applic DAILY MELANIA Administration Docusate Sodium 100 mg 12/05/16 10:45 12/10/16 09:38 Colace - PO 100 mg BID MELANIA Administration Glipizide 10 mg 12/03/16 07:00 12/10/16 06:36 Glucotrol Xl - PO 10 mg DAILY@0700 MELANIA Administration Heparin Sodium (Porcine) 5,000 unit 12/02/16 18:04 12/06/16 21:40 Heparin - IVPUSH 5,000 unit PRN PRN Administration Heparin Heparin Sodium (Porcine) 1,000 unit 12/02/16 16:04 12/05/16 01:32 Heparin - IVPUSH 1,000 unit PRN PRN Administration Heparin Heparin Sodium/Dextrose 500 mls @ 20 mls/hr 12/02/16 18:15 12/10/16 09:38 Heparin Infusion - IVPB 35 mls/hr TITR MELANIA Administration Protocol 1,000 UNITS/HR Insulin Aspart 1 vial 12/03/16 07:00 12/10/16 16:44 Novolog Vial Sliding Scale - SQ Not Given TIDAC [facility] Protocol Levetiracetam 1,000 mg 12/02/16 22:00 12/10/16 09:38 Keppra - PO 1,000 mg BID MELANIA Administration Lisinopril 10 mg 12/04/16 10:00 12/10/16 09:39 Prinivil PO 10 mg DAILY MELANIA Administration Phenytoin Sodium 100 mg 12/09/16 14:00 12/10/16 14:02 Dilantin - PO 100 mg TID MELANIA Administration Polyethylene Glycol 17 gm 12/05/16 10:45 12/10/16 09:42 Miralax (For Daily Use) - PO Not Given BID [facility] ASSESSMENT/PLAN: Pt is a 56yo M with PMHx of seizure disorder, DM2, HTN, recently discharged from the hospital with immobility at home presents with new complaint of LLE swelling, found to have thrombus in L common femoral, femoral, popliteal, and posterior tibial veins. He received a suction thrombectomy (on 12/02) and is on Heparin drip (started 11/30), bridging with Coumadin (started 12/02) # Acute LLE DVT - POD #6 from suction thrombectomy - Heparin Bridge to Coumadin, pt aware he needs lifelong AC - Will give 15mg today, INR still subtherapeutic - Hypercoagulable labs from last admission negative - Monitor PT/INR # Sever Sepsis - Resolved - Pt had pyuria, received 4 days of ceftriaxone - Ucx neg as it was drawn on abx. - Repeat Ucx pending # Microcytic Anemia - S/p 2 units PRBC - improved - No bleeding - Consider Fe panel and o/p Colonoscopy # Leukocytosis - Down-trending, no signs of infection - Monitor # Lactic Acidosis - resolved - Unknown etiology, no infection - Blood and Ucx negative - Held metformin # MALOU - improving - Likely pre-renal - Improved with fluids - Restarted Lisinopril 10mg # Hx of Seizure Disorder - No seizure episodes - Continue Keppra - Continue Dilantin 100mg TID # IDDM - BGM + SSI TID - Continue glipizide 10mg # Hx of HTN - Continue amlodipine + lisinopril 10mg # FEN - Fluids: None - Electrolytes: Continue to monitor - Nutrition: Diabetic/sodium diet # Prophylaxis - DVT: On heparin drip - GI: Not indicated - PT: PT on board # Disposition - Reach thereapeutic INR and bridge to Coumadin - F/u with Dr. Morales for INR monitoring Dr. Patrick Muniz MD - PGY1 Internal Medicine Visit type - Emergency Visit Emergency Visit: No - New Patient This patient is new to me today: No - Critical Care Critical Care patient: No - Discharge Referral Referred to [facility] No
[2016-12-10] MEDS: ATORVASTATIN CA 20 MG TABLET (FP) PO SCH (21:39)
[2016-12-11] MEDS: HEPARIN INFUSION - 500 ML IVPB SCH ×3 (00:51→21:15)
[2016-12-11] MEDS ORDERED: PT OWN MED DRAWER 7, Y5N ONE (05:15)
[2016-12-11] MEDS: INSULIN SLIDING SCALE (NOVOLOG) 1 VIAL SQ SCH ×3 (06:10→16:46)
[2016-12-11] MEDS: PHENYTOIN NA EXTENDED 100 MG CAPSULE (FP) PO SCH ×3 (06:11→21:15)
[2016-12-11] MEDS: glipiZIDE-XL 10 MG TAB.ER.24 (FP) PO SCH (06:11)
[2016-12-11] MEDS: POLYETHYLENE GLYCOL 3350 119 GM BTL PO SCH ×2 (09:51→21:23)
[2016-12-11] MEDS: levETIRAcetam 500 MG TABLET (FP) PO SCH ×2 (09:51→21:15)
[2016-12-11] MEDS: DOCUSATE SODIUM 100 MG CAPSULE (FP) PO SCH ×2 (09:51→21:15)
[2016-12-11] MEDS: LISINOPRIL 10 MG TABLET (FP) PO SCH (09:51)
[2016-12-11] MEDS: amLODIPine BESYLATE 10 MG TABLET (FP) PO SCH (09:51)
[2016-12-11] MEDS: BACITRACIN 15 GM TUBE TOPICAL OINTMENT TP SCH (09:53)
[2016-12-11 11:20] LABS: INR 1.48 (0.82-1.09); PROTHROMBIN TIME (PATIENT) 16.4 SEC (9.98-11.88)
[2016-12-11 11:23] LABS: WHITE BLOOD COUNT 10.5 K/mm3 (4.0-10.0)
[2016-12-11 11:24] LABS: MCH 23.9 pg (25.7-33.7); MCHC 31.6 g/dl (32.0-35.9); MEAN CELL VOLUME 75.6 fl (80-96); PLATELET COUNT 423 K/MM3 (134-434); RDW 14.9 % (11.9-15.9)
--- NOTE | 2016-12-11 16:14 | PN ---
Teaching Attending Note Name of Resident: Patrick Muniz ATTENDING PHYSICIAN STATEMENT I saw and evaluated the patient. I reviewed the resident's note and discussed the case with the resident. I agree with the resident's findings and plan as documented. SUBJECTIVE: no pain, had fever last night , no dizziness OBJECTIVE: NAD, AAOx3. MMM CV: RRR. 2/6 SM at RUSB , no radiation to carotids Lungs: CTAB EXT: L LE circumference > RLE . 1+ DP pulse on L , 2+ on R ASSESSMENT AND PLAN: 56 y/o gentleman with h/o HTN, DM , HLP, newly diagnosed with seizure and occipital stroke last admission , who presented with L LE pain and edema . 1- LLE DVT: s/p thrombectomy with jehovah's witness of DP pulse - Cont heparin. Give 15 mg of coumadin today too - Will consult heme to help with coumadin dosing as patient might be resistant to coumadin. 2- Recent diagnosis of Seizure disorder - cont Keppra 1000 BID - cont dilantin to 100 TID 3- Recent diagnosis of a stroke : - while on AC, will hold asa 4- Severe sepsis, resolved . - S/p 4 days of bx - Repeat urine cx Neg - Monitor for recurrent fever 5- DM: - SSI . - cont glipizide 6- HTN: BP on lower side, pt is not symptomatic . not tachycardic - decrease norvasc - cont lisinopril 7- DVT px : on heparin gtt HLOC pending therapeutic INR
[2016-12-11] MEDS ORDERED: WARFARIN NA 5 MG TABLET (UD) PO ONE (18:00)
--- NOTE | 2016-12-11 19:55 | PN ---
Physical Exam: SUBJECTIVE: Patient seen and examined this AM without complaints. States that he will call his old job to get letter of resignation to move forward with applying for medicaid. Low grade fever this AM which resolved, no signs of infection. OBJECTIVE: Vital Signs Period Temp Pulse Resp BP Sys/Navarrete Pulse Ox Last 24 Hr 97.7 F-100.0 F 60-68 20-20 101-106/54-56 GENERAL: AAO x 3, Pt ambulating well HEENT: PERRLA, EOMi, No LAD LUNGS: CTABL, No accessory muscle use HEART: S1, S2, RRR, no murmurs ABD: Soft, nontender, nondistended, normoactive BS UPPER EXTREMITIES: 2+ pulses, no edema, no erythema LOWER EXTREMITIES: 2+ pulse on RLE, 1+ LLE, L thigh circumference improving NEURO: Cranial nerves intact, no facial droop. Sensation intact in face and body bilaterally, muscle strength 5/5 Laboratory Results - last 24 hr 12/10/16 12/11/16 12/11/16 18:30 05:41 10:23 WBC RBC Hgb Hct MCV MCH MCHC RDW Plt Count MPV INR 1.48 H PTT (Actin FS) POC Glucometer 132 Stool Occult Blood Negative 12/11/16 12/11/16 12/11/16 10:23 11:38 14:00 WBC 10.5 H RBC 3.68 L Hgb 8.8 L Hct 27.9 L MCV 75.6 L MCH 23.9 L MCHC 31.6 L RDW 14.9 Plt Count 423 MPV 7.0 L INR PTT (Actin FS) 60.1 H POC Glucometer 98 Stool Occult Blood 12/11/16 16:46 WBC RBC Hgb Hct MCV MCH MCHC RDW Plt Count MPV INR PTT (Actin FS) POC Glucometer 134 Stool Occult Blood Active Medications Generic Name Dose Route Start Last Admin Trade Name Freq PRN Reason Stop Dose Admin Amlodipine Besylate 5 mg 12/12/16 10:00 Norvasc - PO DAILY MELANIA Atorvastatin Calcium 20 mg 12/02/16 22:00 12/10/16 21:39 Lipitor - PO 20 mg HS MELANIA Administration Bacitracin 1 applic 12/03/16 10:00 12/11/16 09:53 Bacitracin - TP 1 applic DAILY MELANIA Administration Docusate Sodium 100 mg 12/05/16 10:45 12/11/16 09:51 Colace - PO 100 mg BID MELANIA Administration Glipizide 10 mg 12/03/16 07:00 12/11/16 06:11 Glucotrol Xl - PO 10 mg DAILY@0700 MELANIA Administration Heparin Sodium (Porcine) 5,000 unit 12/02/16 18:04 12/06/16 21:40 Heparin - IVPUSH 5,000 unit PRN PRN Administration Heparin Heparin Sodium (Porcine) 1,000 unit 12/02/16 16:04 12/05/16 01:32 Heparin - IVPUSH 1,000 unit PRN PRN Administration Heparin Heparin Sodium/Dextrose 500 mls @ 20 mls/hr 12/02/16 18:15 12/11/16 15:27 Heparin Infusion - IVPB 35 mls/hr TITR [facility] Administration Protocol 1,000 UNITS/HR Insulin Aspart 1 vial 12/03/16 07:00 12/11/16 16:46 Novolog Vial Sliding Scale - SQ Not Given TIDAC [facility] Protocol Levetiracetam 1,000 mg 12/02/16 22:00 12/11/16 09:51 Keppra - PO 1,000 mg BID MELANIA Administration Lisinopril 10 mg 12/04/16 10:00 12/11/16 09:51 Prinivil PO 10 mg DAILY [facility] Administration Phenytoin Sodium 100 mg 12/09/16 14:00 12/11/16 14:22 Dilantin - PO 100 mg TID MELANIA Administration Polyethylene Glycol 17 gm 12/05/16 10:45 12/11/16 09:51 Miralax (For Daily Use) - PO Not Given BID [facility] ASSESSMENT/PLAN: Pt is a 56yo M with PMHx of seizure disorder, DM2, HTN, recently discharged from the hospital with immobility at home presents with new complaint of LLE swelling, found to have thrombus in L common femoral, femoral, popliteal, and posterior tibial veins. He received a suction thrombectomy (on 12/02) and is on Heparin drip (started 11/30), bridging with Coumadin (started 12/02). Pt needs lifelong anticoagulation # Acute LLE DVT - POD #6 from suction thrombectomy - 15mg Coumadin today - Pt cannot afford NOAC - Negative hypercoag labs - Monitor PT/INR # Sever Sepsis - Resolved - Pt had pyuria, received 4 days of ceftriaxone - Ucx negative # Microcytic Anemia - S/p 2 units PRBC - improved - No bleeding - Consider Fe panel and o/p Colonoscopy # Leukocytosis - No signs of infection, likely reactive # Lactic Acidosis - resolved - Unknown etiology, no infection - Blood and Ucx negative - Held metformin # MALOU - improving - Likely pre-renal - Improved with fluids - Lisinopril 10mg # Hx of Seizure Disorder - No seizure episodes - Continue Keppra - Continue Dilantin 100mg TID # IDDM - BGM + SSI TID - Continue glipizide 10mg # Hx of HTN - Continue amlodipine + lisinopril 10mg # FEN - Fluids: None - Electrolytes: Continue to monitor - Nutrition: Diabetic/sodium diet # Prophylaxis - DVT: On heparin drip - GI: Not indicated - PT: PT on board # Dispo - Pt has appt with [facility] with Dr. Jahaira Arenas Dec 17 10:30AM - Monitor INR, consider changing dilantin Dr. Patrick Muniz MD - PGY1 Internal Medicine Visit type - Emergency Visit Emergency Visit: No - New Patient This patient is new to me today: No - Critical Care Critical Care patient: No - Discharge Referral Referred to [facility] Med P.C.: No
[2016-12-11] MEDS: ATORVASTATIN CA 20 MG TABLET (FP) PO SCH (21:15)
[2016-12-12] MEDS: HEPARIN INFUSION - 500 ML IVPB SCH ×2 (05:59→17:52)
[2016-12-12] MEDS: glipiZIDE-XL 10 MG TAB.ER.24 (FP) PO SCH (06:00)
[2016-12-12] MEDS: PHENYTOIN NA EXTENDED 100 MG CAPSULE (FP) PO SCH ×2 (06:00→21:07)
[2016-12-12] MEDS: INSULIN SLIDING SCALE (NOVOLOG) 1 VIAL SQ SCH ×3 (06:01→17:06)
[2016-12-12] MEDS ORDERED: PT OWN MED DRAWER 7, Y5N ONE (08:28)
[2016-12-12 08:50] LABS: INR 1.39 (0.82-1.09); PROTHROMBIN TIME (PATIENT) 15.4 SEC (9.98-11.88)
[2016-12-12 08:54] LABS: ACTIVATED PTT 68.1 SECONDS (26.9-34.4)
--- NOTE | 2016-12-12 09:00 | PN ---
Addendum entered and electronically signed by Patrick Muniz RES 12/13/16 01: 35: Spoke with Neuro store sales consultant Dr. Flood (covering for Dr. Campo) about Dilantin [id number] induction affecting Coumadin metabolism. Plan: 1. Reduce Dilantin PO now TID --> BID 2. Start IV Valproic Acid 500 TID ([id number] inhibitor) 3. F/u INR levels 4. Reduce Dilantin + Coumadin slowly Original Note: Physical Exam: SUBJECTIVE: Patient seen and examined this AM without complaints. States he is working on his insurance. No CP, no SOB, no fevers. INA last night per nurse, fever resolved. OBJECTIVE: Vital Signs Period Temp Pulse Resp BP Sys/Navarrete Pulse Ox Last 24 Hr 97.7 F-98.6 F 65-74 16-20 101-123/56-69 96 GENERAL: AAO x 3, Pt ambulating well w/ PT HEENT: PERRLA, EOMi, No LAD LUNGS: CTABL, Non labored breathing HEART: S1, S2, RRR, no murmurs ABD: Soft, nontender, nondistended, normoactive BS UPPER EXTREMITIES: 2+ pulses, no edema, no erythema LOWER EXTREMITIES: 1+ pulse on RLE, 1+ LLE NEURO: Cranial nerves intact, no facial droop. Sensation intact in face and body bilaterally, muscle strength 5/5, reflexes 2+ Laboratory Results - last 24 hr 12/11/16 12/11/16 12/11/16 10:23 10:23 11:38 WBC 10.5 H RBC 3.68 L Hgb 8.8 L Hct 27.9 L MCV 75.6 L MCH 23.9 L MCHC 31.6 L RDW 14.9 Plt Count 423 MPV 7.0 L INR 1.48 H PTT (Actin FS) POC Glucometer 98 12/11/16 12/11/16 12/12/16 14:00 16:46 06:01 WBC RBC Hgb Hct MCV MCH MCHC RDW Plt Count MPV INR PTT (Actin FS) 60.1 H POC Glucometer 134 124 Active Medications Generic Name Dose Route Start Last Admin Trade Name Freq PRN Reason Stop Dose Admin Amlodipine Besylate 5 mg 12/12/16 10:00 Norvasc - PO DAILY MELANIA Atorvastatin Calcium 20 mg 12/02/16 22:00 12/11/16 21:15 Lipitor - PO 20 mg HS MELANIA Administration Bacitracin 1 applic 12/03/16 10:00 12/11/16 09:53 Bacitracin - TP 1 applic DAILY MELANIA Administration Docusate Sodium 100 mg 12/05/16 10:45 12/11/16 21:15 Colace - PO 100 mg BID MELANIA Administration Glipizide 10 mg 12/03/16 07:00 12/12/16 06:00 Glucotrol Xl - PO 10 mg DAILY@0700 MELANIA Administration Heparin Sodium (Porcine) 5,000 unit 12/02/16 18:04 12/06/16 21:40 Heparin - IVPUSH 5,000 unit PRN PRN Administration Heparin Heparin Sodium (Porcine) 1,000 unit 12/02/16 16:04 12/05/16 01:32 Heparin - IVPUSH 1,000 unit PRN PRN Administration Heparin Heparin Sodium/Dextrose 500 mls @ 20 mls/hr 12/02/16 18:15 12/12/16 05:59 Heparin Infusion - IVPB 35 mls/hr TITR [facility] Administration Protocol 1,000 UNITS/HR Insulin Aspart 1 vial 12/03/16 07:00 12/12/16 06:01 Novolog Vial Sliding Scale - SQ Not Given TIDAC [facility] Protocol Levetiracetam 1,000 mg 12/02/16 22:00 12/11/16 21:15 Keppra - PO 1,000 mg BID MELANIA Administration Lisinopril 10 mg 12/04/16 10:00 12/11/16 09:51 Prinivil PO 10 mg DAILY MELANIA Administration Phenytoin Sodium 100 mg 12/09/16 14:00 12/12/16 06:00 Dilantin - PO 100 mg TID MELANIA Administration Polyethylene Glycol 17 gm 12/05/16 10:45 12/11/16 21:23 Miralax (For Daily Use) - PO Not Given BID [facility] ASSESSMENT/PLAN: Mr. Ace is a 56yo M with PMHx of seizure disorder, DM2, HTN, recently discharged from the hospital with immobility at home presents with new complaint of LLE swelling, found to have thrombus in L common femoral, femoral, popliteal, and posterior tibial veins. He received a suction thrombectomy (on 12/02) and is on Heparin drip (started 11/30), bridging with Coumadin (started 12/02). Pt needs lifelong anticoagulation. # Acute LLE DVT - POD #10 from suction thrombectomy - 15mg Coumadin given yest, INR still subtherapeutic - Pt cannot afford NOAC - Negative hypercoag labs - Monitor PT/INR # Sever Sepsis - Resolved - Pt presented w/ pyuria, received 4 days of ceftriaxone - Ucx negative # Microcytic Anemia - S/p 2 units PRBC - improved - No bleeding # Leukocytosis - resolved - No signs of infection, likely reactive # Lactic Acidosis - resolved - Unknown etiology, no infection - Blood and Ucx negative - Held metformin # MALOU - resolved - Likely pre-renal - Improved with fluids - Lisinopril 10mg # Hx of Seizure Disorder - No seizure episodes - Continue Keppra - Continue Dilantin 100mg TID # IDDM - BGM + SSI TID w/ glucose well controlled - Continue glipizide 10mg # Hx of HTN - controlled - Continue amlodipine + lisinopril 10mg # FEN - Fluids: None - Electrolytes: No abnormalities - Nutrition: Diabetic/sodium diet # Prophylaxis - DVT: Hep drip + coumadin - GI: Not indicated - PT: PT on board - pt ambulating well # Dispo - Pt has appt with [facility] with Dr. Jahaira Arenas Dec 17 10:30AM - Monitor INR, consider changing dilantin Dr. Patrick Muniz MD - PGY1 Internal Medicine Visit type - Emergency Visit Emergency Visit: No - New Patient This patient is new to me today: No - Critical Care Critical Care patient: No - Discharge Referral Referred to [facility] Med [facility].C[facility] Yes Physician Referral: Larry Morales MD ([facility])
--- NOTE | 2016-12-12 09:19 | PN ---
Teaching Attending Note Name of Resident: Patrick Muniz ATTENDING PHYSICIAN STATEMENT I saw and evaluated the patient. I reviewed the resident's note and discussed the case with the resident. I agree with the resident's findings and plan as documented. SUBJECTIVE: no fever or chills .pain in LLE has improved OBJECTIVE: NAD, AAOx3. MMM CV: RRR. 2/6 SM at RUSB , no radiation to carotids Lungs: CTAB EXT: L LE circumference > RLE . 2+ DP pulse on L , 2+ on R ASSESSMENT AND PLAN: 56 y/o gentleman with h/o HTN, DM , HLP, newly diagnosed with seizure and occipital stroke last admission , who presented with L LE pain and edema . 1- LLE DVT: s/p thrombectomy with yazidism of DP pulse - Cont heparin. - Might be resistant to coumadin as INR is not rising with high doses of coumadin ( 15 mg x last two days ) - Heme to help with coumadin dosing 2- Recent diagnosis of Seizure disorder - cont Keppra 1000 BID - cont dilantin to 100 TID 3- Recent diagnosis of a stroke : - while on AC, will hold asa 4- Severe sepsis, resolved . - S/p 4 days of bx - Repeat urine cx Neg - Monitor for recurrent fever and leukpocytosis 5- DM: - SSI . - cont glipizide 6- HTN: - cont norvasc and lisinopril 7- DVT px : on heparin gtt HLOC pending therapeutic INR
[2016-12-12] MEDS: LISINOPRIL 10 MG TABLET (FP) PO SCH (10:17)
[2016-12-12] MEDS: amLODIPine BESYLATE 5 MG TABLET (FP) PO SCH (10:17)
[2016-12-12] MEDS: levETIRAcetam 500 MG TABLET (FP) PO SCH ×2 (10:17→21:07)
[2016-12-12] MEDS: POLYETHYLENE GLYCOL 3350 119 GM BTL PO SCH ×2 (10:17→21:07)
[2016-12-12] MEDS: DOCUSATE SODIUM 100 MG CAPSULE (FP) PO SCH ×2 (10:17→21:07)
[2016-12-12] MEDS: BACITRACIN 15 GM TUBE TOPICAL OINTMENT TP SCH (10:18)
[2016-12-12] MEDS: VALPROATE SODIUM 500 MG/5 ML VIAL IVPB SCH ×3 (14:45→21:07)
--- NOTE | 2016-12-12 16:21 | CONSULT ---
Consult Consult Specialty:: Hematology/Oncolog Reason for Consultation:: High doses of coumadin - History of Present Illness History of Present Illness: is a 56 year old AA male with h/o HTN, DM , HLP, newly diagnosed with seizure and occipital stroke last admission , who presented with L LE pain and edema and found to have extensive DVT of the LLE ,underwent thrombectomy this admission ,remains on heparin.Is being bridged to coumadin. Patient is now on 15mg x3 days, with sub therapeutic INR prompting a hematology consult. Patient seen and examined. He feels well. He denies any complains. He denies any bleeding. - History Source History Provided By: Patient Limitations to Obtaining History: No Limitations - Past Medical History MAITRE D: Yes: Seizure, Other (neew onset seizures) Cardio/Vascular: Yes: HTN, Hyperlipdemia Gastrointestinal: Yes: Other (never had colonoscopy). No: Cancer, Constipation , GERD Renal/: No: Renal Failure, Cancer Endocrine: Yes: Diabetes Mellitus - Past Surgical History Past Surgical History: Yes: None - Alcohol/Substance Use Hx Alcohol Use: No - Smoking History Smoking history: Unknown if ever smoked Have you smoked in the past 12 months: Yes Aproximately how many cigarettes per day: 12 (since age 19) - Social History Usual Living Arrangement: Other ([employer]) ADL: Independent Occupation: currently not working History of Recent Travel: No Home Medications - Allergies Allergies/Adverse Reactions: Allergies Allergy/AdvReac Type Severity Reaction Status Date / Time No Known Allergies Allergy Verified 11/20/16 01:29 - Home Medications Home Medications: Ambulatory Orders Amlodipine Besylate [Norvasc -] 10 mg PO DAILY #30 tablet 11/25/16 Bacitracin - [Bacitracin Topical Ointment -] 1 applic TP DAILY #1 tube 11/25/16 Levetiracetam [Keppra -] 1,000 mg PO BID #60 tablet 11/25/16 Lisinopril [Prinivil] 10 mg PO DAILY@1200 #30 tablet 11/25/16 Aspirin [ASA -] 81 mg PO DAILY #30 tab 11/26/16 Glipizide [Glipizide ER] 10 mg PO DAILY #10 tab.er.24 11/26/16 Insulin Aspart [Novolog Flexpen] See Protocol SQ AC #1 insuln.pen 11/26/16 Metformin HCl [Glucophage -] 850 mg PO BID #60 tab 11/26/16 Miscellaneous Medical Supply [Outpatient Order] 1 each ASDIR #1 misc Phenytoin Na Extended [Dilantin -] 100 mg PO TID #90 capsule 11/26/16 Simvastatin 40 mg PO DAILY #30 tab 11/26/16 Family Disease History - Family Disease History Family Disease History: Diabetes: Father ( , stroke), Other: Mother ( dementia- alive ), Sister ( of alcohol related issues) Review of Systems - Review of Systems Constitutional: reports: No Symptoms Eyes: reports: No Symptoms HENT: reports: No Symptoms Neck: reports: No Symptoms Cardiovascular: reports: No Symptoms Respiratory: reports: No Symptoms Gastrointestinal: reports: No Symptoms Musculoskeletal: reports: Other (LLE swelling) Physical Exam Vital Signs: Vital Signs Temperature 97.9 F 12/12/16 14:00 Pulse Rate 72 12/12/16 14:00 Respiratory Rate 20 12/12/16 14:00 Blood Pressure 111/58 12/12/16 14:00 O2 Sat by Pulse Oximetry (%) 96 12/11/16 21:00 Constitutional: Yes: Well Nourished, No Distress, Calm HENT: Yes: Atraumatic, Normocephalic Neck: Yes: Supple, Trachea Midline Cardiovascular: Yes: Regular Rate and Rhythm Respiratory: Yes: Regular, CTA Bilaterally Gastrointestinal: Yes: Normal Bowel Sounds, Soft, Abdomen, Obese Musculoskeletal: Yes: WNL Extremities: Yes: Other (LLE swelling LLE>RLE) Edema: No Neurological: Yes: Alert, Oriented Psychiatric: Yes: Alert, Oriented Labs: CBC, BMP 12/11/16 10:23 Imaging - Results X-ray: Report Reviewed Cat Scan: Report Reviewed MRI: Report Reviewed Problem List - Problems (1) New onset seizure Code(s): R56.9 - UNSPECIFIED CONVULSIONS (2) DVT (deep venous thrombosis) Code(s): I82.409 - ACUTE EMBOLISM AND THOMBOS UNSP DEEP VN UNSP LOWER EXTREMITY (3) Diabetes mellitus, new onset Code(s): E11.9 - TYPE 2 DIABETES MELLITUS WITHOUT COMPLICATIONS (4) TIA (transient ischemic attack) Code(s): G45.9 - TRANSIENT CEREBRAL ISCHEMIC ATTACK, UNSPECIFIED (5) Left leg swelling Code(s): M79.89 - OTHER SPECIFIED SOFT TISSUE DISORDERS Assessment/Plan LLE DVT s/p thrombectomy on heparin being bridged to coumadin Subtherapeutic INR anemia Seizures Stroke New DM. Plan: -higher doses of coumadin being required, c/w 15mg (likely medication, diet effects on INR), less likely absorptive problems. -rare to see genetic mutations causing the warfarin "resistance". We could consider checking them (Cyp mutation and VKORC1 ) once INR not being therapeutic with medication/dietary adjustment. -Previously, hypercoag negative.will need to find out if NATY was sent. -Consider checking screening anemia labs ( Iron studies, Thyroid function, Reticulocyte, LDH, B12, folate) -though this DVT appears provoked, but he did have arterial event recently , likely will need indefinite -age appropriate cancer screening needs to be done. discussed with Hospitalist team will follow
[2016-12-12] MEDS: ATORVASTATIN CA 20 MG TABLET (FP) PO SCH (21:07)
[2016-12-13] MEDS ORDERED: PT OWN MED DRAWER 7, Y5N ONE ×3 (05:20→20:45)
[2016-12-13] MEDS: HEPARIN INFUSION - 500 ML IVPB SCH ×6 (06:06→20:15)
[2016-12-13] MEDS: VALPROATE SODIUM 500 MG/5 ML VIAL IVPB SCH ×3 (06:06→21:11)
[2016-12-13] MEDS: INSULIN SLIDING SCALE (NOVOLOG) 1 VIAL SQ SCH ×3 (06:24→16:51)
[2016-12-13] MEDS: glipiZIDE-XL 10 MG TAB.ER.24 (FP) PO SCH (06:25)
[2016-12-13 09:23] LABS: INR 1.37 (0.82-1.09); PROTHROMBIN TIME (PATIENT) 15.2 SEC (9.98-11.88)
[2016-12-13] MEDS: BACITRACIN 15 GM TUBE TOPICAL OINTMENT TP SCH (10:18)
[2016-12-13] MEDS: POLYETHYLENE GLYCOL 3350 119 GM BTL PO SCH ×2 (10:19→21:12)
[2016-12-13] MEDS: DOCUSATE SODIUM 100 MG CAPSULE (FP) PO SCH ×2 (10:21→21:11)
[2016-12-13] MEDS: levETIRAcetam 500 MG TABLET (FP) PO SCH ×2 (10:21→21:11)
[2016-12-13] MEDS: LISINOPRIL 10 MG TABLET (FP) PO SCH (10:21)
[2016-12-13] MEDS: PHENYTOIN NA EXTENDED 100 MG CAPSULE (FP) PO SCH ×2 (10:21→21:11)
[2016-12-13] MEDS: amLODIPine BESYLATE 5 MG TABLET (FP) PO SCH (10:21)
--- NOTE | 2016-12-13 16:44 | PN ---
Progress Note (short form) - Note Progress Note: Subjective: no fever or chills . has decreased pain in LLE Objective: Vital Signs: Last Vital Signs Temp Pulse Resp BP Pulse Ox 98.1 F 70 22 125/68 96 12/13/16 14:00 12/13/16 14:00 12/13/16 14:00 12/13/16 14:00 12/13/16 09:00 Laboratory Results - last 24 hr 12/13/16 12/13/16 12/13/16 06:00 08:20 08:20 INR 1.37 H PTT (Actin FS) 78.5 H POC Glucometer 111 12/13/16 11:25 INR PTT (Actin FS) POC Glucometer 100 Physical Exam: NAD, AAOx3. MMM CV: RRR. 2/6 SM at RUSB , no radiation to carotids Lungs: CTAB EXT: L LE circumference > RLE . 2+ DP pulse on L , 2+ on R ASSESSMENT AND PLAN: 56 y/o gentleman with h/o HTN, DM , HLP, newly diagnosed with seizure and occipital stroke last admission , who presented with L LE pain and edema . 1- LLE DVT: s/p thrombectomy with hoahaoism of DP pulse - Cont heparin. - give 15 mg of coumadin tonight - due to increased metabolism of coumadin , with dilantin , plan is to taper dilantin off . - INR in am - might need AC indefinably. - Rik 2 mutation , can't be ordered in computer 2- Recent diagnosis of Seizure disorder - cont Keppra 1000 BID - cont dilantin to 100 BID and taper off - cont IV valproic acid 3- Recent diagnosis of a stroke : - while on AC, will hold asa 4- Severe sepsis, resolved . - S/p 4 days of bx - Repeat urine cx Neg - Monitor for recurrent fever and leukpocytosis 5- DM: - SSI . - cont glipizide 6- HTN: - cont norvasc and lisinopril 7- DVT px : on heparin gtt HLOC pending therapeutic INR Visit type - Emergency Visit Emergency Visit: Yes ED Registration Date: 11/29/16 Care time: The patient presented to the Emergency Department on the above date and was hospitalized for further evaluation of their emergent condition. - New Patient This patient is new to me today: No - Critical Care Critical Care patient: No
[2016-12-13 17:55] LABS: FERRITIN 895.103 ng/ml (16.4-293.9)
[2016-12-13] MEDS ORDERED: WARFARIN NA 5 MG TABLET (UD) PO ONE (18:00)
[2016-12-13] MEDS: ATORVASTATIN CA 20 MG TABLET (FP) PO SCH (21:11)
[2016-12-14] MEDS: VALPROATE SODIUM 500 MG/5 ML VIAL IVPB SCH ×3 (05:27→21:08)
[2016-12-14] MEDS: INSULIN SLIDING SCALE (NOVOLOG) 1 VIAL SQ SCH ×3 (06:06→18:03)
[2016-12-14] MEDS: glipiZIDE-XL 10 MG TAB.ER.24 (FP) PO SCH (06:44)
[2016-12-14 08:36] LABS: BASOPHIL 1.4 % (0-2.0); EOSINOPHIL 2.9 % (0-4.5); MCH 23.9 pg (25.7-33.7); MCHC 31.7 g/dl (32.0-35.9); MEAN CELL VOLUME 75.4 fl (80-96); MEAN PLT VOLUME 7.6 fl (7.5-11.1); NEUTROPHILS 48.6 % (42.8-82.8); PLATELET COUNT 356 K/MM3 (134-434); RDW 14.5 % (11.9-15.9); WHITE BLOOD COUNT 9.5 K/mm3 (4.0-10.0)
[2016-12-14 08:49] LABS: INR 1.37 (0.82-1.09); PROTHROMBIN TIME (PATIENT) 15.2 SEC (9.98-11.88)
[2016-12-14] MEDS: HEPARIN INFUSION - 500 ML IVPB SCH ×2 (09:09→19:44)
[2016-12-14 09:14] LABS: ANION GAP 11 (8-16); CO2 25 mmol/L (21-32); CREATININE 0.9 mg/dL (0.7-1.3); GLUCOSE,RANDOM 88 mg/dL (74-106); LDH 287 U/L (87-241)
[2016-12-14] MEDS ORDERED: PT OWN MED DRAWER 7, Y5N ONE ×3 (09:57→21:01)
[2016-12-14] MEDS: amLODIPine BESYLATE 5 MG TABLET (FP) PO SCH (09:58)
[2016-12-14] MEDS: DOCUSATE SODIUM 100 MG CAPSULE (FP) PO SCH ×2 (09:58→21:08)
[2016-12-14] MEDS: LISINOPRIL 10 MG TABLET (FP) PO SCH (09:58)
[2016-12-14] MEDS: PHENYTOIN NA EXTENDED 100 MG CAPSULE (FP) PO SCH (09:58)
[2016-12-14] MEDS: levETIRAcetam 500 MG TABLET (FP) PO SCH ×2 (09:58→21:08)
[2016-12-14] MEDS: BACITRACIN 15 GM TUBE TOPICAL OINTMENT TP SCH (10:01)
[2016-12-14] MEDS: POLYETHYLENE GLYCOL 3350 119 GM BTL PO SCH ×2 (10:01→21:08)
--- NOTE | 2016-12-14 13:33 | PN ---
Physical Exam: SUBJECTIVE: Patient seen and examined this AM. No complaints. No CP, no SOB OBJECTIVE: Vital Signs Period Temp Pulse Resp BP Sys/Navarrete Pulse Ox Last 24 Hr 97.7 F-98.1 F 58-70 20-22 110-126/60-70 96-96 GENERAL: AAO x 3, HEENT: PERRLA, EOMi, No LAD LUNGS: CTABL, Non labored breathing HEART: S1, S2, RRR, no murmurs ABD: Soft, nontender, nondistended, normoactive BS UPPER EXTREMITIES: 2+ pulses, no edema, no erythema LOWER EXTREMITIES: 1+ pulse on RLE, 1+ LLE NEURO: Cranial nerves intact, no facial droop. Sensation intact in face and body bilaterally, muscle strength 5/5, reflexes 2+ Laboratory Results - last 24 hr 12/13/16 12/13/16 12/14/16 16:43 17:00 05:30 WBC RBC Hgb Hct MCV MCH MCHC RDW Plt Count MPV Neutrophils % Lymphocytes % Monocytes % Eosinophils % Basophils % Retic Count INR PTT (Actin FS) Sodium Potassium Chloride Carbon Dioxide Anion Gap BUN Creatinine POC Glucometer 102 103 Random Glucose Calcium Ferritin 895.103 H LD Total Vitamin B12 694 Serum Folate 5 TSH Valproic Acid 12/14/16 12/14/16 12/14/16 08:00 08:00 08:00 WBC RBC Hgb Hct MCV MCH MCHC RDW Plt Count MPV Neutrophils % Lymphocytes % Monocytes % Eosinophils % Basophils % Retic Count 2.95 H INR PTT (Actin FS) Sodium 138 Potassium 4.4 Chloride 102 Carbon Dioxide 25 Anion Gap 11 BUN 10 Creatinine 0.9 POC Glucometer Random Glucose 88 D Calcium 9.0 Ferritin LD Total 287 H D Vitamin B12 Serum Folate TSH 3.10 Valproic Acid 53.660 12/14/16 12/14/16 12/14/16 08:00 08:00 08:00 WBC 9.5 RBC 3.90 L Hgb 9.3 L Hct 29.4 L MCV 75.4 L MCH 23.9 L MCHC 31.7 L RDW 14.5 Plt Count 356 MPV 7.6 Neutrophils % 48.6 Lymphocytes % 41.2 H Monocytes % 5.9 Eosinophils % 2.9 Basophils % 1.4 Retic Count INR 1.37 H PTT (Actin FS) 59.5 H Sodium Potassium Chloride Carbon Dioxide Anion Gap BUN Creatinine POC Glucometer Random Glucose Calcium Ferritin LD Total Vitamin B12 Serum Folate TSH Valproic Acid 12/14/16 12:08 WBC RBC Hgb Hct MCV MCH MCHC RDW Plt Count MPV Neutrophils % Lymphocytes % Monocytes % Eosinophils % Basophils % Retic Count INR PTT (Actin FS) Sodium Potassium Chloride Carbon Dioxide Anion Gap BUN Creatinine POC Glucometer 102 Random Glucose Calcium Ferritin LD Total Vitamin B12 Serum Folate TSH Valproic Acid Active Medications Generic Name Dose Route Start Last Admin Trade Name Salas PRN Reason Stop Dose Admin Amlodipine Besylate 5 mg 12/12/16 10:00 12/14/16 09:58 Norvasc - PO 5 mg DAILY MELANIA Administration Atorvastatin Calcium 20 mg 12/02/16 22:00 12/13/16 21:11 Lipitor - PO 20 mg HS MELANIA Administration Bacitracin 1 applic 12/03/16 10:00 12/14/16 10:01 Bacitracin - TP 1 applic DAILY MELANIA Administration Docusate Sodium 100 mg 12/05/16 10:45 12/14/16 09:58 Colace - PO 100 mg BID MELANIA Administration Glipizide 10 mg 12/03/16 07:00 12/14/16 06:44 Glucotrol Xl - PO 10 mg DAILY@0700 MELANIA Administration Heparin Sodium (Porcine) 5,000 unit 12/02/16 18:04 12/06/16 21:40 Heparin - IVPUSH 5,000 unit PRN PRN Administration Heparin Heparin Sodium (Porcine) 1,000 unit 12/02/16 16:04 12/05/16 01:32 Heparin - IVPUSH 1,000 unit PRN PRN Administration Heparin Heparin Sodium/Dextrose 500 mls @ 20 mls/hr 12/02/16 18:15 12/14/16 09:09 Heparin Infusion - IVPB 34 mls/hr TITR MELANIA Administration Protocol 1,000 UNITS/HR Insulin Aspart 1 vial 12/03/16 07:00 12/14/16 12:12 Novolog Vial Sliding Scale - SQ Not Given TIDAC [facility] Protocol Levetiracetam 1,000 mg 12/02/16 22:00 12/14/16 09:58 Keppra - PO 1,000 mg BID MELANIA Administration Lisinopril 10 mg 12/04/16 10:00 12/14/16 09:58 Prinivil PO 10 mg DAILY MELANIA Administration Phenytoin Sodium 100 mg 12/12/16 22:00 12/14/16 09:58 Dilantin - PO 100 mg BID MELANIA Administration Polyethylene Glycol 17 gm 12/05/16 10:45 12/14/16 10:01 Miralax (For Daily Use) - PO Not Given BID [facility] Valproate Sodium 500 mg 12/12/16 14:45 12/14/16 05:27 Depacon Injection - IVPB 500 mg TID MEALNIA Administration Warfarin Sodium 10 mg 12/14/16 18:00 Coumadin - PO 12/14/16 18:01 ONCE@1800 ONE ASSESSMENT/PLAN: Mr. Ace is a 56yo M with PMHx of seizure disorder, DM2, HTN, recently discharged from the hospital with immobility at home presents with new complaint of LLE swelling, found to have thrombus in L common femoral, femoral, popliteal, and posterior tibial veins. He received a suction thrombectomy (on 12/02) and is on Heparin drip (started 11/30), bridging with Coumadin (started 12/02). Pt needs lifelong anticoagulation. # Acute LLE DVT - POD #12 from suction thrombectomy - 15mg Coumadin given yest, INR still subtherapeutic - Plan from Neuro 1. Reduce Dilantin PO to QD today, and stop tomorow 2. Continue IV Valproic Acid 500 TID ([id number] inhibitor) 3. F/u INR levels - Depakote level WNL - Pt cannot afford NOAC - Negative hypercoag labs - Monitor PT/INR # Sever Sepsis - Resolved - Pt presented w/ pyuria, received 4 days of ceftriaxone - Ucx negative # Microcytic Anemia - S/p 2 units PRBC - improved - No bleeding # Leukocytosis - resolved - No signs of infection, likely reactive # Lactic Acidosis - resolved - Unknown etiology, no infection - Blood and Ucx negative - Held metformin # MALOU - resolved - Likely pre-renal - Improved with fluids - Lisinopril 10mg # Hx of Seizure Disorder - No seizure episodes - Continue Keppra - Continue Dilantin 100mg TID # IDDM - BGM + SSI TID w/ glucose well controlled - Continue glipizide 10mg # Hx of HTN - controlled - Continue amlodipine + lisinopril 10mg # FEN - Fluids: None - Electrolytes: No abnormalities - Nutrition: Diabetic/sodium diet # Prophylaxis - DVT: Hep ip + coumadin - GI: Not indicated - PT: PT on board - pt ambulating well # Dispo - Pt has appt with [facility] with Dr. Jahaira Arenas Dec 17 10:30AM - Monitor INR Dr. Patrick Muniz MD - PGY1 Internal Medicine Visit type - Emergency Visit Emergency Visit: No - New Patient This patient is new to me today: No - Critical Care Critical Care patient: No - Discharge Referral Referred to [facility] Med P.C.: No
--- NOTE | 2016-12-14 15:05 | PN ---
Teaching Attending Note Name of Resident: Patrick Muniz ATTENDING PHYSICIAN STATEMENT I saw and evaluated the patient. I reviewed the resident's note and discussed the case with the resident. I agree with the resident's findings and plan as documented. SUBJECTIVE: no fever ro chills, has no pain in LE . no SOB or chest pain OBJECTIVE: NAD, AAOx3. MMM CV: RRR. 2/6 SM at RUSB , no radiation to carotids Lungs: CTAB EXT: L LE circumference > RLE . 1+ DP pulse on L , 2+ on R ASSESSMENT AND PLAN: 56 y/o gentleman with h/o HTN, DM , HLP, newly diagnosed with seizure and occipital stroke last admission , who presented with L LE pain and edema . 1- LLE DVT: s/p thrombectomy with sabianism of DP pulse - Cont heparin. - give 15 mg of coumadin tonight - due to increased metabolism of coumadin , dc dilantin - INR in am - might need AC indefinably. 2- Recent diagnosis of Seizure disorder - cont Keppra 1000 BID - dc dilantin - cont IV valproic acid , d/w neuro switching to PO 3- Recent diagnosis of a stroke : - while on AC, will hold asa 4- Severe sepsis, resolved . s/p Abx 5- DM: - SSI . - cont glipizide 6- HTN: stable - cont norvasc and lisinopril 7- DVT px : on heparin gtt HLOC pending therapeutic INR
[2016-12-14] MEDS ORDERED: WARFARIN NA 10 MG TABLET (FP) PO ONE (18:00)
[2016-12-14] MEDS: ATORVASTATIN CA 20 MG TABLET (FP) PO SCH (21:08)
[2016-12-14] MEDS ORDERED: WARFARIN NA 5 MG TABLET (UD) PO ONE (22:42)
[2016-12-15] MEDS: HEPARIN INFUSION - 500 ML IVPB SCH ×2 (01:46→16:50)
[2016-12-15] MEDS: VALPROATE SODIUM 500 MG/5 ML VIAL IVPB SCH ×3 (05:57→21:30)
[2016-12-15 06:06] LABS: SERUM IRON 47 ug/dL (38-169); TOTAL IRON BINDING CAPACITY 242 ug/dL (250-450); UIBC 195 ug/dL (111-343)
[2016-12-15] MEDS: INSULIN SLIDING SCALE (NOVOLOG) 1 VIAL SQ SCH ×3 (06:27→16:23)
[2016-12-15] MEDS: glipiZIDE-XL 10 MG TAB.ER.24 (FP) PO SCH (06:28)
[2016-12-15 09:22] LABS: MCH 23.7 pg (25.7-33.7); MCHC 31.5 g/dl (32.0-35.9); MEAN CELL VOLUME 75.3 fl (80-96); MEAN PLT VOLUME 6.4 fl (7.5-11.1); PLATELET COUNT 347 K/MM3 (134-434); RDW 14.9 % (11.9-15.9); WHITE BLOOD COUNT 8.3 K/mm3 (4.0-10.0)
[2016-12-15 09:35] LABS: INR 1.4 (0.82-1.09); PROTHROMBIN TIME (PATIENT) 15.5 SEC (9.98-11.88)
[2016-12-15] MEDS: DOCUSATE SODIUM 100 MG CAPSULE (FP) PO SCH ×2 (09:43→21:30)
[2016-12-15] MEDS: amLODIPine BESYLATE 5 MG TABLET (FP) PO SCH (09:44)
[2016-12-15] MEDS: LISINOPRIL 10 MG TABLET (FP) PO SCH (09:44)
[2016-12-15] MEDS: levETIRAcetam 500 MG TABLET (FP) PO SCH ×2 (09:44→21:30)
[2016-12-15] MEDS: BACITRACIN 15 GM TUBE TOPICAL OINTMENT TP SCH (09:45)
[2016-12-15] MEDS: POLYETHYLENE GLYCOL 3350 119 GM BTL PO SCH ×2 (09:45→21:31)
[2016-12-15 10:08] LABS: ALBUMIN 3.1 g/dl (3.4-5.0); ALK PHOS 62 U/L (45-117); ANION GAP 9 (8-16); BILIRUBIN,TOTAL 0.3 mg/dL (0.2-1.0); CALCIUM 8.5 mg/dL (8.5-10.1); CO2 27 mmol/L (21-32); CREATININE 0.9 mg/dL (0.7-1.3); GLUCOSE,RANDOM 112 mg/dL (74-106); SGOT/AST 14 U/L (15-37); SGPT/ALT 25 U/L (12-78); TOT PROT 6.7 g/dl (6.4-8.2)
--- NOTE | 2016-12-15 12:15 | PN ---
Progress Note (short form) - Note Progress Note: Patient seen and examined. Constitutional: Yes: Well Nourished, No Distress, Calm HENT: Yes: Atraumatic, Normocephalic Neck: Yes: Supple, Trachea Midline Cardiovascular: Yes: Regular Rate and Rhythm Respiratory: Yes: Regular, CTA Bilaterally Gastrointestinal: Yes: Normal Bowel Sounds, Soft, Abdomen, Obese Musculoskeletal: Yes: WNL Extremities: Yes: Other (LLE swelling LLE>RLE) Edema: No Neurological: Yes: Alert, Oriented Psychiatric: Yes: Alert, Oriented Temp Pulse Resp BP Pulse Ox 98.5 F 70 18 122/75 97 12/15/16 09:13 12/15/16 09:13 12/15/16 09:13 12/15/16 09:13 12/14/16 21:00 Current Medications Generic Name Dose Route Start Last Admin Trade Name Freq PRN Reason Stop Dose Admin Amlodipine Besylate 5 mg 12/12/16 10:00 12/15/16 09:44 Norvasc - PO 5 mg DAILY MELANIA Administration Atorvastatin Calcium 20 mg 12/02/16 22:00 12/14/16 21:08 Lipitor - PO 20 mg HS MELANIA Administration Bacitracin 1 applic 12/03/16 10:00 12/15/16 09:45 Bacitracin - TP 1 applic DAILY MELANIA Administration Docusate Sodium 100 mg 12/05/16 10:45 12/15/16 09:43 Colace - PO 100 mg BID MELANIA Administration Glipizide 10 mg 12/03/16 07:00 12/15/16 06:28 Glucotrol Xl - PO 10 mg DAILY@0700 MELANIA Administration Heparin Sodium (Porcine) 5,000 unit 12/02/16 18:04 12/06/16 21:40 Heparin - IVPUSH 5,000 unit PRN PRN Administration Heparin Heparin Sodium (Porcine) 1,000 unit 12/02/16 16:04 12/05/16 01:32 Heparin - IVPUSH 1,000 unit PRN PRN Administration Heparin Heparin Sodium/Dextrose 500 mls @ 20 mls/hr 12/02/16 18:15 12/15/16 01:46 Heparin Infusion - IVPB 34 mls/hr TITR MELANIA Administration Protocol 1,000 UNITS/HR Insulin Aspart 1 vial 12/03/16 07:00 12/15/16 11:21 Novolog Vial Sliding Scale - SQ Not Given TIDAC [facility] Protocol Levetiracetam 1,000 mg 12/02/16 22:00 12/15/16 09:44 Keppra - PO 1,000 mg BID [facility] Administration Lisinopril 10 mg 12/04/16 10:00 12/15/16 09:44 Prinivil PO 10 mg DAILY [facility] Administration Polyethylene Glycol 17 gm 12/05/16 10:45 12/15/16 09:45 Miralax (For Daily Use) - PO Not Given BID [facility] Valproate Sodium 500 mg 12/12/16 14:45 12/15/16 05:57 Depacon Injection - IVPB 500 mg TID [facility] Administration Warfarin Sodium 15 mg 12/15/16 18:00 Coumadin - PO DAILY@1800 [facility] CBC, BMP 12/15/16 09:10 12/15/16 09:10 INR, PTT INR 1.40 (0.82-1.09) H 12/15/16 09:10 LLE DVT s/p thrombectomy on heparin being bridged to coumadin Subtherapeutic INR anemia Seizures Stroke New DM. Plan: -c.w present dose of coumdin -daily INR -heaprin drip with PTT monitoring -await Anemia w/u -will follow. Problem List - Problems (1) New onset seizure Code(s): R56.9 - UNSPECIFIED CONVULSIONS (2) DVT (deep venous thrombosis) Code(s): I82.409 - ACUTE EMBOLISM AND THOMBOS UNSP DEEP VN UNSP LOWER EXTREMITY (3) Diabetes mellitus, new onset Code(s): E11.9 - TYPE 2 DIABETES MELLITUS WITHOUT COMPLICATIONS (4) TIA (transient ischemic attack) Code(s): G45.9 - TRANSIENT CEREBRAL ISCHEMIC ATTACK, UNSPECIFIED (5) Left leg swelling Code(s): M79.89 - OTHER SPECIFIED SOFT TISSUE DISORDERS
[2016-12-15] MEDS ORDERED: PT OWN MED DRAWER 7, Y5N ONE ×2 (14:10→21:28)
--- NOTE | 2016-12-15 14:25 | PN ---
Physical Exam: SUBJECTIVE: Patient seen and examined this AM. No complaints. No leg pain, no fever, no chills, no CP, no SOB> OBJECTIVE: Vital Signs Period Temp Pulse Resp BP Sys/Navarrete Pulse Ox Last 24 Hr 98 F-98.8 F 54-74 18-20 102-129/53-75 97 GENERAL: AAO x 3, HEENT: PERRLA, EOMi, No LAD LUNGS: CTABL, Non labored breathing HEART: S1, S2, RRR, no murmurs ABD: Soft, nontender, nondistended, normoactive BS UPPER EXTREMITIES: 2+ pulses, no edema, no erythema LOWER EXTREMITIES: 2+ pulse on RLE, 2+ LLE NEURO: Cranial nerves intact, no facial droop. Sensation intact in face and body bilaterally, muscle strength 5/5, reflexes 2+ Laboratory Results - last 24 hr 12/13/16 12/14/16 12/15/16 17:00 18:03 05:48 WBC RBC Hgb Hct MCV MCH MCHC RDW Plt Count MPV INR PTT (Actin FS) Sodium Potassium Chloride Carbon Dioxide Anion Gap BUN Creatinine Creat Clearance w eGFR POC Glucometer 123 91 Random Glucose Calcium Iron 47 TIBC 242 L Iron Saturation 19 Total Bilirubin AST ALT Alkaline Phosphatase Total Protein Albumin Stool Occult Blood 12/15/16 12/15/16 12/15/16 09:10 09:10 09:10 WBC 8.3 RBC 3.69 L Hgb 8.8 L Hct 27.8 L MCV 75.3 L MCH 23.7 L MCHC 31.5 L RDW 14.9 Plt Count 347 MPV 6.4 L D INR 1.40 H PTT (Actin FS) Sodium 140 Potassium 4.0 Chloride 104 Carbon Dioxide 27 Anion Gap 9 BUN 9 Creatinine 0.9 Creat Clearance w eGFR > 60 POC Glucometer Random Glucose 112 H D Calcium 8.5 Iron TIBC Iron Saturation Total Bilirubin 0.3 D AST 14 L D ALT 25 D Alkaline Phosphatase 62 D Total Protein 6.7 Albumin 3.1 L D Stool Occult Blood 12/15/16 12/15/16 12/15/16 09:10 11:13 11:15 WBC RBC Hgb Hct MCV MCH MCHC RDW Plt Count MPV INR PTT (Actin FS) 72.5 H Sodium Potassium Chloride Carbon Dioxide Anion Gap BUN Creatinine Creat Clearance w eGFR POC Glucometer 98 Random Glucose Calcium Iron TIBC Iron Saturation Total Bilirubin AST ALT Alkaline Phosphatase Total Protein Albumin Stool Occult Blood Negative Active Medications Generic Name Dose Route Start Last Admin Trade Name Freq PRN Reason Stop Dose Admin Amlodipine Besylate 5 mg 12/12/16 10:00 12/15/16 09:44 Norvasc - PO 5 mg DAILY MELANIA Administration Atorvastatin Calcium 20 mg 12/02/16 22:00 12/14/16 21:08 Lipitor - PO 20 mg HS [facility] Administration Bacitracin 1 applic 12/03/16 10:00 12/15/16 09:45 Bacitracin - TP 1 applic DAILY [facility] Administration Docusate Sodium 100 mg 12/05/16 10:45 12/15/16 09:43 Colace - PO 100 mg BID [facility] Administration Glipizide 10 mg 12/03/16 07:00 12/15/16 06:28 Glucotrol Xl - PO 10 mg DAILY@0700 MELANIA Administration Heparin Sodium (Porcine) 5,000 unit 12/02/16 18:04 12/06/16 21:40 Heparin - IVPUSH 5,000 unit PRN PRN Administration Heparin Heparin Sodium (Porcine) 1,000 unit 12/02/16 16:04 12/05/16 01:32 Heparin - IVPUSH 1,000 unit PRN PRN Administration Heparin Heparin Sodium/Dextrose 500 mls @ 20 mls/hr 12/02/16 18:15 12/15/16 12:18 Heparin Infusion - IVPB 1,700 units/hr TITR [facility] Titration Protocol 1,000 UNITS/HR Insulin Aspart 1 vial 12/03/16 07:00 12/15/16 11:21 Novolog Vial Sliding Scale - SQ Not [facility] Levetiracetam 1,000 mg 12/02/16 22:00 12/15/16 09:44 Keppra - PO 1,000 mg BID [facility] Administration Lisinopril 10 mg 12/04/16 10:00 12/15/16 09:44 Prinivil PO 10 mg DAILY [facility] Administration Polyethylene Glycol 17 gm 12/05/16 10:45 12/15/16 09:45 Miralax (For Daily Use) - PO Not Given BID [facility] Valproate Sodium 500 mg 12/12/16 14:45 12/15/16 14:16 Depacon Injection - IVPB 12/15/16 23:59 500 mg TID [facility] Administration Valproic Acid 500 mg 12/16/16 06:00 Depakene - PO TID [facility] Warfarin Sodium 15 mg 12/15/16 18:00 Coumadin - PO DAILY@1800 [facility] ASSESSMENT/PLAN: Mr. Ace is a 56yo M with PMHx of seizure disorder, DM2, HTN, recently discharged from the hospital with immobility at home presents with new complaint of LLE swelling, found to have thrombus in L common femoral, femoral, popliteal, and posterior tibial veins. He received a suction thrombectomy (on 12/02) and is on Heparin drip (started 11/30), bridging with Coumadin (started 12/02). Pt needs lifelong anticoagulation. # Acute LLE DVT - POD #12 from suction thrombectomy - 15mg Coumadin today - Discontinue dilantin - IV valprocic acid today, switch to PO tmrw - Depakote level WNL - Pt cannot afford NOAC - Negative hypercoag labs - PNH still not ruled out since pt has elevated LDH, if haptoglobin low then will order PNH labs - Monitor PT/INR # Microcytic Anemia - S/p 2 units PRBC - improved - Fe panel shows possible Anemia of Chronic Disease, could be from DM2, HTN, etc. # Severe Sepsis - Resolved - Pt presented w/ pyuria, received 4 days of ceftriaxone - Ucx negative - lactic acidosis also resolved # MALOU - resolved - Likely pre-renal - Improved with fluids - Lisinopril 10mg # Hx of Seizure Disorder - well controlled - No seizure episodes - Continue Keppra + Valproic acid # IDDM - well controlled - BGM + SSI TID w/ glucose well controlled - Continue glipizide 10mg # Hx of HTN - well controlled - Continue amlodipine + lisinopril 10mg # FEN - Fluids: None - Electrolytes: No abnormalities - Nutrition: Diabetic/sodium diet # Prophylaxis - DVT: Hep drip + coumadin - GI: Not indicated - PT: PT on board - pt ambulating well # Dispo - Pt has appt with [facility] with Dr. Jahaira Arenas Dec 17 10:30AM, if need to reschedule will call tomorrow - Monitor INR Dr. Patrick Muniz MD - PGY1 Internal Medicine Visit type - Emergency Visit Emergency Visit: No - New Patient This patient is new to me today: No - Critical Care Critical Care patient: No - Discharge Referral Referred to [facility] Med P.C.: No
--- NOTE | 2016-12-15 15:16 | PN ---
Teaching Attending Note Name of Resident: Patrick Muniz ATTENDING PHYSICIAN STATEMENT I saw and evaluated the patient. I reviewed the resident's note and discussed the case with the resident. I agree with the resident's findings and plan as documented. SUBJECTIVE: no fever or chils , denies any CP or SOB. leg feels better OBJECTIVE: NAD, AAOx3. MMM CV: RRR. 2/6 SM at RUSB , no radiation to carotids Lungs: CTAB EXT: L LE circumference > RLE . 1+ DP pulse on L , 2+ on R ASSESSMENT AND PLAN: 56 y/o gentleman with h/o HTN, DM , HLP, newly diagnosed with seizure and occipital stroke last admission , who presented with L LE pain and edema . 1- LLE DVT: s/p thrombectomy with church of DP pulse - Cont heparin. Monitor PTT - give 15 mg of coumadin tonight - Off dilantin , anticipate increase inhis INR - INR in am - might need AC indefinably. - D/w Dr. Shah , concern for PNH as a cause for anemia and hypercoagulability.REtic count elevated, LDH is elevated , Haptoglobin panding 2- Recent diagnosis of Seizure disorder - cont Keppra 1000 BID - off dilantin due to interaction with coumadin - valproic acid in place of dilantin 3- Recent diagnosis of a stroke : - no need for ASA as on AC now 4- Anemia : requiring transfusion. Unclear etiology. iron studies show elevated ferritin but this is after RBC transfusion. with elevated Retic, and LDH , along with stroke and DVT there is concern for NPH. follow Hapto 5- DM: - SSI . - cont glipizide 6- HTN: stable - cont norvasc and lisinopril 7- DVT px : on heparin gtt HLOC pending therapeutic INR
[2016-12-15] MEDS ORDERED: WARFARIN NA 7.5 MG TABLET (FP) PO SCH (18:00)
[2016-12-15] MEDS: ATORVASTATIN CA 20 MG TABLET (FP) PO SCH (21:30)
[2016-12-16] MEDS ORDERED: PT OWN MED DRAWER 7, Y5N ONE ×5 (06:14→21:17)
[2016-12-16] MEDS: glipiZIDE-XL 10 MG TAB.ER.24 (FP) PO SCH (06:18)
[2016-12-16] MEDS: VALPROIC ACID 250 MG CAPSULE PO SCH ×3 (06:18→21:26)
[2016-12-16] MEDS: HEPARIN INFUSION - 500 ML IVPB SCH ×2 (06:20→21:13)
[2016-12-16] MEDS: INSULIN SLIDING SCALE (NOVOLOG) 1 VIAL SQ SCH ×3 (06:24→16:57)
--- NOTE | 2016-12-16 07:12 | PN ---
Physical Exam: SUBJECTIVE: Patient seen and examined this AM. No complaints, no CP, no SOB, no fevers, no chills. No leg pain. Pt to get IVC filter tomorrow OBJECTIVE: Vital Signs Period Temp Pulse Resp BP Sys/Navarrete Pulse Ox Last 24 Hr 98.0 F-99.2 F 68-74 16-20 109-122/67-75 GENERAL: AAO x 3, HEENT: PERRLA, EOMi, No LAD LUNGS: CTABL, Non labored breathing HEART: S1, S2, RRR, no murmurs ABD: Soft, nontender, nondistended, normoactive BS UPPER EXTREMITIES: 2+ pulses, no edema, no erythema LOWER EXTREMITIES: 2+ pulse on RLE, 2+ LLE NEURO: Cranial nerves intact, no facial droop. Sensation intact in face and body bilaterally, muscle strength 5/5, reflexes 2+ Laboratory Results - last 24 hr 12/15/16 12/15/16 12/15/16 09:10 09:10 09:10 WBC 8.3 RBC 3.69 L Hgb 8.8 L Hct 27.8 L MCV 75.3 L MCH 23.7 L MCHC 31.5 L RDW 14.9 Plt Count 347 MPV 6.4 L D INR 1.40 H PTT (Actin FS) Sodium 140 Potassium 4.0 Chloride 104 Carbon Dioxide 27 Anion Gap 9 BUN 9 Creatinine 0.9 Creat Clearance w eGFR > 60 POC Glucometer Random Glucose 112 H D Calcium 8.5 Total Bilirubin 0.3 D AST 14 L D ALT 25 D Alkaline Phosphatase 62 D Total Protein 6.7 Albumin 3.1 L D Stool Occult Blood 12/15/16 12/15/16 12/15/16 09:10 11:13 11:15 WBC RBC Hgb Hct MCV MCH MCHC RDW Plt Count MPV INR PTT (Actin FS) 72.5 H Sodium Potassium Chloride Carbon Dioxide Anion Gap BUN Creatinine Creat Clearance w eGFR POC Glucometer 98 Random Glucose Calcium Total Bilirubin AST ALT Alkaline Phosphatase Total Protein Albumin Stool Occult Blood Negative 12/15/16 12/16/16 16:21 06:17 WBC RBC Hgb Hct MCV MCH MCHC RDW Plt Count MPV INR PTT (Actin FS) Sodium Potassium Chloride Carbon Dioxide Anion Gap BUN Creatinine Creat Clearance w eGFR POC Glucometer 130 103 Random Glucose Calcium Total Bilirubin AST ALT Alkaline Phosphatase Total Protein Albumin Stool Occult Blood Active Medications Generic Name Dose Route Start Last Admin Trade Name Freq PRN Reason Stop Dose Admin Amlodipine Besylate 5 mg 12/12/16 10:00 12/15/16 09:44 Norvasc - PO 5 mg DAILY [facility] Administration Atorvastatin Calcium 20 mg 12/02/16 22:00 12/15/16 21:30 Lipitor - PO 20 mg HS MELANIA Administration Bacitracin 1 applic 12/03/16 10:00 12/15/16 09:45 Bacitracin - TP 1 applic DAILY [facility] Administration Docusate Sodium 100 mg 12/05/16 10:45 12/15/16 21:30 Colace - PO 100 mg BID [facility] Administration Glipizide 10 mg 12/03/16 07:00 12/16/16 06:18 Glucotrol Xl - PO 10 mg DAILY@0700 [facility] Administration Heparin Sodium (Porcine) 5,000 unit 12/02/16 18:04 12/06/16 21:40 Heparin - IVPUSH 5,000 unit PRN PRN Administration Heparin Heparin Sodium (Porcine) 1,000 unit 12/02/16 16:04 12/05/16 01:32 Heparin - IVPUSH 1,000 unit PRN PRN Administration Heparin Heparin Sodium/Dextrose 500 mls @ 20 mls/hr 12/02/16 18:15 12/16/16 06:20 Heparin Infusion - IVPB 34 mls/hr TITR [facility] Administration Protocol 1,000 UNITS/HR Insulin Aspart 1 vial 12/03/16 07:00 12/16/16 06:24 Novolog Vial Sliding Scale - SQ Not Given TIDAC [facility] Protocol Levetiracetam 1,000 mg 12/02/16 22:00 12/15/16 21:30 Keppra - PO 1,000 mg BID [facility] Administration Lisinopril 10 mg 12/04/16 10:00 12/15/16 09:44 Prinivil PO 10 mg DAILY [facility] Administration Polyethylene Glycol 17 gm 12/05/16 10:45 12/15/16 21:31 Miralax (For Daily Use) - PO Not Given BID [facility] Valproic Acid 500 mg 12/16/16 06:00 12/16/16 06:18 Depakene - PO 500 mg TID [facility] Administration Warfarin Sodium 15 mg 12/15/16 18:00 12/15/16 17:23 Coumadin - PO 15 mg DAILY@1800 [facility] Administration ASSESSMENT/PLAN: Mr. Ace is a 56yo M with PMHx of seizure disorder, DM2, HTN, recently discharged from the hospital with immobility at home presents with new complaint of LLE swelling, found to have thrombus in L common femoral, femoral, popliteal, and posterior tibial veins. He received a suction thrombectomy (on 12/02) and is on Heparin drip (started 11/30), bridging with Coumadin (started 12/02). Pt needs lifelong anticoagulation. # Acute LLE DVT - POD #14 from suction thrombectomy - With high dose Coumadin, INR remains subtherapeutic - Pt to get IVC filter placed tomorrow, and discharged on Coumadin afterwards - No coumadin tonight, stop heparin tomorrow 9am, NPO after midnight - Negative hypercoag labs, will order APLA today - PNH ruled out since haptoglobin is detectable - Monitor PT/INR # Microcytic Anemia - S/p 2 units PRBC - improved - Fe panel shows possible Anemia of Chronic Disease, could be from DM2, HTN, etc. # Hx of Seizure Disorder - well controlled - No seizure episodes on new regimen - Continue Keppra + PO Valproic acid # Severe Sepsis - Resolved - Pt presented w/ pyuria, received 4 days of ceftriaxone - Ucx negative - lactic acidosis also resolved # MALOU - resolved - Likely pre-renal - Improved with fluids - Lisinopril 10mg # IDDM - well controlled - BGM + SSI TID w/ glucose well controlled - Continue glipizide 10mg # Hx of HTN - well controlled - Continue amlodipine + lisinopril 10mg # FEN - Fluids: None - Electrolytes: No abnormalities - Nutrition: Diabetic/sodium diet # Prophylaxis - DVT: Hep drip + coumadin - GI: Not indicated - PT: PT on board - pt ambulating well # Dispo - Pt has appt with [facility] with Dr. Strong at [address] [place] [address] 2nd Floor at 2pm. - Monitor INR Dr. Patrick Muniz MD - PGY1 Internal Medicine Visit type - Emergency Visit Emergency Visit: No - New Patient This patient is new to me today: No - Critical Care Critical Care patient: No - Discharge Referral Referred to [facility] Yes Physician Referral: Jose Shaikh DO ([facility])
[2016-12-16 08:33] LABS: INR 1.44 (0.82-1.09)
[2016-12-16] MEDS: DOCUSATE SODIUM 100 MG CAPSULE (FP) PO SCH ×2 (09:44→21:14)
[2016-12-16] MEDS: BACITRACIN 15 GM TUBE TOPICAL OINTMENT TP SCH (09:44)
[2016-12-16] MEDS: levETIRAcetam 500 MG TABLET (FP) PO SCH ×2 (09:45→21:14)
[2016-12-16] MEDS: POLYETHYLENE GLYCOL 3350 119 GM BTL PO SCH ×3 (09:45→21:15)
[2016-12-16] MEDS: amLODIPine BESYLATE 5 MG TABLET (FP) PO SCH (09:46)
[2016-12-16] MEDS: LISINOPRIL 10 MG TABLET (FP) PO SCH (09:46)
--- NOTE | 2016-12-16 12:41 | PN ---
Progress Note (short form) - Note Progress Note: [facility] Pt seen and examined. INR not increasing to therapeutic status due to interaction with seizure medications. Will place IVC filter evita to protect pt from PE. NPO past midnight Jose Shaikh DO
--- NOTE | 2016-12-16 15:08 | PN ---
Teaching Attending Note Name of Resident: Patrick Muniz ATTENDING PHYSICIAN STATEMENT I saw and evaluated the patient. I reviewed the resident's note and discussed the case with the resident. I agree with the resident's findings and plan as documented. SUBJECTIVE: Patient is feeling better, with no acute distress. OBJECTIVE: Vital Signs Temperature 98.6 F 12/16/16 14:49 Pulse Rate 77 12/16/16 14:49 Respiratory Rate 16 12/16/16 06:00 Blood Pressure 133/70 12/16/16 14:49 O2 Sat by Pulse Oximetry (%) 97 12/14/16 21:00 CBCD WBC 8.3 K/mm3 (4.0-10.0) 12/15/16 09:10 RBC 3.69 M/mm3 (4.00-5.60) L 12/15/16 09:10 Hgb 8.8 GM/dL (11.7-16.9) L 12/15/16 09:10 Hct 27.8 % (35.4-49) L 12/15/16 09:10 MCV 75.3 fl (80-96) L 12/15/16 09:10 MCHC 31.5 g/dl (32.0-35.9) L 12/15/16 09:10 RDW 14.9 % (11.9-15.9) 12/15/16 09:10 Plt Count 347 K/MM3 (134-434) 12/15/16 09:10 MPV 6.4 fl (7.5-11.1) L D 12/15/16 09:10 CMP Sodium 140 mmol/L (136-145) 12/15/16 09:10 Potassium 4.0 mmol/L (3.5-5.1) 12/15/16 09:10 Chloride 104 mmol/L (98-107) 12/15/16 09:10 Carbon Dioxide 27 mmol/L (21-32) 12/15/16 09:10 Anion Gap 9 (8-16) 12/15/16 09:10 BUN 9 mg/dL (7-18) 12/15/16 09:10 Creatinine 0.9 mg/dL (0.7-1.3) 12/15/16 09:10 Creat Clearance w eGFR > 60 (>60) 12/15/16 09:10 Random Glucose 112 mg/dL (74-106) H D 12/15/16 09:10 Calcium 8.5 mg/dL (8.5-10.1) 12/15/16 09:10 Total Bilirubin 0.3 mg/dL (0.2-1.0) D 12/15/16 09:10 AST 14 U/L (15-37) L D 12/15/16 09:10 ALT 25 U/L (12-78) D 12/15/16 09:10 Alkaline Phosphatase 62 U/L (45-117) D 12/15/16 09:10 Total Protein 6.7 g/dl (6.4-8.2) 12/15/16 09:10 Albumin 3.1 g/dl (3.4-5.0) L D 12/15/16 09:10 Current Medications Generic Name Dose Route Start Last Admin Trade Name Freq PRN Reason Stop Dose Admin Amlodipine Besylate 5 mg 12/12/16 10:00 12/16/16 09:46 Norvasc - PO 5 mg DAILY [facility]EL[facility]IA Administration Atorvastatin Calcium 20 mg 12/02/16 22:00 12/15/16 21:30 Lipitor - PO 20 mg HS [facility]IA Administration Bacitracin 1 applic 12/03/16 10:00 12/16/16 09:44 Bacitracin - TP 1 applic DAILY [facility] Administration Docusate Sodium 100 mg 12/05/16 10:45 12/16/16 09:44 Colace - PO 100 mg BID [facility] Administration Glipizide 10 mg 12/03/16 07:00 12/16/16 06:18 Glucotrol Xl - PO 10 mg DAILY@0700 [facility] Administration Heparin Sodium (Porcine) 5,000 unit 12/02/16 18:04 12/06/16 21:40 Heparin - IVPUSH 12/17/16 09:00 5,000 unit PRN PRN Administration Heparin Heparin Sodium (Porcine) 1,000 unit 12/02/16 16:04 12/05/16 01:32 Heparin - IVPUSH 12/17/16 09:00 1,000 unit PRN PRN Administration Heparin Heparin Sodium/Dextrose 500 mls @ 20 mls/hr 12/02/16 18:15 12/16/16 06:20 Heparin Infusion - IVPB 12/17/16 09:00 34 mls/hr TITR [facility] Administration Protocol 1,000 UNITS/HR Insulin Aspart 1 vial 12/03/16 07:00 12/16/16 11:39 Novolog Vial Sliding Scale - SQ Not Given TIDAC [facility] Protocol Levetiracetam 1,000 mg 12/02/16 22:00 12/16/16 09:45 Keppra - PO 1,000 mg BID [facility] Administration Lisinopril 10 mg 12/04/16 10:00 12/16/16 09:46 Prinivil PO 10 mg DAILY [facility] Administration Polyethylene Glycol 17 gm 12/05/16 10:45 12/16/16 09:45 Miralax (For Daily Use) - PO Not Given BID [facility] Valproic Acid 500 mg 12/16/16 06:00 12/16/16 14:34 Depakene - PO 500 mg TID [facility] Administration Home Medications Medication Instructions Recorded Amlodipine Besylate [Norvasc -] 10 mg PO DAILY #30 tablet 11/25/16 Bacitracin - [Bacitracin Topical 1 applic TP DAILY #1 tube 11/25/16 Ointment -] Levetiracetam [Keppra -] 1,000 mg PO BID #60 tablet 11/25/16 Lisinopril [Prinivil] 10 mg PO DAILY@1200 #30 tablet 11/25/16 Aspirin [ASA -] 81 mg PO DAILY #30 tab 11/26/16 Glipizide [Glipizide ER] 10 mg PO DAILY #10 tab.er.24 11/26/16 Insulin Aspart [Novolog Flexpen] See Protocol SQ AC #1 insuln.pen 11/26/16 Metformin HCl [Glucophage -] 850 mg PO BID #60 tab 11/26/16 Miscellaneous Medical Supply 1 each ASDIR #1 misc 11/26/16 [Outpatient Order] Phenytoin Na Extended [Dilantin -] 100 mg PO TID #90 capsule 11/26/16 Simvastatin 40 mg PO DAILY #30 tab 11/26/16 LE: Left slight swollen than the right. pulses are positive. ASSESSMENT AND PLAN: 56 y/o gentleman with h/o HTN, DM , HLP, newly diagnosed with seizure and occipital stroke last admission , who presented with L LE pain and edema . # LLE DVT with arterial insufficiency s/p thrombectomy with mormon of DP pulse , on heparin drip continue , stop heparin drip by 9am tomorrow, hold coumadin dose tonight. - discontinued Dilantin since was affecting the INR level of the patient, repeat INR in am , might need AC indefinably. # Recent diagnosis of Seizure disorder due to having an stroke on Keppra 1000 BID ,added valproic acid in place of dilantin # Recent diagnosis of a stroke : on coumadin # Anemia : requiring transfusion. Unclear etiology. iron studies show elevated ferritin but this is after RBC transfusion. with elevated Retic, and LDH , along with stroke and DVT there is concern for NPH. Haptoglobulin within a normal level # DM: SSI , cont glipizide # HTN: cont norvasc and lisinopril DVT px : on heparin gtt /coumdin, off coumadin tonight since going to IVC filter placement.
[2016-12-16] MEDS: ATORVASTATIN CA 20 MG TABLET (FP) PO SCH (21:14)
[2016-12-17] MEDS ORDERED: PT OWN MED DRAWER 7, Y5N ONE ×2 (06:03→20:35)
[2016-12-17] MEDS: glipiZIDE-XL 10 MG TAB.ER.24 (FP) PO SCH (06:06)
[2016-12-17] MEDS: VALPROIC ACID 250 MG CAPSULE PO SCH ×3 (06:06→21:19)
[2016-12-17] MEDS: INSULIN SLIDING SCALE (NOVOLOG) 1 VIAL SQ SCH ×3 (06:06→17:39)
--- NOTE | 2016-12-17 07:15 | PN ---
Physical Exam: SUBJECTIVE: Patient seen and examined this AM. No acute events overnight. No Cp , no SOB, no leg pain. Pt to get IVC filter placed today OBJECTIVE: Vital Signs Period Temp Pulse Resp BP Sys/Navarrete Pulse Ox Last 24 Hr 98.6 F-98.9 F 72-79 16-20 107-133/70-78 GENERAL: AAO x 3, HEENT: PERRLA, EOMi, No LAD LUNGS: CTABL, Non labored breathing HEART: S1, S2, RRR, no murmurs ABD: Soft, nontender, nondistended, normoactive BS UPPER EXTREMITIES: 2+ pulses, no edema, no erythema LOWER EXTREMITIES: 2+ pulse on RLE, 2+ LLE NEURO: Cranial nerves intact, no facial droop. Sensation intact in face and body bilaterally, muscle strength 5/5, reflexes 2+ Laboratory Results - last 24 hr 12/16/16 12/16/16 12/17/16 11:34 16:52 06:05 WBC RBC Hgb Hct MCV MCH MCHC RDW Plt Count MPV INR POC Glucometer 112 102 100 12/17/16 12/17/16 07:30 07:30 WBC 7.8 RBC 3.65 L Hgb 8.8 L Hct 27.7 L MCV 75.9 L MCH 24.2 L MCHC 31.9 L RDW 15.1 Plt Count 363 MPV 7.4 L D INR 1.36 H POC Glucometer Active Medications Generic Name Dose Route Start Last Admin Trade Name Freq PRN Reason Stop Dose Admin Amlodipine Besylate 5 mg 12/12/16 10:00 12/16/16 09:46 Norvasc - PO 5 mg DAILY [facility]EL[facility] Administration Atorvastatin Calcium 20 mg 12/02/16 22:00 12/16/16 21:14 Lipitor - PO 20 mg HS MEL[facility]IA Administration Bacitracin 1 applic 12/03/16 10:00 12/16/16 09:44 Bacitracin - TP 1 applic DAILY [facility] Administration Docusate Sodium 100 mg 12/05/16 10:45 12/16/16 21:14 Colace - PO 100 mg BID [facility] Administration Glipizide 10 mg 12/03/16 07:00 12/17/16 06:06 Glucotrol Xl - PO Not Given DAILY@0700 [facility] Heparin Sodium (Porcine) 5,000 unit 12/02/16 18:04 08/06/17 21:40 Heparin - IVPUSH 12/17/16 09:00 5,000 unit PRN PRN Administration Heparin Heparin Sodium (Porcine) 1,000 unit 12/02/16 16:04 12/05/16 01:32 Heparin - IVPUSH 12/17/16 09:00 1,000 unit PRN PRN Administration Heparin Heparin Sodium/Dextrose 500 mls @ 20 mls/hr 12/02/16 18:15 12/16/16 21:13 Heparin Infusion - IVPB 12/17/16 09:00 34 mls/hr TITR [facility] Administration Protocol 1,000 UNITS/HR Insulin Aspart 1 vial 12/03/16 07:00 12/17/16 06:06 Novolog Vial Sliding Scale - SQ Not Given TIDAC [facility] Protocol Levetiracetam 1,000 mg 12/02/16 22:00 12/16/16 21:14 Keppra - PO 1,000 mg BID [facility] Administration Lisinopril 10 mg 12/04/16 10:00 12/16/16 09:46 Prinivil PO 10 mg DAILY [facility] Administration Polyethylene Glycol 17 gm 12/05/16 10:45 12/16/16 21:15 Miralax (For Daily Use) - PO Not Given BID [facility] Valproic Acid 500 mg 12/16/16 06:00 12/17/16 06:06 Depakene - PO 500 mg TID [facility] Administration ASSESSMENT/PLAN: Mr. Ace is a 56yo M with PMHx of seizure disorder, DM2, HTN, recently discharged from the hospital with immobility at home presents with new complaint of LLE swelling, found to have thrombus in L common femoral, femoral, popliteal, and posterior tibial veins. He received a suction thrombectomy (on 12/02) and is on Heparin drip (started 11/30), bridging with Coumadin (started 12/02). Pt needs lifelong anticoagulation. # Acute LLE DVT - POD #15 from suction thrombectomy - Pt to get IVC filter placed today - Heparin stop today 9am, NPO after midnight - As per Vascular reccs, pt will be evaluated by heme/onc as an o/p off of anticoagulants - Negative hypercoag labs, ordered RG - PNH ruled out since haptoglobin is detectable - Monitor PT/INR # Microcytic Anemia - S/p 2 units PRBC - improved - Fe panel shows possible Anemia of Chronic Disease, could be from DM2, HTN, etc. # Hx of Seizure Disorder - well controlled - No seizure episodes on new regimen - Continue Keppra + PO Valproic acid # Severe Sepsis - Resolved - Pt presented w/ pyuria, received 4 days of ceftriaxone - Ucx negative - lactic acidosis also resolved # MALOU - resolved - Likely pre-renal - Improved with fluids - Lisinopril 10mg # IDDM - well controlled - BGM + SSI TID w/ glucose well controlled - Continue glipizide 10mg # Hx of HTN - well controlled - Continue amlodipine + lisinopril 10mg # FEN - Fluids: None - Electrolytes: No abnormalities - Nutrition: Diabetic/sodium diet # Prophylaxis - DVT: Hep drip + coumadin - GI: Not indicated - PT: PT on board - pt ambulating well # Dispo - Pt has appt with [facility] with Dr. Strong at [address] [place] [address] Floor at 2pm - Check with CM about insurance - Ask if pt can be followed by heme/onc - Likely d/c tomorrow if all is settled Dr. Patrick Muniz MD - PGY1 Internal Medicine Visit type - Emergency Visit Emergency Visit: No - New Patient This patient is new to me today: No - Critical Care Critical Care patient: No
[2016-12-17 08:34] LABS: MCH 24.2 pg (25.7-33.7); MCHC 31.9 g/dl (32.0-35.9); MEAN CELL VOLUME 75.9 fl (80-96); MEAN PLT VOLUME 7.4 fl (7.5-11.1); PLATELET COUNT 363 K/MM3 (134-434); RDW 15.1 % (11.9-15.9); WHITE BLOOD COUNT 7.8 K/mm3 (4.0-10.0)
[2016-12-17 09:14] LABS: INR 1.36 (0.82-1.09); PROTHROMBIN TIME (PATIENT) 15.1 SEC (9.98-11.88)
[2016-12-17] MEDS: POLYETHYLENE GLYCOL 3350 119 GM BTL PO SCH ×2 (10:42→21:19)
[2016-12-17] MEDS: LISINOPRIL 10 MG TABLET (FP) PO SCH (10:42)
[2016-12-17] MEDS: amLODIPine BESYLATE 5 MG TABLET (FP) PO SCH (10:42)
[2016-12-17] MEDS: DOCUSATE SODIUM 100 MG CAPSULE (FP) PO SCH ×2 (10:44→21:18)
[2016-12-17] MEDS: levETIRAcetam 500 MG TABLET (FP) PO SCH ×3 (10:45→21:18)
[2016-12-17] MEDS: BACITRACIN 15 GM TUBE TOPICAL OINTMENT TP SCH (11:31)
--- NOTE | 2016-12-17 11:43 | PN ---
Teaching Attending Note Name of Resident: Patrick Muniz ATTENDING PHYSICIAN STATEMENT I saw and evaluated the patient. I reviewed the resident's note and discussed the case with the resident. I agree with the resident's findings and plan as documented. SUBJECTIVE: Patient is feeling better, going for IVC filter this afternoon OBJECTIVE: Vital Signs Temperature 98.6 F 12/17/16 06:00 Pulse Rate 72 12/17/16 06:00 Respiratory Rate 20 12/17/16 06:00 Blood Pressure 131/78 12/17/16 06:00 O2 Sat by Pulse Oximetry (%) 97 12/14/16 21:00 CBCD WBC 7.8 K/mm3 (4.0-10.0) 12/17/16 07:30 RBC 3.65 M/mm3 (4.00-5.60) L 12/17/16 07:30 Hgb 8.8 GM/dL (11.7-16.9) L 12/17/16 07:30 Hct 27.7 % (35.4-49) L 12/17/16 07:30 MCV 75.9 fl (80-96) L 12/17/16 07:30 MCHC 31.9 g/dl (32.0-35.9) L 12/17/16 07:30 RDW 15.1 % (11.9-15.9) 12/17/16 07:30 Plt Count 363 K/MM3 (134-434) 12/17/16 07:30 MPV 7.4 fl (7.5-11.1) L D 12/17/16 07:30 CMP Sodium 140 mmol/L (136-145) 12/15/16 09:10 Potassium 4.0 mmol/L (3.5-5.1) 12/15/16 09:10 Chloride 104 mmol/L (98-107) 12/15/16 09:10 Carbon Dioxide 27 mmol/L (21-32) 12/15/16 09:10 Anion Gap 9 (8-16) 12/15/16 09:10 BUN 9 mg/dL (7-18) 12/15/16 09:10 Creatinine 0.9 mg/dL (0.7-1.3) 12/15/16 09:10 Creat Clearance w eGFR > 60 (>60) 12/15/16 09:10 Random Glucose 112 mg/dL (74-106) H D 12/15/16 09:10 Calcium 8.5 mg/dL (8.5-10.1) 12/15/16 09:10 Total Bilirubin 0.3 mg/dL (0.2-1.0) D 12/15/16 09:10 AST 14 U/L (15-37) L D 12/15/16 09:10 ALT 25 U/L (12-78) D 12/15/16 09:10 Alkaline Phosphatase 62 U/L (45-117) D 12/15/16 09:10 Total Protein 6.7 g/dl (6.4-8.2) 12/15/16 09:10 Albumin 3.1 g/dl (3.4-5.0) L D 12/15/16 09:10 Current Medications Generic Name Dose Route Start Last Admin Trade Name Freq PRN Reason Stop Dose Admin Amlodipine Besylate 5 mg 12/12/16 10:00 12/17/16 10:42 Norvasc - PO Not Given DAILY [facility] Atorvastatin Calcium 20 mg 12/02/16 22:00 12/16/16 21:14 Lipitor - PO 20 mg HS [facility]EL[facility] Administration Bacitracin 1 applic 12/03/16 10:00 12/17/16 11:31 Bacitracin - TP 1 applic DAILY [facility] Administration Docusate Sodium 100 mg 12/05/16 10:45 12/17/16 10:44 Colace - PO Not Given BID [facility] Glipizide 10 mg 12/03/16 07:00 12/17/16 06:06 Glucotrol Xl - PO Not Given DAILY@0700 [facility] Insulin Aspart 1 vial 12/03/16 07:00 12/17/16 11:31 Novolog Vial Sliding Scale - SQ Not Given TIDAC [facility] Protocol Levetiracetam 1,000 mg 12/02/16 22:00 12/17/16 11:30 Keppra - PO 1,000 mg BID [facility] Administration Lisinopril 10 mg 12/04/16 10:00 12/17/16 10:42 Prinivil PO Not Given DAILY [facility] Polyethylene Glycol 17 gm 12/05/16 10:45 12/17/16 10:42 Miralax (For Daily Use) - PO Not Given BID [facility] Valproic Acid 500 mg 12/16/16 06:00 12/17/16 06:06 Depakene - PO 500 mg TID [facility] Administration Home Medications Medication Instructions Recorded Amlodipine Besylate [Norvasc -] 10 mg PO DAILY #30 tablet 11/25/16 Bacitracin - [Bacitracin Topical 1 applic TP DAILY #1 tube 11/25/16 Ointment -] Levetiracetam [Keppra -] 1,000 mg PO BID #60 tablet 11/25/16 Lisinopril [Prinivil] 10 mg PO DAILY@1200 #30 tablet 11/25/16 Aspirin [ASA -] 81 mg PO DAILY #30 tab 11/26/16 Glipizide [Glipizide ER] 10 mg PO DAILY #10 tab.er.24 11/26/16 Insulin Aspart [Novolog Flexpen] See Protocol SQ AC #1 insuln.pen 11/26/16 Metformin HCl [Glucophage -] 850 mg PO BID #60 tab 11/26/16 Miscellaneous Medical Supply 1 each ASDIR #1 misc 11/26/16 [Outpatient Order] Phenytoin Na Extended [Dilantin -] 100 mg PO TID #90 capsule 11/26/16 Simvastatin 40 mg PO DAILY #30 tab 11/26/16 LE: Left slight swollen than the right. pulses are positive. ASSESSMENT AND PLAN: 56 y/o gentleman with h/o HTN, DM , HLP, newly diagnosed with seizure and occipital stroke last admission , who presented with L LE pain and edema . # LLE DVT with arterial insufficiency s/p thrombectomy with religious of DP pulse , will stop the heparin now as per 's request prior to surgery ,s/ p discontinued Dilantin since was affecting the INR level of the patient, repeat INR in am , might need AC indefinably. # Recent diagnosis of Seizure disorder due to having an stroke on Keppra 1000 BID ,added valproic acid in place of dilantin # Recent diagnosis of a stroke : on coumadin # Anemia : requiring transfusion. Unclear etiology. iron studies show elevated ferritin but this is after RBC transfusion. with elevated Retic, and LDH , along with stroke and DVT there is concern for NPH. Haptoglobulin within a normal level # DM: SSI , cont glipizide # HTN: cont norvasc and lisinopril DVT px : Off heparin gtt /coumdin, since going to IVC filter placement.
[2016-12-17] MEDS ORDERED: LIDOCAINE HCL 1%, 10 MG/ML (20ML VIAL) ONE (15:34)
[2016-12-17] MEDS ORDERED: HEPARIN NA (PORCINE) 5,000 UNITS/ML 1ML VIAL ONE (15:34)
[2016-12-17] MEDS ORDERED: MIDAZOLAM HCL 2 MG/2 ML SINGLE DOSE VIAL ONE ×2 (15:47→15:55)
[2016-12-17] MEDS ORDERED: LIDOCAINE HCL 1%, 10 MG/ML (50 mL VIAL) IJ ONE ×2 (16:04)
--- NOTE | 2016-12-17 16:19 | PN ---
Progress Note (short form) - Note Progress Note: Patient seen and examined. for IVC filter today. Off of coumadin for procedure. labs reviewed. Constitutional: Yes: Well Nourished, No Distress, Calm HENT: Yes: Atraumatic, Normocephalic Neck: Yes: Supple, Trachea Midline Cardiovascular: Yes: Regular Rate and Rhythm Respiratory: Yes: Regular, CTA Bilaterally Gastrointestinal: Yes: Normal Bowel Sounds, Soft, Abdomen, Obese Musculoskeletal: Yes: WNL Extremities: Yes: Other (LLE swelling LLE>RLE) Edema: No Neurological: Yes: Alert, Oriented Psychiatric: Yes: Alert, Oriented Temp Pulse Resp BP Pulse Ox 98.5 F 70 18 122/75 97 12/15/16 09:13 12/15/16 09:13 12/15/16 09:13 12/15/16 09:13 12/14/16 21:00 Current Medications Generic Name Dose Route Start Last Admin Trade Name Freq PRN Reason Stop Dose Admin Amlodipine Besylate 5 mg 12/12/16 10:00 12/15/16 09:44 Norvasc - PO 5 mg DAILY [facility] Administration Atorvastatin Calcium 20 mg 12/02/16 22:00 12/14/16 21:08 Lipitor - PO 20 mg HS MELANIA Administration Bacitracin 1 applic 12/03/16 10:00 12/15/16 09:45 Bacitracin - TP 1 applic DAILY MELANIA Administration Docusate Sodium 100 mg 12/05/16 10:45 12/15/16 09:43 Colace - PO 100 mg BID M[facility]AN[facility] Administration Glipizide 10 mg 12/03/16 07:00 12/15/16 06:28 Glucotrol Xl - PO 10 mg DAILY@0700 MELANIA Administration Heparin Sodium (Porcine) 5,000 unit 12/02/16 18:04 12/06/16 21:40 Heparin - IVPUSH 5,000 unit PRN PRN Administration Heparin Heparin Sodium (Porcine) 1,000 unit 12/02/16 16:04 12/05/16 01:32 Heparin - IVPUSH 1,000 unit PRN PRN Administration Heparin Heparin Sodium/Dextrose 500 mls @ 20 mls/hr 12/02/16 18:15 12/15/16 01:46 Heparin Infusion - IVPB 34 mls/hr TITR MELANIA Administration Protocol 1,000 UNITS/HR Insulin Aspart 1 vial 12/03/16 07:00 12/15/16 11:21 Novolog Vial Sliding Scale - SQ Not Given TIDAC [facility] Protocol Levetiracetam 1,000 mg 12/02/16 22:00 12/15/16 09:44 Keppra - PO 1,000 mg BID MELANIA Administration Lisinopril 10 mg 12/04/16 10:00 12/15/16 09:44 Prinivil PO 10 mg DAILY [facility] Administration Polyethylene Glycol 17 gm 12/05/16 10:45 12/15/16 09:45 Miralax (For Daily Use) - PO Not Given BID [facility] Valproate Sodium 500 mg 12/12/16 14:45 12/15/16 05:57 Depacon Injection - IVPB 500 mg TID [facility] Administration Warfarin Sodium 15 mg 12/15/16 18:00 Coumadin - PO DAILY@1800 [facility] CBC, BMP 12/15/16 09:10 12/15/16 09:10 INR, PTT INR 1.40 (0.82-1.09) H 12/15/16 09:10 LLE DVT s/p thrombectomy on heparin being bridged to coumadin Subtherapeutic INR anemia Seizures Stroke DM. Plan: -restart present dose of Coumadin ,when able to post procedure, now again down trend in INR as coumadin held for procedure -daily INR -though he is going for IVC filter, which will prevent PE, suspect he would be at risk for a new venous/arterial clot ( he is presently s/p Stroke and extensive DVT) , he would need ac indefinite. risks/benefits should be weighed and discussed with the pt, if bleeding concern remain. -will send off NATY 2/PNH to r/o a thrombogenic diathesis -age appropriate cancer screening need to be done. -will follow. Problem List - Problems (1) New onset seizure Code(s): R56.9 - UNSPECIFIED CONVULSIONS (2) DVT (deep venous thrombosis) Code(s): I82.409 - ACUTE EMBOLISM AND THOMBOS UNSP DEEP VN UNSP LOWER EXTREMITY (3) Diabetes mellitus, new onset Code(s): E11.9 - TYPE 2 DIABETES MELLITUS WITHOUT COMPLICATIONS (4) TIA (transient ischemic attack) Code(s): G45.9 - TRANSIENT CEREBRAL ISCHEMIC ATTACK, UNSPECIFIED (5) Left leg swelling Code(s): M79.89 - OTHER SPECIFIED SOFT TISSUE DISORDERS
[2016-12-17] MEDS ORDERED: HEPARIN NA (PORCINE) 5,000 UNITS/ML 1ML VIAL IVPUSH PRN ×3 (16:26→18:25)
--- NOTE | 2016-12-17 16:29 | OP ---
Operative Note - Note: Operative Date: 12/17/16 Pre-Operative Diagnosis: DVT LLE Operation: Insertion of IVC filter, with venogram Post-Operative Diagnosis: Same as Pre-op Surgeon: Jose Shaikh Anesthesia: Fractional Estimated Blood Loss (mls): 5 Operative Report Dictated: Yes
[2016-12-17] MEDS ORDERED: ONDANSETRON 4 MG/2 ML VIAL IVPUSH PRN (16:40)
[2016-12-17] MEDS ORDERED: WARFARIN NA 5 MG TABLET (UD) PO SCH (18:00)
[2016-12-17] MEDS: HEPARIN INFUSION - 500 ML IVPB SCH (18:31)
[2016-12-17] MEDS: ATORVASTATIN CA 20 MG TABLET (FP) PO SCH (21:18)
--- NOTE | 2016-12-17 21:33 | OP ---
DATE OF OPERATION: 12/17/2016 PREOPERATIVE DIAGNOSIS: Left lower extremity deep vein thrombosis, failure of anticoagulation. POSTOPERATIVE DIAGNOSIS: Left lower extremity deep vein thrombosis, failure of anticoagulation. PROCEDURE: Insertion of inferior vena cava filter with vena cavogram. SURGEON: Jose Hunter DO ANESTHESIA: Fractional. BLOOD LOSS: 5 mL. The patient is a 56-year-old male who comes in with an extensive left lower extremity DVT. The patient was started on anticoagulation with heparin and Coumadin but the Coumadin levels were not getting therapeutic. It turned out to be that the seizure medication that the patient is taking is interacting with the Coumadin and not allowing the patient to be therapeutic. At this point, the medical team thought that it is very hard to anticoagulate the patient, especially as an outpatient, and that he should get a filter due to his extensive DVT into his left iliac vein. The patient was consented for the procedure, understanding all risks, benefits, alternatives. He was then taken to the operating room. Once in the operating room, he was laid on operating table in supine manner. The area of the left groin was prepped and draped in a sterile surgical manner. We then injected 10 mL lidocaine 1% over the right common femoral vein. We then took our micropuncture needle and punctured the right common femoral artery. Micropuncture wire was inserted and the micropuncture sheath was inserted. We then placed a 0.035 floppy guidewire up into the inferior vena cava under fluoroscopy. We then placed our IVC filter sheath up to L3. We then shot a vena cavogram, showing that the right and left renal veins were coming off at L1, and the vena cava was patent. We then loaded the filter into the sheath, and the filter was deployed between L2 and L3. Completion vena cavogram via hand injection showed that the filter was in place, there was no migraine of the filter, there was no extravasation of contrast, and bilateral renal veins were patent. At this point we removed the sheath from the right groin, pressure was held on the right groin for 5 minutes. After there was no more bleeding, the area was wet and dried, and Dermabond was placed. Patient tolerated procedure, no complications. Patient was transferred to PACU in stable condition. JOSE HUNTER DO JUNIOR ORACLE DBA/[id number]
[2016-12-18 00:06] LABS: ALBUMIN 3.2 g/dL (2.9-4.4); ALPHA-1-GLOBULIN 0.3 g/dL (0.0-0.4); BETA GLOBULIN 1.2 g/dL (0.7-1.3); GAMMA GLOBULIN 1.1 g/dL (0.4-1.8); GLOBULIN, TOTAL 3.4 g/dL (2.2-3.9); M-SPIKE Not Observed g/dL (Not Observed); TOTAL PROTEIN 6.6 g/dL (6.0-8.5)
[2016-12-18] MEDS: HEPARIN INFUSION - 500 ML IVPB SCH ×3 (02:41→21:03)
[2016-12-18] MEDS: glipiZIDE-XL 10 MG TAB.ER.24 (FP) PO SCH (06:27)
[2016-12-18] MEDS: VALPROIC ACID 250 MG CAPSULE PO SCH ×3 (06:27→21:03)
[2016-12-18] MEDS: INSULIN SLIDING SCALE (NOVOLOG) 1 VIAL SQ SCH ×3 (06:48→16:52)
--- NOTE | 2016-12-18 06:55 | PN ---
Physical Exam: SUBJECTIVE: Patient seen and examined this AM. No complaints, no CP, no SOB, no fevers, no chills. OBJECTIVE: Vital Signs Period Temp Pulse Resp BP Sys/Navarrete Pulse Ox Last 24 Hr 96.8 F-99.3 F 61-71 14-20 111-139/74-94 99-100 GENERAL: AAO x 3, HEENT: PERRLA, EOMi, No LAD LUNGS: CTABL, Non labored breathing HEART: S1, S2, RRR, no murmurs ABD: Soft, nontender, nondistended, normoactive BS UPPER EXTREMITIES: 2+ pulses, no edema, no erythema LOWER EXTREMITIES: 2+ pulse on RLE, 2+ LLE NEURO: Cranial nerves intact, no facial droop. Sensation intact in face and body bilaterally, muscle strength 5/5, reflexes 2+ Laboratory Results - last 24 hr 12/15/16 12/17/16 12/17/16 09:10 07:30 07:30 WBC 7.8 RBC 3.65 L Hgb 8.8 L Hct 27.7 L MCV 75.9 L MCH 24.2 L MCHC 31.9 L RDW 15.1 Plt Count 363 MPV 7.4 L D INR 1.36 H PTT (Actin FS) POC Glucometer Serum Total Protein 6.6 Albumin 3.2 Globulin 3.4 Albumin/Globulin Ratio 1.0 Bqdxl-8-Uxhagewad 0.3 Rcvxw-7-Dayqjgoct 0.8 Beta Globulins 1.2 Gamma Globulins 1.1 IgG 1176 IgA 268 IgM 44 AUNG M-Varinder Not observed AUNG Comments Serum AUNG Interpret Comment: 12/17/16 12/17/16 12/18/16 11:29 17:31 00:30 WBC RBC Hgb Hct MCV MCH MCHC RDW Plt Count MPV INR PTT (Actin FS) 62.1 H POC Glucometer 92 102 Serum Total Protein Albumin Globulin Albumin/Globulin Ratio Diwnu-9-Kpnlhinuz Rcjow-7-Tqfwasjux Beta Globulins Gamma Globulins IgG IgA IgM AUNG M-Varinder AUNG Comments Serum AUNG Interpret Active Medications Generic Name Dose Route Start Last Admin Trade Name Freq PRN Reason Stop Dose Admin Amlodipine Besylate 5 mg 12/18/16 10:00 Norvasc - PO DAILY MELANIA Atorvastatin Calcium 20 mg 12/17/16 22:00 12/17/16 21:18 Lipitor - PO 20 mg HS MELANIA Administration Bacitracin 1 applic 12/18/16 10:00 Bacitracin - TP DAILY [facility] Docusate Sodium 100 mg 12/17/16 22:00 12/17/16 21:18 Colace - PO 100 mg BID MELANIA Administration Glipizide 10 mg 12/18/16 07:00 12/18/16 06:27 Glucotrol Xl - PO 10 mg DAILY@0700 MELANIA Administration Heparin Sodium (Porcine) 1,000 unit 12/17/16 16:26 Heparin - IVPUSH PRN PRN Heparin Heparin Sodium (Porcine) 5,000 unit 12/17/16 16:26 Heparin - IVPUSH PRN PRN Heparin Heparin Sodium/Dextrose 500 mls @ 20 mls/hr 12/17/16 18:30 12/18/16 06:30 Heparin Infusion - IVPB 34 mls/hr TITR [facility] Administration Protocol 1,000 UNITS/HR Insulin Aspart 1 vial 12/18/16 07:00 12/18/16 06:48 Novolog Vial Sliding Scale - SQ Not Given TIDAC [facility] Protocol Levetiracetam 1,000 mg 12/17/16 22:00 12/17/16 21:18 Keppra - PO 1,000 mg BID [facility] Administration Lisinopril 10 mg 12/18/16 10:00 Prinivil PO DAILY [facility] Polyethylene Glycol 17 gm 12/17/16 22:00 12/17/16 21:19 Miralax (For Daily Use) - PO Not Given BID [facility] Valproic Acid 500 mg 12/17/16 22:00 12/18/16 06:27 Depakene - PO 500 mg TID MELANIA Administration ASSESSMENT/PLAN: Mr. Ace is a 56yo M with PMHx of seizure disorder, DM2, HTN, recently discharged from the hospital with immobility at home presents with new complaint of LLE swelling, found to have thrombus in L common femoral, femoral, popliteal, and posterior tibial veins. He received a suction thrombectomy (on 12/02) and is on Heparin drip (started 11/30), bridging with Coumadin (started 12/02). Pt needs lifelong anticoagulation. # Acute LLE DVT - POD #16 from suction thrombectomy; POD#1 from IVC filter - Heparin drip - Spoke to Heme/Onc, will give 20mg Coumadin today, monitor INR - Heme/Onc on board ruling out causes of hypercoag # Microcytic Anemia - S/p 2 units PRBC - improved - Fe panel shows possible Anemia of Chronic Disease, could be from DM2, HTN, etc. # Hx of Seizure Disorder - well controlled - No seizure episodes on new regimen - Continue Keppra + PO Valproic acid # Severe Sepsis - Resolved - Pt presented w/ pyuria, received 4 days of ceftriaxone - Ucx negative - lactic acidosis also resolved # MALOU - resolved - Likely pre-renal - Improved with fluids - Lisinopril 10mg # IDDM - well controlled - BGM + SSI TID w/ glucose well controlled - Continue glipizide 10mg # Hx of HTN - well controlled - Continue amlodipine + lisinopril 10mg # FEN - Fluids: None - Electrolytes: No abnormalities - Nutrition: Diabetic/sodium diet # Prophylaxis - DVT: Hep drip - GI: Not indicated - PT: PT on board - pt ambulating well # Dispo - Pt has appt with [facility] with Dr. Strong at [address] [place] [address] [address] at 2pm - Check with CM about insurance - Ask if pt can be followed by heme/onc - Likely d/c today or tmrw if all is settled Dr. Patrick Muniz MD - PGY1 Internal Medicine Visit type - Emergency Visit Emergency Visit: No - New Patient This patient is new to me today: No - Critical Care Critical Care patient: No - Discharge Referral Physician Referral: Larry Morales MD ([facility])
[2016-12-18 08:20] LABS: INR 1.28 (0.82-1.09); PROTHROMBIN TIME (PATIENT) 14.2 SEC (9.98-11.88)
[2016-12-18 08:31] LABS: MCH 23.9 pg (25.7-33.7); MCHC 31.6 g/dl (32.0-35.9); MEAN CELL VOLUME 75.6 fl (80-96); MEAN PLT VOLUME 7.9 fl (7.5-11.1); PLATELET COUNT 315 K/MM3 (134-434); RDW 14.7 % (11.9-15.9); WHITE BLOOD COUNT 8.2 K/mm3 (4.0-10.0)
[2016-12-18 09:14] LABS: ANION GAP 7 (8-16); CALCIUM 8.8 mg/dL (8.5-10.1); CO2 28 mmol/L (21-32); GLUCOSE,RANDOM 87 mg/dL (74-106)
[2016-12-18] MEDS: LISINOPRIL 10 MG TABLET (FP) PO SCH (09:56)
[2016-12-18] MEDS: BACITRACIN 15 GM TUBE TOPICAL OINTMENT TP SCH (09:56)
[2016-12-18] MEDS: levETIRAcetam 500 MG TABLET (FP) PO SCH ×2 (09:56→21:03)
[2016-12-18] MEDS: DOCUSATE SODIUM 100 MG CAPSULE (FP) PO SCH (09:56)
[2016-12-18] MEDS: amLODIPine BESYLATE 5 MG TABLET (FP) PO SCH (09:56)
[2016-12-18] MEDS: POLYETHYLENE GLYCOL 3350 119 GM BTL PO SCH (09:56)
--- NOTE | 2016-12-18 11:11 | PN ---
Teaching Attending Note Name of Resident: Patrick Muniz ATTENDING PHYSICIAN STATEMENT I saw and evaluated the patient. I reviewed the resident's note and discussed the case with the resident. I agree with the resident's findings and plan as documented. SUBJECTIVE: Patient is feeling better, no new events. OBJECTIVE: Vital Signs Temperature 97.9 F 12/18/16 09:52 Pulse Rate 74 12/18/16 09:52 Respiratory Rate 20 12/18/16 09:52 Blood Pressure 125/66 12/18/16 09:52 O2 Sat by Pulse Oximetry (%) 99 12/18/16 09:00 CBCD WBC 8.2 K/mm3 (4.0-10.0) 12/18/16 06:40 RBC 3.78 M/mm3 (4.00-5.60) L 12/18/16 06:40 Hgb 9.0 GM/dL (11.7-16.9) L 12/18/16 06:40 Hct 28.6 % (35.4-49) L 12/18/16 06:40 MCV 75.6 fl (80-96) L 12/18/16 06:40 MCHC 31.6 g/dl (32.0-35.9) L 12/18/16 06:40 RDW 14.7 % (11.9-15.9) 12/18/16 06:40 Plt Count 315 K/MM3 (134-434) 12/18/16 06:40 MPV 7.9 fl (7.5-11.1) 12/18/16 06:40 CMP Sodium 139 mmol/L (136-145) 12/18/16 06:40 Potassium 4.4 mmol/L (3.5-5.1) 12/18/16 06:40 Chloride 104 mmol/L (98-107) 12/18/16 06:40 Carbon Dioxide 28 mmol/L (21-32) 12/18/16 06:40 Anion Gap 7 (8-16) L 12/18/16 06:40 BUN 11 mg/dL (7-18) D 12/18/16 06:40 Creatinine 1.0 mg/dL (0.7-1.3) 12/18/16 06:40 Creat Clearance w eGFR > 60 (>60) 12/15/16 09:10 Random Glucose 87 mg/dL (74-106) D 12/18/16 06:40 Calcium 8.8 mg/dL (8.5-10.1) 12/18/16 06:40 Total Bilirubin 0.3 mg/dL (0.2-1.0) D 12/15/16 09:10 AST 14 U/L (15-37) L D 12/15/16 09:10 ALT 25 U/L (12-78) D 12/15/16 09:10 Alkaline Phosphatase 62 U/L (45-117) D 12/15/16 09:10 Total Protein 6.7 g/dl (6.4-8.2) 12/15/16 09:10 Albumin 3.2 g/dL (2.9-4.4) 12/15/16 09:10 Current Medications Generic Name Dose Route Start Last Admin Trade Name Freq PRN Reason Stop Dose Admin Amlodipine Besylate 5 mg 12/18/16 10:00 12/18/16 09:56 Norvasc - PO 5 mg DAILY MELANIA Administration Atorvastatin Calcium 20 mg 12/17/16 22:00 12/17/16 21:18 Lipitor - PO 20 mg HS MELANIA Administration Bacitracin 1 applic 12/18/16 10:00 12/18/16 09:56 Bacitracin - TP 1 applic DAILY MELANIA Administration Docusate Sodium 100 mg 12/17/16 22:00 12/18/16 09:56 Colace - PO 100 mg BID MELANIA Administration Glipizide 10 mg 12/18/16 07:00 12/18/16 06:27 Glucotrol Xl - PO 10 mg DAILY@0700 MELANIA Administration Heparin Sodium (Porcine) 1,000 unit 12/17/16 16:26 Heparin - IVPUSH PRN PRN Heparin Heparin Sodium (Porcine) 5,000 unit 12/17/16 16:26 Heparin - IVPUSH PRN PRN Heparin Heparin Sodium/Dextrose 500 mls @ 20 mls/hr 12/17/16 18:30 12/18/16 06:30 Heparin Infusion - IVPB 34 mls/hr TITR MELANIA Administration Protocol 1,000 UNITS/HR Insulin Aspart 1 vial 12/18/16 07:00 12/18/16 06:48 Novolog Vial Sliding Scale - SQ Not Given TIDAC [facility] Protocol Levetiracetam 1,000 mg 12/17/16 22:00 08/18/17 09:56 Keppra - PO 1,000 mg BID MELANIA Administration Lisinopril 10 mg 12/18/16 10:00 12/18/16 09:56 Prinivil PO 10 mg DAILY MELANIA Administration Polyethylene Glycol 17 gm 12/17/16 22:00 12/18/16 09:56 Miralax (For Daily Use) - PO Not Given BID [facility] Valproic Acid 500 mg 12/17/16 22:00 12/18/16 06:27 Depakene - PO 500 mg TID MELANIA Administration Home Medications Medication Instructions Recorded Bacitracin - [Bacitracin Topical 1 applic TP DAILY #1 tube 11/25/16 Ointment -] Levetiracetam [Keppra -] 1,000 mg PO BID #60 tablet 11/25/16 Lisinopril [Prinivil] 10 mg PO DAILY@1200 #30 tablet 11/25/16 Aspirin [ASA -] 81 mg PO DAILY #30 tab 11/26/16 Glipizide [Glipizide ER] 10 mg PO DAILY #10 tab.er.24 11/26/16 Insulin Aspart [Novolog Flexpen] See Protocol SQ AC #1 insuln.pen 11/26/16 Metformin HCl [Glucophage -] 850 mg PO BID #60 tab 11/26/16 Simvastatin 40 mg PO DAILY #30 tab 11/26/16 Amlodipine Besylate [Norvasc -] 5 mg PO DAILY #30 tablet 12/18/16 Valproic Acid [Depakene] 500 mg PO TID #180 capsule 12/18/16 LE: Left slight swollen than the right. pulses are positive. ASSESSMENT AND PLAN: 56 y/o gentleman with h/o HTN, DM , HLP, newly diagnosed with seizure and occipital stroke last admission , who presented with L LE pain and edema . # POD #1 s/p IVC filter(12/17/2016) Discussed with Hematolgist , suggestion was to continue coumadin and give higher dose such as 20mg today ,and check INR, if within 2-3 days INR doesn't improve then to give the patient double platelet therapy and further coumadin dosing as an outpatient. # LLE DVT with arterial insufficiency s/p thrombectomy with nondenominational of DP pulse ,and s/p IVC filter, will continue heparin and coumadin 20mg po tonight. # Recent diagnosis of Seizure disorder due to having an stroke on Keppra 1000 BID ,added valproic acid in place of dilantin # Recent diagnosis of a stroke : on coumadin continue for now. # Anemia : requiring transfusion. Unclear etiology. iron studies show elevated ferritin but this is after RBC transfusion. with elevated Retic, and LDH , along with stroke and DVT there is concern for NPH. Haptoglobulin within a normal level # DM: SSI , cont glipizide # HTN: cont norvasc and lisinopril DVT px : continue heparin gtt /coumdin, s/p IVC filter placement.
[2016-12-18] MEDS ORDERED: PT OWN MED DRAWER 7, Y5N ONE ×2 (17:16→20:52)
[2016-12-18] MEDS ORDERED: WARFARIN NA 10 MG TABLET (FP) PO ONE (18:00)
--- NOTE | 2016-12-18 20:27 | PN ---
Progress Note (short form) - Note Progress Note: Patient seen and examined. s/p IVC filter. labs reviewed. Constitutional: Yes: Well Nourished, No Distress, Calm HENT: Yes: Atraumatic, Normocephalic Neck: Yes: Supple, Trachea Midline Cardiovascular: Yes: Regular Rate and Rhythm Respiratory: Yes: Regular, CTA Bilaterally Gastrointestinal: Yes: Normal Bowel Sounds, Soft, Abdomen, Obese Musculoskeletal: Yes: WNL Extremities: Yes: Other (LLE swelling LLE>RLE) Edema: No Neurological: Yes: Alert, Oriented Psychiatric: Yes: Alert, Oriented Last Vital Signs Temp Pulse Resp BP Pulse Ox 97.8 F 74 20 131/72 99 12/18/16 15:21 12/18/16 15:21 12/18/16 15:21 12/18/16 15:21 12/18/16 09:00 CBC, BMP 12/18/16 06:40 12/18/16 06:40 Current Medications Generic Name Dose Route Start Last Admin Trade Name Freq PRN Reason Stop Dose Admin Amlodipine Besylate 5 mg 12/18/16 10:00 12/18/16 09:56 Norvasc - PO 5 mg DAILY MEL[facility]IA Administration Atorvastatin Calcium 20 mg 12/17/16 22:00 12/17/16 21:18 Lipitor - PO 20 mg HS MELANIA Administration Bacitracin 1 applic 12/18/16 10:00 12/18/16 09:56 Bacitracin - TP 1 applic DAILY MELANIA Administration Docusate Sodium 100 mg 12/18/16 17:02 Colace - PO BID PRN CONSTIPATION Glipizide 10 mg 12/18/16 07:00 12/18/16 06:27 Glucotrol Xl - PO 10 mg DAILY@0700 MELANIA Administration Heparin Sodium (Porcine) 1,000 unit 12/17/16 16:26 Heparin - IVPUSH PRN PRN Heparin Heparin Sodium (Porcine) 5,000 unit 12/17/16 16:26 Heparin - IVPUSH PRN PRN Heparin Heparin Sodium/Dextrose 500 mls @ 20 mls/hr 12/17/16 18:30 12/18/16 06:30 Heparin Infusion - IVPB 34 mls/hr TITR M[facility]ANIA Administration Protocol 1,000 UNITS/HR Levetiracetam 1,000 mg 12/17/16 22:00 12/18/16 09:56 Keppra - PO 1,000 mg BID MELANIA Administration Lisinopril 10 mg 12/18/16 10:00 12/18/16 09:56 Prinivil PO 10 mg DAILY M[facility]IA Administration Valproic Acid 500 mg 12/17/16 22:00 12/18/16 13:43 Depakene - PO 500 mg TID MELANIA Administration Impression LLE DVT s/p thrombectomy on heparin being bridged to coumadin Subtherapeutic INR anemia Seizures Stroke DM. Plan: -restart coumadin at 20mg with heparin bridge -will see the trend of INR the next two days. -can consider to add asa 81 at a later time -age appropriate cancer screening need to be done. -PNH/JAK2 request form re-faxed today -will follow. Problem List - Problems (1) New onset seizure Code(s): R56.9 - UNSPECIFIED CONVULSIONS (2) DVT (deep venous thrombosis) Code(s): I82.409 - ACUTE EMBOLISM AND THOMBOS UNSP DEEP VN UNSP LOWER EXTREMITY (3) Diabetes mellitus, new onset Code(s): E11.9 - TYPE 2 DIABETES MELLITUS WITHOUT COMPLICATIONS (4) TIA (transient ischemic attack) Code(s): G45.9 - TRANSIENT CEREBRAL ISCHEMIC ATTACK, UNSPECIFIED (5) Left leg swelling Code(s): M79.89 - OTHER SPECIFIED SOFT TISSUE DISORDERS
[2016-12-18] MEDS: ATORVASTATIN CA 20 MG TABLET (FP) PO SCH (21:02)
[2016-12-18] MEDS: DOCUSATE SODIUM 100 MG CAPSULE (FP) PO PRN (21:03)
[2016-12-19] MEDS ORDERED: PT OWN MED DRAWER 7, Y5N ONE ×5 (05:49→20:58)
[2016-12-19] MEDS: glipiZIDE-XL 10 MG TAB.ER.24 (FP) PO SCH (06:46)
[2016-12-19] MEDS: VALPROIC ACID 250 MG CAPSULE PO SCH ×3 (06:46→21:03)
[2016-12-19 08:14] LABS: MCHC 31.7 g/dl (32.0-35.9); MEAN CELL VOLUME 75.7 fl (80-96); PLATELET COUNT 312 K/MM3 (134-434); RDW 14.7 % (11.9-15.9)
[2016-12-19 08:28] LABS: INR 1.28 (0.82-1.09); PROTHROMBIN TIME (PATIENT) 14.1 SEC (9.98-11.88)
[2016-12-19] MEDS: levETIRAcetam 500 MG TABLET (FP) PO SCH ×2 (10:03→21:03)
[2016-12-19] MEDS: amLODIPine BESYLATE 5 MG TABLET (FP) PO SCH (10:03)
[2016-12-19] MEDS: LISINOPRIL 10 MG TABLET (FP) PO SCH (10:03)
[2016-12-19] MEDS: BACITRACIN 15 GM TUBE TOPICAL OINTMENT TP SCH (10:11)
--- NOTE | 2016-12-19 10:35 | PN ---
Physical Exam: SUBJECTIVE: Patient seen and examined No changes , no fever or chills. OBJECTIVE: Vital Signs Temperature 97.8 F 12/19/16 09:21 Pulse Rate 69 12/19/16 09:21 Respiratory Rate 20 12/19/16 09:21 Blood Pressure 103/61 12/19/16 09:21 O2 Sat by Pulse Oximetry (%) 97 12/18/16 21:00 GENERAL: The patient is awake, alert, and fully oriented, in no acute distress. HEAD: Normal with no signs of trauma. EYES: PERRL, extraocular movements intact, sclera anicteric, conjunctiva clear. ENT: Ears normal, oropharynx clear without exudates, moist mucous membranes. NECK: Trachea midline, full range of motion, supple. LUNGS: Breath sounds equal, clear to auscultation bilaterally, no wheezes, no crackles, no accessory muscle use. HEART: Regular rate and rhythm, S1, S2 without murmur, rub or gallop. ABDOMEN: Soft, nontender, nondistended, normoactive bowel sounds, no guarding, no rebound appreciated EXTREMITIES: 2+ pulses, warm, well-perfused, LLE improved the swelling NEUROLOGICAL: Cranial nerves II through XII grossly intact. Normal speech, gait is steady PSYCH: Normal mood, normal affect. SKIN: Warm, dry, normal turgor, no rashes or lesions noted Laboratory Results - last 24 hr 12/17/16 12/19/16 12/19/16 07:30 05:40 05:40 WBC 8.0 RBC 3.68 L Hgb 8.9 L Hct 27.9 L MCV 75.7 L MCH 24.0 L MCHC 31.7 L RDW 14.7 Plt Count 312 MPV 8.0 INR 1.28 H PTT (Actin FS) Anti-Cardiolipin IgG Ab <9 Anti-Cardiolipin IgA Ab <9 Anti-Cardiolipin IgM Ab <9 12/19/16 05:40 WBC RBC Hgb Hct MCV MCH MCHC RDW Plt Count MPV INR PTT (Actin FS) 78.6 H Anti-Cardiolipin IgG Ab Anti-Cardiolipin IgA Ab Anti-Cardiolipin IgM Ab CBCD WBC 8.0 K/mm3 (4.0-10.0) 12/19/16 05:40 RBC 3.68 M/mm3 (4.00-5.60) L 12/19/16 05:40 Hgb 8.9 GM/dL (11.7-16.9) L 12/19/16 05:40 Hct 27.9 % (35.4-49) L 12/19/16 05:40 MCV 75.7 fl (80-96) L 12/19/16 05:40 MCHC 31.7 g/dl (32.0-35.9) L 12/19/16 05:40 RDW 14.7 % (11.9-15.9) 12/19/16 05:40 Plt Count 312 K/MM3 (134-434) 12/19/16 05:40 MPV 8.0 fl (7.5-11.1) 12/19/16 05:40 CMP Sodium 139 mmol/L (136-145) 12/18/16 06:40 Potassium 4.4 mmol/L (3.5-5.1) 12/18/16 06:40 Chloride 104 mmol/L (98-107) 12/18/16 06:40 Carbon Dioxide 28 mmol/L (21-32) 12/18/16 06:40 Anion Gap 7 (8-16) L 12/18/16 06:40 BUN 11 mg/dL (7-18) D 12/18/16 06:40 Creatinine 1.0 mg/dL (0.7-1.3) 12/18/16 06:40 Creat Clearance w eGFR > 60 (>60) 12/15/16 09:10 Random Glucose 87 mg/dL (74-106) D 12/18/16 06:40 Calcium 8.8 mg/dL (8.5-10.1) 12/18/16 06:40 Total Bilirubin 0.3 mg/dL (0.2-1.0) D 12/15/16 09:10 AST 14 U/L (15-37) L D 12/15/16 09:10 ALT 25 U/L (12-78) D 12/15/16 09:10 Alkaline Phosphatase 62 U/L (45-117) D 12/15/16 09:10 Total Protein 6.7 g/dl (6.4-8.2) 12/15/16 09:10 Albumin 3.2 g/dL (2.9-4.4) 12/15/16 09:10 Active Medications Generic Name Dose Route Start Last Admin Trade Name Salas PRN Reason Stop Dose Admin Amlodipine Besylate 5 mg 12/18/16 10:00 12/19/16 10:03 Norvasc - PO 5 mg DAILY MELANIA Administration Atorvastatin Calcium 20 mg 12/17/16 22:00 12/18/16 21:02 Lipitor - PO 20 mg HS MELANIA Administration Bacitracin 1 applic 12/18/16 10:00 12/19/16 10:11 Bacitracin - TP 1 applic DAILY PENDING SALE TO [facility] Administration Docusate Sodium 100 mg 12/18/16 17:02 12/18/16 21:03 Colace - PO 100 mg BID PRN Administration CONSTIPATION Glipizide 10 mg 12/18/16 07:00 12/19/16 06:46 Glucotrol Xl - PO 10 mg DAILY@0700 PENDING SALE TO [facility] Administration Heparin Sodium (Porcine) 1,000 unit 12/17/16 16:26 Heparin - IVPUSH PRN PRN Heparin Heparin Sodium (Porcine) 5,000 unit 12/17/16 16:26 Heparin - IVPUSH PRN PRN Heparin Heparin Sodium/Dextrose 500 mls @ 20 mls/hr 12/17/16 18:30 12/19/16 10:29 Heparin Infusion - IVPB 1,650 units/hr TITR PENDING SALE TO [facility] Titration Protocol 1,000 UNITS/HR Levetiracetam 1,000 mg 12/17/16 22:00 12/19/16 10:03 Keppra - PO 1,000 mg BID MELANIA Administration Lisinopril 10 mg 12/18/16 10:00 12/19/16 10:03 Prinivil PO 10 mg DAILY PENDING SALE TO [facility] Administration Valproic Acid 500 mg 12/17/16 22:00 12/19/16 06:46 Depakene - PO 500 mg TID MELANIA Administration Home Medications Medication Instructions Recorded Bacitracin - [Bacitracin Topical 1 applic TP DAILY #1 tube 11/25/16 Ointment -] Levetiracetam [Keppra -] 1,000 mg PO BID #60 tablet 11/25/16 Lisinopril [Prinivil] 10 mg PO DAILY@1200 #30 tablet 11/25/16 Aspirin [ASA -] 81 mg PO DAILY #30 tab 11/26/16 Glipizide [Glipizide ER] 10 mg PO DAILY #10 tab.er.24 11/26/16 Insulin Aspart [Novolog Flexpen] See Protocol SQ AC #1 insuln.pen 11/26/16 Metformin HCl [Glucophage -] 850 mg PO BID #60 tab 11/26/16 Simvastatin 40 mg PO DAILY #30 tab 11/26/16 Amlodipine Besylate [Norvasc -] 5 mg PO DAILY #30 tablet 12/18/16 Valproic Acid [Depakene] 500 mg PO TID #180 capsule 12/18/16 ASSESSMENT AND PLAN: 56 y/o gentleman with h/o HTN, DM , HLP, newly diagnosed with seizure and occipital stroke last admission , who presented with L LE pain and edema . # POD #2 s/p IVC filter(12/17/2016) Discussed with Hematolgist , suggestion was to continue coumadin ,will increase to 25mg tonight as per Oncology suggestion , will monitor , if INR in 2-3 days doesn't improve then to give the patient double platelet therapy and further coumadin dosing as an outpatient as per primary. # LLE DVT with arterial insufficiency s/p thrombectomy with nondenominational of DP pulse ,and s/p IVC filter, will continue heparin and coumadin 20mg po tonight. # Recent diagnosis of Seizure disorder due to having an stroke on Keppra 1000 BID ,added valproic acid in place of dilantin # Recent diagnosis of a stroke : on coumadin continue for now. # Anemia : requiring transfusion. Unclear etiology. iron studies show elevated ferritin but this is after RBC transfusion. with elevated Retic, and LDH , along with stroke and DVT there is concern for NPH. Haptoglobulin within a normal level # DM: SSI , cont glipizide # HTN: cont norvasc and lisinopril DVT px : continue heparin gtt /coumdin , s/p IVC filter placement. Visit type - Emergency Visit Emergency Visit: Yes ED Registration Date: 11/29/16 Care time: The patient presented to the Emergency Department on the above date and was hospitalized for further evaluation of their emergent condition. - New Patient This patient is new to me today: No - Critical Care Critical Care patient: No
[2016-12-19] MEDS: HEPARIN INFUSION - 500 ML IVPB SCH (11:13)
--- NOTE | 2016-12-19 15:09 | PN ---
Progress Note (short form) - Note Progress Note: PAtient seen and examined No complaints Last Vital Signs Temp Pulse Resp BP Pulse Ox 98.1 F 71 20 117/58 97 12/19/16 14:19 12/19/16 14:19 12/19/16 09:21 12/19/16 14:19 12/19/16 09:00 Cor: RSR, No murmurs, No gallops Lungs: Clear to P&A Abd: Soft, Normal bowel sounds, No organomegaly Ext:No significant edema Abnormal Lab Results 12/19/16 12/19/16 12/19/16 05:40 05:40 05:40 RBC 3.68 L Hgb 8.9 L Hct 27.9 L MCV 75.7 L MCH 24.0 L MCHC 31.7 L INR 1.28 H PTT (Actin FS) 78.6 H Active Medications Generic Name Dose Route Start Last Admin Trade Name Freq PRN Reason Stop Dose Admin Amlodipine Besylate 5 mg 12/18/16 10:00 12/19/16 10:03 Norvasc - PO 5 mg DAILY MELANIA Administration Atorvastatin Calcium 20 mg 12/17/16 22:00 12/18/16 21:02 Lipitor - PO 20 mg HS MELANIA Administration Bacitracin 1 applic 12/18/16 10:00 12/19/16 10:11 Bacitracin - TP 1 applic DAILY MELANIA Administration Docusate Sodium 100 mg 12/18/16 17:02 12/18/16 21:03 Colace - PO 100 mg BID PRN Administration CONSTIPATION Glipizide 10 mg 12/18/16 07:00 12/19/16 06:46 Glucotrol Xl - PO 10 mg DAILY@0700 MELANIA Administration Heparin Sodium (Porcine) 1,000 unit 12/17/16 16:26 Heparin - IVPUSH PRN PRN Heparin Heparin Sodium (Porcine) 5,000 unit 12/17/16 16:26 Heparin - IVPUSH PRN PRN Heparin Heparin Sodium/Dextrose 500 mls @ 20 mls/hr 12/17/16 18:30 12/19/16 11:13 Heparin Infusion - IVPB 33 mls/hr TITR MELANIA Administration Protocol 1,000 UNITS/HR Levetiracetam 1,000 mg 12/17/16 22:00 12/19/16 10:03 Keppra - PO 1,000 mg BID MELANIA Administration Lisinopril 10 mg 12/18/16 10:00 12/19/16 10:03 Prinivil PO 10 mg DAILY MELANIA Administration Valproic Acid 500 mg 12/17/16 22:00 12/19/16 13:47 Depakene - PO 500 mg TID MELANIA Administration Warfarin Sodium 20 mg/ 25 mg 12/19/16 18:00 Warfarin Sodium 5 mg PO 12/19/16 18:01 ONCE@1800 ONE A/P 56 y/o LLE DVT s/p thrombectomy on heparin being bridged to coumadin Subtherapeutic INR anemia Seizures Stroke DM. Plan: -restart coumadin at 25mg with heparin bridge -will see the trend of INR the next two days- -?? consider lovenox bridging to coumadin -age appropriate cancer screening .
[2016-12-19] MEDS ORDERED: WARFARIN NA 10 MG TABLET (FP) PO ONE (18:00)
[2016-12-19] MEDS ORDERED: WARFARIN NA PO ONE (18:00)
[2016-12-19] MEDS: DOCUSATE SODIUM 100 MG CAPSULE (FP) PO PRN (21:02)
[2016-12-19] MEDS: ATORVASTATIN CA 20 MG TABLET (FP) PO SCH (21:03)
[2016-12-20] MEDS: HEPARIN INFUSION - 500 ML IVPB SCH ×3 (04:47→20:27)
[2016-12-20] MEDS: glipiZIDE-XL 10 MG TAB.ER.24 (FP) PO SCH (06:04)
[2016-12-20] MEDS: VALPROIC ACID 250 MG CAPSULE PO SCH ×3 (06:04→21:33)
--- NOTE | 2016-12-20 08:14 | PN ---
Physical Exam: SUBJECTIVE: Patient seen and examined this AM. No complaints, no CP, no SOB, no fevers, no chills. Pt receivd 25mg Coumadin yest OBJECTIVE: Vital Signs Period Temp Pulse Resp BP Sys/Navarrete Pulse Ox Last 24 Hr 97.7 F-99.3 F 60-71 20-20 103-125/56-75 97-97 GENERAL: AAO x 3, HEENT: PERRLA, EOMi, No LAD LUNGS: CTABL, Non labored breathing HEART: S1, S2, RRR, no murmurs ABD: Soft, nontender, nondistended, normoactive BS UPPER EXTREMITIES: 2+ pulses, no edema, no erythema LOWER EXTREMITIES: 2+ pulse on RLE, 2+ LLE NEURO: Cranial nerves intact, no facial droop. Sensation intact in face and body bilaterally, muscle strength 5/5, reflexes 2+ Laboratory Results - last 24 hr 12/19/16 12/19/16 12/19/16 05:40 05:40 05:40 WBC 8.0 RBC 3.68 L Hgb 8.9 L Hct 27.9 L MCV 75.7 L MCH 24.0 L MCHC 31.7 L RDW 14.7 Plt Count 312 MPV 8.0 INR 1.28 H PTT (Actin FS) 78.6 H Active Medications Generic Name Dose Route Start Last Admin Trade Name Freq PRN Reason Stop Dose Admin Amlodipine Besylate 5 mg 12/18/16 10:00 12/19/16 10:03 Norvasc - PO 5 mg DAILY MELANIA Administration Atorvastatin Calcium 20 mg 12/17/16 22:00 12/19/16 21:03 Lipitor - PO 20 mg HS MELANIA Administration Bacitracin 1 applic 12/18/16 10:00 12/19/16 10:11 Bacitracin - TP 1 applic DAILY MELANIA Administration Docusate Sodium 100 mg 12/18/16 17:02 12/19/16 21:02 Colace - PO 100 mg BID PRN Administration CONSTIPATION Glipizide 10 mg 12/18/16 07:00 12/20/16 06:04 Glucotrol Xl - PO 10 mg DAILY@0700 MELANIA Administration Heparin Sodium (Porcine) 1,000 unit 12/17/16 16:26 Heparin - IVPUSH PRN PRN Heparin Heparin Sodium (Porcine) 5,000 unit 12/17/16 16:26 Heparin - IVPUSH PRN PRN Heparin Heparin Sodium/Dextrose 500 mls @ 20 mls/hr 12/17/16 18:30 12/20/16 04:47 Heparin Infusion - IVPB 33 mls/hr TITR MELANIA Administration Protocol 1,000 UNITS/HR Levetiracetam 1,000 mg 12/17/16 22:00 12/19/16 21:03 Keppra - PO 1,000 mg BID MELANIA Administration Lisinopril 10 mg 12/18/16 10:00 12/19/16 10:03 Prinivil PO 10 mg DAILY MELANIA Administration Valproic Acid 500 mg 12/17/16 22:00 12/20/16 06:04 Depakene - PO 500 mg TID MELANIA Administration ASSESSMENT/PLAN: Mr. Ace is a 56yo M with PMHx of seizure disorder, DM2, HTN, recently discharged from the hospital with immobility at home presents with new complaint of LLE swelling, found to have thrombus in L common femoral, femoral, popliteal, and posterior tibial veins. He received a suction thrombectomy (on 12/02) and is on Heparin drip (started 11/30), bridging with Coumadin (started 12/02). Received IVC filter on 12/17. Pt needs lifelong anticoagulation. # Acute LLE DVT - POD #17 from suction thrombectomy; POD#2 from IVC filter - Heparin drip - Received 25mg Coumadin yest, monitor INR - Heme/Onc on board ruling out causes of hypercoag # Microcytic Anemia - S/p 2 units PRBC - improved - Fe panel shows possible Anemia of Chronic Disease, could be from DM2, HTN, etc. # Hx of Seizure Disorder - well controlled - No seizure episodes on new regimen - Continue Keppra + PO Valproic acid # Severe Sepsis - Resolved - Pt presented w/ pyuria, received 4 days of ceftriaxone - Ucx negative - lactic acidosis also resolved # MALOU - resolved - Likely pre-renal - Improved with fluids - Lisinopril 10mg # IDDM - well controlled - BGM + SSI TID w/ glucose well controlled - Continue glipizide 10mg # Hx of HTN - well controlled - Continue amlodipine + lisinopril 10mg # FEN - Fluids: None - Electrolytes: No abnormalities - Nutrition: Diabetic/sodium diet # Prophylaxis - DVT: Hep drip - GI: Not indicated - PT: PT on board - pt ambulating well # Dispo - Pt has appt with [facility] with Dr. Strong at [address] [place] [address] Floor at 2pm - Check with CM about insurance - Heme/Onc to discuss d/c and followup Dr. Patrick Muniz MD - PGY1 Internal Medicine Visit type - Emergency Visit Emergency Visit: No - New Patient This patient is new to me today: No - Critical Care Critical Care patient: No
[2016-12-20 08:56] LABS: MCH 24.2 pg (25.7-33.7); MCHC 32.1 g/dl (32.0-35.9); MEAN CELL VOLUME 75.4 fl (80-96); MEAN PLT VOLUME 7.9 fl (7.5-11.1); PLATELET COUNT 312 K/MM3 (134-434); RDW 14.7 % (11.9-15.9); WHITE BLOOD COUNT 8.2 K/mm3 (4.0-10.0)
[2016-12-20 09:13] LABS: INR 1.3 (0.82-1.09); PROTHROMBIN TIME (PATIENT) 14.4 SEC (9.98-11.88)
[2016-12-20] MEDS: levETIRAcetam 500 MG TABLET (FP) PO SCH ×2 (10:23→21:34)
[2016-12-20] MEDS: amLODIPine BESYLATE 5 MG TABLET (FP) PO SCH (10:23)
[2016-12-20] MEDS: BACITRACIN 15 GM TUBE TOPICAL OINTMENT TP SCH (10:24)
[2016-12-20] MEDS: LISINOPRIL 10 MG TABLET (FP) PO SCH (10:24)
--- NOTE | 2016-12-20 12:54 | PN ---
Teaching Attending Note Name of Resident: Patrick Muniz ATTENDING PHYSICIAN STATEMENT I saw and evaluated the patient. I reviewed the resident's note and discussed the case with the resident. I agree with the resident's findings and plan as documented. SUBJECTIVE: Feeling better, no change. No fever or chills. OBJECTIVE: Vital Signs Temperature 97.8 F 12/20/16 08:30 Pulse Rate 66 12/20/16 08:30 Respiratory Rate 20 12/20/16 08:30 Blood Pressure 122/69 12/20/16 08:30 O2 Sat by Pulse Oximetry (%) 97 12/20/16 09:00 Current Medications Generic Name Dose Route Start Last Admin Trade Name Freq PRN Reason Stop Dose Admin Amlodipine Besylate 5 mg 12/18/16 10:00 12/20/16 10:23 Norvasc - PO 5 mg DAILY MELANIA Administration Atorvastatin Calcium 20 mg 12/17/16 22:00 12/19/16 21:03 Lipitor - PO 20 mg HS MELANIA Administration Bacitracin 1 applic 12/18/16 10:00 12/20/16 10:24 Bacitracin - TP 1 applic DAILY MELANIA Administration Docusate Sodium 100 mg 12/18/16 17:02 12/19/16 21:02 Colace - PO 100 mg BID PRN Administration CONSTIPATION Glipizide 10 mg 12/18/16 07:00 12/20/16 06:04 Glucotrol Xl - PO 10 mg DAILY@0700 MELANIA Administration Heparin Sodium (Porcine) 1,000 unit 12/17/16 16:26 Heparin - IVPUSH PRN PRN Heparin Heparin Sodium (Porcine) 5,000 unit 12/17/16 16:26 Heparin - IVPUSH PRN PRN Heparin Heparin Sodium/Dextrose 500 mls @ 20 mls/hr 12/17/16 18:30 12/20/16 10:23 Heparin Infusion - IVPB 32 mls/hr TITR MELANIA Administration Protocol 1,000 UNITS/HR Levetiracetam 1,000 mg 12/17/16 22:00 12/20/16 10:23 Keppra - PO 1,000 mg BID MELANIA Administration Lisinopril 10 mg 12/18/16 10:00 12/20/16 10:24 Prinivil PO 10 mg DAILY MELANIA Administration Valproic Acid 500 mg 12/17/16 22:00 12/20/16 06:04 Depakene - PO 500 mg TID MELANIA Administration Warfarin Sodium 25 mg 12/20/16 18:00 Coumadin - PO 12/20/16 18:01 ONCE@1800 ONE Home Medications Medication Instructions Recorded Bacitracin - [Bacitracin Topical 1 applic TP DAILY #1 tube 11/25/16 Ointment -] Levetiracetam [Keppra -] 1,000 mg PO BID #60 tablet 11/25/16 Lisinopril [Prinivil] 10 mg PO DAILY@1200 #30 tablet 11/25/16 Aspirin [ASA -] 81 mg PO DAILY #30 tab 11/26/16 Glipizide [Glipizide ER] 10 mg PO DAILY #10 tab.er.24 11/26/16 Insulin Aspart [Novolog Flexpen] See Protocol SQ AC #1 insuln.pen 11/26/16 Metformin HCl [Glucophage -] 850 mg PO BID #60 tab 11/26/16 Simvastatin 40 mg PO DAILY #30 tab 11/26/16 Amlodipine Besylate [Norvasc -] 5 mg PO DAILY #30 tablet 12/18/16 Valproic Acid [Depakene] 500 mg PO TID #180 capsule 12/18/16 CBCD WBC 8.2 K/mm3 (4.0-10.0) 12/20/16 07:35 RBC 4.03 M/mm3 (4.00-5.60) 12/20/16 07:35 Hgb 9.7 GM/dL (11.7-16.9) L 12/20/16 07:35 Hct 30.4 % (35.4-49) L 12/20/16 07:35 MCV 75.4 fl (80-96) L 12/20/16 07:35 MCHC 32.1 g/dl (32.0-35.9) 12/20/16 07:35 RDW 14.7 % (11.9-15.9) 12/20/16 07:35 Plt Count 312 K/MM3 (134-434) 12/20/16 07:35 MPV 7.9 fl (7.5-11.1) 12/20/16 07:35 CMP Sodium 139 mmol/L (136-145) 12/18/16 06:40 Potassium 4.4 mmol/L (3.5-5.1) 12/18/16 06:40 Chloride 104 mmol/L (98-107) 12/18/16 06:40 Carbon Dioxide 28 mmol/L (21-32) 12/18/16 06:40 Anion Gap 7 (8-16) L 12/18/16 06:40 BUN 11 mg/dL (7-18) D 12/18/16 06:40 Creatinine 1.0 mg/dL (0.7-1.3) 12/18/16 06:40 Creat Clearance w eGFR > 60 (>60) 12/15/16 09:10 Random Glucose 87 mg/dL (74-106) D 12/18/16 06:40 Calcium 8.8 mg/dL (8.5-10.1) 12/18/16 06:40 Total Bilirubin 0.3 mg/dL (0.2-1.0) D 12/15/16 09:10 AST 14 U/L (15-37) L D 12/15/16 09:10 ALT 25 U/L (12-78) D 12/15/16 09:10 Alkaline Phosphatase 62 U/L (45-117) D 12/15/16 09:10 Total Protein 6.7 g/dl (6.4-8.2) 12/15/16 09:10 Albumin 3.2 g/dL (2.9-4.4) 12/15/16 09:10 Pe: per resident's note ASSESSMENT AND PLAN: 56 y/o gentleman with h/o HTN, DM , HLP, newly diagnosed with seizure and occipital stroke last admission , who presented with L LE pain and edema . # POD #3 s/p IVC filter(12/17/2016) Discussed with Hematolgist , suggestion was to continue coumadin ,will give another dose coumadin 25mg tonight as per Oncology suggestion , will keep monitoring , if INR doesn't improve by am , then to give the patient double platelet therapy and further coumadin dosing as an outpatient as per primary and discuss with the real time trader for further care. # LLE DVT with arterial insufficiency s/p thrombectomy with advent of DP pulse ,and s/p IVC filter, will continue heparin and coumadin 20mg po tonight. # Recent diagnosis of Seizure disorder due to having an stroke on Keppra 1000 BID ,added valproic acid in place of dilantin # Recent diagnosis of a stroke : on coumadin continue for now. # Anemia : s/p transfusion. # DM: SSI , cont glipizide # HTN: cont norvasc and lisinopril DVT px : continue heparin gtt /coumdin , s/p IVC filter placement.
[2016-12-20] MEDS ORDERED: PT OWN MED DRAWER 7, Y5N ONE ×3 (13:30→21:15)
[2016-12-20] MEDS ORDERED: WARFARIN NA 10 MG TABLET (FP) PO ONE (18:00)
[2016-12-20] MEDS ORDERED: WARFARIN NA PO ONE (18:00)
[2016-12-20] MEDS: ATORVASTATIN CA 20 MG TABLET (FP) PO SCH (21:30)
[2016-12-21] MEDS ORDERED: PT OWN MED DRAWER 7, Y5N ONE (06:19)
[2016-12-21] MEDS: glipiZIDE-XL 10 MG TAB.ER.24 (FP) PO SCH (06:29)
[2016-12-21] MEDS: VALPROIC ACID 250 MG CAPSULE PO SCH (06:30)
[2016-12-21 09:10] LABS: MCH 24.4 pg (25.7-33.7); MCHC 32.1 g/dl (32.0-35.9); MEAN CELL VOLUME 76.1 fl (80-96); MEAN PLT VOLUME 7.9 fl (7.5-11.1); PLATELET COUNT 305 K/MM3 (134-434); RDW 14.6 % (11.9-15.9); WHITE BLOOD COUNT 7.7 K/mm3 (4.0-10.0)
[2016-12-21 09:38] LABS: INR 1.45 (0.82-1.09); PROTHROMBIN TIME (PATIENT) 16.1 SEC (9.98-11.88)
[2016-12-21] MEDS ORDERED: levETIRAcetam 250 MG TABLET (FP) PO ONE ×2 (09:39→21:06)
[2016-12-21] MEDS: LISINOPRIL 10 MG TABLET (FP) PO SCH (10:34)
[2016-12-21] MEDS: amLODIPine BESYLATE 5 MG TABLET (FP) PO SCH (10:34)
[2016-12-21] MEDS: levETIRAcetam 500 MG TABLET (FP) PO SCH ×2 (10:34→21:13)
[2016-12-21] MEDS: BACITRACIN 15 GM TUBE TOPICAL OINTMENT TP SCH (10:35)
--- NOTE | 2016-12-21 11:40 | PN ---
Physical Exam: SUBJECTIVE: Patient seen and examined this AM. No complaints, feels the same. INR noted to be 1.45. Dr. Leone notified, 30mg coumadin tonight, OBJECTIVE: Vital Signs Period Temp Pulse Resp BP Sys/Navarrete Pulse Ox Last 24 Hr 97.6 F-98.0 F 57-74 16-20 113-135/57-70 97 GENERAL: AAO x 3, HEENT: PERRLA, EOMi, No LAD LUNGS: CTABL, Non labored breathing HEART: S1, S2, RRR, no murmurs ABD: Soft, nontender, nondistended, normoactive BS UPPER EXTREMITIES: 2+ pulses, no edema, no erythema LOWER EXTREMITIES: 2+ pulse on RLE, 2+ LLE NEURO: Cranial nerves intact, no facial droop. Sensation intact in face and body bilaterally, muscle strength 5/5, reflexes 2+ Laboratory Results - last 24 hr 12/21/16 12/21/16 12/21/16 06:29 08:00 08:00 WBC 7.7 RBC 4.09 Hgb 10.0 L Hct 31.1 L MCV 76.1 L MCH 24.4 L MCHC 32.1 RDW 14.6 Plt Count 305 MPV 7.9 INR 1.45 H POC Glucometer 91 Active Medications Generic Name Dose Route Start Last Admin Trade Name Freq PRN Reason Stop Dose Admin Amlodipine Besylate 5 mg 12/18/16 10:00 12/21/16 10:34 Norvasc - PO 5 mg DAILY MELANIA Administration Atorvastatin Calcium 20 mg 12/17/16 22:00 12/20/16 21:30 Lipitor - PO 20 mg HS MELANIA Administration Bacitracin 1 applic 12/18/16 10:00 12/21/16 10:35 Bacitracin - TP 1 applic DAILY MELANIA Administration Docusate Sodium 100 mg 12/18/16 17:02 12/19/16 21:02 Colace - PO 100 mg BID PRN Administration CONSTIPATION Glipizide 10 mg 12/18/16 07:00 12/21/16 06:29 Glucotrol Xl - PO 10 mg DAILY@0700 MELANIA Administration Heparin Sodium (Porcine) 1,000 unit 12/17/16 16:26 Heparin - IVPUSH PRN PRN Heparin Heparin Sodium (Porcine) 5,000 unit 12/17/16 16:26 Heparin - IVPUSH PRN PRN Heparin Heparin Sodium/Dextrose 500 mls @ 20 mls/hr 12/17/16 18:30 12/20/16 20:27 Heparin Infusion - IVPB 32 mls/hr TITR MELANIA Administration Protocol 1,000 UNITS/HR Levetiracetam 1,000 mg 12/17/16 22:00 12/21/16 10:34 Keppra - PO 1,000 mg BID MELANIA Administration Lisinopril 10 mg 12/18/16 10:00 12/21/16 10:34 Prinivil PO 10 mg DAILY MELANIA Administration Valproic Acid 500 mg 12/17/16 22:00 12/21/16 06:30 Depakene - PO Not Given TID MELANIA Warfarin Sodium 30 mg 12/21/16 18:00 Coumadin - PO 12/21/16 18:01 ONCE@1800 ONE ASSESSMENT/PLAN: Mr. Ace is a 56yo M with PMHx of seizure disorder, DM2, HTN, recently discharged from the hospital with immobility at home presents with new complaint of LLE swelling, found to have thrombus in L common femoral, femoral, popliteal, and posterior tibial veins. He received a suction thrombectomy (on 12/02) and is on Heparin drip (started 11/30), bridging with Coumadin (started 12/02). Received IVC filter on 12/17. Pt needs lifelong anticoagulation. # Acute LLE DVT - POD #18 from suction thrombectomy; POD#4 from IVC filter - Heparin drip - 25mg Coumadin yest, INR 1.45, will give 30mg tonight - Heme/Onc on board ruling out causes of hypercoag # Microcytic Anemia - S/p 2 units PRBC - improved - Fe panel shows possible Anemia of Chronic Disease, could be from DM2, HTN, etc. # Hx of Seizure Disorder - well controlled - No seizure episodes on new regimen - Continue Keppra + PO Valproic acid # Severe Sepsis - Resolved - Pt presented w/ pyuria, received 4 days of ceftriaxone - Ucx negative - lactic acidosis also resolved # MALOU - resolved - Likely pre-renal - Improved with fluids - Lisinopril 10mg # IDDM - well controlled - BGM + SSI TID w/ glucose well controlled - Continue glipizide 10mg # Hx of HTN - well controlled - Continue amlodipine + lisinopril 10mg # FEN - Fluids: None - Electrolytes: No abnormalities - Nutrition: Diabetic/sodium diet # Prophylaxis - DVT: Hep drip - GI: Not indicated - PT: PT on board - pt ambulating well # Dispo - Check with CM about insurance - Dr. Leone notified, recommends 30mg Coumadin today - Will f/u with heme/onc tmrw Dr. Patrick Muniz MD - PGY1 Internal Medicine Visit type - Emergency Visit Emergency Visit: No - New Patient This patient is new to me today: No - Critical Care Critical Care patient: No - Discharge Referral Referred to [facility] Med P.C[facility] No
[2016-12-21] MEDS: VALPROATE SODIUM 250 MG/5 ML UNIT DOSE CUP PO SCH ×2 (12:34→21:13)
[2016-12-21] MEDS: HEPARIN INFUSION - 500 ML IVPB SCH (15:12)
[2016-12-21] MEDS ORDERED: WARFARIN NA 10 MG TABLET (FP) PO ONE ×2 (18:00)
--- NOTE | 2016-12-21 19:05 | PN ---
Teaching Attending Note Name of Resident: Patrick Muniz ATTENDING PHYSICIAN STATEMENT I saw and evaluated the patient. I reviewed the resident's note and discussed the case with the resident. I agree with the resident's findings and plan as documented. SUBJECTIVE: No new changes, comfortable. No acute distress OBJECTIVE: Vital Signs Temperature 97.9 F 12/21/16 18:15 Pulse Rate 73 12/21/16 18:15 Respiratory Rate 20 12/21/16 18:15 Blood Pressure 127/87 12/21/16 18:15 O2 Sat by Pulse Oximetry (%) 97 12/20/16 21:00 CBCD WBC 7.7 K/mm3 (4.0-10.0) 12/21/16 08:00 RBC 4.09 M/mm3 (4.00-5.60) 12/21/16 08:00 Hgb 10.0 GM/dL (11.7-16.9) L 12/21/16 08:00 Hct 31.1 % (35.4-49) L 12/21/16 08:00 MCV 76.1 fl (80-96) L 12/21/16 08:00 MCHC 32.1 g/dl (32.0-35.9) 12/21/16 08:00 RDW 14.6 % (11.9-15.9) 12/21/16 08:00 Plt Count 305 K/MM3 (134-434) 12/21/16 08:00 MPV 7.9 fl (7.5-11.1) 12/21/16 08:00 CMP Sodium 139 mmol/L (136-145) 12/18/16 06:40 Potassium 4.4 mmol/L (3.5-5.1) 12/18/16 06:40 Chloride 104 mmol/L (98-107) 12/18/16 06:40 Carbon Dioxide 28 mmol/L (21-32) 12/18/16 06:40 Anion Gap 7 (8-16) L 12/18/16 06:40 BUN 11 mg/dL (7-18) D 12/18/16 06:40 Creatinine 1.0 mg/dL (0.7-1.3) 12/18/16 06:40 Creat Clearance w eGFR > 60 (>60) 12/15/16 09:10 Random Glucose 87 mg/dL (74-106) D 12/18/16 06:40 Calcium 8.8 mg/dL (8.5-10.1) 12/18/16 06:40 Total Bilirubin 0.3 mg/dL (0.2-1.0) D 12/15/16 09:10 AST 14 U/L (15-37) L D 12/15/16 09:10 ALT 25 U/L (12-78) D 12/15/16 09:10 Alkaline Phosphatase 62 U/L (45-117) D 12/15/16 09:10 Total Protein 6.7 g/dl (6.4-8.2) 12/15/16 09:10 Albumin 3.2 g/dL (2.9-4.4) 12/15/16 09:10 Current Medications Generic Name Dose Route Start Last Admin Trade Name Freq PRN Reason Stop Dose Admin Amlodipine Besylate 5 mg 12/18/16 10:00 12/21/16 10:34 Norvasc - PO 5 mg DAILY MELANIA Administration Atorvastatin Calcium 20 mg 12/17/16 22:00 12/20/16 21:30 Lipitor - PO 20 mg HS MELANIA Administration Bacitracin 1 applic 12/18/16 10:00 12/21/16 10:35 Bacitracin - TP 1 applic DAILY MELANIA Administration Docusate Sodium 100 mg 12/18/16 17:02 12/19/16 21:02 Colace - PO 100 mg BID PRN Administration CONSTIPATION Glipizide 10 mg 12/18/16 07:00 12/21/16 06:29 Glucotrol Xl - PO 10 mg DAILY@0700 MELANIA Administration Heparin Sodium (Porcine) 1,000 unit 12/17/16 16:26 Heparin - IVPUSH PRN PRN Heparin Heparin Sodium (Porcine) 5,000 unit 12/17/16 16:26 Heparin - IVPUSH PRN PRN Heparin Heparin Sodium/Dextrose 500 mls @ 20 mls/hr 12/17/16 18:30 12/21/16 15:12 Heparin Infusion - IVPB 30 mls/hr TITR MELANIA Administration Protocol 1,000 UNITS/HR Levetiracetam 1,000 mg 12/17/16 22:00 12/21/16 10:34 Keppra - PO 1,000 mg BID MELANIA Administration Lisinopril 10 mg 12/18/16 10:00 08/21/17 10:34 Prinivil PO 10 mg DAILY MELANIA Administration Valproate Sodium 500 mg 12/21/16 12:00 12/21/16 12:34 Depakene - PO 500 mg TID MELANIA Administration Home Medications Medication Instructions Recorded Bacitracin - [Bacitracin Topical 1 applic TP DAILY #1 tube 11/25/16 Ointment -] Levetiracetam [Keppra -] 1,000 mg PO BID #60 tablet 11/25/16 Lisinopril [Prinivil] 10 mg PO DAILY@1200 #30 tablet 11/25/16 Aspirin [ASA -] 81 mg PO DAILY #30 tab 11/26/16 Glipizide [Glipizide ER] 10 mg PO DAILY #10 tab.er.24 11/26/16 Insulin Aspart [Novolog Flexpen] See Protocol SQ AC #1 insuln.pen 11/26/16 Metformin HCl [Glucophage -] 850 mg PO BID #60 tab 11/26/16 Simvastatin 40 mg PO DAILY #30 tab 11/26/16 Amlodipine Besylate [Norvasc -] 5 mg PO DAILY #30 tablet 12/18/16 Valproic Acid [Depakene] 500 mg PO TID #180 capsule 12/18/16 INR: 1.45 Pe: per resident's note ASSESSMENT AND PLAN: 56 y/o gentleman with h/o HTN, DM , HLP, newly diagnosed with seizure and occipital stroke last admission , who presented with L LE pain and edema . # POD #4 s/p IVC filter(12/17/2016) Discussed with Customer Marketing Manager , suggestion was to continue coumadin ,will give another dose coumadin 30mg tonight as per Oncology suggestion , will keep monitoring ,as per director regulatory affairs to monitor the patient for now. INR is 1.45 today, Also as per patient can follow with coumadin clinic once INR is stable. Phone# [phone] As per recent discussion with director regulatory affairs , patient needs the anticoagulation and further follow up as an outpatient once INR is stable. # LLE DVT with arterial insufficiency s/p thrombectomy with tenriism of DP pulse ,and s/p IVC filter. # Recent diagnosis of Seizure disorder due to having an stroke on Keppra 1000 BID ,added valproic acid in place of dilantin # Recent diagnosis of a stroke : on coumadin continue for now. # Anemia : s/p transfusion. # DM: SSI , cont glipizide # HTN: cont norvasc and lisinopril DVT px : continue heparin gtt /coumdin , s/p IVC filter placement.
[2016-12-21] MEDS: ATORVASTATIN CA 20 MG TABLET (FP) PO SCH (21:13)
[2016-12-22] MEDS ORDERED: PT OWN MED DRAWER 7, Y5N ONE ×5 (06:08→22:21)
[2016-12-22] MEDS: VALPROATE SODIUM 250 MG/5 ML UNIT DOSE CUP PO SCH ×3 (06:47→22:22)
[2016-12-22] MEDS: glipiZIDE-XL 10 MG TAB.ER.24 (FP) PO SCH (06:47)
[2016-12-22] MEDS: HEPARIN INFUSION - 500 ML IVPB SCH ×2 (06:50→22:23)
--- NOTE | 2016-12-22 08:28 | PN ---
Progress Note (short form) - Note Progress Note: FU : being treated for DVT /poorly responsive to AC--s/p filter and high dose coumadin no neuro issues or seizures on keppra 1000BID and depkaote 500TID (dilantin was switched as there was a ? if it was impacting INR) - Past Medical History RESTROOMS OR LOUNGES MAID: Yes: Seizure, Other (neew onset seizures) Cardio/Vascular: Yes: HTN, Hyperlipdemia Gastrointestinal: Yes: Other (never had colonoscopy). No: Cancer, Constipation , GERD Renal/: No: Renal Failure, Cancer Endocrine: Yes: Diabetes Mellitus - Past Surgical History Past Surgical History: Yes: None - Alcohol/Substance Use Hx Alcohol Use: No - Smoking History Smoking history: Unknown if ever smoked Have you smoked in the past 12 months: Yes Aproximately how many cigarettes per day: 12 (since age 19) - Social History Usual Living Arrangement: Other ([place]) ADL: Independent Occupation: currently not working History of Recent Travel: No Home Medications - Allergies Allergies/Adverse Reactions: Allergies Allergy/AdvReac Type Severity Reaction Status Date / Time No Known Allergies Allergy Verified 11/20/16 01:29 - Home Medications Home Medications: Ambulatory Orders Family Disease History - Family Disease History Family Disease History: Diabetes: Father ( , stroke), Other: Mother ( dementia- alive ), Sister ( of alcohol related issues) Physical Exam-Neuro Vital Signs: Vital Signs Temperature 98.1 F 12/22/16 06:32 Pulse Rate 63 12/22/16 06:32 Respiratory Rate 20 12/22/16 06:32 Blood Pressure 95/60 12/22/16 06:32 O2 Sat by Pulse Oximetry (%) 97 12/20/16 21:00 Labs: CBCD WBC 7.7 K/mm3 (4.0-10.0) 12/21/16 08:00 RBC 4.09 M/mm3 (4.00-5.60) 12/21/16 08:00 Hgb 10.0 GM/dL (11.7-16.9) L 12/21/16 08:00 Hct 31.1 % (35.4-49) L 12/21/16 08:00 MCV 76.1 fl (80-96) L 12/21/16 08:00 MCHC 32.1 g/dl (32.0-35.9) 12/21/16 08:00 RDW 14.6 % (11.9-15.9) 12/21/16 08:00 Plt Count 305 K/MM3 (134-434) 12/21/16 08:00 MPV 7.9 fl (7.5-11.1) 12/21/16 08:00 CMP Sodium 139 mmol/L (136-145) 12/18/16 06:40 Potassium 4.4 mmol/L (3.5-5.1) 12/18/16 06:40 Chloride 104 mmol/L (98-107) 12/18/16 06:40 Carbon Dioxide 28 mmol/L (21-32) 12/18/16 06:40 Anion Gap 7 (8-16) L 12/18/16 06:40 BUN 11 mg/dL (7-18) D 12/18/16 06:40 Creatinine 1.0 mg/dL (0.7-1.3) 12/18/16 06:40 Creat Clearance w eGFR > 60 (>60) 12/15/16 09:10 Calcium 8.8 mg/dL (8.5-10.1) 12/18/16 06:40 Total Bilirubin 0.3 mg/dL (0.2-1.0) D 12/15/16 09:10 AST 14 U/L (15-37) L D 12/15/16 09:10 ALT 25 U/L (12-78) D 12/15/16 09:10 Alkaline Phosphatase 62 U/L (45-117) D 12/15/16 09:10 Total Protein 6.7 g/dl (6.4-8.2) 12/15/16 09:10 Albumin 3.2 g/dL (2.9-4.4) 12/15/16 09:10 - Neuro Exam DTR's: 0 Left Achilles (Unable to test), 1+ Left Bicep, 1+ Right Bicep, 1+ Left Tricep, 1+ Right Tricep, 1+ Left Brachioradialis, 1+ Right Brachioradialis, 1+ Right Achilles Babinski: Absent Response to light touch: Normal Response to pain prick: Normal (Left leg-Left lower leg swelling from ankle to thigh, nonpitting edema, no erythema, nontender, pulses intact 1+ at DP, TP, mildly warmer than right leg. No calf tenderness. sensation intact throughout. Indurated) NIH Stroke Scale - Total Score NIH Stroke Scale Score: 0 Imaging - Results Cat Scan: Report Reviewed MRI: Report Reviewed (MRI brain last admission-probable punctate righ BG punctate infarct. MRA Brain without sig. abn) Assessment/Plan Seziures-stable continue Keppra 1000 BID and depakote 500TID -can check level and LFTS q 3 months. primary team FU AC , coumadin redosing for DVT. Dr Campo
[2016-12-22 08:36] LABS: MCH 23.5 pg (25.7-33.7); MCHC 31.1 g/dl (32.0-35.9); MEAN CELL VOLUME 75.8 fl (80-96); MEAN PLT VOLUME 8.4 fl (7.5-11.1); RDW 14.6 % (11.9-15.9); WHITE BLOOD COUNT 8.5 K/mm3 (4.0-10.0)
[2016-12-22 09:17] LABS: INR 1.51 (0.82-1.09); PROTHROMBIN TIME (PATIENT) 16.7 SEC (9.98-11.88)
--- NOTE | 2016-12-22 09:20 | PN ---
Physical Exam: SUBJECTIVE: Patient seen and examined this AM. No complaints. No CP, no SOB, no fevers. Pt INR 1.51. OBJECTIVE: Vital Signs Period Temp Pulse Resp BP Sys/Navarrete Pulse Ox Last 24 Hr 97.9 F-98.1 F 63-76 17-20 95-127/60-87 GENERAL: AAO x 3, HEENT: PERRLA, EOMi, No LAD LUNGS: CTABL, Non labored breathing HEART: S1, S2, RRR, no murmurs ABD: Soft, nontender, nondistended, normoactive BS UPPER EXTREMITIES: 2+ pulses, no edema, no erythema LOWER EXTREMITIES: 2+ pulse on RLE, 2+ LLE NEURO: Cranial nerves intact, no facial droop. Sensation intact in face and body bilaterally, muscle strength 5/5, reflexes 2+ Laboratory Tests 12/19/16 12/20/16 12/21/16 05:40 07:35 08:00 INR 1.28 H 1.30 H 1.45 H 12/22/16 07:00 INR 1.51 H Active Medications Generic Name Dose Route Start Last Admin Trade Name Freq PRN Reason Stop Dose Admin Amlodipine Besylate 5 mg 12/18/16 10:00 12/21/16 10:34 Norvasc - PO 5 mg DAILY MELANIA Administration Atorvastatin Calcium 20 mg 12/17/16 22:00 12/21/16 21:13 Lipitor - PO 20 mg HS MELANIA Administration Bacitracin 1 applic 12/18/16 10:00 12/21/16 10:35 Bacitracin - TP 1 applic DAILY MELANIA Administration Docusate Sodium 100 mg 12/18/16 17:02 12/19/16 21:02 Colace - PO 100 mg BID PRN Administration CONSTIPATION Glipizide 10 mg 12/18/16 07:00 12/22/16 06:47 Glucotrol Xl - PO 10 mg DAILY@0700 MELANIA Administration Heparin Sodium (Porcine) 1,000 unit 12/17/16 16:26 Heparin - IVPUSH PRN PRN Heparin Heparin Sodium (Porcine) 5,000 unit 12/17/16 16:26 Heparin - IVPUSH PRN PRN Heparin Heparin Sodium/Dextrose 500 mls @ 20 mls/hr 12/17/16 18:30 12/22/16 06:50 Heparin Infusion - IVPB 30 mls/hr TITR MELANIA Administration Protocol 1,000 UNITS/HR Levetiracetam 1,000 mg 12/17/16 22:00 12/21/16 21:13 Keppra - PO 1,000 mg BID MELANIA Administration Lisinopril 10 mg 12/18/16 10:00 12/21/16 10:34 Prinivil PO 10 mg DAILY MELANIA Administration Valproate Sodium 500 mg 12/21/16 12:00 12/22/16 06:47 Depakene - PO 500 mg TID MELANIA Administration ASSESSMENT/PLAN: Mr. Ace is a 56yo M with PMHx of seizure disorder, DM2, HTN, recently discharged from the hospital with immobility at home presents with new complaint of LLE swelling, found to have thrombus in L common femoral, femoral, popliteal, and posterior tibial veins. He received a suction thrombectomy (on 12/02) and is on Heparin drip (started 11/30), bridging with Coumadin (started 12/02). Received IVC filter on 12/17. Pt needs lifelong anticoagulation. # Acute LLE DVT - POD #19 from suction thrombectomy; POD#5 from IVC filter - Heparin drip - 30mg Coumadin yest, INR 1.51 - Heme/Onc on board ruling out causes of hypercoag # Microcytic Anemia - S/p 2 units PRBC - improved - Fe panel shows possible Anemia of Chronic Disease, could be from DM2, HTN, etc. # Hx of Seizure Disorder - well controlled - No seizure episodes on new regimen - Continue Keppra + PO Valproic acid # Severe Sepsis - Resolved - Pt presented w/ pyuria, received 4 days of ceftriaxone - Ucx negative - lactic acidosis also resolved # MALOU - resolved - Likely pre-renal - Improved with fluids - Lisinopril 10mg # IDDM - well controlled - BGM + SSI TID w/ glucose well controlled - Continue glipizide 10mg # Hx of HTN - well controlled - Continue amlodipine + lisinopril 10mg # FEN - Fluids: None - Electrolytes: No abnormalities - Nutrition: Diabetic/sodium diet # Prophylaxis - DVT: Hep drip - GI: Not indicated - PT: PT on board - pt ambulating well # Dispo - Check with CM about insurance - Pt to followup with Coumadin Clinic at [facility], but patient needs to be therapeutic - Will f/u with heme/onc tmrw Dr. Patrick Muniz MD - PGY1 Internal Medicine Visit type - Emergency Visit Emergency Visit: No - New Patient This patient is new to me today: No - Critical Care Critical Care patient: No - Discharge Referral Referred to [facility] Med P.C.: No
[2016-12-22] MEDS: LISINOPRIL 10 MG TABLET (FP) PO SCH (09:48)
[2016-12-22] MEDS: BACITRACIN 15 GM TUBE TOPICAL OINTMENT TP SCH (09:48)
[2016-12-22] MEDS: amLODIPine BESYLATE 5 MG TABLET (FP) PO SCH (09:48)
[2016-12-22] MEDS: levETIRAcetam 500 MG TABLET (FP) PO SCH ×2 (09:48→22:54)
[2016-12-22 09:52] LABS: PLATELET COUNT 283 K/MM3 (134-434); PLATELET ESTIMATE ADEQUATE (NORMAL)
--- NOTE | 2016-12-22 16:53 | PN ---
Teaching Attending Note Name of Resident: Patrick Muniz ATTENDING PHYSICIAN STATEMENT I saw and evaluated the patient. I reviewed the resident's note and discussed the case with the resident. I agree with the resident's findings and plan as documented. SUBJECTIVE: OBJECTIVE: Vital Signs Temperature 97.8 F 12/22/16 14:25 Pulse Rate 85 12/22/16 14:25 Respiratory Rate 20 12/22/16 14:25 Blood Pressure 128/68 12/22/16 14:25 O2 Sat by Pulse Oximetry (%) 98 12/22/16 09:00 CBCD WBC 8.5 K/mm3 (4.0-10.0) 12/22/16 07:00 RBC 4.00 M/mm3 (4.00-5.60) 12/22/16 07:00 Hgb 9.4 GM/dL (11.7-16.9) L 12/22/16 07:00 Hct 30.3 % (35.4-49) L 12/22/16 07:00 MCV 75.8 fl (80-96) L 12/22/16 07:00 MCHC 31.1 g/dl (32.0-35.9) L 12/22/16 07:00 RDW 14.6 % (11.9-15.9) 12/22/16 07:00 Plt Count 283 K/MM3 (134-434) 12/22/16 07:00 MPV 8.4 fl (7.5-11.1) 12/22/16 07:00 CMP Sodium 139 mmol/L (136-145) 12/18/16 06:40 Potassium 4.4 mmol/L (3.5-5.1) 12/18/16 06:40 Chloride 104 mmol/L (98-107) 12/18/16 06:40 Carbon Dioxide 28 mmol/L (21-32) 12/18/16 06:40 Anion Gap 7 (8-16) L 12/18/16 06:40 BUN 11 mg/dL (7-18) D 12/18/16 06:40 Creatinine 1.0 mg/dL (0.7-1.3) 12/18/16 06:40 Creat Clearance w eGFR > 60 (>60) 12/15/16 09:10 Random Glucose 87 mg/dL (74-106) D 12/18/16 06:40 Calcium 8.8 mg/dL (8.5-10.1) 12/18/16 06:40 Total Bilirubin 0.3 mg/dL (0.2-1.0) D 12/15/16 09:10 AST 14 U/L (15-37) L D 12/15/16 09:10 ALT 25 U/L (12-78) D 12/15/16 09:10 Alkaline Phosphatase 62 U/L (45-117) D 12/15/16 09:10 Total Protein 6.7 g/dl (6.4-8.2) 12/15/16 09:10 Albumin 3.2 g/dL (2.9-4.4) 12/15/16 09:10 Current Medications Generic Name Dose Route Start Last Admin Trade Name Freq PRN Reason Stop Dose Admin Amlodipine Besylate 5 mg 12/18/16 10:00 12/22/16 09:48 Norvasc - PO 5 mg DAILY MELANIA Administration Atorvastatin Calcium 20 mg 12/17/16 22:00 12/21/16 21:13 Lipitor - PO 20 mg HS MELANIA Administration Bacitracin 1 applic 12/18/16 10:00 12/22/16 09:48 Bacitracin - TP 1 applic DAILY MELANIA Administration Docusate Sodium 100 mg 12/18/16 17:02 12/19/16 21:02 Colace - PO 100 mg BID PRN Administration CONSTIPATION Glipizide 10 mg 12/18/16 07:00 12/22/16 06:47 Glucotrol Xl - PO 10 mg DAILY@0700 MELANIA Administration Heparin Sodium (Porcine) 1,000 unit 12/17/16 16:26 Heparin - IVPUSH PRN PRN Heparin Heparin Sodium (Porcine) 5,000 unit 12/17/16 16:26 Heparin - IVPUSH PRN PRN Heparin Heparin Sodium/Dextrose 500 mls @ 20 mls/hr 12/17/16 18:30 12/22/16 06:50 Heparin Infusion - IVPB 30 mls/hr TITR MELANIA Administration Protocol 1,000 UNITS/HR Levetiracetam 1,000 mg 12/17/16 22:00 12/22/16 09:48 Keppra - PO 1,000 mg BID MELANIA Administration Lisinopril 10 mg 12/18/16 10:00 12/22/16 09:48 Prinivil PO 10 mg DAILY MELANIA Administration Valproate Sodium 500 mg 12/21/16 12:00 12/22/16 13:09 Depakene - PO 500 mg TID MELANIA Administration Warfarin Sodium 30 mg 12/22/16 18:00 Coumadin - PO 12/22/16 18:01 ONCE@1800 ONE Home Medications Medication Instructions Recorded Bacitracin - [Bacitracin Topical 1 applic TP DAILY #1 tube 11/25/16 Ointment -] Levetiracetam [Keppra -] 1,000 mg PO BID #60 tablet 11/25/16 Lisinopril [Prinivil] 10 mg PO DAILY@1200 #30 tablet 11/25/16 Aspirin [ASA -] 81 mg PO DAILY #30 tab 11/26/16 Glipizide [Glipizide ER] 10 mg PO DAILY #10 tab.er.24 11/26/16 Insulin Aspart [Novolog Flexpen] See Protocol SQ AC #1 insuln.pen 11/26/16 Metformin HCl [Glucophage -] 850 mg PO BID #60 tab 11/26/16 Simvastatin 40 mg PO DAILY #30 tab 11/26/16 Amlodipine Besylate [Norvasc -] 5 mg PO DAILY #30 tablet 12/18/16 Valproic Acid [Depakene] 500 mg PO TID #180 capsule 12/18/16 INR: 1.45-->1.51 Pe: per resident's note ASSESSMENT AND PLAN: 56 y/o gentleman with h/o HTN, DM , HLP, newly diagnosed with seizure and occipital stroke last admission , who presented with L LE pain and edema . # POD #5 s/p IVC filter(12/17/2016) Discussed with Buyer Planner , suggestion was to continue coumadin ,will give another dose coumadin 30mg tonight as per Oncology suggestion , will keep monitoring ,as per flat grinder operator to monitor the patient for now. INR is 1.45--> 1.51 today, Also as per patient can follow with coumadin clinic once INR is stable. Phone# [phone] As per recent discussion with flat grinder operator , patient needs the anticoagulation and further follow up as an outpatient once INR is stable. # LLE DVT with arterial insufficiency s/p thrombectomy with mormon of DP pulse ,and s/p IVC filter. # Recent diagnosis of Seizure disorder due to having an stroke on Keppra 1000 BID ,added valproic acid in place of dilantin # Recent diagnosis of a stroke : on coumadin continue for now. # Anemia : s/p transfusion. # DM: SSI , cont glipizide # HTN: cont norvasc and lisinopril DVT px : continue heparin gtt /coumdin , s/p IVC filter placement.
--- NOTE | 2016-12-22 17:01 | PATH ---
Surgical Pathology Report Patient Name: [facility]. Rec. #: [id number] /Age/Gender: 1960 (Age: 56) / M Account: [id number] Location: [address] [place] [address] Taken: 12/19/2016 Received: 12/21/2016 Reported: 12/22/2016 Physicians: Mariza Shah M.D. Specimen(s) Received PERIPHERAL BLOOD Clinical History Anemia, DVT, stroke Rule out PNH Final Diagnosis PERIPHERAL BLOOD: FLOW CYTOMETRY performed and interpreted at [facility], [place], [place] ([id number]) shows the following: INTERPRETATION: There is no evidence of B or T-cell proliferative disorders or increased blasts. Polytypic B-lymphocytosis. Decreased granulocytes. PERIPHERAL BLOOD: FLOW CYTOMETRY performed and interpreted at [facility], [place], [place] ([id number]) shows the following: INTERPRETATION: No phenotypic evidence of Paroxysmal Nocturnal Hemoglobinuria (PNH). Comment: See [facility] reports for additional details. Assay for JAK2 is pending and a report will follow. Electronically Signed Mason Kaba M.D. Addendum Reported: 12/25/2016 Addendum Diagnosis PERIPHERAL BLOOD: Molecular Pathology Report received from [facility] in [place], [place] ([id number]) shows the following: JAK2 [id number] MUTATION ANALYSIS BY PCR RESULTS: Only the wild-type JAK2 sequence was detected. INTERPRETATION: Negative for JAK2 (V617F) mutation Mason Kaba M.D. Gross Description Received labelled with the patient's name are 2 lavender top tubes and 2 green top tubes of peripheral blood which are forwarded to [facility] for ancillary testing. [facility]/12/21/2016 [facility]/12/21/2016
[2016-12-22] MEDS ORDERED: WARFARIN NA 10 MG TABLET (FP) PO ONE (18:00)
[2016-12-22] MEDS: ATORVASTATIN CA 20 MG TABLET (FP) PO SCH (22:22)
[2016-12-23] MEDS: glipiZIDE-XL 10 MG TAB.ER.24 (FP) PO SCH (07:36)
[2016-12-23] MEDS: VALPROATE SODIUM 250 MG/5 ML UNIT DOSE CUP PO SCH (07:36)
[2016-12-23 08:05] LABS: MCH 23.2 pg (25.7-33.7); MCHC 30.4 g/dl (32.0-35.9); MEAN CELL VOLUME 76.3 fl (80-96); MEAN PLT VOLUME 7.9 fl (7.5-11.1); PLATELET COUNT 259 K/MM3 (134-434); RDW 14.6 % (11.9-15.9); WHITE BLOOD COUNT 7.5 K/mm3 (4.0-10.0)
[2016-12-23 08:25] LABS: INR 1.7 (0.82-1.09); PROTHROMBIN TIME (PATIENT) 18.9 SEC (9.98-11.88)
[2016-12-23] MEDS ORDERED: PT OWN MED DRAWER 7, Y5N ONE ×2 (10:25→13:21)
[2016-12-23] MEDS: LISINOPRIL 10 MG TABLET (FP) PO SCH (10:26)
[2016-12-23] MEDS: amLODIPine BESYLATE 5 MG TABLET (FP) PO SCH (10:26)
[2016-12-23] MEDS: levETIRAcetam 500 MG TABLET (FP) PO SCH ×2 (10:26→21:30)
[2016-12-23] MEDS: BACITRACIN 15 GM TUBE TOPICAL OINTMENT TP SCH (10:27)
[2016-12-23] MEDS: VALPROIC ACID 250 MG CAPSULE PO SCH ×2 (13:17→21:31)
[2016-12-23] MEDS: HEPARIN INFUSION - 500 ML IVPB SCH (16:04)
--- NOTE | 2016-12-23 17:25 | PN ---
Teaching Attending Note Name of Resident: Patrick Muniz ATTENDING PHYSICIAN STATEMENT I saw and evaluated the patient. I reviewed the resident's note and discussed the case with the resident. I agree with the resident's findings and plan as documented. SUBJECTIVE: Patient has no complaints. OBJECTIVE: Vital Signs Period Temp Pulse Resp BP Sys/Navarrete Pulse Ox Last 24 Hr 97.8 F-98.7 F 60-86 19-20 104-132/53-80 95-99 HEART: S1S2, RRR LUNGS: Clear ABDOMEN: Obese, soft, non-tender, non-distended, normal BS EXTREMITIES: No edema ASSESSMENT AND PLAN: This is a 56 year old man with a history of HTN, type 2 DM, hyperlipidemia, CVA , seizure who presented to the ER with left leg pain and swelling. 1. LLE DVT - s/p thrombolysis and thrombectomy of left femoral and iliac veins 12/02 - s/p IVC filter placement 12/17 for difficulty anticoagulating patient - Continue heparin IV, Coumadin 2. Sepsis secondary to UTI - Completed Rocephin 3. History of seizure secondary to recent CVA - Continue KeGemma guzmante 4. Anemia secondary to chronic illness - Transfused 2 units PRBCs this admission 5. Type 2 DM - Continue Glipizide 6. HTN - Continue Norvasc, lisinopril 7. Hyperlipdemia - Continue Lipitor
--- NOTE | 2016-12-23 17:28 | PN ---
Physical Exam: SUBJECTIVE: Patient seen and examined this AM. No complaints, no CP, no SOB, no fevers, no chills. OBJECTIVE: Vital Signs Period Temp Pulse Resp BP Sys/Navarrete Pulse Ox Last 24 Hr 97.8 F-98.7 F 60-86 19-20 104-132/53-80 95-99 GENERAL: AAO x 3, HEENT: PERRLA, EOMi, No LAD LUNGS: CTABL, Non labored breathing HEART: S1, S2, RRR, no murmurs ABD: Soft, nontender, nondistended, normoactive BS UPPER EXTREMITIES: 2+ pulses, no edema, no erythema LOWER EXTREMITIES: 2+ pulse on RLE, 2+ LLE NEURO: Cranial nerves intact, no facial droop. Sensation intact in face and body bilaterally, muscle strength 5/5, reflexes 2+ Laboratory Tests 12/20/16 12/21/16 12/22/16 07:35 08:00 07:00 INR 1.30 H 1.45 H 1.51 H 12/23/16 07:32 INR 1.70 H ASSESSMENT/PLAN: Mr. Ace is a 56yo M with PMHx of seizure disorder, DM2, HTN, recently discharged from the hospital with immobility at home presents with new complaint of LLE swelling, found to have thrombus in L common femoral, femoral, popliteal, and posterior tibial veins. He received a suction thrombectomy (on 12/02) and is on Heparin drip (started 11/30), bridging with Coumadin (started 12/02). Received IVC filter on 12/17. Pt needs lifelong anticoagulation. # Acute LLE DVT - S/p suction thrombectomy and IVC filter - Heparin drip - Spoke to Dr. Leone from Oncology, agreed patient will receive reduced dose of 25mg Coumadin today so as to not overshoot INR - Heme/Onc on board ruling out causes of hypercoag # Microcytic Anemia - S/p 2 units PRBC - improved - Fe panel shows possible Anemia of Chronic Disease, could be from DM2, HTN, etc. # Hx of Seizure Disorder - well controlled - No seizure episodes on new regimen - Continue Keppra + PO Valproic acid # MALOU - resolved - Likely pre-renal - Improved with fluids - Lisinopril 10mg # IDDM - well controlled - BGM + SSI TID w/ glucose well controlled - Continue glipizide 10mg # Hx of HTN - well controlled - Continue amlodipine + lisinopril 10mg # FEN - Fluids: None - Electrolytes: No abnormalities - Nutrition: Diabetic/sodium diet # Prophylaxis - DVT: Hep drip - GI: Not indicated - PT: PT on board - pt ambulating well # Dispo - Pt to followup with Coumadin Clinic at [facility] ([phone]) for an appointment Wednesday, but patient needs to be therapeutic - Will f/u with heme/onc Dr. Patrick Muniz MD - PGY1 Internal Medicine Visit type - Emergency Visit Emergency Visit: No - New Patient This patient is new to me today: No - Critical Care Critical Care patient: No - Discharge Referral Referred to [facility] Med P.C.: No
[2016-12-23] MEDS ORDERED: WARFARIN NA 10 MG TABLET (FP) PO ONE ×2 (18:00)
[2016-12-23] MEDS: ATORVASTATIN CA 20 MG TABLET (FP) PO SCH (21:30)
[2016-12-24] MEDS: glipiZIDE-XL 10 MG TAB.ER.24 (FP) PO SCH (06:31)
[2016-12-24] MEDS: VALPROIC ACID 250 MG CAPSULE PO SCH ×3 (06:31→21:04)
[2016-12-24 09:21] LABS: INR 1.57 (0.82-1.09); PROTHROMBIN TIME (PATIENT) 17.4 SEC (9.98-11.88)
[2016-12-24] MEDS: amLODIPine BESYLATE 5 MG TABLET (FP) PO SCH (10:08)
[2016-12-24] MEDS: levETIRAcetam 500 MG TABLET (FP) PO SCH ×2 (10:08→21:04)
[2016-12-24] MEDS: LISINOPRIL 10 MG TABLET (FP) PO SCH (10:08)
--- NOTE | 2016-12-24 13:37 | PN ---
Physical Exam: SUBJECTIVE: Patient seen and examined this AM. No complaints. Asymptomatic. No fevers, no chills, no SOB, no CP. OBJECTIVE: Vital Signs Period Temp Pulse Resp BP Sys/Navarrete Pulse Ox Last 24 Hr 98.1 F-98.2 F 61-86 20-20 110-132/60-80 95-96 GENERAL: AAO x 3, HEENT: PERRLA, EOMi, No LAD LUNGS: CTABL, Non labored breathing HEART: S1, S2, RRR, no murmurs ABD: Soft, nontender, nondistended, normoactive BS UPPER EXTREMITIES: 2+ pulses, no edema, no erythema LOWER EXTREMITIES: 2+ pulse on RLE, 2+ LLE NEURO: Cranial nerves intact, no facial droop. Sensation intact in face and body bilaterally, muscle strength 5/5, reflexes 2+ Laboratory Results - last 24 hr 12/24/16 12/24/16 12/24/16 06:00 06:00 06:07 INR 1.57 H PTT (Actin FS) 76.0 H POC Glucometer 88 Active Medications Generic Name Dose Route Start Last Admin Trade Name Freq PRN Reason Stop Dose Admin Amlodipine Besylate 5 mg 12/18/16 10:00 12/24/16 10:08 Norvasc - PO 5 mg DAILY MELANIA Administration Atorvastatin Calcium 20 mg 12/17/16 22:00 12/23/16 21:30 Lipitor - PO 20 mg HS MELANIA Administration Bacitracin 1 applic 12/18/16 10:00 12/23/16 10:27 Bacitracin - TP 1 applic DAILY MELANIA Administration Docusate Sodium 100 mg 12/18/16 17:02 12/19/16 21:02 Colace - PO 100 mg BID PRN Administration CONSTIPATION Glipizide 10 mg 12/18/16 07:00 12/24/16 06:31 Glucotrol Xl - PO 10 mg DAILY@0700 MELANIA Administration Heparin Sodium (Porcine) 1,000 unit 12/17/16 16:26 Heparin - IVPUSH PRN PRN Heparin Heparin Sodium (Porcine) 5,000 unit 12/17/16 16:26 Heparin - IVPUSH PRN PRN Heparin Heparin Sodium/Dextrose 500 mls @ 20 mls/hr 12/17/16 18:30 12/23/16 16:04 Heparin Infusion - IVPB 29 mls/hr TITR MELANIA Administration Protocol 1,000 UNITS/HR Levetiracetam 1,000 mg 12/17/16 22:00 12/24/16 10:08 Keppra - PO 1,000 mg BID MELANIA Administration Lisinopril 10 mg 12/18/16 10:00 12/24/16 10:08 Prinivil PO 10 mg DAILY MELANIA Administration Valproic Acid 500 mg 12/23/16 11:42 12/24/16 06:31 Depakene - PO 500 mg TID MELANIA Administration Warfarin Sodium 30 mg 12/24/16 18:00 Coumadin - PO 12/24/16 18:01 ONCE@1800 ONE ASSESSMENT/PLAN: Mr. Ace is a 56yo M with PMHx of seizure disorder, DM2, HTN, recently discharged from the hospital with immobility at home presents with new complaint of LLE swelling, found to have thrombus in L common femoral, femoral, popliteal, and posterior tibial veins. He received a suction thrombectomy (on 12/02) and is on Heparin drip (started 11/30), bridging with Coumadin (started 12/02). Received IVC filter on 12/17. Pt needs lifelong anticoagulation. # Coumadin Resistance - Coumadin 30mg today since INR dropped - On valproic acid, [id number] inhibitor # Acute LLE DVT - S/p suction thrombectomy and IVC filter - Heparin drip - Coumadin 30mg today since INR dropped - Heme/Onc on board ruling out causes of hypercoag # Microcytic Anemia - S/p 2 units PRBC - improved - Fe panel shows possible Anemia of Chronic Disease, could be from DM2, HTN, etc. # Hx of Seizure Disorder - well controlled - No seizure episodes on new regimen - Continue Keppra + PO Valproic acid # MALOU - resolved - Likely pre-renal - Improved with fluids - Lisinopril 10mg # IDDM - well controlled - BGM + SSI TID w/ glucose well controlled - Continue glipizide 10mg # Hx of HTN - well controlled - Continue amlodipine + lisinopril 10mg # FEN - Fluids: None - Electrolytes: No abnormalities - Nutrition: Diabetic/sodium diet # Prophylaxis - DVT: Hep drip - GI: Not indicated - PT: PT on board - pt ambulating well # Dispo - Pt to followup with Coumadin Clinic at [facility] ([phone]) for an appointment, but patient needs to be therapeutic - Will f/u with heme/onc Dr. Patrick Muniz MD - PGY1 Internal Medicine Visit type - Emergency Visit Emergency Visit: No - New Patient This patient is new to me today: No - Critical Care Critical Care patient: No - Discharge Referral Referred to [facility] Med P.C.: No
--- NOTE | 2016-12-24 14:41 | PN ---
Teaching Attending Note Name of Resident: Patrick Muniz ATTENDING PHYSICIAN STATEMENT I saw and evaluated the patient. I reviewed the resident's note and discussed the case with the resident. I agree with the resident's findings and plan as documented. SUBJECTIVE: No complaints. OBJECTIVE: Vital Signs Period Temp Pulse Resp BP Sys/Navarrete Pulse Ox Last 24 Hr 98.1 F-98.4 F 61-86 17-20 110-132/60-80 95-96 HEART: S1S2, RRR LUNGS: Clear ABDOMEN: Obese, soft, non-tender, non-distended, normal BS EXTREMITIES: No edema ASSESSMENT AND PLAN: This is a 56 year old man with a history of HTN, type 2 DM, hyperlipidemia, CVA , seizure who presented to the ER with left leg pain and swelling. 1. LLE DVT - s/p thrombolysis and thrombectomy of left femoral and iliac veins 12/02 - s/p IVC filter placement 12/17 for difficulty anticoagulating patient - Continue heparin IV, Coumadin - awaiting INR to be therapeutic 2. Sepsis secondary to UTI - Completed Rocephin 3. History of seizure secondary to recent CVA - Continue Keppra, Depakote 4. Anemia secondary to chronic illness - Transfused 2 units PRBCs this admission 5. Type 2 DM - Continue Glipizide 6. HTN - Continue Norvasc, lisinopril 7. Hyperlipdemia - Continue Lipitor
[2016-12-24] MEDS ORDERED: PT OWN MED DRAWER 7, Y5N ONE ×2 (14:53→21:03)
[2016-12-24] MEDS: BACITRACIN 15 GM TUBE TOPICAL OINTMENT TP SCH (14:58)
[2016-12-24] MEDS ORDERED: WARFARIN NA 10 MG TABLET (FP) PO ONE (18:00)
[2016-12-24] MEDS: ATORVASTATIN CA 20 MG TABLET (FP) PO SCH (21:04)
[2016-12-25] MEDS: HEPARIN INFUSION - 500 ML IVPB SCH ×2 (01:00→18:01)
[2016-12-25] MEDS ORDERED: PT OWN MED DRAWER 7, Y5N ONE ×5 (06:08→21:04)
[2016-12-25] MEDS: glipiZIDE-XL 10 MG TAB.ER.24 (FP) PO SCH (06:13)
[2016-12-25] MEDS: VALPROIC ACID 250 MG CAPSULE PO SCH ×3 (06:13→21:05)
[2016-12-25] MEDS: LISINOPRIL 10 MG TABLET (FP) PO SCH (09:18)
[2016-12-25] MEDS: amLODIPine BESYLATE 5 MG TABLET (FP) PO SCH (09:18)
[2016-12-25] MEDS: levETIRAcetam 500 MG TABLET (FP) PO SCH ×2 (09:18→21:05)
--- NOTE | 2016-12-25 09:29 | PN ---
Physical Exam: SUBJECTIVE: Patient seen and examined this AM. No complaints. No CP, no SOB, no fevers, no chills. OBJECTIVE: Vital Signs Period Temp Pulse Resp BP Sys/Navarrete Pulse Ox Last 24 Hr 97.7 F-98.4 F 60-74 17-19 117-126/67-74 96 GENERAL: AAO x 3, HEENT: PERRLA, EOMi, No LAD LUNGS: CTABL, Non labored breathing HEART: S1, S2, RRR, no murmurs ABD: Soft, nontender, nondistended, normoactive BS UPPER EXTREMITIES: 2+ pulses, no edema, no erythema LOWER EXTREMITIES: 2+ pulse on RLE, 2+ LLE NEURO: Cranial nerves intact, no facial droop. Sensation intact in face and body bilaterally, muscle strength 5/5, reflexes 2+ Laboratory Results - last 24 hr 12/24/16 12/25/16 06:00 06:13 INR 1.57 H POC Glucometer 84 Active Medications Generic Name Dose Route Start Last Admin Trade Name Freq PRN Reason Stop Dose Admin Amlodipine Besylate 5 mg 12/18/16 10:00 12/25/16 09:18 Norvasc - PO 5 mg DAILY MELANIA Administration Atorvastatin Calcium 20 mg 12/17/16 22:00 12/24/16 21:04 Lipitor - PO 20 mg HS MELANIA Administration Bacitracin 1 applic 12/18/16 10:00 12/24/16 14:58 Bacitracin - TP 1 applic DAILY MELANIA Administration Docusate Sodium 100 mg 12/18/16 17:02 12/19/16 21:02 Colace - PO 100 mg BID PRN Administration CONSTIPATION Glipizide 10 mg 12/18/16 07:00 12/25/16 06:13 Glucotrol Xl - PO 10 mg DAILY@0700 MELANIA Administration Heparin Sodium (Porcine) 1,000 unit 12/17/16 16:26 Heparin - IVPUSH PRN PRN Heparin Heparin Sodium (Porcine) 5,000 unit 12/17/16 16:26 Heparin - IVPUSH PRN PRN Heparin Heparin Sodium/Dextrose 500 mls @ 20 mls/hr 12/17/16 18:30 12/25/16 01:00 Heparin Infusion - IVPB 29 mls/hr TITR MELANIA Administration Protocol 1,000 UNITS/HR Levetiracetam 1,000 mg 12/17/16 22:00 12/25/16 09:18 Keppra - PO 1,000 mg BID MELANIA Administration Lisinopril 10 mg 12/18/16 10:00 12/25/16 09:18 Prinivil PO 10 mg DAILY MELANIA Administration Valproic Acid 500 mg 12/23/16 11:42 12/25/16 06:13 Depakene - PO 500 mg TID MELANIA Administration ASSESSMENT/PLAN: Mr. Ace is a 56yo M with PMHx of seizure disorder, DM2, HTN, recently discharged from the hospital with immobility at home presents with new complaint of LLE swelling, found to have thrombus in L common femoral, femoral, popliteal, and posterior tibial veins. He received a suction thrombectomy (on 12/02) and is on Heparin drip (started 11/30), bridging with Coumadin (started 12/02). Received IVC filter on 12/17. Pt needs lifelong anticoagulation. # Coumadin Resistance - Coumadin 30mg today - On valproic acid, [id number] inhibitor # Acute LLE DVT - S/p suction thrombectomy and IVC filter - Heparin drip - Coumadin 30mg today - Heme/Onc on board ruling out causes of hypercoag, all labs have been negative # Microcytic Anemia - S/p 2 units PRBC - improved - Fe panel shows possible Anemia of Chronic Disease, could be from DM2, HTN, etc. # Hx of Seizure Disorder - well controlled - No seizure episodes on new regimen - Continue Keppra + PO Valproic acid # MALOU - resolved - Likely pre-renal - Improved with fluids - Lisinopril 10mg # IDDM - well controlled - BGM + SSI TID w/ glucose well controlled - Continue glipizide 10mg # Hx of HTN - well controlled - Continue amlodipine + lisinopril 10mg # FEN - Fluids: None - Electrolytes: No abnormalities - Nutrition: Diabetic/sodium diet # Prophylaxis - DVT: Hep drip - GI: Not indicated - PT: PT on board - pt ambulating well # Dispo - Pt to followup with Coumadin Clinic at [facility] ([phone]) for an appointment, but patient needs to be therapeutic - Will f/u with heme/onc Dr. Patrick Muniz MD - PGY1 Internal Medicine Visit type - Emergency Visit Emergency Visit: No - New Patient This patient is new to me today: No - Critical Care Critical Care patient: No - Discharge Referral Referred to [facility] Med P.C.: No
[2016-12-25 09:33] LABS: INR 1.88 (0.82-1.09)
[2016-12-25 12:20] LABS: B2-GLYCOPROTEIN IGA <10 SAU (.); B2-GLYCOPROTEIN IGG <10 SGU (.); B2-GLYCOPROTEIN IGM <10 SMU (.)
[2016-12-25] MEDS: BACITRACIN 15 GM TUBE TOPICAL OINTMENT TP SCH (14:01)
--- NOTE | 2016-12-25 16:14 | PN ---
Teaching Attending Note Name of Resident: Patrick Muniz ATTENDING PHYSICIAN STATEMENT I saw and evaluated the patient. I reviewed the resident's note and discussed the case with the resident. I agree with the resident's findings and plan as documented. SUBJECTIVE: No complaints. Wants to go home. OBJECTIVE: Vital Signs Period Temp Pulse Resp BP Sys/Navarrete Pulse Ox Last 24 Hr 97.7 F-97.8 F 60-67 19-20 117-130/64-73 HEART: S1S2, RRR LUNGS: Clear ABDOMEN: Obese, soft, non-tender, non-distended, normal BS EXTREMITIES: No edema ASSESSMENT AND PLAN: This is a 56 year old man with a history of HTN, type 2 DM, hyperlipidemia, CVA , seizure who presented to the ER with left leg pain and swelling. 1. LLE DVT - s/p thrombolysis and thrombectomy of left femoral and iliac veins 12/02 - s/p IVC filter placement 12/17 for difficulty anticoagulating patient - Continue heparin IV, Coumadin - awaiting INR to be therapeutic 2. Sepsis secondary to UTI - Completed Rocephin 3. History of seizure secondary to recent CVA - Continue Keppra, Depakote 4. Anemia secondary to chronic illness - Transfused 2 units PRBCs this admission 5. Type 2 DM - Continue Glipizide 6. HTN - Continue Norvasc, lisinopril 7. Hyperlipdemia - Continue Lipitor
[2016-12-25] MEDS ORDERED: WARFARIN NA 10 MG TABLET (FP) PO ONE (18:00)
--- NOTE | 2016-12-25 20:31 | PN ---
Progress Note (short form) - Note Progress Note: PAtient seen and examined No complaints Last Vital Signs Temp Pulse Resp BP Pulse Ox 98.2 F 68 18 128/64 96 12/25/16 18:33 12/25/16 18:33 12/25/16 21:00 12/25/16 18:33 12/24/16 13:00 Cor: RSR, No murmurs, No gallops Lungs: Clear to P&A Abd: Soft, Normal bowel sounds, No organomegaly Ext:No significant edema Abnormal Lab Results 12/17/16 12/25/16 12/25/16 07:30 08:40 08:45 INR 1.88 H PTT (Actin FS) 76.7 H PTT Baseline 40.4 H PTT Ratio Control 30.6 H Plt Neutralization 5.7 H Active Medications Generic Name Dose Route Start Last Admin Trade Name Freq PRN Reason Stop Dose Admin Amlodipine Besylate 5 mg 12/18/16 10:00 12/25/16 09:18 Norvasc - PO 5 mg DAILY MELANIA Administration Atorvastatin Calcium 20 mg 12/17/16 22:00 12/25/16 21:04 Lipitor - PO 20 mg HS MELANIA Administration Bacitracin 1 applic 12/18/16 10:00 12/25/16 14:01 Bacitracin - TP 1 applic DAILY MELANIA Administration Docusate Sodium 100 mg 12/18/16 17:02 12/19/16 21:02 Colace - PO 100 mg BID PRN Administration CONSTIPATION Glipizide 10 mg 12/18/16 07:00 12/25/16 06:13 Glucotrol Xl - PO 10 mg DAILY@0700 MELANIA Administration Heparin Sodium (Porcine) 1,000 unit 12/17/16 16:26 Heparin - IVPUSH PRN PRN Heparin Heparin Sodium (Porcine) 5,000 unit 12/17/16 16:26 Heparin - IVPUSH PRN PRN Heparin Heparin Sodium/Dextrose 500 mls @ 20 mls/hr 12/17/16 18:30 12/25/16 18:01 Heparin Infusion - IVPB 29 mls/hr TITR MELANIA Administration Protocol 1,000 UNITS/HR Levetiracetam 1,000 mg 12/17/16 22:00 12/25/16 21:05 Keppra - PO 1,000 mg BID MELANIA Administration Lisinopril 10 mg 12/18/16 10:00 12/25/16 09:18 Prinivil PO 10 mg DAILY MELANIA Administration Valproic Acid 500 mg 12/23/16 11:42 12/25/16 21:05 Depakene - PO 500 mg TID MELANIA Administration A/P 56 y/o LLE DVT s/p thrombectomy on heparin being bridged to coumadin Subtherapeutic INR anemia Seizures Stroke DM. Plan: bridging heparin to coumadin --- inr slowly trending up on 30mg Bridge for 24hrs. with heparin once therapeutic Suspect need for increased doses due to body habitus, metabolic pathway mutations etc. discussed at length with patient benefits/risksof coumadin, lovenox, NOACs and no anticoagulation He understands He is willing to f/u at coumadin clinic for close INR checks will need close f/u .
[2016-12-25] MEDS: ATORVASTATIN CA 20 MG TABLET (FP) PO SCH (21:04)
[2016-12-26] MEDS: glipiZIDE-XL 10 MG TAB.ER.24 (FP) PO SCH (06:05)
[2016-12-26] MEDS: VALPROIC ACID 250 MG CAPSULE PO SCH ×3 (06:05→21:42)
[2016-12-26 07:49] LABS: INR 1.97 (0.82-1.09)
[2016-12-26] MEDS: amLODIPine BESYLATE 5 MG TABLET (FP) PO SCH (09:48)
[2016-12-26] MEDS: LISINOPRIL 10 MG TABLET (FP) PO SCH (09:48)
[2016-12-26] MEDS: levETIRAcetam 500 MG TABLET (FP) PO SCH ×2 (09:48→21:41)
[2016-12-26] MEDS: BACITRACIN 15 GM TUBE TOPICAL OINTMENT TP SCH (09:55)
[2016-12-26] MEDS: HEPARIN INFUSION - 500 ML IVPB SCH (10:42)
--- NOTE | 2016-12-26 12:12 | PN ---
Physical Exam: SUBJECTIVE: Patient seen and examined. He has no complaints. OBJECTIVE: Vital Signs Period Temp Pulse Resp BP Sys/Navarrete Pulse Ox Last 24 Hr 97.8 F-98.2 F 60-68 18-20 100-130/60-64 GENERAL: The patient is awake, alert, and fully oriented, in no acute distress. LUNGS: Breath sounds equal, clear to auscultation bilaterally, no wheezes, no crackles, no accessory muscle use. HEART: Regular rate and rhythm, S1, S2 without murmur, rub or gallop. ABDOMEN: Obese, soft, nontender, nondistended, normoactive bowel sounds, no guarding, no masses. EXTREMITIES: 2+ pulses, warm, well-perfused, no edema. Laboratory Results - last 24 hr 12/17/16 12/26/16 12/26/16 07:30 06:00 07:00 INR 1.97 H PTT (Actin FS) 89.9 H Saline-Adjusted PTT 57.2 PTT Baseline 40.4 H PTT Ratio Control 30.6 H Plt Neutralization 5.7 H dRVVT Confirm Interp TNP dRVVT Mixing Study TNP Hexagonal Phospholipid 6 Daar-5-Pycdzcxivdxm <10 Thgr-0-Btbgiqrhzulq Ab <10 Beta-2-GPI IgM Ab <10 Anti-Prothrombin IgG 11 Phosphatidylserine IgG 0 Phosphatidylserine IgM 1 Anti-Cardiolipin IgG Ab <9 Anti-Cardiolipin IgA Ab <9 Anti-Cardiolipin IgM Ab <9 Cardiolipid IgG Ab <10 Cardiolipid IgA Ab <10 Cardiolipid IgM Ab <10 Active Medications Generic Name Dose Route Start Last Admin Trade Name Freq PRN Reason Stop Dose Admin Amlodipine Besylate 5 mg 12/18/16 10:00 12/26/16 09:48 Norvasc - PO 5 mg DAILY MELANIA Administration Atorvastatin Calcium 20 mg 12/17/16 22:00 12/25/16 21:04 Lipitor - PO 20 mg HS MELANIA Administration Bacitracin 1 applic 12/18/16 10:00 12/26/16 09:55 Bacitracin - TP Not Given DAILY MELANIA Docusate Sodium 100 mg 12/18/16 17:02 12/19/16 21:02 Colace - PO 100 mg BID PRN Administration CONSTIPATION Glipizide 10 mg 12/18/16 07:00 12/26/16 06:05 Glucotrol Xl - PO 10 mg DAILY@0700 MELANIA Administration Heparin Sodium (Porcine) 1,000 unit 12/17/16 16:26 Heparin - IVPUSH PRN PRN Heparin Heparin Sodium (Porcine) 5,000 unit 12/17/16 16:26 Heparin - IVPUSH PRN PRN Heparin Heparin Sodium/Dextrose 500 mls @ 20 mls/hr 12/17/16 18:30 12/26/16 10:42 Heparin Infusion - IVPB 29 mls/hr TITR MELANIA Administration Protocol 1,000 UNITS/HR Levetiracetam 1,000 mg 12/17/16 22:00 12/26/16 09:48 Keppra - PO 1,000 mg BID MELANIA Administration Lisinopril 10 mg 12/18/16 10:00 12/26/16 09:48 Prinivil PO 10 mg DAILY MELANIA Administration Valproic Acid 500 mg 12/23/16 11:42 12/26/16 06:05 Depakene - PO 500 mg TID MELANIA Administration ASSESSMENT/PLAN: This is a 56 year old man with a history of HTN, type 2 DM, hyperlipidemia, CVA , seizure who presented to the ER with left leg pain and swelling. 1. LLE DVT - s/p thrombolysis and thrombectomy of left femoral and iliac veins 12/02 - s/p IVC filter placement 12/17 for difficulty anticoagulating patient - Continue heparin IV, Coumadin - INR 1.97 today 2. Sepsis secondary to UTI - Completed Rocephin 3. History of seizure secondary to recent CVA - Continue Keppra, Depakote 4. Anemia secondary to chronic illness - Transfused 2 units PRBCs this admission 5. Type 2 DM - Continue Glipizide 6. HTN - Continue Norvasc, lisinopril 7. Hyperlipdemia - Continue Lipitor Visit type - Emergency Visit Emergency Visit: Yes ED Registration Date: 11/29/16 Care time: The patient presented to the Emergency Department on the above date and was hospitalized for further evaluation of their emergent condition. - New Patient This patient is new to me today: No - Critical Care Critical Care patient: No - Discharge Referral Referred to [facility] Med P.C.: No
--- NOTE | 2016-12-26 12:58 | PN ---
Physical Exam: TRANSITION OF CARE: This note is intended to be a transition of care note to the new medical program specialist team taking over the patient's care. The purpose is to provide information about the hospitalization up till today, so as to appropriately manage the patient until discharge. Active Medications Generic Name Dose Route Start Last Admin Trade Name Freaniket PRN Reason Stop Dose Admin Amlodipine Besylate 5 mg 12/18/16 10:00 12/26/16 09:48 Norvasc - PO 5 mg DAILY MELANIA Administration Atorvastatin Calcium 20 mg 12/17/16 22:00 12/25/16 21:04 Lipitor - PO 20 mg HS MELANIA Administration Bacitracin 1 applic 12/18/16 10:00 12/26/16 09:55 Bacitracin - TP Not Given DAILY MELANIA Docusate Sodium 100 mg 12/18/16 17:02 12/19/16 21:02 Colace - PO 100 mg BID PRN Administration CONSTIPATION Glipizide 10 mg 12/18/16 07:00 12/26/16 06:05 Glucotrol Xl - PO 10 mg DAILY@0700 MELANIA Administration Heparin Sodium (Porcine) 1,000 unit 12/17/16 16:26 Heparin - IVPUSH PRN PRN Heparin Heparin Sodium (Porcine) 5,000 unit 12/17/16 16:26 Heparin - IVPUSH PRN PRN Heparin Heparin Sodium/Dextrose 500 mls @ 20 mls/hr 12/17/16 18:30 12/26/16 10:42 Heparin Infusion - IVPB 29 mls/hr TITR MELANIA Administration Protocol 1,000 UNITS/HR Levetiracetam 1,000 mg 12/17/16 22:00 12/26/16 09:48 Keppra - PO 1,000 mg BID MELANIA Administration Lisinopril 10 mg 12/18/16 10:00 12/26/16 09:48 Prinivil PO 10 mg DAILY MELANIA Administration Valproic Acid 500 mg 12/23/16 11:42 12/26/16 06:05 Depakene - PO 500 mg TID MELANIA Administration Hospital Course: Mr. Robin Ace is a 56yo M with PMHx of seizure disorder, DM2, HTN, recently discharged from the hospital on 11/26/16 who presented days later with new complaint of LLE swelling, found to have a thrombus encompassing the L common femoral, femoral, popliteal, and posterior tibial veins. # Acute LLE DVT: - The initial DVT was likely due to immobility after the first admission. He was placed on IV Heparin drip (stared 11/30/16). On Physical exam, the team later noted absent pulse in L dorsalis pedis. He subsequently received an urgent suction thrombectomy on 12/02/[address] Jose Shaikh, and is currently on Heparin bridging with Coumadin (started 12/02/16). The patient received an IVC filter on 12/07/[address] Jose Shaikh to protect the patients lungs incase a future DVT were to develop again. The patient will likely be discharged on Coumadin, and needs lifelong anticoagulation. Due to the nature of the DVT and prior history of stroke, hypercoagulable labs were drawn, all of which have been negative up to date. # Subtherapeutic INR - The patient has been receiving increasing doses of Coumadin in order to achieve a therapeutic INR. Heme/Onc has been following the patient throughout the hospitalization and suspects the need for increased dose is due to the patient's body habitus and possible metabolic pathway mutations. The patient has been informed about benefits/risks of Coumadin, Lovenox, NOACs, and no anticoagulation, and verbalized understanding. At 30mg Coumadin daily, the INR has been slowly trending up. Likely therapeutic INR will be achieved on Wednesday. The patient needs to be bridged for 24 hours with heparin once therapeutic. The patient will need to followup with [facility] Coumadin clinic for close INR checks. has unsuccessfully tried to reach clinic multiple times to make an appointment. Appointment should be made prior to discharge ([phone]). # Hx of Seizure Disorder - well controlled - The patient's home seizure regimen was changed in the hospital. With recommendations from Neurology, the patient's home Dilantin was switched to Valproic Acid due to its affect on [id number] enzyme. The patient has had no seizures during this hospitalization. # Microcytic Anemia - During the hospitalization, the patient's Hgb had dropped to 6.9 on 12/05. He received 2 units of PRBC with subsequent improvements in H/H. Fe Panel is consistent with Anemia of Chronic Disease, could be from DM2, HTN, etc. # MALOU - resolved - The patient presented with MALOU, which was likely prerenal because it improved with fluids. Kidney function has been stable since. # Lactic Acidosis - resolved - The patient presented with lactic acidosis and high WBC count. Urine cultures were negative, but were drawn post antibiotics. The patient recieved 4 days of Ceftriaxone, repeat urine culture was negative. Antibiotics were discontinued. # IDDM - well controlled - The patient's glucose has been well controlled with just glipizide 10mg and a diabetic diet without subcutaneous insulin. # Hx of HTN - well controlled - The patient's blood pressure has been well controlled with decreased dose of amlodipine (10mg --> 5mg) + lisinopril 10mg daily # Dispo - Discharge after patient has been bridged. - Patient now has Medicaid insurance - Call [facility] ([phone]) to set up an appointment for the patient - Ensure patient follows up with PCP, neurology, and heme/onc. Dr. Patrick Muniz MD - PGY1 Internal Medicine Visit type - Emergency Visit Emergency Visit: No - New Patient This patient is new to me today: No - Critical Care Critical Care patient: No
[2016-12-26] MEDS ORDERED: PT OWN MED DRAWER 7, Y5N ONE (13:48)
[2016-12-26] MEDS ORDERED: WARFARIN NA 10 MG TABLET (FP) PO ONE (18:00)
[2016-12-26] MEDS: ATORVASTATIN CA 20 MG TABLET (FP) PO SCH (21:41)
[2016-12-27] MEDS: HEPARIN INFUSION - 500 ML IVPB SCH ×2 (06:26→21:35)
[2016-12-27] MEDS: glipiZIDE-XL 10 MG TAB.ER.24 (FP) PO SCH (06:27)
[2016-12-27] MEDS: VALPROIC ACID 250 MG CAPSULE PO SCH ×3 (06:27→21:30)
[2016-12-27 08:27] LABS: INR 1.97 (0.82-1.09)
--- NOTE | 2016-12-27 09:32 | PN ---
Physical Exam: SUBJECTIVE: Patient seen and examined. He has no complaints. OBJECTIVE: Vital Signs Period Temp Pulse Resp BP Sys/Navarrete Pulse Ox Last 24 Hr 97.9 F 59 130/81 99 GENERAL: The patient is awake, alert, and fully oriented, in no acute distress. LUNGS: Breath sounds equal, clear to auscultation bilaterally, no wheezes, no crackles, no accessory muscle use. HEART: Regular rate and rhythm, S1, S2 without murmur, rub or gallop. ABDOMEN: Obese, soft, nontender, nondistended, normoactive bowel sounds, no guarding, no rebound. EXTREMITIES: 2+ pulses, warm, well-perfused, no edema. Laboratory Results - last 24 hr 12/26/16 12/26/16 12/27/16 07:00 19:00 06:00 INR 1.97 H PTT (Actin FS) 89.9 H 67.3 H Active Medications Generic Name Dose Route Start Last Admin Trade Name Freq PRN Reason Stop Dose Admin Amlodipine Besylate 5 mg 12/18/16 10:00 12/26/16 09:48 Norvasc - PO 5 mg DAILY MELANIA Administration Atorvastatin Calcium 20 mg 12/17/16 22:00 12/26/16 21:41 Lipitor - PO 20 mg HS MELANIA Administration Bacitracin 1 applic 12/18/16 10:00 12/26/16 09:55 Bacitracin - TP Not Given DAILY [facility] Docusate Sodium 100 mg 12/18/16 17:02 12/19/16 21:02 Colace - PO 100 mg BID PRN Administration CONSTIPATION Glipizide 10 mg 12/18/16 07:00 12/27/16 06:27 Glucotrol Xl - PO 10 mg DAILY@0700 MELANIA Administration Heparin Sodium (Porcine) 1,000 unit 12/17/16 16:26 Heparin - IVPUSH PRN PRN Heparin Heparin Sodium (Porcine) 5,000 unit 12/17/16 16:26 Heparin - IVPUSH PRN PRN Heparin Heparin Sodium/Dextrose 500 mls @ 20 mls/hr 12/17/16 18:30 12/27/16 06:26 Heparin Infusion - IVPB 27 mls/hr TITR MELANIA Administration Protocol 1,000 UNITS/HR Levetiracetam 1,000 mg 12/17/16 22:00 12/26/16 21:41 Keppra - PO 1,000 mg BID MELANIA Administration Lisinopril 10 mg 12/18/16 10:00 12/26/16 09:48 Prinivil PO 10 mg DAILY MELANIA Administration Valproic Acid 500 mg 12/23/16 11:42 12/27/16 06:27 Depakene - PO 500 mg TID MELANIA Administration ASSESSMENT/PLAN: This is a 56 year old man with a history of HTN, type 2 DM, hyperlipidemia, CVA , seizure who presented to the ER with left leg pain and swelling. 1. LLE DVT - s/p thrombolysis and thrombectomy of left femoral and iliac veins 12/02 - s/p IVC filter placement 12/17 for difficulty anticoagulating patient - INR 1.97 today - Attaining therapeutic INR has been difficult - Continue Coumadin 30 mg daily and continue to monitor INR - Continue heparin drip until INR therapeutic 2. Sepsis secondary to UTI - Completed Rocephin 3. History of seizure secondary to recent CVA - Continue Cesia Guardado 4. Anemia secondary to chronic illness - Transfused 2 units PRBCs this admission 5. Type 2 DM - Continue Glipizide 6. HTN - Continue Norvasc, lisinopril 7. Hyperlipdemia - Continue Lipitor Visit type - Emergency Visit Emergency Visit: Yes ED Registration Date: 11/29/16 Care time: The patient presented to the Emergency Department on the above date and was hospitalized for further evaluation of their emergent condition. - New Patient This patient is new to me today: No - Critical Care Critical Care patient: No - Discharge Referral Referred to [facility] Med P.C.: No
[2016-12-27] MEDS: LISINOPRIL 10 MG TABLET (FP) PO SCH (10:39)
[2016-12-27] MEDS: amLODIPine BESYLATE 5 MG TABLET (FP) PO SCH (10:40)
[2016-12-27] MEDS: BACITRACIN 15 GM TUBE TOPICAL OINTMENT TP SCH (10:40)
[2016-12-27] MEDS: levETIRAcetam 500 MG TABLET (FP) PO SCH ×2 (10:40→21:30)
[2016-12-27] MEDS ORDERED: PT OWN MED DRAWER 7, Y5N ONE (14:24)
[2016-12-27] MEDS ORDERED: WARFARIN NA 10 MG TABLET (FP) PO ONE (18:00)
[2016-12-27] MEDS: ATORVASTATIN CA 20 MG TABLET (FP) PO SCH (21:30)
[2016-12-27] MEDS: DOCUSATE SODIUM 100 MG CAPSULE (FP) PO PRN (21:30)
[2016-12-28] MEDS: glipiZIDE-XL 10 MG TAB.ER.24 (FP) PO SCH (06:14)
[2016-12-28] MEDS: VALPROIC ACID 250 MG CAPSULE PO SCH ×3 (06:14→21:19)
[2016-12-28 07:24] LABS: MCH 23.7 pg (25.7-33.7); MCHC 31.4 g/dl (32.0-35.9); MEAN CELL VOLUME 75.4 fl (80-96); MEAN PLT VOLUME 8.5 fl (7.5-11.1); PLATELET COUNT 213 K/MM3 (134-434); RDW 14.7 % (11.9-15.9); WHITE BLOOD COUNT 7.7 K/mm3 (4.0-10.0)
[2016-12-28 07:38] LABS: ANION GAP 6 (8-16); CALCIUM 8.7 mg/dL (8.5-10.1); CO2 30 mmol/L (21-32); CREATININE 1.1 mg/dL (0.7-1.3); GLUCOSE,RANDOM 70 mg/dL (74-106)
[2016-12-28 08:06] LABS: INR 2.09 (0.82-1.09); PROTHROMBIN TIME (PATIENT) 23.3 SEC (9.98-11.88)
[2016-12-28] MEDS: BACITRACIN 15 GM TUBE TOPICAL OINTMENT TP SCH (09:19)
[2016-12-28] MEDS: levETIRAcetam 500 MG TABLET (FP) PO SCH ×2 (09:25→21:19)
[2016-12-28] MEDS: LISINOPRIL 10 MG TABLET (FP) PO SCH (09:25)
[2016-12-28] MEDS: amLODIPine BESYLATE 5 MG TABLET (FP) PO SCH (09:25)
[2016-12-28] MEDS ORDERED: PT OWN MED DRAWER 7, Y5N ONE ×2 (14:21→21:04)
[2016-12-28] MEDS ORDERED: WARFARIN NA 10 MG TABLET (FP) PO ONE (18:00)
--- NOTE | 2016-12-28 18:34 | PN ---
Addendum entered and electronically signed by Curt Lane RES 12/28/16 19:14: Extremities Exam: b/l 2+ LLE edema, RLE shows 1+ edema Original Note: Physical Exam: SUBJECTIVE: Patient seen and examined OBJECTIVE: Vital Signs Period Temp Pulse Resp BP Sys/Navarrete Pulse Ox Last 24 Hr 97.3 F-98.0 F 60-75 20-20 95-149/52-93 100-100 GENERAL: The patient is awake, alert, and fully oriented, in no acute distress. HEAD: Normal with no signs of trauma. EYES: PERRL, extraocular movements intact, sclera anicteric, conjunctiva clear. No ptosis. ENT: Ears normal, nares patent, oropharynx clear without exudates, moist mucous membranes. NECK: Trachea midline, full range of motion, supple. LUNGS: Breath sounds equal, clear to auscultation bilaterally, no wheezes, no crackles, no accessory muscle use. HEART: Regular rate and rhythm, S1, S2 without murmur, rub or gallop. ABDOMEN: Soft, nontender, nondistended, normoactive bowel sounds, no guarding, no rebound, no hepatosplenomegaly, no masses. EXTREMITIES: 2+ pulses, warm, well-perfused, no edema. NEUROLOGICAL: Cranial nerves II through XII grossly intact. Normal speech, gait not observed. PSYCH: Normal mood, normal affect. SKIN: Warm, dry, normal turgor, no rashes or lesions noted Laboratory Results - last 24 hr 12/28/16 12/28/16 12/28/16 05:40 05:40 05:40 WBC 7.7 RBC 3.99 L Hgb 9.5 L Hct 30.1 L MCV 75.4 L MCH 23.7 L MCHC 31.4 L RDW 14.7 Plt Count 213 MPV 8.5 INR PTT (Actin FS) 69.6 H Sodium 141 Potassium 4.5 Chloride 105 Carbon Dioxide 30 Anion Gap 6 L BUN 14 D Creatinine 1.1 POC Glucometer Random Glucose 70 L Calcium 8.7 12/28/16 12/28/16 06:00 06:06 WBC RBC Hgb Hct MCV MCH MCHC RDW Plt Count MPV INR 2.09 H PTT (Actin FS) Sodium Potassium Chloride Carbon Dioxide Anion Gap BUN Creatinine POC Glucometer 77 Random Glucose Calcium Active Medications Generic Name Dose Route Start Last Admin Trade Name Freq PRN Reason Stop Dose Admin Amlodipine Besylate 5 mg 12/18/16 10:00 12/28/16 09:25 Norvasc - PO 5 mg DAILY MELANIA Administration Atorvastatin Calcium 20 mg 12/17/16 22:00 12/27/16 21:30 Lipitor - PO 20 mg HS MELANIA Administration Bacitracin 1 applic 12/18/16 10:00 12/28/16 09:19 Bacitracin - TP Not Given DAILY [facility] Docusate Sodium 100 mg 12/18/16 17:02 12/27/16 21:30 Colace - PO 100 mg BID PRN Administration CONSTIPATION Glipizide 10 mg 12/18/16 07:00 12/28/16 06:14 Glucotrol Xl - PO 10 mg DAILY@0700 MELANIA Administration Levetiracetam 1,000 mg 12/17/16 22:00 12/28/16 09:25 Keppra - PO 1,000 mg BID MELANIA Administration Lisinopril 10 mg 12/18/16 10:00 12/28/16 09:25 Prinivil PO 10 mg DAILY MELANIA Administration Valproic Acid 500 mg 12/23/16 11:42 12/28/16 14:22 Depakene - PO 500 mg TID MELANIA Administration ASSESSMENT/PLAN: 56 year old man with a history of HTN, type 2 DM, hyperlipidemia, CVA, seizure who presented to the ER with left leg pain and swelling, found to have DVT in left leg, underwent thrombectomy, heparin to coumadin bridge, finally therapeutic on coumadin. 1. LLE DVT - s/p thrombolysis and thrombectomy of left femoral and iliac veins 12/02 - s/p IVC filter placement 12/17 for difficulty anticoagulating patient - INR 2.09 today -per Dr. Mccall, as INR is now therapeutic, heparin can be discontinued, and patient can be discharged evita if INR remains therapeutic - Continue Coumadin 30 mg daily -schedule appointment at coumadin clinic at [facility] for /wednesday 2. Sepsis secondary to UTI - Completed Rocephin 3. History of seizure secondary to recent CVA - Continue Keppra 1000mg BID, Depakote 500mg TID 4. Anemia secondary to chronic illness - Transfused 2 units PRBCs this admission -Hgb trending up from 9.1 to 9.5 5. Type 2 DM - Continue Glipizide 10mg 6. HTN - Continue Norvasc 5mg, lisinopril 10mg 7. Hyperlipdemia - Continue Lipitor 20mg #FEN/GI -not on fluids -electrolytes wnl -diabetic/sodium diet #Dispo -can d/c evita if INR remains therapeutic -make coumadin clinic appointment ([phone]). -f/u outpt with hem/onc -- Curt Lane MD PGY1 Problem List - Problems (1) Coumadin resistance Code(s): D68.9 - COAGULATION DEFECT, UNSPECIFIED Z79.01 - OFFICE SERVICES COORDINATOR (CURRENT) USE OF ANTICOAGULANTS (2) Microcytic anemia Code(s): D50.9 - IRON DEFICIENCY ANEMIA, UNSPECIFIED (3) MALOU (acute kidney injury) Code(s): N17.9 - ACUTE KIDNEY FAILURE, UNSPECIFIED (4) Hypertension associated with diabetes Code(s): E11.59 - TYPE 2 DIABETES MELLITUS WITH OTH CIRCULATORY COMPLICATIONS I10 - ESSENTIAL (PRIMARY) HYPERTENSION Visit type - Emergency Visit Emergency Visit: Yes ED Registration Date: 11/29/16 Care time: The patient presented to the Emergency Department on the above date and was hospitalized for further evaluation of their emergent condition. - New Patient This patient is new to me today: Yes Date on this admission: 12/28/16 - Critical Care Critical Care patient: No
--- NOTE | 2016-12-28 20:19 | PN ---
Teaching Attending Note Name of Resident: Curt Lane ATTENDING PHYSICIAN STATEMENT I saw and evaluated the patient. I reviewed the resident's note and discussed the case with the resident. I agree with the resident's findings and plan as documented. ASSESSMENT AND PLAN: 56 y/o gentleman with h/o HTN, DM , HLP, newly diagnosed with seizure and occipital stroke last admission , who presented with L LE pain and edema . 1- LLE DVT: s/p thrombectomy with caodaism of DP pulse. s/p IVC filter - INR 2.09 today. dc heparin gtt - give 30 mg of coumadin tonight - INR in am 2- Seizure disorder - cont Keppra and valproic 3- Recent diagnosis of a stroke : - no need for ASA as on AC now 4- Anemia : stable 5- DM: - SSI . - cont glipizide 6- HTN: stable - cont norvasc and lisinopril possible dc tomorrow. will schedule apt with [facility]
[2016-12-28] MEDS: ATORVASTATIN CA 20 MG TABLET (FP) PO SCH (21:19)
[2016-12-29] MEDS ORDERED: PT OWN MED DRAWER 7, Y5N ONE ×5 (05:48→21:03)
[2016-12-29] MEDS: VALPROIC ACID 250 MG CAPSULE PO SCH ×3 (06:10→21:05)
[2016-12-29] MEDS: glipiZIDE-XL 10 MG TAB.ER.24 (FP) PO SCH (06:10)
[2016-12-29 08:43] LABS: INR 1.98 (0.82-1.09); PROTHROMBIN TIME (PATIENT) 22.1 SEC (9.98-11.88)
[2016-12-29] MEDS: amLODIPine BESYLATE 5 MG TABLET (FP) PO SCH (09:31)
[2016-12-29] MEDS: LISINOPRIL 10 MG TABLET (FP) PO SCH (09:31)
[2016-12-29] MEDS: levETIRAcetam 500 MG TABLET (FP) PO SCH ×2 (09:31→21:05)
[2016-12-29] MEDS: BACITRACIN 15 GM TUBE TOPICAL OINTMENT TP SCH (09:31)
--- NOTE | 2016-12-29 14:21 | PN ---
Physical Exam: SUBJECTIVE: Patient seen and examined, EMR consulted. No acute events overnight. Pt reports no new problems. He denies SOB, chest pain , or leg pain. OBJECTIVE: Vital Signs Period Temp Pulse Resp BP Sys/Navarrete Pulse Ox Last 24 Hr 97.8 F-98.7 F 62-84 18-20 107-131/58-79 99 GENERAL: The patient is awake, alert, and fully oriented, in no acute distress. HEAD: Normal with no signs of trauma. EYES: PERRL, extraocular movements intact, sclera anicteric, conjunctiva clear. No ptosis. ENT: Ears normal, nares patent, oropharynx clear without exudates, moist mucous membranes. NECK: Trachea midline, full range of motion, supple. LUNGS: Breath sounds equal, clear to auscultation bilaterally, no wheezes, no crackles, no accessory muscle use. HEART: Regular rate and rhythm, S1, S2 without murmur, rub or gallop. ABDOMEN: Soft, nontender, nondistended, normoactive bowel sounds, no guarding, no rebound, no hepatosplenomegaly, no masses. EXTREMITIES: LLE shows 2+ pitting edema, and RLE shows 1+ pitting edema NEUROLOGICAL: Cranial nerves II through XII grossly intact. Normal speech, gait not observed. PSYCH: Normal mood, normal affect. SKIN: Warm, dry, normal turgor, no rashes or lesions noted Laboratory Results - last 24 hr 12/29/16 12/29/16 06:05 07:20 INR 1.98 H POC Glucometer 86 Active Medications Generic Name Dose Route Start Last Admin Trade Name Philipq PRN Reason Stop Dose Admin Amlodipine Besylate 5 mg 12/18/16 10:00 12/29/16 09:31 Norvasc - PO 5 mg DAILY MELANIA Administration Atorvastatin Calcium 20 mg 12/17/16 22:00 12/28/16 21:19 Lipitor - PO 20 mg HS MELANIA Administration Bacitracin 1 applic 12/18/16 10:00 12/29/16 09:31 Bacitracin - TP Not Given DAILY MELANIA Docusate Sodium 100 mg 12/18/16 17:02 12/27/16 21:30 Colace - PO 100 mg BID PRN Administration CONSTIPATION Glipizide 10 mg 12/18/16 07:00 12/29/16 06:10 Glucotrol Xl - PO 10 mg DAILY@0700 MELANIA Administration Levetiracetam 1,000 mg 12/17/16 22:00 12/29/16 09:31 Keppra - PO 1,000 mg BID MELANIA Administration Lisinopril 10 mg 12/18/16 10:00 12/29/16 09:31 Prinivil PO 10 mg DAILY MELANIA Administration Valproic Acid 500 mg 12/23/16 11:42 12/29/16 14:10 Depakene - PO 500 mg TID MELANIA Administration Warfarin Sodium 30 mg 12/29/16 18:00 Coumadin - PO 12/29/16 18:01 ONCE@1800 ONE ASSESSMENT/PLAN: 56 year old man with a history of HTN, type 2 DM, hyperlipidemia, CVA, seizure who presented to the ER with left leg pain and swelling, found to have DVT in left leg, underwent thrombectomy, IVC filter, and heparin to coumadin bridge. 1. LLE DVT - s/p thrombolysis and thrombectomy of left femoral and iliac veins 12/02 - s/p IVC filter placement 12/17 for difficulty anticoagulating patient -per Dr. Mccall, as INR on 12/28 was 2.09, heparin was discontinued -INR dropped to 1.98 today. Will give coumadin 30 mg again tonight and reassess INR evita 2. Sepsis secondary to UTI - Completed Rocephin 3. History of seizure secondary to recent CVA - Continue Keppra 1000mg BID, Depakote 500mg TID 4. Anemia secondary to chronic illness - Transfused 2 units PRBCs this admission -Hgb trending up from 9.1 to 9.5 5. Type 2 DM - Continue Glipizide 10mg 6. HTN - Continue Norvasc 5mg, lisinopril 10mg 7. Hyperlipdemia - Continue Lipitor 20mg #FEN/GI -not on fluids -electrolytes wnl -diabetic/sodium diet #Dispo -can d/c evita if INR becomes therapeutic again. -coumadin clinic appointment at [facility] on 01/01/2017 at 9:30AM at [address] [facility], 4th floor, [address] ([phone]). -- Curt Lane MD PGY1 Problem List - Problems (1) Coumadin resistance Code(s): D68.9 - COAGULATION DEFECT, UNSPECIFIED Z79.01 - [facility] (CURRENT) USE OF ANTICOAGULANTS (2) Microcytic anemia Code(s): D50.9 - IRON DEFICIENCY ANEMIA, UNSPECIFIED (3) MALOU (acute kidney injury) Code(s): N17.9 - ACUTE KIDNEY FAILURE, UNSPECIFIED (4) Hypertension associated with diabetes Code(s): E11.59 - TYPE 2 DIABETES MELLITUS WITH OTH CIRCULATORY COMPLICATIONS I10 - ESSENTIAL (PRIMARY) HYPERTENSION Visit type - Emergency Visit Emergency Visit: Yes ED Registration Date: 11/29/16 Care time: The patient presented to the Emergency Department on the above date and was hospitalized for further evaluation of their emergent condition. - New Patient This patient is new to me today: No - Critical Care Critical Care patient: No
--- NOTE | 2016-12-29 14:36 | PN ---
Teaching Attending Note Name of Resident: Curt Lane ATTENDING PHYSICIAN STATEMENT I saw and evaluated the patient. I reviewed the resident's note and discussed the case with the resident. I agree with the resident's findings and plan as documented. SUBJECTIVE: no fever or chills . no cp . legs feel better OBJECTIVE: NAD CV: RRR, 3/6 SM at LUSB Lungs : CTAB Ext: DP 2+ b/l . no edema on LE , circumference is almost the same ASSESSMENT AND PLAN: 56 y/o gentleman with h/o HTN, DM , HLP, newly diagnosed with seizure and occipital stroke last admission , who presented with L LE pain and edema . 1- LLE DVT: s/p thrombectomy with sabianist of DP pulse. s/p IVC filter - INR 1.98 today. off heparin gtt since yesterday - give 30 mg of coumadin tonight - INR in am 2- Seizure disorder - cont Keppra and valproic 3- Recent diagnosis of a stroke : - no need for ASA as on AC now 4- Anemia : stable 5- DM: - SSI . - cont glipizide 6- HTN: stable - cont norvasc and lisinopril possible dc tomorrow if INR is therapeutic
[2016-12-29] MEDS ORDERED: WARFARIN NA 10 MG TABLET (FP) PO ONE (18:00)
[2016-12-29] MEDS: ATORVASTATIN CA 20 MG TABLET (FP) PO SCH (21:05)
[2016-12-30 05:57] VITALS: BP 111/77; PULSE 76; TEMP 98.1
[2016-12-30] MEDS: glipiZIDE-XL 10 MG TAB.ER.24 (FP) PO SCH (06:03)
[2016-12-30] MEDS: DOCUSATE SODIUM 100 MG CAPSULE (FP) PO PRN (06:04)
[2016-12-30] MEDS: VALPROIC ACID 250 MG CAPSULE PO SCH (06:04)
[2016-12-30 08:32] LABS: INR 2.09 (0.82-1.09); PROTHROMBIN TIME (PATIENT) 23.3 SEC (9.98-11.88)
[2016-12-30] MEDS: BACITRACIN 15 GM TUBE TOPICAL OINTMENT TP SCH (09:15)
[2016-12-30] MEDS: levETIRAcetam 500 MG TABLET (FP) PO SCH (09:19)
[2016-12-30] MEDS: amLODIPine BESYLATE 5 MG TABLET (FP) PO SCH (09:19)
[2016-12-30] MEDS: LISINOPRIL 10 MG TABLET (FP) PO SCH (09:19)
--- NOTE | 2016-12-30 09:36 | PN ---
Teaching Attending Note Name of Resident: Curt Lane ATTENDING PHYSICIAN STATEMENT I saw and evaluated the patient. I reviewed the resident's note and discussed the case with the resident. I agree with the resident's findings and plan as documented. SUBJECTIVE: Patient ie feeling better, would like to go home. OBJECTIVE: Vital Signs Temperature 98.1 F 12/30/16 05:55 Pulse Rate 76 12/30/16 05:55 Respiratory Rate 20 12/30/16 05:55 Blood Pressure 111/77 12/30/16 05:55 O2 Sat by Pulse Oximetry (%) 99 12/28/16 21:00 CBCD WBC 7.7 K/mm3 (4.0-10.0) 12/28/16 05:40 RBC 3.99 M/mm3 (4.00-5.60) L 12/28/16 05:40 Hgb 9.5 GM/dL (11.7-16.9) L 12/28/16 05:40 Hct 30.1 % (35.4-49) L 12/28/16 05:40 MCV 75.4 fl (80-96) L 12/28/16 05:40 MCHC 31.4 g/dl (32.0-35.9) L 12/28/16 05:40 RDW 14.7 % (11.9-15.9) 12/28/16 05:40 Plt Count 213 K/MM3 (134-434) 12/28/16 05:40 MPV 8.5 fl (7.5-11.1) 12/28/16 05:40 CMP Sodium 141 mmol/L (136-145) 12/28/16 05:40 Potassium 4.5 mmol/L (3.5-5.1) 12/28/16 05:40 Chloride 105 mmol/L (98-107) 12/28/16 05:40 Carbon Dioxide 30 mmol/L (21-32) 12/28/16 05:40 Anion Gap 6 (8-16) L 12/28/16 05:40 BUN 14 mg/dL (7-18) D 12/28/16 05:40 Creatinine 1.1 mg/dL (0.7-1.3) 12/28/16 05:40 Creat Clearance w eGFR > 60 (>60) 12/15/16 09:10 Random Glucose 70 mg/dL (74-106) L 12/28/16 05:40 Calcium 8.7 mg/dL (8.5-10.1) 12/28/16 05:40 Total Bilirubin 0.3 mg/dL (0.2-1.0) D 12/15/16 09:10 AST 14 U/L (15-37) L D 12/15/16 09:10 ALT 25 U/L (12-78) D 12/15/16 09:10 Alkaline Phosphatase 62 U/L (45-117) D 12/15/16 09:10 Total Protein 6.7 g/dl (6.4-8.2) 12/15/16 09:10 Albumin 3.2 g/dL (2.9-4.4) 12/15/16 09:10 Current Medications Generic Name Dose Route Start Last Admin Trade Name Freq PRN Reason Stop Dose Admin Amlodipine Besylate 5 mg 12/18/16 10:00 12/30/16 09:19 Norvasc - PO 5 mg DAILY MELANIA Administration Atorvastatin Calcium 20 mg 12/17/16 22:00 12/29/16 21:05 Lipitor - PO 20 mg HS MELANIA Administration Bacitracin 1 applic 12/18/16 10:00 12/30/16 09:15 Bacitracin - TP Not Given DAILY [facility] Docusate Sodium 100 mg 12/18/16 17:02 12/30/16 06:04 Colace - PO 100 mg BID PRN Administration CONSTIPATION Glipizide 10 mg 12/18/16 07:00 12/30/16 06:03 Glucotrol Xl - PO 10 mg DAILY@0700 MELANIA Administration Levetiracetam 1,000 mg 12/17/16 22:00 12/30/16 09:19 Keppra - PO 1,000 mg BID MELANIA Administration Lisinopril 10 mg 12/18/16 10:00 12/30/16 09:19 Prinivil PO 10 mg DAILY MELANIA Administration Valproic Acid 500 mg 12/23/16 11:42 12/30/16 06:04 Depakene - PO 500 mg TID MELANIA Administration Laboratory Tests 12/02/16 12/03/16 12/03/16 07:00 06:00 21:53 INR 1.18 H 1.45 H 1.41 H PTT (Actin FS) 12/04/16 12/05/16 12/06/16 06:00 07:31 11:00 INR 1.43 H 1.46 H 1.56 H PTT (Actin FS) 12/07/16 12/07/16 12/08/16 07:05 07:05 06:00 INR 1.64 H 1.68 H PTT (Actin FS) 57.1 H D 12/27/16 12/28/16 12/29/16 06:00 06:00 07:20 INR 1.97 H 2.09 H 1.98 H PTT (Actin FS) 12/30/16 06:00 INR 2.09 H PTT (Actin FS) ASSESSMENT AND PLAN: 56 y/o gentleman with h/o HTN, DM , HLP, newly diagnosed with seizure and occipital stroke last admission , who presented with L LE pain and edema . # Acute LLE DVT: s/p thrombectomy with synagogue of DP pulse. s/p IVC filter ; INR 2.09 today , will discharge him on 30mg coumadin today Patient will follow with coumadin clinic.phone# [phone] # Recent diagnosis of Seizure disorder due to having an stroke on Keppra 1000 BID ,added valproic acid in place of dilantin # Recent diagnosis of a stroke : on coumadin . lipitor continue # Anemia : s/p transfusion. # DM: SSI , cont glipizide # HTN: cont norvasc and lisinopril Patient is given the address and the phone # of the clinic.
--- NOTE | 2016-12-30 09:38 | DS ---
Physical Exam: SUBJECTIVE: Patient seen and examined, EMR consulted. No acute events overnight, pt has no complaints. He denies SOB, chest pain, or any other symptom. OBJECTIVE: Vital Signs Period Temp Pulse Resp BP Sys/Navarrete Pulse Ox Last 24 Hr 97.8 F-98.7 F 76-84 20-20 107-111/58-79 PHYSICAL EXAM GENERAL: The patient is awake, alert, and fully oriented, in no acute distress. HEAD: Normal with no signs of trauma. EYES: PERRL, extraocular movements intact, sclera anicteric, conjunctiva clear. ENT: Ears normal, nares patent, oropharynx clear without exudates, moist mucous membranes. NECK: Trachea midline, full range of motion, supple. LUNGS: Breath sounds equal, clear to auscultation bilaterally, no wheezes, no crackles, no accessory muscle use. HEART: Regular rate and rhythm, S1, S2 without murmur, rub or gallop. ABDOMEN: Soft, nontender, nondistended, normoactive bowel sounds, no guarding, no rebound, no hepatosplenomegaly, no masses. EXTREMITIES: 2+ LLE edema, 1+ RLE edema, non-tender to palpation in both legs, warm to touch NEUROLOGICAL: Cranial nerves II through XII grossly intact. Normal speech, gait not observed. PSYCH: Normal mood, normal affect. SKIN: Warm, dry, normal turgor, no rashes or lesions noted. LABS Laboratory Results - last 24 hr 12/30/16 06:00 INR 2.09 H INR, PTT INR 2.09 (0.82-1.09) H 12/30/16 06:00 PTT Baseline 40.4 sec (.) H 12/17/16 07:30 CBC, BMP 12/28/16 05:40 12/28/16 05:40 HOSPITAL COURSE: Mr. Ace is a 56 year old man with a history of HTN, type 2 DM, hyperlipidemia , CVA, and seizure disorder who presented to the ER with left leg pain and swelling. He was was found to have DVT in his left leg, was started on heparin on 11/30, underwent thrombectomy on 12/02, started being bridged to coumadin on 12/02 but was shown to have coumadin resistance. Higher doses of coumadin were consistently given, and the pt received an IVC filter 12/17. The pt finally became therapeutic on 30mg of coumadin on 12/28, and heparin was discontinued. His INR dropped just below 2 on 12/29, was given another dose of 30mg of coumadin , and became therapeutic again on 12/30. On 12/30, pt is stable with normal vital signs and without any complaints, and he is ready for discharge. He has an appointment at the [facility] coumadin clinic in 2 days, was referred to a PCP and hem/onc, and was prescribed a 15 day supply of 30mg of coumadin. Date of Admission:11/29/16 Date of Discharge: 12/30/16 Minutes to complete discharge: 37 Discharge Summary Reason For Visit: LEFT LEG SWELLING (DVT) Current Active Problems MALOU (acute kidney injury) (Acute) Coumadin resistance (Acute) DVT (deep venous thrombosis) (Acute) Hypertension associated with diabetes (Acute) Left leg swelling (Acute) Microcytic anemia (Acute) TIA (transient ischemic attack) (Acute) Condition: Improved - Instructions Diet, Activity, Other Instructions: RECOMMENDATIONS: - In order to prevent another clot in your legs: - Walk around as much as possible, to help your legs - Keep your legs elevated when they feel heavy - You can wear compression stockings - Do not smoke, as it will cause you to have more clots - In order to keep your Coumadin/Warfarin working: - Make sure to discuss your diet with your healthcare provider - If you suddenly eat foods high in Vitamin K (leafy greens, avocado, asparagus), it can change your INR - Before starting new medications, talk to your doctor, it can interact with Coumadin - Continue to take seizure precautions - Avoid swimming, driving, climbing heights until you are cleared by your neurologist NEW MEDICATIONS: - Your new dose of Coumadin is 30mg everynight aT 6 PM - We changed your Amlodipine daily from 10mg --> 5mg - We changed your seizure medications, do not take Dilantin anymore - Continue taking Keppra 1,000 two times a day - Your new med is Depakene 500mg three times a day - Please take your seizure medications regularly, it is dangerous if you skip a dose FOLLOWUP: - You need to followup with [facility] - The date of your appointment is THIS Wednesday01/01/2017 AT 9:30AM LOCATED AT [address] [place] [address] 4th [address] Phone number [phone] - Please call to schedule a followup Appointment - Follow with Dr. Campo, your neurologist, in 2 week for your seizures Referrals: Brice Durbin MD [Staff Physician] - 1 Week (follow up if you weould like this doctor for primary care ) Sunny Campo DO [Staff Physician] - 2 Weeks Sara Lee MD [Staff Physician] - 1 Week Jose Shaikh MD [Staff Physician] - 1 Week (for IVC filter evaluation ) Alhaji Mccall MD [Staff Physician] - Disposition: HOME - Home Medications Comprehensive Discharge Medication List: Ambulatory Orders Bacitracin - [Bacitracin Topical Ointment -] 1 applic TP DAILY #1 tube 11/25/16 Levetiracetam [Keppra -] 1,000 mg PO BID #60 tablet 11/25/16 Lisinopril [Prinivil] 10 mg PO DAILY@1200 #30 tablet 11/25/16 Aspirin [ASA -] 81 mg PO DAILY #30 tab 11/26/16 Glipizide [Glipizide ER] 10 mg PO DAILY #10 tab.er.24 11/26/16 Insulin Aspart [Novolog Flexpen] See Protocol SQ AC #1 insuln.pen 11/26/16 Metformin HCl [Glucophage -] 850 mg PO BID #60 tab 11/26/16 Simvastatin 40 mg PO DAILY #30 tab 11/26/16 Amlodipine Besylate [Norvasc -] 5 mg PO DAILY #30 tablet 12/18/16 Valproic Acid [Depakene] 500 mg PO TID #180 capsule 12/18/16 Problem List - Problems (1) Coumadin resistance Code(s): D68.9 - COAGULATION DEFECT, UNSPECIFIED Z79.01 - LONG-TERM (CURRENT) USE OF ANTICOAGULANTS (2) Microcytic anemia Code(s): D50.9 - IRON DEFICIENCY ANEMIA, UNSPECIFIED (3) MALOU (acute kidney injury) Code(s): N17.9 - ACUTE KIDNEY FAILURE, UNSPECIFIED (4) Hypertension associated with diabetes Code(s): E11.59 - TYPE 2 DIABETES MELLITUS WITH OTH CIRCULATORY COMPLICATIONS I10 - ESSENTIAL (PRIMARY) HYPERTENSION This patient is new to me today: No Emergency Visit: Yes ED Registration Date: 11/29/16 Care time: The patient presented to the Emergency Department on the above date and was hospitalized for further evaluation of their emergent condition. Critical Care patient: No - Discharge Referral Referred to [facility] No Physician Referral: Larry Morales MD ([facility])
== END 2016-12-30 11:36 | disposition home or self-care (01) | DRG 710 ==
LOC: SUPCPDRO 03:09 → JER 03:09 → JERBED 06:03 → J6S 09:17
PROVIDERS: ADMIT Internal Medicine; ATTEND Internal Medicine
PROC: 06CN3ZZ Extirpation of Matter from Left Femoral Vein, Percutaneous Approach (ICD-10-PCS; 2016-12-02)
PROC: B50CYZZ Plain Radiography of Left Lower Extremity Veins using Other Contrast (ICD-10-PCS; 2016-12-02)
PROC: 30233N1 Transfusion of Nonautologous Red Blood Cells into Peripheral Vein, Percutaneous Approach (ICD-10-PCS; 2016-12-05)
PROC: 06H03DZ Insertion of Intraluminal Device into Inferior Vena Cava, Percutaneous Approach (ICD-10-PCS; principal; 2016-12-17 12:30)
DX: A41.9 Sepsis, unspecified organism (principal); I82.412 Acute embolism and thrombosis of left femoral vein; N17.9 Acute kidney failure, unspecified; E87.2 Acidosis; I82.432 Acute embolism and thrombosis of left popliteal vein; I82.442 Acute embolism and thrombosis of left tibial vein; E11.65 Type 2 diabetes mellitus with hyperglycemia; J44.9 Chronic obstructive pulmonary disease, unspecified; E87.1 Hypo-osmolality and hyponatremia; R65.20 Severe sepsis without septic shock; I10 Essential (primary) hypertension; I44.4 Left anterior fascicular block; G40.909 Epilepsy, unspecified, not intractable, without status epilepticus; Z79.4 Long term (current) use of insulin; E78.5 Hyperlipidemia, unspecified; R50.82 Postprocedural fever; N39.0 Urinary tract infection, site not specified; D64.9 Anemia, unspecified; K59.00 Constipation, unspecified; D63.8 Anemia in other chronic diseases classified elsewhere; Z86.73 Personal history of transient ischemic attack (TIA), and cerebral infarction without residual deficits; R79.1 Abnormal coagulation profile; Z87.891 Personal history of nicotine dependence
CPT/HCPCS: 36415; 36430; 71010-TC; 76000-TC; 76775-TC; 80048; 80053; 80164; 80185; 81003; 81015; 82272; 82436; 82570; 82607; 82728; 82746; 82784; 83010; 83540; 83550; 83605; 83615; 84133; 84155; 84165; 84300; 84443; 84540; 85025; 85027; 85044; 85379; 85597; 85610; 85730; 86146; 86147; 86334; 86850; 86900; 86901; 86922; 87040; 87086; 88300-TC; 93005; 93010; 93971-TC; 94760; 97116-GP; 97161-GP; 99284-25; J1644; P9038; P9058

== ENCOUNTER 2018-07-15 08:54 | Inpatient (IN) | payer OTHER ==
--- NOTE | 2018-07-15 09:44 | PDOC ---
History of Present Illness - General Chief Complaint: Weakness Stated Complaint: LT SIDE WEAKNESS,DIZZINESS Time Seen by Provider: 07/15/18 09:01 - History of Present Illness Initial Comments: The pt is a 57M w/ a history of DVT (IVC filter), DM, HTN, HLD who hasn't taken his medications for the last 4 months who presents for evaluation of 30min of LUE/LLE tingling. He denies changes in vision, dizziness, LOC, or falling. Pt denies trouble speaking or noticing facial droop at home. Per EMS pt was initially having LUE hook loader < RUE hook loader which has since improved. Denies recent illness, fevers, chest pain, trouble breathing, abdominal pain, N/ V/C/D, dysuria, or hematuria 07/15/18 09:39 NIH Stroke Scale - Last Known Well Date/Time & Onset Date Last Known Well: 07/15/18 Time Last Known Well: 08:30 - Initial Evaluation Level of consciousness: Alert Ask patient the month and their age: Answers both correctly Ask patient to open & close eyes; make fist and let go: Obeys both correctly Best gaze (horizontal eye movement): Normal Visual field testing: No visual field loss Facial paresis (Show teeth/raise eyebrows/close eyes tight): Normal symmetrical movement Motor Function: Left Arm: Normal Motor Function: Right Arm: Normal (extends arm 90 (or 45) degrees for 10 seconds without drift Motor Function: Left Leg: Normal (extends leg 30 degrees for 5 seconds without drift) Motor Function: Right Leg: Normal (extends leg 30 degrees for 5 seconds without drift) Limb Ataxia: No ataxia Sensory(Use pinprick test arms,legs,trunk,face/side to side): Normal Best language (Describe picture, name items, read sentences): No Aphasia Dysarthria (read several words): Normal articulation Extinction and Inattention: No abnormality - Total Score NIH Stroke Scale Score: 0 Past History - Past Medical History Allergies/Adverse Reactions: Allergies Allergy/AdvReac Type Severity Reaction Status Date / Time No Known Allergies Allergy Verified 11/20/16 01:29 Home Medications: Ambulatory Orders Amlodipine Besylate [Norvasc -] 5 mg PO DAILY #30 tablet 12/30/16 Atorvastatin Ca [Lipitor] 20 mg PO HS #30 tablet 12/30/16 Docusate Sodium [Colace -] 100 mg PO BID PRN #30 cap 12/30/16 Glipizide [Glipizide ER] 10 mg PO DAILY #30 tab.er.24 12/30/16 Lisinopril [Prinivil] 10 mg PO DAILY@1200 #30 tablet 12/30/16 Warfarin Sodium 30 mg PO DAILY #45 tablet 12/30/16 levETIRAcetam [Keppra -] 1,000 mg PO BID #60 tablet 12/30/16 Anemia: No Asthma: No Cancer: No Cardiac Disorders: No CVA: No COPD: No CHF: No Dementia: No Diabetes: Yes GI Disorders: No Disorders: No HTN: Yes Hypercholesterolemia: Yes Liver Disease: No Seizures: Yes Thyroid Disease: No - Surgical History Abdominal Surgery: No Appendectomy: No Cardiac Surgery: No Cholecystectomy: No Lung Surgery: No Neurologic Surgery: No Orthopedic Surgery: No - Suicide/Smoking/Psychosocial Hx Smoking History: Current every day smoker Have you smoked in the past 12 months: Yes Number of Cigarettes Smoked Daily: 10 Information on smoking cessation initiated: No 'Breaking Loose' booklet given: 11/20/16 Hx Alcohol Use: No Drug/Substance Use Hx: No Substance Use Type: None Review of Systems - Review of Systems Able to Perform ROS?: Yes Comments:: GENERAL/CONSTITUTIONAL: No fever or chills. No weakness HEAD, EYES, EARS, NOSE AND THROAT: No change in vision or hearing. No sore throat CARDIOVASCULAR: No chest pain or shortness of breath RESPIRATORY: Denies cough, hemoptysis GASTROINTESTINAL: No nausea, vomiting, diarrhea or constipation GENITOURINARY: No dysuria, frequency, or change in urination MUSCULOSKELETAL: No joint or muscle swelling or pain. No neck or back pain SKIN: No rash ENDOCRINE: No increased thirst. No abnormal weight change HEMATOLOGIC/LYMPHATIC: No anemia, easy bleeding, or history of blood clots ALLERGIC/IMMUNOLOGIC: No hives or skin allergy 07/15/18 10:12 Is the patient limited Swedish proficient: No *Physical Exam - Vital Signs Last Vital Signs Temp Pulse Resp BP Pulse Ox 97.8 F 92 H 18 137/99 99 07/15/18 08:57 07/15/18 08:57 07/15/18 08:57 07/15/18 08:57 07/15/18 08:57 - Physical Exam Comments: GENERAL: Awake, alert, and oriented to person/place/time, in no acute distress HEAD: No signs of trauma, normocephalic, atraumatic EYES: PERRLA, EOMI, sclera anicteric, conjunctiva clear ENT: Hearing grossly normal, nares patent, oropharynx clear without exudates. Moist mucosa LUNGS: No distress, speaks full sentences, clear to auscultation bilaterally HEART: Regular rate and rhythm, normal S1 and S2, no murmurs appreciated, peripheral pulses normal and equal bilaterally ABDOMEN: Soft, nontender, normoactive bowel sounds. No guarding, no rebound EXTREMITIES: Normal inspection, Normal range of motion, no edema NEUROLOGICAL: Cranial nerves II through XII grossly intact. Normal speech, strength equal in upper and lower extremities b/l; sensation equal b/l SKIN: Warm, Dry 07/15/18 10:12 Moderate Sedation - Procedure Monitoring Vital Signs: Procedure Monitoring Vital Signs Temperature 97.8 F 07/15/18 08:57 Pulse Rate 92 H 07/15/18 08:57 Respiratory Rate 18 07/15/18 08:57 Blood Pressure 137/99 07/15/18 08:57 O2 Sat by Pulse Oximetry (%) 99 07/15/18 08:57 ED Treatment Course - LABORATORY CBC & Chemistry Diagram: 07/16/18 06:35 07/16/18 12:46 - RADIOLOGY Radiology Studies Ordered: Category Date Time Status HEAD CT WITHOUT CONTRAST [CT] Stat CT Scan 07/15/18 09:06 Ordered CHEST X-RAY PORTABLE* [RAD] Stat Radiology 07/15/18 09:06 Ordered Medical Decision Making - Medical Decision Making The pt is a 57M w/ a history of DM, DVT, and HTN who has been non-compliant with his medications for 4 months to presents for evaluation of LUE/LLE tingling this morning and initial reported L hook loader weakness which resolved at time to ED presentation concerning for TIA/stroke ED Course Labs sent CT Head ECG CXR Lytes wnl No MALOU Hyperglycemia No AG LFTs wnl Trop I neg Insulin 5u SQ once for hyperglycemia CT head w/o acute pathology Neurology consulted, will give ASA and statin Plan for admission for stroke *DC/Admit/Observation/Transfer Diagnosis at time of Disposition: TIA (transient ischemic attack) - Discharge Dispostion Condition at time of disposition: Fair Decision to Admit order: Yes - Referrals - Patient Instructions - Post Discharge Activity
[2018-07-15 09:51] LABS: BASO % 0.7 % (0-2.0); EOS % 2.4 % (0-4.5); HEMATOCRIT 40.8 % (35.4-49); HEMOGLOBIN 13.3 GM/dL (11.7-16.9); LYMPH % 29.9 % (8-40); MCH 23.7 pg (25.7-33.7); MCHC 32.7 g/dl (32.0-35.9); MEAN CELL VOLUME 72.5 fl (80-96); MEAN PLT VOLUME 8.9 fl (7.5-11.1); MONO % 7.5 % (3.8-10.2); NEUT % 59.5 % (42.8-82.8); PLATELET COUNT 238 K/MM3 (134-434); RBC 5.62 M/mm3 (4.00-5.60); RDW 13.2 % (11.9-15.9); WHITE BLOOD COUNT 7.4 K/mm3 (4.0-10.0)
[2018-07-15 10:31] LABS: INR 1.04 (0.83-1.09); PROTHROMBIN TIME (PATIENT) 12.3 SEC (9.7-13.0)
[2018-07-15 10:34] LABS: ACTIVATED PTT 26.5 SECONDS (25.2-36.5)
--- NOTE | 2018-07-15 10:47 | PDOC ---
Attending Attestation - Resident Resident Name: Roberto Emanuel - ED Attending Attestation I have performed the following: I have examined & evaluated the patient, The case was reviewed & discussed with the resident, I agree w/resident's findings & plan, Exceptions are as noted - HPI HPI: 07/15/18 10:43 57 M with h/o DVT (IVC filter) on coumadin, DM, HTN, HLD, presenting to ED with L sided tingling and weakness. Pt states that onset occurred about 30 minutes prior to arrival. Denies any symptoms when he woke up today. Pt states that he feels "pins and needles" in his L arm and leg. Denies slurred speech. Denies headache. Denies dizziness. Per EMS, pt was found to have diminished strength in L hand, but this has since resolved. Pt denies any weakness at this time but endorses persistent tingling sensation. Pt admits that he has been non-complliant with all of his meds for 4 months, including his coumadin. - Physicial Exam PE: 07/15/18 10:45 "GENERAL: Awake, alert, and fully oriented, in no acute distress. HEAD: No signs of trauma EYES: PERRLA, EOMI, sclera anicteric, conjunctiva clear ENT: Auricles normal inspection, hearing grossly normal, nares patent, oropharynx clear without exudates. Moist mucosa NECK: Nontender, no stepoffs, Normal ROM, supple, no lymphadenopathy, JVD, or masses LUNGS: Breath sounds equal, clear to auscultation bilaterally. No wheezes, and no crackles HEART: Regular rate and rhythm, normal S1 and S2, no murmurs, rubs or gallops ABDOMEN: Soft, nontender, normoactive bowel sounds. No guarding, no rebound. No masses EXTREMITIES: Normal range of motion, no edema. No clubbing or cyanosis. No cords, erythema, or tenderness NEUROLOGICAL: Cranial nerves II through XII intact. 5/5 strength and sensation in all extremities, Normal speech, normal gait, normal cerebellar function SKIN: Warm, Dry, normal turgor, no rashes or lesions noted. - Critical Care Time Total Critical Care Time: 60 Critical Care Statement: The care of this patient involved high complexity decision making to prevent further life threatening deterioration of the patient 's condition and/or to evaluate & treat vital organ system(s) failure or risk of failure. - Medical Decision Making 07/15/18 10:45 57 M with L side paresthesias. Was initially found to have weak lease picker strength on L side by EMS, but now with no neuro deficits in ED. Possible TIA. Pt with several CV risk factors. NIHSS 0 at this time, no indication for tPA. - Labs - CT head - neuro c/s NIH Stroke Scale - Last Known Well Date/Time & Onset Date Last Known Well: 07/15/18 Time Last Known Well: 08:30 - Initial Evaluation Level of consciousness: Alert Ask patient the month and their age: Answers both correctly Ask patient to open & close eyes; make fist and let go: Obeys both correctly Best gaze (horizontal eye movement): Normal Visual field testing: No visual field loss Facial paresis (Show teeth/raise eyebrows/close eyes tight): Normal symmetrical movement Motor Function: Left Arm: Normal Motor Function: Right Arm: Normal (extends arm 90 (or 45) degrees for 10 seconds without drift Motor Function: Left Leg: Normal (extends leg 30 degrees for 5 seconds without drift) Motor Function: Right Leg: Normal (extends leg 30 degrees for 5 seconds without drift) Limb Ataxia: No ataxia Sensory(Use pinprick test arms,legs,trunk,face/side to side): Normal Best language (Describe picture, name items, read sentences): No Aphasia Dysarthria (read several words): Normal articulation Extinction and Inattention: No abnormality - Total Score NIH Stroke Scale Score: 0
[2018-07-15 10:53] LABS: ALBUMIN 3.9 g/dl (3.4-5.0); ALK PHOS 93 U/L (45-117); ANION GAP 11 MMOL/L (8-16); BILIRUBIN,TOTAL 0.5 mg/dL (0.2-1); BLOOD UREA NITROGEN 19 mg/dL (7-18); CALCIUM 8.4 mg/dL (8.5-10.1); CHLORIDE 101 mmol/L (98-107); CO2 23 mmol/L (21-32); CREATININE 1.3 mg/dL (0.55-1.3); POTASSIUM 4.3 mmol/L (3.5-5.1); SGOT/AST 20 U/L (15-37); SGPT/ALT 22 U/L (13-61); SODIUM 135 mmol/L (136-145); TOT PROT 7.8 g/dl (6.4-8.2)
[2018-07-15 10:54] LABS: GLUCOSE,RANDOM 381 mg/dL (74-106)
[2018-07-15] MEDS ORDERED: SODIUM CHLORIDE 0.9% 500 ML INFUS.BAG IV ONE (11:18)
[2018-07-15] MEDS ORDERED: ASPIRIN 325 MG TABLET PO ONE (12:59)
[2018-07-15] MEDS ORDERED: ATORVASTATIN CA 20 MG TABLET (FP) PO ONE (12:59)
[2018-07-15] MEDS ORDERED: ATORVASTATIN CA 80 MG TABLET (FP) PO ONE (13:02)
[2018-07-15] MEDS ORDERED: ASPIRIN 325 MG TABLET ONE (13:23)
[2018-07-15] MEDS ORDERED: INSULIN REGULAR HUMAN 100 UNITS/ML *VIAL SQ ONE (15:23)
[2018-07-15] MEDS ORDERED: INSULIN REGULAR HUMAN 100 UNITS/ML *VIAL ONE (15:37)
--- NOTE | 2018-07-15 16:01 | PN ---
Teaching Attending Note Name of Resident: Abhay Marroquin ATTENDING PHYSICIAN STATEMENT I saw and evaluated the patient. I reviewed the resident's note and discussed the case with the resident. I agree with the resident's findings and plan as documented. SUBJECTIVE: Patient is a 57yo male with PMHx of DVT (IVC filter) , was on coumadin on his last discharge , DM, HTN, HLD, presenting to ED with L sided tingling and weakness. Patient has no fever or chills, no shortness of breath. OBJECTIVE: Vital Signs Temperature 98.4 F 07/15/18 15:43 Pulse Rate 84 07/15/18 15:43 Respiratory Rate 18 07/15/18 15:43 Blood Pressure 142/81 07/15/18 15:43 O2 Sat by Pulse Oximetry (%) 100 07/15/18 15:43 GENERAL: Awake, alert, and fully oriented, in no acute distress. HEAD: No signs of trauma EYES: PERRLA, EOMI, sclera anicteric, conjunctiva clear ENT: hearing grossly normal, oropharynx clear without exudates. Moist mucosa NECK: Nontender, Normal ROM, supple, no lymphadenopathy, JVD, or masses LUNGS: Breath sounds equal, clear to auscultation bilaterally. No wheezes, and no crackles HEART: Regular rate and rhythm, normal S1 and S2, no murmurs, rubs or gallops ABDOMEN: Soft, nontender, normoactive bowel sounds. No guarding, no rebound. No masses EXTREMITIES: Normal range of motion, no edema. No clubbing or cyanosis. No, erythema, or tenderness NEUROLOGICAL: Cranial nerves II through XII intact. SKIN: Warm, Dry, normal turgor, no rashes or lesions noted. CBCD WBC 7.4 K/mm3 (4.0-10.0) 07/15/18 09:25 RBC 5.62 M/mm3 (4.00-5.60) H 07/15/18 09:25 Hgb 13.3 GM/dL (11.7-16.9) 07/15/18 09:25 Hct 40.8 % (35.4-49) D 07/15/18 09:25 MCV 72.5 fl (80-96) L 07/15/18 09:25 MCHC 32.7 g/dl (32.0-35.9) 07/15/18 09:25 RDW 13.2 % (11.9-15.9) D 07/15/18 09:25 Plt Count 238 K/MM3 (134-434) 07/15/18 09:25 MPV 8.9 fl (7.5-11.1) 07/15/18 09:25 CMP Sodium 135 mmol/L (136-145) L 07/15/18 09:25 Potassium 4.3 mmol/L (3.5-5.1) 07/15/18 09:25 Chloride 101 mmol/L (98-107) 07/15/18 09:25 Carbon Dioxide 23 mmol/L (21-32) 07/15/18 09:25 Anion Gap 11 MMOL/L (8-16) 07/15/18 09:25 BUN 19 mg/dL (7-18) H 07/15/18 09:25 Creatinine 1.3 mg/dL (0.55-1.3) 07/15/18 09:25 Creat Clearance w eGFR 57.10 (>60) 07/15/18 09:25 Random Glucose 381 mg/dL (74-106) H* 07/15/18 09:25 Calcium 8.4 mg/dL (8.5-10.1) L 07/15/18 09:25 Total Bilirubin 0.5 mg/dL (0.2-1) 07/15/18 09:25 AST 20 U/L (15-37) 07/15/18 09:25 ALT 22 U/L (13-61) 07/15/18 09:25 Alkaline Phosphatase 93 U/L (45-117) 07/15/18 09:25 Total Protein 7.8 g/dl (6.4-8.2) 07/15/18 09:25 Albumin 3.9 g/dl (3.4-5.0) 07/15/18 09:25 CARDIAC ENZYMES Creatine Kinase 312 U/L (26-308) H 07/15/18 09:25 Troponin I < 0.02 ng/ml (0.00-0.05) 07/15/18 09:25 Home Medications Medication Instructions Recorded Amlodipine Besylate [Norvasc -] 5 mg PO DAILY #30 tablet 12/30/16 Atorvastatin Ca [Lipitor] 20 mg PO HS #30 tablet 12/30/16 Docusate Sodium [Colace -] 100 mg PO BID PRN #30 cap 12/30/16 Glipizide [Glipizide ER] 10 mg PO DAILY #30 tab.er.24 12/30/16 Lisinopril [Prinivil] 10 mg PO DAILY@1200 #30 tablet 12/30/16 Warfarin Sodium 30 mg PO DAILY #45 tablet 12/30/16 levETIRAcetam [Keppra -] 1,000 mg PO BID #60 tablet 12/30/16 Current Medications Generic Name Dose Route Start Last Admin Trade Name Freq PRN Reason Stop Dose Admin Amlodipine Besylate 5 mg 07/16/18 10:00 Norvasc - PO DAILY [facility] Atorvastatin Calcium 40 mg 07/15/18 22:00 Lipitor - PO HS [facility] Docusate Sodium 100 mg 07/15/18 16:25 Colace - PO BID PRN CONSTIPATION Heparin Sodium (Porcine) 5,000 unit 07/15/18 22:00 Heparin - SQ TID [facility] Insulin Aspart 1 vial 07/15/18 16:30 07/15/18 16:53 Novolog Vial Sliding Scale - SQ Not Given ACHS [facility] Protocol Levetiracetam 1,000 mg 07/15/18 22:00 Keppra - PO BID [facility] Lisinopril 10 mg 07/16/18 12:00 Prinivil PO DAILY@1200 [facility] ASSESSMENT AND PLAN: Patient is a 56 y/o male with Pmhx of HTN, DM , HLP, seizure and occipital stroke ,who presented c/o feeling weak and has not been taking his medications for the past 3 months. #Hx of stroke with vision changes, presents with TIA with numbness and tingling : ct of the head is negative for bleed. ordered MRI of the brain. # Hx of LLE DVT: s/p suction thrombectomy of femoral vein and iliac vein regained pulses of LLE,as per patient stopped taking AC. As per previous admission patient needs life long ac. Ct of the head no bleed. will restart lovenox 120mg sq bid, duplex of le r/o dvt. Patient is non compliant with his meds, stopped taking his meds 3 months ago. # Seizure disorder On Phenytoin and Keppra continue . # T2DM: SSI with coverage . # MALOU : likely due to sepsis , newly start ACEI, and possible prerenal component # Hx of Hyperlipidemia #Hypertension continue home meds. DVt px: lovenox
[2018-07-15] MEDS ORDERED: DOCUSATE SODIUM 100 MG CAPSULE (FP) PO PRN (16:25)
[2018-07-15] MEDS: INSULIN SLIDING SCALE (NOVOLOG) 1 VIAL SQ SCH ×2 (16:53→22:12)
--- NOTE | 2018-07-15 17:13 | HP ---
CHIEF COMPLAINT: PCP: HISTORY OF PRESENT ILLNESS: 57 M with h/o DVT (IVC filter) on coumadin, DM, HTN, HLD, presenting to ED with L sided tingling and weakness. Pt states that onset occurred about 30 minutes prior to arrival. Denies any symptoms when he woke up today. Pt states that he feels "pins and needles" in his L arm and leg. Denies slurred speech. Denies headache. Denies dizziness.He admits that he has been non-complliant with all of his meds for 4 months, including his coumadin.Denies CP,HUNG, SOB, abdominal pain, nausea or vomiting. ER course was notable for: (1)CT head was negative for acute bleed. (2)BG was 381 on admission (3)neurology consulted. Recent Travel:denies PAST MEDICAL HISTORY: DVT (IVC filter) on coumadin, DM, HTN, HLD PAST SURGICAL HISTORY: Social History: Smoking: current daily smoker 10 cigs/day Alcohol:denies Drugs: denies Family History: Father and mother [place] in their 80's Allergies No Known Allergies Allergy (Verified 11/20/16 01:29) HOME MEDICATIONS: Home Medications Medication Instructions Recorded Amlodipine Besylate [Norvasc -] 5 mg PO DAILY #30 tablet 12/30/16 Atorvastatin Ca [Lipitor] 20 mg PO HS #30 tablet 12/30/16 Docusate Sodium [Colace -] 100 mg PO BID PRN #30 cap 12/30/16 Glipizide [Glipizide ER] 10 mg PO DAILY #30 tab.er.24 12/30/16 Lisinopril [Prinivil] 10 mg PO DAILY@1200 #30 tablet 12/30/16 Warfarin Sodium 30 mg PO DAILY #45 tablet 12/30/16 levETIRAcetam [Keppra -] 1,000 mg PO BID #60 tablet 12/30/16 REVIEW OF SYSTEMS CONSTITUTIONAL: Absent: fever, chills, diaphoresis, generalized weakness, malaise, loss of appetite, weight change HEENT: Absent: rhinorrhea, nasal congestion, throat pain, throat swelling, difficulty swallowing, mouth swelling, ear pain, eye pain, visual changes CARDIOVASCULAR: Absent: chest pain, syncope, palpitations, irregular heart rate, lightheadedness , peripheral edema RESPIRATORY: Absent: cough, shortness of breath, dyspnea with exertion, orthopnea, wheezing, stridor, hemoptysis GASTROINTESTINAL: Absent: abdominal pain, abdominal distension, nausea, vomiting, diarrhea, constipation, melena, hematochezia GENITOURINARY: Absent: dysuria, frequency, urgency, hesitancy, hematuria, flank pain, genital pain MUSCULOSKELETAL: Absent: myalgia, arthralgia, joint swelling, back pain, neck pain SKIN: Absent: rash, itching, pallor HEMATOLOGIC/IMMUNOLOGIC: Absent: easy bleeding, easy bruising, lymphadenopathy, frequent infections ENDOCRINE: Absent: unexplained weight gain, unexplained weight loss, heat intolerance, cold intolerance NEUROLOGIC: focal weakness or paresthesias Absent: headache, , dizziness, unsteady gait, seizure, mental status changes, bladder or bowel incontinence PSYCHIATRIC: Absent: anxiety, depression, suicidal or homicidal ideation, hallucinations. PHYSICAL EXAMINATION Vital Signs - 24 hr 07/15/18 07/15/18 07/15/18 08:57 12:49 15:43 Temperature 97.8 F 97.5 F L 98.4 F Pulse Rate 92 H Pulse Rate [ 82 84 Right Radial] Respiratory 18 18 18 Rate Blood Pressure 137/99 Blood Pressure 139/81 142/81 [Left Arm] O2 Sat by Pulse 99 100 100 Oximetry (%) GENERAL: AAOx3, NAD HEAD: NCAT EYES: PERRLA,EOMI sclera anicteric, conjunctiva clear. No lid lag. EARS, NOSE, THROAT: Moist mucous membranes. NECK:supple without lymphadenopathy, JVD, or masses. LUNGS: CTAB. No wheezes, and no crackles. No accessory muscle use. HEART: RRR, normal S1 and S2 without murmur, rub or gallop. ABDOMEN: Soft,obese, NTND, NABS, no guarding, no rebound, no masses. No hepatomegaly or splenomegaly. MUSCULOSKELETAL: Normal range of motion at all joints. No bony deformities or tenderness. No CVA tenderness. LOWER EXTREMITIES: 2+ pulses, warm, well-perfused. No calf tenderness. No peripheral edema. NEUROLOGICAL: Cranial nerves II-XII intact. Normal speech. PSYCHIATRIC: Cooperative. Good eye contact. Appropriate mood and affect. SKIN: Warm, dry, normal turgor, no rashes or lesions noted, normal capillary refill. Laboratory Results - last 24 hr 07/15/18 07/15/18 07/15/18 09:25 09:25 09:25 WBC 7.4 RBC 5.62 H Hgb 13.3 Hct 40.8 D MCV 72.5 L MCH 23.7 L MCHC 32.7 RDW 13.2 D Plt Count 238 MPV 8.9 Absolute Neuts (auto) 4.4 Neutrophils % 59.5 D Lymphocytes % 29.9 D Monocytes % 7.5 Eosinophils % 2.4 Basophils % 0.7 Nucleated RBC % 0 PT with INR 12.30 INR 1.04 PTT (Actin FS) 26.5 Sodium 135 L Potassium 4.3 Chloride 101 Carbon Dioxide 23 Anion Gap 11 BUN 19 H Creatinine 1.3 Creat Clearance w eGFR 57.10 POC Glucometer Random Glucose 381 H* Calcium 8.4 L Total Bilirubin 0.5 AST 20 ALT 22 Alkaline Phosphatase 93 Creatine Kinase 312 H Creatine Kinase Index 0.3 CK-MB (CK-2) < 1.0 Troponin I < 0.02 Total Protein 7.8 Albumin 3.9 07/15/18 07/15/18 13:02 16:49 WBC RBC Hgb Hct MCV MCH MCHC RDW Plt Count MPV Absolute Neuts (auto) Neutrophils % Lymphocytes % Monocytes % Eosinophils % Basophils % Nucleated RBC % PT with INR INR PTT (Actin FS) Sodium Potassium Chloride Carbon Dioxide Anion Gap BUN Creatinine Creat Clearance w eGFR POC Glucometer 370 341 Random Glucose Calcium Total Bilirubin AST ALT Alkaline Phosphatase Creatine Kinase Creatine Kinase Index CK-MB (CK-2) Troponin I Total Protein Albumin ASSESSMENT/PLAN: 57 M with h/o DVT (IVC filter) on coumadin, DM, HTN, HLD, presenting to ED with L sided tingling and weakness placed on observation for possible TIA. Problem List - Problem (1) TIA (transient ischemic attack) Assessment/Plan: * CT head was negative. * Neurology consulted * MRI? EEG? * continue statin and ASA (2) Diabetes type 2, uncontrolled Assessment/Plan: * poorly controlled * ADA diet * BGM ACHS * ISS ACHS * resume metformin (3) Hyperlipidemia Assessment/Plan: * resume statin (4) Hypertension Assessment/Plan: * resume Lisinopril and amlodipine (5) H/O deep venous thrombosis Assessment/Plan: * LE duplex was negative for DVT * questionable need to restart coumadin. (6) H/O idiopathic seizure Assessment/Plan: will restart Keppra 1000 BID (7) DVT prophylaxis Assessment/Plan: Lovenox 40mg SQ Visit type - Emergency Visit Emergency Visit: Yes ED Registration Date: 07/15/18 Care time: The patient presented to the Emergency Department on the above date and was hospitalized for further evaluation of their emergent condition. - New Patient This patient is new to me today: Yes Date on this admission: 07/16/18 - Critical Care Critical Care patient: No
--- NOTE | 2018-07-15 18:34 | CON.NEURO ---
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 No: Cancer, Constipation , GERD Renal/: No: Renal Failure, Cancer Endocrine: Yes: Diabetes Mellitus - Past Surgical History Past Surgical History: Yes: None - Alcohol/Substance Use Hx Alcohol Use: No - Smoking History Smoking history: Current every day smoker Have you smoked in the past 12 months: Yes Aproximately how many cigarettes per day: 10 - Social History Usual Living Arrangement: Other (Nephews) ADL: Independent Occupation: currently not working History of Recent Travel: No Home Medications - Allergies Allergies/Adverse Reactions: Allergies Allergy/AdvReac Type Severity Reaction Status Date / Time No Known Allergies Allergy Verified 11/20/16 01:29 - Home Medications Home Medications: Ambulatory Orders Amlodipine Besylate [Norvasc -] 5 mg PO DAILY #30 tablet 12/30/16 Atorvastatin Ca [Lipitor] 20 mg PO HS #30 tablet 12/30/16 Docusate Sodium [Colace -] 100 mg PO BID PRN #30 cap 12/30/16 Glipizide [Glipizide ER] 10 mg PO DAILY #30 tab.er.24 12/30/16 Lisinopril [Prinivil] 10 mg PO DAILY@1200 #30 tablet 12/30/16 Warfarin Sodium 30 mg PO DAILY #45 tablet 12/30/16 levETIRAcetam [Keppra -] 1,000 mg PO BID #60 tablet 12/30/16 Family Disease History - Family Disease History Family Disease History: Diabetes: Father ( , stroke), Other: Mother ( dementia- alive ), Sister ( of alcohol related issues) Physical Exam-Neuro Vital Signs: Vital Signs Temperature 98.4 F 07/15/18 15:43 Pulse Rate 84 07/15/18 15:43 Respiratory Rate 18 07/15/18 15:43 Blood Pressure 142/81 07/15/18 15:43 O2 Sat by Pulse Oximetry (%) 100 07/15/18 15:43 Labs: CBC, BMP 07/15/18 09:25 07/15/18 09:25 INR, PTT INR 1.04 (0.83-1.09) 07/15/18 09:25 Assessment/Plan cc Left sided numbness, difficulty focus and feeling dizzy HPI 57 year old male history of DVT was suppsose to be on Coumadin, also history of DM,HTN,HLD. As per records he also have stroke but patient denies. He was suppose to be on aspirin, statin and coumadin. But he was not taking any medicaiton for sometime. He denies any other focal neurological symptoms. He still have numbness, dizziness and lack of focus has improved. patient has ct head is normal. 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 PMH as above PSH,ROS,FH, reviewed in chart Allergies/Adverse Reactions: Allergies Allergy/AdvReac Type Severity Reaction Status Date / Time No Known Allergies Allergy Verified 11/20/16 01:29 Home Medications: Ambulatory Orders Amlodipine Besylate [Norvasc -] 5 mg PO DAILY #30 tablet 12/30/16 Atorvastatin Ca [Lipitor] 20 mg PO HS #30 tablet 12/30/16 Docusate Sodium [Colace -] 100 mg PO BID PRN #30 cap 12/30/16 Glipizide [Glipizide ER] 10 mg PO DAILY #30 tab.er.24 12/30/16 Lisinopril [Prinivil] 10 mg PO DAILY@1200 #30 tablet 12/30/16 Warfarin Sodium 30 mg PO DAILY #45 tablet 12/30/16 levETIRAcetam [Keppra -] 1,000 mg PO BID #60 tablet 12/30/16 NEUROLGOICAL EXAMINATION Alert oriented x 3, speech is normal eomi, pupils reactive, vf normal by confrontation, face symmetrical, no nystagmus seen muslce strength is 5/5 all ext sensation diminisehd to FT and pP diminished on left but inconsistent reflex are diminisehd ct head unremarkable Assessment 57 year old male history fo DM,HTN,HLD, ? STROKE AND ? seizure on keppra , statin, apsirin and statin. He stopped all medicaiton . Now patient symptms could be nonspecific due to stopping medicaiton vs tia Plan : suggest to resume medicaiton, and mri of brain and eeg can be obtained - carotid ultrasound ,cta of neck and brain was unremarkable, no need for vascular iamging - dvt prophylaxis , - will continue to follow up with primary Thanking you so much Joel Allen MD
[2018-07-15] MEDS ORDERED: ENOXAPARIN NA (PORCINE) 80 MG/0.8 ML DISP.SYRIN SQ SCH (18:45)
[2018-07-15] MEDS ORDERED: ENOXAPARIN NA (PORCINE) 120 MG/0.8 ML DISP.SYRIN SQ SCH (18:45)
[2018-07-15] MEDS ORDERED: ATORVASTATIN CA 20 MG TABLET (FP) PO SCH (22:00)
[2018-07-15] MEDS ORDERED: HEPARIN NA (PORCINE) 5,000 UNITS/ML 1ML VIAL SQ SCH (22:00)
[2018-07-15] MEDS ORDERED: ENOXAPARIN NA (PORCINE) 100 MG/1 ML DISP.SYRIN SQ ONE (22:08)
[2018-07-15] MEDS ORDERED: ENOXAPARIN NA (PORCINE) 40 MG/0.4 ML DISP.SYRIN SQ ONE (22:08)
[2018-07-15] MEDS: levETIRAcetam 500 MG TABLET (FP) PO SCH (22:13)
[2018-07-15] MEDS: ENOXAPARIN 100 MG, ENOXAPARIN 40 MG SQ SCH (22:13)
[2018-07-15] MEDS: ATORVASTATIN CA 40 MG TABLET (FP) PO SCH (22:13)
[2018-07-15 23:27] VITALS: BMI 42.0
[2018-07-16] MEDS ORDERED: ENOXAPARIN NA (PORCINE) 40 MG/0.4 ML DISP.SYRIN SQ ONE ×2 (06:17→16:02)
[2018-07-16] MEDS ORDERED: ENOXAPARIN NA (PORCINE) 100 MG/1 ML DISP.SYRIN SQ ONE ×2 (06:17→16:02)
[2018-07-16] MEDS: ENOXAPARIN 100 MG, ENOXAPARIN 40 MG SQ SCH ×2 (06:23→18:04)
[2018-07-16] MEDS: INSULIN SLIDING SCALE (NOVOLOG) 1 VIAL SQ SCH ×4 (06:29→21:48)
[2018-07-16 07:15] LABS: BASO % 0.3 % (0-2.0); EOS % 0.6 % (0-4.5); HEMATOCRIT 37.3 % (35.4-49); HEMOGLOBIN 12.1 GM/dL (11.7-16.9); LYMPH % 28.2 % (8-40); MCH 23.4 pg (25.7-33.7); MCHC 32.4 g/dl (32.0-35.9); MEAN CELL VOLUME 72.2 fl (80-96); MEAN PLT VOLUME 9.1 fl (7.5-11.1); MONO % 5.5 % (3.8-10.2); NEUT % 65.4 % (42.8-82.8); PLATELET COUNT 246 K/MM3 (134-434); RBC 5.17 M/mm3 (4.00-5.60); RDW 13.3 % (11.9-15.9); WHITE BLOOD COUNT 10.2 K/mm3 (4.0-10.0)
[2018-07-16 07:43] LABS: ALBUMIN 3.6 g/dl (3.4-5.0); ALK PHOS 84 U/L (45-117); ANION GAP 10 MMOL/L (8-16); BILIRUBIN,TOTAL 0.5 mg/dL (0.2-1); BLOOD UREA NITROGEN 18 mg/dL (7-18); CALCIUM 8.4 mg/dL (8.5-10.1); CHLORIDE 104 mmol/L (98-107); CO2 22 mmol/L (21-32); CREATININE 1.1 mg/dL (0.55-1.3); MAGNESIUM 2.4 mg/dL (1.8-2.4); PHOSPHOROUS 3.3 mg/dL (2.5-4.9); POTASSIUM 4.3 mmol/L (3.5-5.1); SGOT/AST 16 U/L (15-37); SGPT/ALT 21 U/L (13-61); SODIUM 136 mmol/L (136-145); TOT PROT 7.3 g/dl (6.4-8.2)
[2018-07-16 07:52] LABS: GLUCOSE,RANDOM 332 mg/dL (74-106)
[2018-07-16] MEDS: levETIRAcetam 500 MG TABLET (FP) PO SCH ×2 (09:36→21:48)
[2018-07-16] MEDS: amLODIPine BESYLATE 5 MG TABLET (FP) PO SCH (09:36)
--- NOTE | 2018-07-16 10:00 | PN ---
Progress Note (short form) - Note Progress Note: 57 year old male history of DVT was suppsose to be on Coumadin, also history of DM,HTN,HLD. As per records he also have stroke but patient denies. He was suppose to be on aspirin, statin and coumadin. But he was not taking any medicaiton for sometime. He denies any other focal neurological symptoms. He still have numbness, dizziness and lack of focus has improved. patient has ct head is normal. 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 His numbness and dizziness has resolved NEUROLGOICAL EXAMINATION Alert oriented x 3, speech is normal eomi, pupils reactive, vf normal by confrontation, face symmetrical, no nystagmus seen muslce strength is 5/5 all ext sensory exam i snormal reflex are diminisehd ct head unremarkable previous carotid imaging was normal mri of brain pending Assessment 57 year old male history fo DM,HTN,HLD, ? STROKE AND ? seizure on keppra , statin, apsirin and statin. He stopped all medicaiton . symptoms resolved, most likley tia secondary to noncompliance of medicaiton Plan :continue medicaiton, and mri of brain and eeg can be obtained - carotid ultrasound ,cta of neck and brain was unremarkable, no need for vascular iamging - dvt prophylaxis , - Patient is on anticoagulation Thanking you so much Joel Allen MD
[2018-07-16] MEDS: LISINOPRIL 10 MG TABLET (FP) PO SCH (11:44)
--- NOTE | 2018-07-16 18:09 | EKG ---
Test Reason : Blood Pressure : / mmHG Vent. Rate : 083 BPM Atrial Rate : 083 BPM P-R Int : 166 ms QRS Dur : 118 ms QT Int : 386 ms P-R-T Axes : 063 -42 023 degrees QTc Int : 453 ms NORMAL SINUS RHYTHM LEFT AXIS DEVIATION LEFT VENTRICULAR HYPERTROPHY WITH QRS WIDENING CANNOT RULE OUT SEPTAL INFARCT , AGE UNDETERMINED ABNORMAL ECG WHEN COMPARED WITH ECG OF 29-NOV-2016 06:46, QRS DURATION HAS DECREASED T WAVE AMPLITUDE HAS DECREASED IN INFERIOR LEADS Confirmed by MD DOUG, MILLIE ([id number]) on 07/16/2018 6:09:24 PM Referred By: Confirmed By:MILLIE CAMACHO MD
--- NOTE | 2018-07-16 20:14 | PN ---
Progress Note (short form) - Note Progress Note: Vital Signs Temperature 98.0 F 07/16/18 17:00 Pulse Rate 81 07/16/18 17:00 Respiratory Rate 20 07/16/18 17:00 Blood Pressure 126/71 07/16/18 17:00 O2 Sat by Pulse Oximetry (%) 95 07/16/18 09:00 GENERAL: Awake, alert, and fully oriented, in no acute distress. HEAD: No signs of trauma EYES: PERRLA, EOMI, sclera anicteric, conjunctiva clear ENT: hearing grossly normal, oropharynx clear without exudates. Moist mucosa NECK: Nontender, no stepoffs, Normal ROM, supple, no lymphadenopathy, JVD, or masses LUNGS: Breath sounds equal, clear to auscultation bilaterally. No wheezes, and no crackles HEART: Regular rate and rhythm, normal S1 and S2, no murmurs, rubs or gallops ABDOMEN: Soft, nontender, normoactive bowel sounds. No guarding, no rebound. No masses EXTREMITIES: Normal range of motion, no edema. No clubbing or cyanosis. No cords, erythema, or tenderness NEUROLOGICAL: Cranial nerves II through XII intact. SKIN: Warm, Dry, normal turgor, no rashes or lesions noted. CBCD WBC 10.2 K/mm3 (4.0-10.0) H 07/16/18 06:35 RBC 5.17 M/mm3 (4.00-5.60) 07/16/18 06:35 Hgb 12.1 GM/dL (11.7-16.9) 07/16/18 06:35 Hct 37.3 % (35.4-49) 07/16/18 06:35 MCV 72.2 fl (80-96) L 07/16/18 06:35 MCHC 32.4 g/dl (32.0-35.9) 07/16/18 06:35 RDW 13.3 % (11.9-15.9) 07/16/18 06:35 Plt Count 246 K/MM3 (134-434) 07/16/18 06:35 MPV 9.1 fl (7.5-11.1) 07/16/18 06:35 CMP Sodium 136 mmol/L (136-145) 07/16/18 06:35 Potassium 4.3 mmol/L (3.5-5.1) 07/16/18 06:35 Chloride 104 mmol/L (98-107) 07/16/18 06:35 Carbon Dioxide 22 mmol/L (21-32) 07/16/18 06:35 Anion Gap 10 MMOL/L (8-16) 07/16/18 06:35 BUN 18 mg/dL (7-18) 07/16/18 06:35 Creatinine 1.1 mg/dL (0.55-1.3) 07/16/18 06:35 Creat Clearance w eGFR 69.24 (>60) 07/16/18 06:35 Random Glucose 407 mg/dL (74-106) H* 07/16/18 12:46 Calcium 8.4 mg/dL (8.5-10.1) L 07/16/18 06:35 Total Bilirubin 0.5 mg/dL (0.2-1) 07/16/18 06:35 AST 16 U/L (15-37) 07/16/18 06:35 ALT 21 U/L (13-61) 07/16/18 06:35 Alkaline Phosphatase 84 U/L (45-117) 07/16/18 06:35 Total Protein 7.3 g/dl (6.4-8.2) 07/16/18 06:35 Albumin 3.6 g/dl (3.4-5.0) 07/16/18 06:35 CARDIAC ENZYMES Creatine Kinase 312 U/L (26-308) H 07/15/18 09:25 Troponin I < 0.02 ng/ml (0.00-0.05) 07/15/18 09:25 Current Medications Generic Name Dose Route Start Last Admin Trade Name Freq PRN Reason Stop Dose Admin Amlodipine Besylate 5 mg 07/16/18 10:00 07/16/18 09:36 Norvasc - PO 5 mg DAILY MELANIA Administration Atorvastatin Calcium 40 mg 07/15/18 22:00 07/15/18 22:13 Lipitor - PO 40 mg HS MELANIA Administration Docusate Sodium 100 mg 07/15/18 16:25 Colace - PO BID PRN CONSTIPATION Enoxaparin Sodium 100 mg/ 140 mg 07/15/18 19:00 07/16/18 18:04 Enoxaparin Sodium 40 mg SQ 140 mg Q12H MELANIA Administration Insulin Aspart 1 vial 07/15/18 16:30 07/16/18 17:09 Novolog Vial Sliding Scale - SQ 12 units ACHS MELANIA Administration Protocol Levetiracetam 1,000 mg 07/15/18 22:00 07/16/18 09:36 Keppra - PO 1,000 mg BID MELANIA Administration Lisinopril 10 mg 07/16/18 12:00 07/16/18 11:44 Prinivil PO 10 mg DAILY@1200 MELANIA Administration Home Medications Medication Instructions Recorded Amlodipine Besylate [Norvasc -] 5 mg PO DAILY #30 tablet 12/30/16 Atorvastatin Ca [Lipitor] 20 mg PO HS #30 tablet 12/30/16 Docusate Sodium [Colace -] 100 mg PO BID PRN #30 cap 12/30/16 Glipizide [Glipizide ER] 10 mg PO DAILY #30 tab.er.24 12/30/16 Lisinopril [Prinivil] 10 mg PO DAILY@1200 #30 tablet 12/30/16 Warfarin Sodium 30 mg PO DAILY #45 tablet 12/30/16 levETIRAcetam [Keppra -] 1,000 mg PO BID #60 tablet 12/30/16 MRI/BRAIN MRI W/O CONTRAST MRI OF THE BRAIN Clinical information: TIA versus stroke. Sagittal and coronal T1, axial T2, FLAIR and diffusion images of the brain were obtained. On the sagittal images, the corpus callosum pineal and pituitary regions and the craniovertebral junction are unremarkable. On the axial and coronal images, the ventricles are normal in size. There are no intra or extra-axial masses or collections. There is a left occipital acute/subacute infarct measuring 3.8 cm. Also foci of small acute/ subacute cortical and white matter infarcts of the occipital lobes, and the splenium of the corpus callosum and left aspect and the posterior right aspect of the marita. Normal flow-void is in the basilar and internal carotid arteries. There is no acute sinusitis. There is prominence of the lymphoid tissues of the nasopharynx is probably inflammatory. IMPRESSION: Left occipital acute/subacute nonhemorrhagic infarct with foci of acute/subacute small vessel infarction nonhemorrhagic in occipital lobes, posterior aspect of the corpus callosum and in the posterior right aspect of the marita. There are foci of chronic small vessel infarction in the periventricular white matter and thalami. Assessment and plan: Patient is a 56 y/o male with Pmhx of HTN, DM , HLP, seizure and occipital stroke ,who presented c/o feeling weak and has not been taking his medications for the past 3 months. #Hx of stroke with vision changes, presents with TIA with numbness and tingling : ct of the head is negative for bleed. Mri of the brain: Left occipital acute/subacute nonhemorrhagic infarct with foci of acute/subacute small vessel infarction nonhemorrhagic in occipital lobes , posterior aspect of the corpus callosum and in the posterior right aspect of the marita. will continue AC lovenox 140mg sq bid, will add coumadin 10mg at 6pm, patient in the past needed 30mg to be in therapeutic range will monitor PT/INR daily. # Hx of LLE DVT: s/p suction thrombectomy of femoral vein and iliac vein regained pulses of LLE,as per patient stopped taking AC. As per previous admission patient needs life long ac. Ct of the head no bleed. will restart lovenox 120mg sq bid, duplex of le r/o dvt. Patient is non compliant with his meds, stopped taking his meds 3 months ago. # Seizure disorder On Phenytoin and Keppra continue . # T2DM: SSI with coverage . # MALOU : resolved # Hx of Hyperlipidemia continue meds. #Hypertension continue home meds. norvasc anf lisinopril DVt px: lovenox Visit type - Emergency Visit Emergency Visit: Yes ED Registration Date: 07/15/18 Care time: The patient presented to the Emergency Department on the above date and was hospitalized for further evaluation of their emergent condition. - New Patient This patient is new to me today: No - Critical Care Critical Care patient: No - Discharge Referral Referred to [facility] No
[2018-07-16] MEDS: ATORVASTATIN CA 40 MG TABLET (FP) PO SCH (21:48)
[2018-07-17] MEDS ORDERED: ENOXAPARIN NA (PORCINE) 100 MG/1 ML DISP.SYRIN SQ ONE ×2 (06:41→15:19)
[2018-07-17] MEDS ORDERED: ENOXAPARIN NA (PORCINE) 40 MG/0.4 ML DISP.SYRIN SQ ONE ×2 (06:41→15:19)
[2018-07-17] MEDS: INSULIN SLIDING SCALE (NOVOLOG) 1 VIAL SQ SCH ×4 (06:42→22:20)
[2018-07-17] MEDS: ENOXAPARIN 100 MG, ENOXAPARIN 40 MG SQ SCH ×2 (06:42→18:08)
[2018-07-17] MEDS: amLODIPine BESYLATE 5 MG TABLET (FP) PO SCH (10:09)
[2018-07-17] MEDS: levETIRAcetam 500 MG TABLET (FP) PO SCH ×2 (10:09→22:20)
--- NOTE | 2018-07-17 10:21 | PN ---
Progress Note (short form) - Note Progress Note: 57 year old male history of DVT was suppsose to be on Coumadin, also history of DM,HTN,HLD. As per records he also have stroke but patient denies. He was suppose to be on aspirin, statin and coumadin. But he was not taking any medicaiton for sometime. He denies any other focal neurological symptoms. He still have numbness, dizziness and he continue to have didficulty seeing right side. patient has ct head is normal. mri of brain showed there is left occpital infarct. NEUROLGOICAL EXAMINATION Alert oriented x 3, speech is normal eomi, pupils reactive, face symmetrical, no nystagmus seen, vf on confrontation and he can see finger moving on right side of vision but at times he fees it is blurry muslce strength is 5/5 all ext sensory exam i snormal reflex are diminisehd ct head unremarkable previous carotid imaging was normal mri of brain left occpital stroke Assessment 57 year old male history fo DM,HTN,HLD, ? STROKE AND ? seizure on keppra , statin, apsirin and statin. He stopped all medicaiton . symptoms resolved, now he is having left occpital stroke Plan :continue statin and anticoagulation - carotid ultrasound ,cta of neck and brain was unremarkable, no need for further vascular iamging - dvt prophylaxis , - Patient is on anticoagulation, I would add aspirin he was on both anticoagulation and aspirin before. Thanking you so much Joel Allen MD
[2018-07-17 11:38] LABS: INR 1.11 (0.83-1.09); PROTHROMBIN TIME (PATIENT) 13.1 SEC (9.7-13.0)
[2018-07-17] MEDS: ASPIRIN COATED 81 MG TABLET.EC PO SCH (12:29)
[2018-07-17] MEDS: LISINOPRIL 10 MG TABLET (FP) PO SCH (12:29)
--- NOTE | 2018-07-17 14:21 | PN ---
Physical Exam: SUBJECTIVE: Patient seen laying in bed. No acute events overnight noted. Pt has complete resolution of LUE symptoms. Pt reports slightly blurry vision, however this is a chronic issue. Pt reports before stopping his medications he was maintained on Coumadin 10mg daily by his Warfarin clinic. OBJECTIVE: Vital Signs Period Temp Pulse Resp BP Sys/Navarrete Pulse Ox Last 24 Hr 98 F-99 F 76-81 20-20 126-144/66-79 96-97 GENERAL: The patient is awake, alert, and fully oriented, in no acute distress. HEENT: NC/AT, EOMI, AHSAN, MMM NECK: No carotid bruits appreciated LUNGS: CTA bilaterally, no wheezes, no crackles, no accessory muscle use. HEART: RRR, S1, S2 without murmur ABDOMEN: Soft, NT/ND, normoactive bowel sounds, no guarding,no hepatosplenomegaly EXTREMITIES: 2+ distal pulses, warm, well-perfused, no edema. NEUROLOGICAL: training and development director II through XII intact including peripheral vision. Strength 5/ 5 in both upper and lower extremity sequeira. Sensation intact b/l in lower and upper extremities. Normal speech, gait stable. No dysmetria or dysdiadocokinesia. PSYCH: Normal mood, normal affect. SKIN: Warm, dry, no rashes or lesions noted Laboratory Results 07/16/18 07/16/18 07/17/18 16:39 21:33 05:39 PT with INR INR POC Glucometer 432 392 302 07/17/18 07/17/18 10:40 11:03 PT with INR 13.10 H INR 1.11 H POC Glucometer 376 Active Medications Generic Name Dose Route Start Last Admin Trade Name Freq PRN Reason Stop Dose Admin Amlodipine Besylate 5 mg 07/16/18 10:00 07/17/18 10:09 Norvasc - PO 5 mg DAILY MELANIA Administration Aspirin 81 mg 07/17/18 10:30 07/17/18 12:29 Ecotrin - PO 81 mg DAILY MELANIA Administration Atorvastatin Calcium 40 mg 07/15/18 22:00 07/16/18 21:48 Lipitor - PO 40 mg HS MELANIA Administration Docusate Sodium 100 mg 07/15/18 16:25 Colace - PO BID PRN CONSTIPATION Enoxaparin Sodium 100 mg/ 140 mg 07/15/18 19:00 07/17/18 06:42 Enoxaparin Sodium 40 mg SQ 140 mg Q12H MELANIA Administration Insulin Aspart 1 vial 07/15/18 16:30 07/17/18 12:29 Novolog Vial Sliding Scale - SQ 10 units ACHS MELANIA Administration Protocol Levetiracetam 1,000 mg 07/15/18 22:00 07/17/18 10:09 Keppra - PO 1,000 mg BID MELANIA Administration Lisinopril 10 mg 07/16/18 12:00 07/17/18 12:29 Prinivil PO 10 mg DAILY@1200 MELANIA Administration Warfarin Sodium 10 mg 07/17/18 18:00 Coumadin - PO 07/17/18 18:01 ONCE@1800 ONE ASSESSMENT/PLAN: TIA with previous CVA LLE DVT history History of seizures NIDDM MALOU (resolved) HLD HTN --Negative CT noted; Brain MRI with L occiptal subacute/acute nonhemorrhagic infarct with foci of acute/subacute small vessel infarction in occipital lobes, posterior aspect of CC,and in posterior R aspect of marita --Continue Lovenox 150mg BID --Add Coumadin 10mg today (INR 1.18) --Due to previous LLE extensive DVT will need life-long AC; daily PT/INR checks until therapeutic on Coumadin --Pt in past has been resistant due to seizure medications and likely genetics (previously on Coumadin 30mg before d/c) --Neurology on board --ASA 81mg to continue daily --Continue Keppra 1gm BID PO --Continue BGM ACHS with ISS coverage --? long-term glycemic control with Levemir given elevated glucose levels --Continue Lipitor 40mg HS --Continue Norvasc 5mg qdaily FEN: Fluids: None indicated; continue to encourage PO Electrolyte abnormalities: Lab vacation this AM Nutrition: Diabetic diet PPX: DVT - Already on therapeutic Lovenox GI - Not indicated currently Dispo: D/C planning; will need to have therapeutic INR on Coumadin Case discussed with Dr. Milena Quinn, DO - IM PGY-2 Visit type - Emergency Visit Emergency Visit: Yes ED Registration Date: 07/15/18 Care time: The patient presented to the Emergency Department on the above date and was hospitalized for further evaluation of their emergent condition. - New Patient This patient is new to me today: Yes Date on this admission: 07/17/18 - Critical Care Critical Care patient: No
[2018-07-17] MEDS ORDERED: WARFARIN NA 10 MG TABLET (FP) PO ONE (18:00)
--- NOTE | 2018-07-17 19:23 | PN ---
Teaching Attending Note Name of Resident: Rakesh Quinn ATTENDING PHYSICIAN STATEMENT I saw and evaluated the patient. I reviewed the resident's note and discussed the case with the resident. I agree with the resident's findings and plan as documented. SUBJECTIVE: Patient is c/o having vision changes. OBJECTIVE: Vital Signs Temperature 98.2 F 07/17/18 14:00 Pulse Rate 79 07/17/18 14:00 Respiratory Rate 20 07/17/18 11:00 Blood Pressure 113/70 07/17/18 14:00 O2 Sat by Pulse Oximetry (%) 96 07/17/18 09:00 GENERAL: Awake, alert, and fully oriented, in no acute distress. HEAD: No signs of trauma EYES: PERRLA, EOMI, sclera anicteric, conjunctiva clear ENT: hearing grossly normal, oropharynx clear without exudates. Moist mucosa NECK: Nontender, no step offs, Normal ROM, supple, no lymphadenopathy, JVD, or masses LUNGS: Breath sounds equal, clear to auscultation bilaterally. No wheezes, and no crackles HEART: Regular rate and rhythm, normal S1 and S2, no murmurs, rubs or gallops ABDOMEN: Soft, nontender, normoactive bowel sounds. No guarding, no rebound. No masses EXTREMITIES: Normal range of motion, no edema. No clubbing or cyanosis. No cords, erythema, or tenderness NEUROLOGICAL: Cranial nerves II through XII intact. SKIN: Warm, Dry, normal turgor, no rashes or lesions noted. CBCD WBC 10.2 K/mm3 (4.0-10.0) H 07/16/18 06:35 RBC 5.17 M/mm3 (4.00-5.60) 07/16/18 06:35 Hgb 12.1 GM/dL (11.7-16.9) 07/16/18 06:35 Hct 37.3 % (35.4-49) 07/16/18 06:35 MCV 72.2 fl (80-96) L 07/16/18 06:35 MCHC 32.4 g/dl (32.0-35.9) 07/16/18 06:35 RDW 13.3 % (11.9-15.9) 07/16/18 06:35 Plt Count 246 K/MM3 (134-434) 07/16/18 06:35 MPV 9.1 fl (7.5-11.1) 07/16/18 06:35 CMP Sodium 136 mmol/L (136-145) 07/16/18 06:35 Potassium 4.3 mmol/L (3.5-5.1) 07/16/18 06:35 Chloride 104 mmol/L (98-107) 07/16/18 06:35 Carbon Dioxide 22 mmol/L (21-32) 07/16/18 06:35 Anion Gap 10 MMOL/L (8-16) 07/16/18 06:35 BUN 18 mg/dL (7-18) 07/16/18 06:35 Creatinine 1.1 mg/dL (0.55-1.3) 07/16/18 06:35 Creat Clearance w eGFR 69.24 (>60) 07/16/18 06:35 Random Glucose 407 mg/dL (74-106) H* 07/16/18 12:46 Calcium 8.4 mg/dL (8.5-10.1) L 07/16/18 06:35 Total Bilirubin 0.5 mg/dL (0.2-1) 07/16/18 06:35 AST 16 U/L (15-37) 07/16/18 06:35 ALT 21 U/L (13-61) 07/16/18 06:35 Alkaline Phosphatase 84 U/L (45-117) 07/16/18 06:35 Total Protein 7.3 g/dl (6.4-8.2) 07/16/18 06:35 Albumin 3.6 g/dl (3.4-5.0) 07/16/18 06:35 CARDIAC ENZYMES Creatine Kinase 312 U/L (26-308) H 07/15/18 09:25 Troponin I < 0.02 ng/ml (0.00-0.05) 07/15/18 09:25 Current Medications Generic Name Dose Route Start Last Admin Trade Name Philipq PRN Reason Stop Dose Admin Amlodipine Besylate 5 mg 07/16/18 10:00 07/17/18 10:09 Norvasc - PO 5 mg DAILY MELANIA Administration Aspirin 81 mg 07/17/18 10:30 07/17/18 12:29 Ecotrin - PO 81 mg DAILY MELANIA Administration Atorvastatin Calcium 40 mg 07/15/18 22:00 07/16/18 21:48 Lipitor - PO 40 mg HS MELANIA Administration Docusate Sodium 100 mg 07/15/18 16:25 Colace - PO BID PRN CONSTIPATION Enoxaparin Sodium 100 mg/ 140 mg 07/15/18 19:00 07/17/18 18:08 Enoxaparin Sodium 40 mg SQ 140 mg Q12H MELANIA Administration Insulin Aspart 1 vial 07/15/18 16:30 07/17/18 17:25 Novolog Vial Sliding Scale - SQ 10 units ACHS MELANIA Administration Protocol Levetiracetam 1,000 mg 07/15/18 22:00 07/17/18 10:09 Keppra - PO 1,000 mg BID MELANIA Administration Lisinopril 10 mg 07/16/18 12:00 07/17/18 12:29 Prinivil PO 10 mg DAILY@1200 MELANIA Administration Hepatic Panel Total Bilirubin 0.5 mg/dL (0.2-1) 07/16/18 06:35 AST 16 U/L (15-37) 07/16/18 06:35 ALT 21 U/L (13-61) 07/16/18 06:35 Alkaline Phosphatase 84 U/L (45-117) 07/16/18 06:35 Albumin 3.6 g/dl (3.4-5.0) 07/16/18 06:35 Home Medications Medication Instructions Recorded Amlodipine Besylate [Norvasc -] 5 mg PO DAILY #30 tablet 12/30/16 Atorvastatin Ca [Lipitor] 20 mg PO HS #30 tablet 12/30/16 Docusate Sodium [Colace -] 100 mg PO BID PRN #30 cap 12/30/16 Glipizide [Glipizide ER] 10 mg PO DAILY #30 tab.er.24 12/30/16 Lisinopril [Prinivil] 10 mg PO DAILY@1200 #30 tablet 12/30/16 Warfarin Sodium 30 mg PO DAILY #45 tablet 12/30/16 levETIRAcetam [Keppra -] 1,000 mg PO BID #60 tablet 12/30/16 MRI/BRAIN MRI W/O CONTRAST MRI OF THE BRAIN Clinical information: TIA versus stroke. Sagittal and coronal T1, axial T2, FLAIR and diffusion images of the brain were obtained. On the sagittal images, the corpus callosum pineal and pituitary regions and the craniovertebral junction are unremarkable. On the axial and coronal images, the ventricles are normal in size. There are no intra or extra-axial masses or collections. There is a left occipital acute/subacute infarct measuring 3.8 cm. Also foci of small acute/ subacute cortical and white matter infarcts of the occipital lobes, and the splenium of the corpus callosum and left aspect and the posterior right aspect of the marita. Normal flow-void is in the basilar and internal carotid arteries. There is no acute sinusitis. There is prominence of the lymphoid tissues of the nasopharynx is probably inflammatory. IMPRESSION: Left occipital acute/subacute nonhemorrhagic infarct with foci of acute/subacute small vessel infarction nonhemorrhagic in occipital lobes, posterior aspect of the corpus callosum and in the posterior right aspect of the marita. There are foci of chronic small vessel infarction in the periventricular white matter and thalami. Assessment and plan: Patient is a 56 y/o male with Pmhx of HTN, DM , HLP, seizure and occipital stroke ,who presented c/o feeling weak and has not been taking his medications for the past 3 months. # Left occipital acute/subacute nonhemorrhagic infarct with foci of acute/ subacute small vessel infarction nonhemorrhagic in occipital lobes, posterior aspect of the corpus callosum and in the posterior right aspect of the marita. Hx of stroke with vision changes, presents with TIA with numbness and tingling : ct of the head is negative for bleed. Mri of the brain: will continue AC lovenox 140mg sq bid, will add coumadin 15mg and titrate up as needed to reach therapeutic INR, patient in the past needed 30mg to be in therapeutic range will monitor PT/INR daily. # Hx of LLE DVT: s/p suction thrombectomy of femoral vein and iliac vein regained pulses of LLE,as per patient stopped taking AC. As per previous admission patient needs life long ac. Ct of the head no bleed. will restart lovenox 120mg sq bid, duplex of le r/o dvt. Patient is non compliant with his meds, stopped taking his meds 3 months ago. # Seizure disorder On Phenytoin and Keppra continue . # T2DM: SSI with coverage , will need hemoglobin A1c , will start the patient on Levemir , needing daily insulin use, last hgA1c was 11 # MALOU : resolved # Hx of Hyperlipidemia continue meds. #Hypertension continue home meds. norvasc and lisinopril DVt px: lovenox
[2018-07-17] MEDS: ATORVASTATIN CA 40 MG TABLET (FP) PO SCH (22:20)
[2018-07-18] MEDS ORDERED: ENOXAPARIN NA (PORCINE) 40 MG/0.4 ML DISP.SYRIN SQ ONE ×2 (06:14→17:49)
[2018-07-18] MEDS ORDERED: ENOXAPARIN NA (PORCINE) 100 MG/1 ML DISP.SYRIN SQ ONE ×2 (06:15→17:49)
[2018-07-18] MEDS: ENOXAPARIN 100 MG, ENOXAPARIN 40 MG SQ SCH ×2 (06:17→18:06)
[2018-07-18] MEDS: INSULIN SLIDING SCALE (NOVOLOG) 1 VIAL SQ SCH ×4 (06:17→21:51)
[2018-07-18 07:05] LABS: BASO % 1.2 % (0-2.0); EOS % 2.6 % (0-4.5); HEMATOCRIT 39.1 % (35.4-49); HEMOGLOBIN 12.7 GM/dL (11.7-16.9); LYMPH % 45.7 % (8-40); MCH 23.4 pg (25.7-33.7); MCHC 32.4 g/dl (32.0-35.9); MEAN CELL VOLUME 72.1 fl (80-96); MEAN PLT VOLUME 8.6 fl (7.5-11.1); MONO % 6.9 % (3.8-10.2); NEUT % 43.6 % (42.8-82.8); PLATELET COUNT 236 K/MM3 (134-434); RBC 5.42 M/mm3 (4.00-5.60); WHITE BLOOD COUNT 6.9 K/mm3 (4.0-10.0)
[2018-07-18 07:30] LABS: INR 1.05 (0.83-1.09); PROTHROMBIN TIME (PATIENT) 12.4 SEC (9.7-13.0)
[2018-07-18 08:24] LABS: BLOOD UREA NITROGEN 15 mg/dL (7-18); CREATININE 1.2 mg/dL (0.55-1.3)
[2018-07-18 08:25] LABS: ALBUMIN 3.8 g/dl (3.4-5.0); ALK PHOS 88 U/L (45-117); ANION GAP 9 MMOL/L (8-16); BILIRUBIN,TOTAL 0.8 mg/dL (0.2-1); CALCIUM 8.7 mg/dL (8.5-10.1); CHLORIDE 104 mmol/L (98-107); CO2 24 mmol/L (21-32); MAGNESIUM 1.8 mg/dL (1.8-2.4); POTASSIUM 4.4 mmol/L (3.5-5.1); SGOT/AST 17 U/L (15-37); SGPT/ALT 21 U/L (13-61); SODIUM 136 mmol/L (136-145); TOT PROT 7.6 g/dl (6.4-8.2)
[2018-07-18 08:34] LABS: GLUCOSE,RANDOM 325 mg/dL (74-106)
[2018-07-18] MEDS ORDERED: INSULIN (LEVEMIR) 100 UNITS/ML UNITS SQ ONE (11:19)
[2018-07-18] MEDS: ASPIRIN COATED 81 MG TABLET.EC PO SCH (11:47)
[2018-07-18] MEDS: levETIRAcetam 500 MG TABLET (FP) PO SCH ×2 (11:48→21:41)
[2018-07-18] MEDS: amLODIPine BESYLATE 5 MG TABLET (FP) PO SCH (11:48)
[2018-07-18] MEDS: LISINOPRIL 10 MG TABLET (FP) PO SCH (12:59)
--- NOTE | 2018-07-18 13:46 | PN ---
Physical Exam: SUBJECTIVE: Patient seen and examined at bedside- no acute events overnight patient still is having some blurred vision; denies any CP/SOB/N/V fevers or chills OBJECTIVE: Vital Signs Period Temp Pulse Resp BP Sys/Navarrete Pulse Ox Last 24 Hr 97.5 F-98.4 F 64-82 18-20 109-130/57-77 97 GENERAL: The patient is awake, alert, and fully oriented, in no acute distress. EYES: PEERLA; EOMI: no scleral icterus NECK:no JVD; no lymphadenopathy LUNGS: CTA B/L; no rales, rhonchi or wheezing HEART: Regular rate and rhythm, S1, S2 without murmur, rub or gallop. ABDOMEN: soft; non-tender; non-distended +BS EXTREMITIES: 2+ pulses, warm, well-perfused, no edema. NEUROLOGICAL: Cranial nerves II through XII grossly intact. Normal speech, strength 5/5 UE (b/l) LE (b/l) sensation intact throughout PSYCH: Normal mood, normal affect. SKIN: Warm, dry, normal turgor, no rashes or lesions noted Laboratory Results - last 24 hr 07/17/18 07/17/18 07/18/18 16:17 22:07 05:24 WBC RBC Hgb Hct MCV MCH MCHC RDW Plt Count MPV Absolute Neuts (auto) Neutrophils % Lymphocytes % Monocytes % Eosinophils % Basophils % Nucleated RBC % PT with INR INR Sodium Potassium Chloride Carbon Dioxide Anion Gap BUN Creatinine Creat Clearance w eGFR POC Glucometer 357 385 339 Random Glucose Calcium Magnesium Total Bilirubin AST ALT Alkaline Phosphatase Total Protein Albumin 07/18/18 07/18/18 07/18/18 06:35 06:35 06:35 WBC 6.9 RBC 5.42 Hgb 12.7 Hct 39.1 MCV 72.1 L MCH 23.4 L MCHC 32.4 RDW 13.0 Plt Count 236 MPV 8.6 Absolute Neuts (auto) 3.0 Neutrophils % 43.6 D Lymphocytes % 45.7 H D Monocytes % 6.9 Eosinophils % 2.6 D Basophils % 1.2 D Nucleated RBC % 0 PT with INR 12.40 INR 1.05 Sodium 136 Potassium 4.4 Chloride 104 Carbon Dioxide 24 Anion Gap 9 BUN 15 Creatinine 1.2 Creat Clearance w eGFR 62.63 POC Glucometer Random Glucose 325 H* Calcium 8.7 Magnesium 1.8 Total Bilirubin 0.8 AST 17 ALT 21 Alkaline Phosphatase 88 Total Protein 7.6 Albumin 3.8 07/18/18 12:46 WBC RBC Hgb Hct MCV MCH MCHC RDW Plt Count MPV Absolute Neuts (auto) Neutrophils % Lymphocytes % Monocytes % Eosinophils % Basophils % Nucleated RBC % PT with INR INR Sodium Potassium Chloride Carbon Dioxide Anion Gap BUN Creatinine Creat Clearance w eGFR POC Glucometer 423 Random Glucose Calcium Magnesium Total Bilirubin AST ALT Alkaline Phosphatase Total Protein Albumin Active Medications Generic Name Dose Route Start Last Admin Trade Name Freq PRN Reason Stop Dose Admin Amlodipine Besylate 5 mg 07/16/18 10:00 07/18/18 11:48 Norvasc - PO 5 mg DAILY MELANIA Administration Aspirin 81 mg 07/17/18 10:30 07/18/18 11:47 Ecotrin - PO 81 mg DAILY MELANIA Administration Atorvastatin Calcium 40 mg 07/15/18 22:00 07/17/18 22:20 Lipitor - PO 40 mg HS MELANIA Administration Docusate Sodium 100 mg 07/15/18 16:25 Colace - PO BID PRN CONSTIPATION Enoxaparin Sodium 100 mg/ 140 mg 07/15/18 19:00 07/18/18 06:17 Enoxaparin Sodium 40 mg SQ 140 mg Q12H MELANIA Administration Insulin Aspart 1 vial 07/15/18 16:30 07/18/18 12:57 Novolog Vial Sliding Scale - SQ 12 units ACHS MELANIA Administration Protocol Insulin Detemir 20 units 07/19/18 07:00 Levemir Vial SQ AM MELANIA Levetiracetam 1,000 mg 07/15/18 22:00 07/18/18 11:48 Keppra - PO 1,000 mg BID MELANIA Administration Lisinopril 10 mg 07/16/18 12:00 07/18/18 12:59 Prinivil PO 10 mg DAILY@1200 MELANIA Administration Warfarin Sodium 15 mg 07/18/18 18:00 Coumadin - PO 07/18/18 18:01 ONCE@1800 ONE ASSESSMENT/PLAN: 57 y/o male with PMH of LLE DVT, seizures, DM, HTN, HLD, who presented to the ED with complaints of LUE and LLE numbness/tingling #TIA/CVA Continue Lovenox 150mg BID will add Coumadin 15mg today and repeat INR in AM --Due to previous LLE extensive DVT will need life-long AC; daily PT/INR checks until therapeutic on Coumadin --Pt in past has been resistant due to seizure medications and likely genetics (previously on Coumadin 30mg before d/c) Neurology on board ASA 81mg to continue daily EEG pending #Seizures Continue Keppra 1gm BID PO #DM Continue BGM ACHS with ISS coverage Added Levemir 20 units in AM #HLD Continue Lipitor 40mg HS #HTN Continue Norvasc 5mg qdaily DVT PPX" lovenox Problem List - Problems (1) DVT prophylaxis Code(s): XWX4003 - (2) H/O deep venous thrombosis Code(s): Z86.718 - PERSONAL HISTORY OF OTHER VENOUS THROMBOSIS AND EMBOLISM (3) TIA (transient ischemic attack) Code(s): G45.9 - TRANSIENT CEREBRAL ISCHEMIC ATTACK, UNSPECIFIED (4) Diabetes type 2, uncontrolled Code(s): E11.65 - TYPE 2 DIABETES MELLITUS WITH HYPERGLYCEMIA (5) Hyperlipidemia Code(s): E78.5 - HYPERLIPIDEMIA, UNSPECIFIED Visit type - Emergency Visit Emergency Visit: Yes ED Registration Date: 07/15/18 Care time: The patient presented to the Emergency Department on the above date and was hospitalized for further evaluation of their emergent condition. - New Patient This patient is new to me today: Yes Date on this admission: 07/18/18 - Critical Care Critical Care patient: No
--- NOTE | 2018-07-18 17:09 | PN ---
Progress Note (short form) - Note Progress Note: 57 year old male history of DVT was suppsose to be on Coumadin, also history of DM,HTN,HLD. As per records he also have stroke but patient denies. He was suppose to be on aspirin, statin and coumadin. But he was not taking any medicaiton for sometime. numbness, dizziness resolved and he continue to have didficulty seeing right side. patient has ct head is normal. mri of brain showed there is left occpital infarct. NEUROLGOICAL EXAMINATION Alert oriented x 3, speech is normal eomi, pupils reactive, face symmetrical, no nystagmus seen, vf on confrontation and he can see finger moving on right side of vision but at times he fees it is blurry muslce strength is 5/5 all ext sensory exam i snormal reflex are diminisehd ct head unremarkable previous carotid imaging was normal mri of brain left occpital stroke eeg done today is pending Assessment 57 year old male history fo DM,HTN,HLD,, has left occipital stroke resume statin, apsirin and statin and restart anticoagulation. continue dvt prophylaxis , PT, Speech eval. 2. History of seizure , no seizure lately. Thanking you so much, will continue to follow with primary Joel Allen MD
[2018-07-18] MEDS ORDERED: WARFARIN NA 7.5 MG TABLET (FP) PO ONE (18:00)
--- NOTE | 2018-07-18 20:24 | PN ---
Teaching Attending Note Name of Resident: Christy Meyers ATTENDING PHYSICIAN STATEMENT I saw and evaluated the patient. I reviewed the resident's note and discussed the case with the resident. I agree with the resident's findings and plan as documented. SUBJECTIVE: OBJECTIVE: Vital Signs Temperature 98.8 F 07/18/18 17:40 Pulse Rate 76 07/18/18 17:40 Respiratory Rate 20 07/18/18 17:40 Blood Pressure 114/57 L 07/18/18 17:40 O2 Sat by Pulse Oximetry (%) 97 07/17/18 21:00 GENERAL: Awake, alert, and fully oriented, in no acute distress. HEAD: No signs of trauma EYES: PERRLA, EOMI, sclera anicteric, conjunctiva clear ENT: hearing grossly normal, oropharynx clear without exudates. Moist mucosa NECK: Nontender, no step offs, Normal ROM, supple, no lymphadenopathy, JVD, or masses LUNGS: Breath sounds equal, clear to auscultation bilaterally. No wheezes, and no crackles HEART: Regular rate and rhythm, normal S1 and S2, no murmurs, rubs or gallops ABDOMEN: Soft, nontender, normoactive bowel sounds. No guarding, no rebound. No masses EXTREMITIES: Normal range of motion, no edema. No clubbing or cyanosis. No cords, erythema, or tenderness NEUROLOGICAL: Cranial nerves II through XII intact. SKIN: Warm, Dry, normal turgor, no rashes or lesions noted. CBCD WBC 6.9 K/mm3 (4.0-10.0) 07/18/18 06:35 RBC 5.42 M/mm3 (4.00-5.60) 07/18/18 06:35 Hgb 12.7 GM/dL (11.7-16.9) 07/18/18 06:35 Hct 39.1 % (35.4-49) 07/18/18 06:35 MCV 72.1 fl (80-96) L 07/18/18 06:35 MCHC 32.4 g/dl (32.0-35.9) 07/18/18 06:35 RDW 13.0 % (11.9-15.9) 07/18/18 06:35 Plt Count 236 K/MM3 (134-434) 07/18/18 06:35 MPV 8.6 fl (7.5-11.1) 07/18/18 06:35 CMP Sodium 136 mmol/L (136-145) 07/18/18 06:35 Potassium 4.4 mmol/L (3.5-5.1) 07/18/18 06:35 Chloride 104 mmol/L (98-107) 07/18/18 06:35 Carbon Dioxide 24 mmol/L (21-32) 07/18/18 06:35 Anion Gap 9 MMOL/L (8-16) 07/18/18 06:35 BUN 15 mg/dL (7-18) 07/18/18 06:35 Creatinine 1.2 mg/dL (0.55-1.3) 07/18/18 06:35 Creat Clearance w eGFR 62.63 (>60) 07/18/18 06:35 Random Glucose 325 mg/dL (74-106) H* 07/18/18 06:35 Calcium 8.7 mg/dL (8.5-10.1) 07/18/18 06:35 Total Bilirubin 0.8 mg/dL (0.2-1) 07/18/18 06:35 AST 17 U/L (15-37) 07/18/18 06:35 ALT 21 U/L (13-61) 07/18/18 06:35 Alkaline Phosphatase 88 U/L (45-117) 07/18/18 06:35 Total Protein 7.6 g/dl (6.4-8.2) 07/18/18 06:35 Albumin 3.8 g/dl (3.4-5.0) 07/18/18 06:35 CARDIAC ENZYMES Creatine Kinase 312 U/L (26-308) H 07/15/18 09:25 Troponin I < 0.02 ng/ml (0.00-0.05) 07/15/18 09:25 Current Medications Generic Name Dose Route Start Last Admin Trade Name Freq PRN Reason Stop Dose Admin Amlodipine Besylate 5 mg 07/16/18 10:00 07/18/18 11:48 Norvasc - PO 5 mg DAILY MELANIA Administration Aspirin 81 mg 07/17/18 10:30 07/18/18 11:47 Ecotrin - PO 81 mg DAILY MELANIA Administration Atorvastatin Calcium 40 mg 07/15/18 22:00 07/17/18 22:20 Lipitor - PO 40 mg HS MELANIA Administration Docusate Sodium 100 mg 07/15/18 16:25 Colace - PO BID PRN CONSTIPATION Enoxaparin Sodium 100 mg/ 140 mg 07/15/18 19:00 07/18/18 18:06 Enoxaparin Sodium 40 mg SQ 140 mg Q12H MELANIA Administration Insulin Aspart 1 vial 07/15/18 16:30 07/18/18 17:56 Novolog Vial Sliding Scale - SQ 12 units ACHS MELANIA Administration Protocol Insulin Detemir 20 units 07/19/18 07:00 Levemir Vial SQ AM MELANIA Levetiracetam 1,000 mg 07/15/18 22:00 07/18/18 11:48 Keppra - PO 1,000 mg BID MELANIA Administration Lisinopril 10 mg 07/16/18 12:00 07/18/18 12:59 Prinivil PO 10 mg DAILY@1200 MELANIA Administration MRI/BRAIN MRI W/O CONTRAST MRI OF THE BRAIN Clinical information: TIA versus stroke. Sagittal and coronal T1, axial T2, FLAIR and diffusion images of the brain were obtained. On the sagittal images, the corpus callosum pineal and pituitary regions and the craniovertebral junction are unremarkable. On the axial and coronal images, the ventricles are normal in size. There are no intra or extra-axial masses or collections. There is a left occipital acute/subacute infarct measuring 3.8 cm. Also foci of small acute/ subacute cortical and white matter infarcts of the occipital lobes, and the splenium of the corpus callosum and left aspect and the posterior right aspect of the marita. Normal flow-void is in the basilar and internal carotid arteries. There is no acute sinusitis. There is prominence of the lymphoid tissues of the nasopharynx is probably inflammatory. IMPRESSION: Left occipital acute/subacute nonhemorrhagic infarct with foci of acute/subacute small vessel infarction nonhemorrhagic in occipital lobes, posterior aspect of the corpus callosum and in the posterior right aspect of the marita. There are foci of chronic small vessel infarction in the periventricular white matter and thalami. Assessment and plan: Patient is a 56 y/o male with Pmhx of HTN, DM , HLP, seizure and occipital stroke ,who presented c/o feeling weak and has not been taking his medications for the past 3 months. # T2DM: SSI with coverage , will need hemoglobin A1c , will start the patient on Levemir 20 units for now, will recalculate the insulin intake within 24hr period and adjust accordingly , last hgA1c was 11 # Left occipital acute/subacute nonhemorrhagic infarct with foci of acute/ subacute small vessel infarction nonhemorrhagic in occipital lobes, posterior aspect of the corpus callosum and in the posterior right aspect of the marita. Hx of stroke with vision changes, presents with TIA with numbness and tingling : ct of the head is negative for bleed. Mri of the brain: will continue AC lovenox 140mg sq bid, will increase coumadin dose and titrate up as needed to reach therapeutic INR, patient in the past needed 30mg to be in therapeutic range will monitor PT/INR daily. # Hx of LLE DVT: s/p suction thrombectomy of femoral vein and iliac vein regained pulses of LLE,as per patient stopped taking AC. As per previous admission patient needs life long ac. Ct of the head no bleed. will restart lovenox 120mg sq bid, duplex of le r/o dvt. Patient is non compliant with his meds, stopped taking his meds 3 months ago. # Seizure disorder On Phenytoin and Keppra continue # MALOU : resolved # Hx of Hyperlipidemia continue meds. #Hypertension continue home meds. norvasc and lisinopril DVt px: lovenox
[2018-07-18] MEDS: ATORVASTATIN CA 40 MG TABLET (FP) PO SCH (21:42)
[2018-07-19 06:29] LABS: HEMOGLOBIN 11.3 GM/dL (11.7-16.9); MCH 23.2 pg (25.7-33.7); MCHC 32.2 g/dl (32.0-35.9); MEAN PLT VOLUME 8.6 fl (7.5-11.1); PLATELET COUNT 181 K/MM3 (134-434); RBC 4.86 M/mm3 (4.00-5.60); WHITE BLOOD COUNT 6.7 K/mm3 (4.0-10.0)
[2018-07-19] MEDS ORDERED: ENOXAPARIN NA (PORCINE) 40 MG/0.4 ML DISP.SYRIN SQ ONE (06:51)
[2018-07-19] MEDS ORDERED: ENOXAPARIN NA (PORCINE) 100 MG/1 ML DISP.SYRIN SQ ONE (06:51)
[2018-07-19] MEDS: INSULIN SLIDING SCALE (NOVOLOG) 1 VIAL SQ SCH ×3 (06:54→16:34)
[2018-07-19] MEDS: ENOXAPARIN 100 MG, ENOXAPARIN 40 MG SQ SCH (06:55)
[2018-07-19] MEDS ORDERED: INSULIN (LEVEMIR) 100 UNITS/ML UNITS SQ SCH (07:00)
[2018-07-19 07:14] LABS: INR 1.16 (0.83-1.09); PROTHROMBIN TIME (PATIENT) 13.7 SEC (9.7-13.0)
[2018-07-19 07:16] LABS: ANION GAP 6 MMOL/L (8-16); BLOOD UREA NITROGEN 13 mg/dL (7-18); CALCIUM 8.1 mg/dL (8.5-10.1); CHLORIDE 104 mmol/L (98-107); CO2 26 mmol/L (21-32); CREATININE 1.1 mg/dL (0.55-1.3); GLUCOSE,RANDOM 286 mg/dL (74-106); MAGNESIUM 1.6 mg/dL (1.8-2.4); PHOSPHOROUS 4.3 mg/dL (2.5-4.9); POTASSIUM 4.1 mmol/L (3.5-5.1); SODIUM 136 mmol/L (136-145)
--- NOTE | 2018-07-19 08:04 | PN ---
Physical Exam: SUBJECTIVE: Patient seen and examined at bedside- no acute events overnight patient states that his blurred vision is improving and he is feeling more steady on his feet; denies CP/SOB/N/V fevers or chills OBJECTIVE: Vital Signs Period Temp Pulse Resp BP Sys/Navarrete Pulse Ox Last 24 Hr 98.1 F-98.8 F 63-82 18-20 114-147/57-89 95 GENERAL: The patient is awake, alert, and fully oriented, in no acute distress. EYES: PEERLA; EOMI; no scleral icterus. NECK: no JVD; no lymphadenopathy LUNGS:CTA B/L; no rales, rhonchi or wheezing HEART: Regular rate and rhythm, S1, S2 without murmur, rub or gallop. ABDOMEN: soft; nontender; nondistended +BS in all 4 quadrants EXTREMITIES: 2+ pulses, warm, well-perfused, no edema. NEUROLOGICAL: Cranial nerves II through XII grossly intact. Normal speech, strength 5/5 UE (b/l), 5/5 LE (b/l); sensation intact throughout PSYCH: Normal mood, normal affect. SKIN: Warm, dry, normal turgor, no rashes or lesions noted Laboratory Results - last 24 hr 07/18/18 07/18/18 07/18/18 06:35 12:46 17:37 WBC RBC Hgb Hct MCV MCH MCHC RDW Plt Count MPV PT with INR INR Sodium 136 Potassium 4.4 Chloride 104 Carbon Dioxide 24 Anion Gap 9 BUN 15 Creatinine 1.2 Creat Clearance w eGFR 62.63 POC Glucometer 423 401 Random Glucose 325 H* Calcium 8.7 Phosphorus Magnesium 1.8 Total Bilirubin 0.8 AST 17 ALT 21 Alkaline Phosphatase 88 Total Protein 7.6 Albumin 3.8 07/18/18 07/19/18 07/19/18 21:44 05:30 05:30 WBC 6.7 RBC 4.86 Hgb 11.3 L Hct 35.0 L MCV 72.0 L MCH 23.2 L MCHC 32.2 RDW 13.0 Plt Count 181 D MPV 8.6 PT with INR 13.70 H INR 1.16 H Sodium Potassium Chloride Carbon Dioxide Anion Gap BUN Creatinine Creat Clearance w eGFR POC Glucometer 307 Random Glucose Calcium Phosphorus Magnesium Total Bilirubin AST ALT Alkaline Phosphatase Total Protein Albumin 07/19/18 07/19/18 05:30 06:45 WBC RBC Hgb Hct MCV MCH MCHC RDW Plt Count MPV PT with INR INR Sodium 136 Potassium 4.1 Chloride 104 Carbon Dioxide 26 Anion Gap 6 L BUN 13 Creatinine 1.1 Creat Clearance w eGFR 69.24 POC Glucometer 281 Random Glucose 286 H Calcium 8.1 L Phosphorus 4.3 Magnesium 1.6 L Total Bilirubin AST ALT Alkaline Phosphatase Total Protein Albumin Active Medications Generic Name Dose Route Start Last Admin Trade Name Freq PRN Reason Stop Dose Admin Amlodipine Besylate 5 mg 07/16/18 10:00 07/18/18 11:48 Norvasc - PO 5 mg DAILY MELANIA Administration Aspirin 81 mg 07/17/18 10:30 07/18/18 11:47 Ecotrin - PO 81 mg DAILY MELANIA Administration Atorvastatin Calcium 40 mg 07/15/18 22:00 07/18/18 21:42 Lipitor - PO 40 mg HS MELANIA Administration Docusate Sodium 100 mg 07/15/18 16:25 Colace - PO BID PRN CONSTIPATION Enoxaparin Sodium 100 mg/ 140 mg 07/15/18 19:00 07/19/18 06:55 Enoxaparin Sodium 40 mg SQ 140 mg Q12H MELANIA Administration Insulin Aspart 1 vial 07/15/18 16:30 07/19/18 06:54 Novolog Vial Sliding Scale - SQ 6 units ACHS MELANIA Administration Protocol Insulin Detemir 20 units 07/19/18 07:00 07/19/18 06:54 Levemir Vial SQ 20 unit AM MELANIA Administration Levetiracetam 1,000 mg 07/15/18 22:00 07/18/18 21:41 Keppra - PO 1,000 mg BID MELANIA Administration Lisinopril 10 mg 07/16/18 12:00 07/18/18 12:59 Prinivil PO 10 mg DAILY@1200 MELANIA Administration ASSESSMENT/PLAN: 57 y/o male with PMH of LLE DVT, seizures, DM, HTN, HLD, who presented to the ED with complaints of LUE and LLE numbness/tingling #TIA/CVA Continue Lovenox 140mg BID will add Coumadin 20mg today and INR this AM: 1.1.6 Due to previous LLE extensive DVT will need life-long AC; daily PT/INR checks until therapeutic on Coumadin Pt in past has been resistant due to seizure medications and likely genetics (previously on Coumadin 30mg before d/c) Neurology on board ASA 81mg to continue daily EEG pending #Seizures Continue Keppra 1gm BID PO #DM Continue BGM ACHS with ISS coverage Added Levemir 30 units in AM #HLD Continue Lipitor 40mg HS #HTN Continue Norvasc 5mg qdaily Problem List - Problems (1) DVT prophylaxis Code(s): UBS6844 - (2) H/O deep venous thrombosis Code(s): Z86.718 - PERSONAL HISTORY OF OTHER VENOUS THROMBOSIS AND EMBOLISM (3) TIA (transient ischemic attack) Code(s): G45.9 - TRANSIENT CEREBRAL ISCHEMIC ATTACK, UNSPECIFIED (4) Diabetes type 2, uncontrolled Code(s): E11.65 - TYPE 2 DIABETES MELLITUS WITH HYPERGLYCEMIA (5) Hyperlipidemia Code(s): E78.5 - HYPERLIPIDEMIA, UNSPECIFIED Visit type - Emergency Visit Emergency Visit: Yes ED Registration Date: 07/15/18 Care time: The patient presented to the Emergency Department on the above date and was hospitalized for further evaluation of their emergent condition. - New Patient This patient is new to me today: No - Critical Care Critical Care patient: No
[2018-07-19] MEDS ORDERED: MAGNESIUM OXIDE 400 MG TABLET (FP) PO ONE (08:30)
[2018-07-19] MEDS: levETIRAcetam 500 MG TABLET (FP) PO SCH (09:38)
[2018-07-19] MEDS: amLODIPine BESYLATE 5 MG TABLET (FP) PO SCH (09:38)
[2018-07-19] MEDS: ASPIRIN COATED 81 MG TABLET.EC PO SCH (09:39)
[2018-07-19] MEDS ORDERED: NICOTINE 14 MG/24 HOURS TOPICAL PATCH TD SCH (10:00)
--- NOTE | 2018-07-19 10:41 | CONSULT ---
Admitting History and Physical - Primary Care Physician PCP: Joao Abbott - Admission History of Present Illness: 57 year old male history of DVT,DM,HTN,HLD admitted 07/15 with L sided tingling and weakness. ct head is normal. mri of brain identified left occpital infarct. 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 No: Cancer, Constipation , GERD Renal/: No: Renal Failure, Cancer Endocrine: Yes: Diabetes Mellitus - Past Surgical History Past Surgical History: Yes: None - Smoking History Smoking history: Current every day smoker Have you smoked in the past 12 months: Yes Aproximately how many cigarettes per day: 10 - Alcohol/Substance Use Hx Alcohol Use: No - Social History ADL: Independent Occupation: currently not working History of Recent Travel: No History - Admission Reason For Visit: TRANSIENT CEREBRAL ISCHEMIA - Diagnostics X-ray: Report Reviewed CT Scan: Report Reviewed MRI: Report Reviewed (left occpital infarct.) - General Mental Status: Alert and Oriented, Awake and Alert, Able to Follow Commands Attention: Intact Ability to Follow Directions: Excellent Head/Neck Control: WFL - Hearing Hearing: Normal Hearing Aide: No With Patient: No Speech Evaluation - Communication Primary Language: GERMAN Communication: Yes: Within Normal Limits Oral Expression Ability: Yes: No Impairment - Speech Production Able to Make Needs Known: Yes: WNL Intelligibility: Yes: WNL - Speech Characteristics Voice Loudness: Normal Voice Pitch: Yes: Normal Voice Phonatory-based Quality: Yes: Normal Speech Pattern: Normal Speech Clarity: < 100% Nasal Resonance: Normal Articulation: Yes: Precise Rate of Speech: Intact - Language/Auditory Comprehension Follows: Yes: 2 Stage Simple Commands - Language/Verbal Expression Able to Respond to Simple Queries: Yes: WNL Able to Communicate Wants and Needs: Yes: WNL Functional Communication Status: Yes: WNL Attention: Yes: Intact - Memory/Perception detention Memory: Yes: WNL Short Term Memory: Yes: WNL Hemaniopsia: Yes: Left - Swallow Evaluation/Bedside Assessment Current Nutritional Intake: Regular, Thin Liquids Oral Secretions: Yes: WFL Dentition: Yes: Missing Teeth Facial Symmetry at Rest: Symmetrical Facial Symmetry on Retraction: Symmetrical Against Resistance Opening: Normal Against Resistance Closing: Normal Pucker Lips: Normal Smile: Normal Lingual Movement: Normal, Symmetric Lingual Speed of Movement: Normal Lingual Movement Strgth Against Opposition: Normal Lingual Movement Characteristics: Normal Velopharyngeal Movement: Normal Laryngeal Elevation: WFL Laryngeal Movement: Able to Palpate Rate of Intake: WFL Bolus Size: WFL Labial Seal: WFL Chewing: WFL Oral Prep Time: WFL A-P Transit: WFL Pocketing: None Timing of Swallow: WFL Coughing/Throat Clear: No Change in Voice: No Recommendations - Speech Evaluation, Impression/Plan Impression: Pt with normal speech, language, swallow. He has a right hemianopsia without neglect. He is able to read well, compensating by moving position of paper. - Dysphagia Impressions/Plan Swallowing Skills: [facility] Dysphagia Impressions: No Impairment *Silent aspiration: cannot be R/O at bedside Recommendations: Other (Reading drills. Counseled to turn head to right while walking to scan for items/people etc) - Recommendations Diet Consistency: Regular Medication Administration: Whole with water Liquids: Thin Liquids
[2018-07-19] MEDS: LISINOPRIL 10 MG TABLET (FP) PO SCH (13:20)
[2018-07-19] MEDS ORDERED: MAGNESIUM SULF 50% (8.12 MEQ/2 ML-1 GM VIAL) IVPB ONE (13:30)
[2018-07-19 14:24] VITALS: TEMP 98.6
--- NOTE | 2018-07-19 15:19 | DS ---
Physical Exam: SUBJECTIVE: Patient seen and examined at bedside- no acute events overnight patient states he is feeling better still having slight blurred vision however its improving. he is no longer having any numbness/tingling in the extremities he denies any CP/SONB/N/V fevers or chills OBJECTIVE: Vital Signs Period Temp Pulse Resp BP Sys/Navarrete Pulse Ox Last 24 Hr 98.4 F-98.8 F 63-82 18-20 114-147/57-89 95-95 PHYSICAL EXAM GENERAL: The patient is awake, alert, and fully oriented, in no acute distress. EYES: PEERLA: EOMI no scleeral icterus NECK: no JVD; no lymphadenopathy LUNGS: CTA B/L; no rales, rhonchi or wheezing HEART: Regular rate and rhythm, S1, S2 without murmur, rub or gallop. ABDOMEN: Soft, nontender, nondistended, normoactive bowel sounds, no guarding, no rebound, no hepatosplenomegaly, no masses. EXTREMITIES: 2+ pulses, warm, well-perfused, no edema. NEUROLOGICAL: Cranial nerves II through XII grossly intact. Normal speech, gait not observed. PSYCH: Normal mood, normal affect. SKIN: Warm, dry, normal turgor, no rashes or lesions noted. LABS Laboratory Results - last 24 hr 07/18/18 07/18/18 07/19/18 17:37 21:44 05:30 WBC 6.7 RBC 4.86 Hgb 11.3 L Hct 35.0 L MCV 72.0 L MCH 23.2 L MCHC 32.2 RDW 13.0 Plt Count 181 D MPV 8.6 PT with INR INR Sodium Potassium Chloride Carbon Dioxide Anion Gap BUN Creatinine Creat Clearance w eGFR POC Glucometer 401 307 Random Glucose Hemoglobin A1c % Calcium Phosphorus Magnesium 07/19/18 07/19/18 07/19/18 05:30 05:30 05:30 WBC RBC Hgb Hct MCV MCH MCHC RDW Plt Count MPV PT with INR 13.70 H INR 1.16 H Sodium 136 Potassium 4.1 Chloride 104 Carbon Dioxide 26 Anion Gap 6 L BUN 13 Creatinine 1.1 Creat Clearance w eGFR 69.24 POC Glucometer Random Glucose 286 H Hemoglobin A1c % 9.1 H Calcium 8.1 L Phosphorus 4.3 Magnesium 1.6 L 07/19/18 07/19/18 06:45 12:23 WBC RBC Hgb Hct MCV MCH MCHC RDW Plt Count MPV PT with INR INR Sodium Potassium Chloride Carbon Dioxide Anion Gap BUN Creatinine Creat Clearance w eGFR POC Glucometer 281 336 Random Glucose Hemoglobin A1c % Calcium Phosphorus Magnesium MRI OF THE BRAIN Clinical information: TIA versus stroke. Sagittal and coronal T1, axial T2, FLAIR and diffusion images of the brain were obtained. On the sagittal images, the corpus callosum pineal and pituitary regions and the craniovertebral junction are unremarkable. On the axial and coronal images, the ventricles are normal in size. There are no intra or extra-axial masses or collections. There is a left occipital acute/subacute infarct measuring 3.8 cm. Also foci of small acute/ subacute cortical and white matter infarcts of the occipital lobes, and the splenium of the corpus callosum and left aspect and the posterior right aspect of the marita. Normal flow-void is in the basilar and internal carotid arteries. There is no acute sinusitis. There is prominence of the lymphoid tissues of the nasopharynx is probably inflammatory. IMPRESSION: Left occipital acute/subacute nonhemorrhagic infarct with foci of acute/ subacute small vessel infarction nonhemorrhagic in occipital lobes, posterior aspect of the corpus callosum and in the posterior right aspect of the marita. There are foci of chronic small vessel infarction in the periventricular white matter and thalami. Head CT: no acute pathology HOSPITAL COURSE: Date of Admission:07/15/18 57 M with h/o DVT (IVC filter) on coumadin (though he had not been taking it), DM, HTN, HLD, presenting to ED with L sided tingling and weakness. Pt states that onset occurred about 30 minutes prior to arrival. Denies any symptoms when he woke up today. Pt states that he feels "pins and needles" in his L arm and leg. Denies slurred speech. Denies headache. Denies dizziness.He admits that he has been non-compliant with all of his meds for 4 months, including his coumadin. Head CT results noted above. Vitals were stable when patient came in. imaging noted above./ he was seen by neurology who suggested brain MRI, carotid, neck MRA. patient was initially started on lovenox for AC with bridging with coumadin and started on baby aspirin in addition to his home meds of keppra, lipitor,norvasc. his sugars were also not under control while he was in the hospital. He usually took glipizide 10 daily' while here in the hospital he was started on an insulin sliding scale, however his sugars were still not controlled so we started him on levemir 30 units in the morning. his insurance was able to cover eliquis 5 BID so he was taken off the coumadin and will start on eliquis 5 BID. he was stable to be d/c home with follow up to see dr pepe the neurologist in addition we gave patient referral to see an director of labor and delivery as his sugars have been not well controlled and he needs diabetic counseling/ medication recommendations. Date of Discharge: 07/19/18 Minutes to complete discharge: 39 Discharge Summary Reason For Visit: TRANSIENT CEREBRAL ISCHEMIA Current Active Problems H/O deep venous thrombosis (Chronic) H/O idiopathic seizure (Chronic) Condition: Stable - Instructions Diet, Activity, Other Instructions: You were hospitalized due to your tingling and numbness which could have been a mini-stroke (TIA). Your head and neck CAT scan and ultrasound of your neck were all normal and your symptoms resolved by themselves. On your MRI there were areas of your brain that were abnormal which would explain your symptoms. You were seen by neurology and you are stable enough to be discharged back home MEDICATIONS: Please continue to take all of your medications as prescribed Please take Eliquis 5mg twice a day instead of the Warfarin Please continue taking Aspirin 81mg DAILY For your glycemic control we started you on levemir 30 units to be taken in the morning in addition to the Glipizide 10mg you were taking. It is very important for you to follow a low carb/low fat diet and to monitor your sugars before each meal and to log them and bring them into both the primary care physician in addition to when you see the director of labor and delivery Dr. Antony. Your Hba1c came back at 9.1, please repeat this in 3 months. Follow up with net sql developer within a week We are referring you to a primary care physician located at [address] [place] [address] please see them within one to two days upon discharge Please follow up with the neurologist, Dr. Pepe within one week We are also referring you to an director of labor and delivery, Dr. Antony to follow up with to obtain proper diabetic counseling and medication recommendations Please refrain from smoking cigarettes. *if you begin to experience numbness/tingling/gait instability, chest pains, shortness of breath, nausea/vomiting please return to the emergency room immediately Referrals: Joel Pepe MD [Staff Physician] - 1 Week Chong Fontana MD [Staff Physician] - 07/21/18 Aristides Antony MD [Staff Physician] - 1 Week Disposition: HOME - Home Medications Comprehensive Discharge Medication List: Ambulatory Orders Amlodipine Besylate [Norvasc -] 5 mg PO DAILY #30 tablet 12/30/16 Atorvastatin Ca [Lipitor] 20 mg PO HS #30 tablet 12/30/16 Docusate Sodium [Colace -] 100 mg PO BID PRN #30 cap 12/30/16 Glipizide [Glipizide ER] 10 mg PO DAILY #30 tab.er.24 12/30/16 Lisinopril [Prinivil] 10 mg PO DAILY@1200 #30 tablet 12/30/16 levETIRAcetam [Keppra -] 1,000 mg PO BID #60 tablet 12/30/16 Apixaban [Eliquis -] 5 mg PO BID 30 Days #60 tablet 07/19/18 Aspirin Coated [Ecotrin -] 81 mg PO DAILY 30 Days #30 tablet.ec 07/19/18 Blood-Glucose Meter [Blood Glucose Monitoring] 1 each MC DAILY #1 each 07/19/18 Insulin (Levemir) [Levemir Vial] 30 units SQ AM #1 vial 07/19/18 Lancets/Blood Glucose Strips [Fora [id number] Strp-Lnct] 1 each MC DAILY # 30 combo..pkg 07/19/18 Problem List - Problems (1) DVT prophylaxis Code(s): HKO4944 - (2) H/O deep venous thrombosis Code(s): Z86.718 - PERSONAL HISTORY OF OTHER VENOUS THROMBOSIS AND EMBOLISM (3) TIA (transient ischemic attack) Code(s): G45.9 - TRANSIENT CEREBRAL ISCHEMIC ATTACK, UNSPECIFIED (4) Diabetes type 2, uncontrolled Code(s): E11.65 - TYPE 2 DIABETES MELLITUS WITH HYPERGLYCEMIA (5) Hyperlipidemia Code(s): E78.5 - HYPERLIPIDEMIA, UNSPECIFIED This patient is new to me today: No Emergency Visit: Yes ED Registration Date: 07/15/18 Care time: The patient presented to the Emergency Department on the above date and was hospitalized for further evaluation of their emergent condition. Critical Care patient: No - Discharge Referral Referred to [facility] No
[2018-07-19 15:20] VITALS: BP 136/76; PULSE 79
--- NOTE | 2018-07-19 17:31 | PN ---
Teaching Attending Note Name of Resident: Christy Meyers ATTENDING PHYSICIAN STATEMENT I saw and evaluated the patient. I reviewed the resident's note and discussed the case with the resident. I agree with the resident's findings and plan as documented. SUBJECTIVE: Patient feels better today still having vision problems, after discussing with the patient , patient endorses that he has a insurance coverage and will cover her medications since last admissions patient was not able to get the medication. OBJECTIVE: Vital Signs Temperature 98.6 F 07/19/18 14:00 Pulse Rate 79 07/19/18 14:00 Respiratory Rate 20 07/19/18 14:00 Blood Pressure 136/76 07/19/18 14:00 O2 Sat by Pulse Oximetry (%) 95 07/19/18 09:00 GENERAL: Awake, alert, and fully oriented, in no acute distress. HEAD: No signs of trauma EYES: PERRLA, EOMI, sclera anicteric, conjunctiva clear ENT: hearing grossly normal, oropharynx clear without exudates. Moist mucosa NECK: Nontender, no step offs, Normal ROM, supple, no lymphadenopathy, JVD, or masses LUNGS: Breath sounds equal, clear to auscultation bilaterally. No wheezes, and no crackles HEART: Regular rate and rhythm, normal S1 and S2, no murmurs, rubs or gallops ABDOMEN: Soft, nontender, normoactive bowel sounds. No guarding, no rebound. No masses EXTREMITIES: Normal range of motion, no edema. No clubbing or cyanosis. No cords, erythema, or tenderness NEUROLOGICAL: Cranial nerves II through XII intact. SKIN: Warm, Dry, normal turgor, no rashes or lesions noted. CBCD WBC 6.7 K/mm3 (4.0-10.0) 07/19/18 05:30 RBC 4.86 M/mm3 (4.00-5.60) 07/19/18 05:30 Hgb 11.3 GM/dL (11.7-16.9) L 07/19/18 05:30 Hct 35.0 % (35.4-49) L 07/19/18 05:30 MCV 72.0 fl (80-96) L 07/19/18 05:30 MCHC 32.2 g/dl (32.0-35.9) 07/19/18 05:30 RDW 13.0 % (11.9-15.9) 07/19/18 05:30 Plt Count 181 K/MM3 (134-434) D 07/19/18 05:30 MPV 8.6 fl (7.5-11.1) 07/19/18 05:30 CMP Sodium 136 mmol/L (136-145) 07/19/18 05:30 Potassium 4.1 mmol/L (3.5-5.1) 07/19/18 05:30 Chloride 104 mmol/L (98-107) 07/19/18 05:30 Carbon Dioxide 26 mmol/L (21-32) 07/19/18 05:30 Anion Gap 6 MMOL/L (8-16) L 07/19/18 05:30 BUN 13 mg/dL (7-18) 07/19/18 05:30 Creatinine 1.1 mg/dL (0.55-1.3) 07/19/18 05:30 Creat Clearance w eGFR 69.24 (>60) 07/19/18 05:30 Random Glucose 286 mg/dL (74-106) H 07/19/18 05:30 Calcium 8.1 mg/dL (8.5-10.1) L 07/19/18 05:30 Total Bilirubin 0.8 mg/dL (0.2-1) 07/18/18 06:35 AST 17 U/L (15-37) 07/18/18 06:35 ALT 21 U/L (13-61) 07/18/18 06:35 Alkaline Phosphatase 88 U/L (45-117) 07/18/18 06:35 Total Protein 7.6 g/dl (6.4-8.2) 07/18/18 06:35 Albumin 3.8 g/dl (3.4-5.0) 07/18/18 06:35 CARDIAC ENZYMES Creatine Kinase 312 U/L (26-308) H 07/15/18 09:25 Troponin I < 0.02 ng/ml (0.00-0.05) 07/15/18 09:25 Home Medications Medication Instructions Recorded Amlodipine Besylate [Norvasc -] 5 mg PO DAILY #30 tablet 12/30/16 Atorvastatin Ca [Lipitor] 20 mg PO HS #30 tablet 12/30/16 Docusate Sodium [Colace -] 100 mg PO BID PRN #30 cap 12/30/16 Glipizide [Glipizide ER] 10 mg PO DAILY #30 tab.er.24 12/30/16 Lisinopril [Prinivil] 10 mg PO DAILY@1200 #30 tablet 12/30/16 levETIRAcetam [Keppra -] 1,000 mg PO BID #60 tablet 12/30/16 Apixaban [Eliquis -] 5 mg PO BID 30 Days #60 tablet 07/19/18 Aspirin Coated [Ecotrin -] 81 mg PO DAILY 30 Days #30 07/19/18 tablet.ec Blood-Glucose Meter [Blood Glucose 1 each MC DAILY #1 each 07/19/18 Monitoring] Insulin (Levemir) [Levemir Vial] 30 units SQ AM #1 vial 07/19/18 Lancets/Blood Glucose Strips [Fora 1 each MC DAILY #30 combo..pkg 07/19/18 [id number] Strp-Lnct] Syrge-Ndl,Ins 0.3 ml Half Danis 1 each MC DAILY #30 disp.syrin 07/19/18 [Insulin Syringe] Duples of lower extremity: Negative MRI/BRAIN MRI W/O CONTRAST MRI OF THE BRAIN Clinical information: TIA versus stroke. Sagittal and coronal T1, axial T2, FLAIR and diffusion images of the brain were obtained. On the sagittal images, the corpus callosum pineal and pituitary regions and the craniovertebral junction are unremarkable. On the axial and coronal images, the ventricles are normal in size. There are no intra or extra-axial masses or collections. There is a left occipital acute/subacute infarct measuring 3.8 cm. Also foci of small acute/ subacute cortical and white matter infarcts of the occipital lobes, and the splenium of the corpus callosum and left aspect and the posterior right aspect of the marita. Normal flow-void is in the basilar and internal carotid arteries. There is no acute sinusitis. There is prominence of the lymphoid tissues of the nasopharynx is probably inflammatory. IMPRESSION: Left occipital acute/subacute nonhemorrhagic infarct with foci of acute/subacute small vessel infarction nonhemorrhagic in occipital lobes, posterior aspect of the corpus callosum and in the posterior right aspect of the marita. There are foci of chronic small vessel infarction in the periventricular white matter and thalami. Assessment and plan: Patient is a 56 y/o male with Pmhx of HTN, DM , HLP, seizure and occipital stroke ,who presented c/o feeling weak and has not been taking his medications for the past 3 months. # T2DM: increased Levemir to 30u and explained the patient how to use it, last hgA1c was 11 , and continue glipizide home dose , follow up with . # Left occipital acute/subacute nonhemorrhagic infarct with foci of acute/ subacute small vessel infarction nonhemorrhagic in occipital lobes, posterior aspect of the corpus callosum and in the posterior right aspect of the marita. Hx of stroke with vision changes, presents with TIA with numbness and tingling : ct of the head is negative for bleed. Mri of the brain: will discontinue AC lovenox 140mg sq bid, since patient doesn't want to be on coumadin and Dr. Allen agreed for Eliquis and his insurance covering the medication , will discharge the patient on Elquis 5mg po bid . # Hx of LLE DVT: s/p suction thrombectomy of femoral vein and iliac vein regained pulses of LLE,as per patient stopped taking AC. As per previous admission patient needs life long ac. Ct of the head no bleed. s/p lovenox 120mg sq bid, duplex of le r/o dvt was negative. Patient is non compliant with his meds, stopped taking his meds 3 months ago. # Seizure disorder On Phenytoin and Keppra continue # MALOU : resolved # Hx of Hyperlipidemia continue meds. #Hypertension continue home meds. norvasc and lisinopril discharge patient home on eliquis 5mg po bid levemir 3ounits in am follow with dr min
[2018-07-19] MEDS ORDERED: WARFARIN NA 10 MG TABLET (FP) PO ONE (18:00)
[2018-07-20] MEDS ORDERED: INSULIN (LEVEMIR) 100 UNITS/ML UNITS SQ SCH (07:00)
== END 2018-07-19 17:28 | disposition home or self-care (01) | DRG 45 ==
LOC: JER 08:54 → JERBED 16:34 → J4W 20:53
PROVIDERS: ADMIT Internal Medicine; ATTEND Internal Medicine
DX: I63.9 Cerebral infarction, unspecified (principal); I69.354 Hemiplegia and hemiparesis following cerebral infarction affecting left non-dominant side; I10 Essential (primary) hypertension; E78.5 Hyperlipidemia, unspecified; F17.210 Nicotine dependence, cigarettes, uncomplicated; G40.909 Epilepsy, unspecified, not intractable, without status epilepticus; E11.65 Type 2 diabetes mellitus with hyperglycemia; Z79.01 Long term (current) use of anticoagulants; Z86.718 Personal history of other venous thrombosis and embolism; Z91.19 Patient's noncompliance with other medical treatment and regimen
CPT/HCPCS: 36415; 70450-TC; 70551-TC; 71045-TC-FY; 80048; 80053; 82550; 82553; 82947; 82962; 83036; 83735; 84100; 84484; 85025; 85027; 85610; 85730; 93005; 93010; 93970-TC; 95816; 97116-GP; 97162-GP; 99283-25

== ENCOUNTER 2018-07-19 20:36 | Observation (INO) | payer OTHER ==
--- NOTE | 2018-07-19 21:06 | PDOC ---
History of Present Illness - General Chief Complaint: Lethargy Stated Complaint: WEAKNESS Time Seen by Provider: 07/19/18 21:06 History Source: Patient - History of Present Illness Initial Comments: 07/20/18 00:42 The patient is a 57 year old male with a significant PMH of DVT (s/p IVC filter) , TIA, NIDDM, HTN, HLD who presents to the ED c/o headache. Headache is left sided, pounding without any visual changes or vomiting. States he was discharged from our hospital today following a stroke and he feels he was not ready to go home because he is having difficulty ambulating and he lives alone. The patient denies chest pain, shortness of breath, abdominal pain, nausea/ vomiting, diarrhea/constipation. NKDA As per EMR patient was evaluated in our ED on 07/15/[address] and MRI negative. Patient discharged home on A/C. Past History - Past Medical History Allergies/Adverse Reactions: Allergies Allergy/AdvReac Type Severity Reaction Status Date / Time No Known Allergies Allergy Verified 07/19/18 20:45 Home Medications: Ambulatory Orders Amlodipine Besylate [Norvasc -] 5 mg PO DAILY #30 tablet 12/30/16 Atorvastatin Ca [Lipitor] 20 mg PO HS #30 tablet 12/30/16 Docusate Sodium [Colace -] 100 mg PO BID PRN #30 cap 12/30/16 Glipizide [Glipizide ER] 10 mg PO DAILY #30 tab.er.24 12/30/16 Lisinopril [Prinivil] 10 mg PO DAILY@1200 #30 tablet 12/30/16 levETIRAcetam [Keppra -] 1,000 mg PO BID #60 tablet 12/30/16 Apixaban [Eliquis -] 5 mg PO BID 30 Days #60 tablet 07/19/18 Aspirin Coated [Ecotrin -] 81 mg PO DAILY 30 Days #30 tablet.ec 07/19/18 Blood-Glucose Meter [Blood Glucose Monitoring] 1 each MC DAILY #1 each 07/19/18 Insulin (Levemir) [Levemir Vial] 30 units SQ AM #1 vial 07/19/18 Lancets/Blood Glucose Strips [Fora [id number] Strp-Lnct] 1 each MC DAILY # 30 combo..pkg 07/19/18 Syrge-Ndl,Ins 0.3 ml Half Danis [Insulin Syringe] 1 each MC DAILY #30 disp.syrin 07/19/18 Anemia: No Asthma: No Cancer: No Cardiac Disorders: No CVA: No COPD: No CHF: No Dementia: No Diabetes: Yes GI Disorders: No Disorders: No HTN: Yes Hypercholesterolemia: Yes Liver Disease: No Seizures: Yes Thyroid Disease: No - Surgical History Abdominal Surgery: No Appendectomy: No Cardiac Surgery: No Cholecystectomy: No Lung Surgery: No Neurologic Surgery: No Orthopedic Surgery: No - Suicide/Smoking/Psychosocial Hx Smoking History: Never smoked Have you smoked in the past 12 months: No Number of Cigarettes Smoked Daily: 10 Information on smoking cessation initiated: No 'Breaking Loose' booklet given: 11/20/16 Hx Alcohol Use: No Drug/Substance Use Hx: No Substance Use Type: None Hx Substance Use Treatment: No Review of Systems - Review of Systems Constitutional: No: Chills, Fever HEENTM: No: Recent change in vision Respiratory: No: Cough, Shortness of Breath Cardiac (ROS): No: Chest Pain, Lightheadedness, Palpitations, Syncope ABD/GI: No: Constipated, Diarrhea, Nausea, Vomiting *Physical Exam - Vital Signs Last Vital Signs Temp Pulse Resp BP Pulse Ox 97.7 F 66 18 124/85 97 07/19/18 20:36 07/19/18 20:36 07/19/18 20:36 07/19/18 20:36 07/19/18 20:36 - Physical Exam General Appearance: Yes: Nourished, Appropriately Dressed HEENT: positive: Normal Voice, Hearing Grossly Normal, TM Erythema. negative: TM Bulging, TM Dull Neck: positive: Trachea midline, Supple Respiratory/Chest: positive: Lungs Clear, Normal Breath Sounds Cardiovascular: positive: S1, S2 Vascular Pulses: Femoral (R): 2+, Femoral (L): 2+ Gastrointestinal/Abdominal: positive: Normal Bowel Sounds, Soft Extremity: positive: Normal Capillary Refill, Normal Inspection Integumentary: positive: Normal Color, Dry, Warm Moderate Sedation - Procedure Monitoring Vital Signs: Procedure Monitoring Vital Signs Temperature 97.7 F 07/19/18 20:36 Pulse Rate 66 07/19/18 20:36 Respiratory Rate 18 07/19/18 20:36 Blood Pressure 124/85 07/19/18 20:36 O2 Sat by Pulse Oximetry (%) 97 07/19/18 20:36 Medical Decision Making - Medical Decision Making 07/20/18 03:06 57 year male presents with headache, difficulty ambulating. Discharged from our facility 07/19 following likely TIA, started on A/C. VS unremarkable. Will obtain head CT to r/o I/C bleed. Hospitalist paged. 07/20/18 05:[address] negative. Patient continues to state he does not feel he can take care of himself at home. At this time patient is not safe for discharge home as he cannot ambulate. Will admit to hospitalist medicine team for evaluation by PT and possible ELEONORA. Case d/w Dr. Kwan. Patient accepted for admission. *DC/Admit/Observation/Transfer Diagnosis at time of Disposition: Headache - Discharge Dispostion Condition at time of disposition: Fair Decision to Admit order: Yes - Referrals - Patient Instructions - Post Discharge Activity
--- NOTE | 2018-07-19 21:09 | PDOC ---
Attending Attestation - HPI HPI: 07/19/18 21:39 The patient is a 57 year old male, with a significant past medical history of DVT (IVC filter), DM, HTN, HLD, who presents to the emergency department with, a left sided headache. Patient was recently discharged earlier today a TIA ( admitted 07/15 secondary to medication noncompliance). He notes this is similar to his previous headaches. He denies this is the worst headache of his life. He denies any recent fevers, chills, or dizziness. He denies any recent nausea, vomit, diarrhea or constipation. He denies any recent chest pain or shortness of breath. He denies any recent dysuria, frequency, urgency or hematuria. Allergies: NKDA - Physicial Exam PE: 07/19/18 21:39 Agree with resident exam. <Trae Rodney - Last Filed: 07/19/18 21:39> - Resident Resident Name: Mercy Ye - ED Attending Attestation I have performed the following: I have examined & evaluated the patient, The case was reviewed & discussed with the resident, I agree w/resident's findings & plan - Medical Decision Making 07/19/18 22:34 57-year-old male with recent acute ischemic CVA currently anticoagulated complaining of left-sided headache and unsteady gait Patient feels unsafe at home Repeat CT scan with planned readmission to medical service for PT eval for possible rehabilitation <Mila Cervantes - Last Filed: 07/19/18 22:35> Attestations - Attestations 07/19/18 21:39 Documentation prepared by Trae Rodney, acting as medical office specialist for Mila Cervantes DO. <Trae Rodney - Last Filed: 07/19/18 21:39>
[2018-07-19] MEDS ORDERED: ACETAMINOPHEN 1000 MG/100 ML VIAL (NON FORMULARY) IVPB ONE (21:19)
--- NOTE | 2018-07-19 21:50 | PN ---
Teaching Attending Note Name of Resident: Papo Kwan ATTENDING PHYSICIAN STATEMENT I saw and evaluated the patient. I reviewed the resident's note and discussed the case with the resident. I agree with the resident's findings and plan as documented. SUBJECTIVE: Patient is a 57 year old man with PMH of LLE DVT ( s/p suction thrombectomy of femoral vein and iliac vein/IVC filter), was on coumadin, seizure disorder. NIDDM, HTN, HLD who was admitted to [facility] on 07/15/18 for left sided tingling and weakness. Patient was discharged earlier today (07/19/18), but now returns with complaint of headache. Denies photophobia or neck stiffness. Has no fever or chills, no shortness of breath. He also has seizure and occipital stroke with vision changes, numbness and tingling. CT head on that admission negative for bleed. During his hospital stay, he continued to have vision problems, his levimir was increased for better glucose control and brain MRI showed Left occipital acute/ subacute nonhemorrhagic infarct with foci of acute/subacute small vessel infarction nonhemorrhagic in occipital lobes, posterior aspect of the corpus callosum and in the posterior right aspect of the marita. There are foci of chronic small vessel infarction in the periventricular white matter and thalami. He was discharged on Eliquis 5 mg bid. OBJECTIVE: Alert Vital Signs Period Temp Pulse Resp BP Sys/Navarrete Pulse Ox Last 24 Hr 97.7 F 66 18 124/85 97 HEENT: No Jaundice, eye redness or discharge, PERRLA, EOMI. Normocephalic, atraumatic. External ears are normal and hearing is grossly intact. No nasal discharge. Neck: Supple, nontender. No palpable adenopathy or thyromegaly. No JVD Chest: Good effort. Clear to auscultation and percussion. Heart: Regular. No S3, rub or murmur Abdomen: Not distended, soft, nontender and no HSM. No rebound or guarding. Normal bowel sounds. Ext: Peripheral pulses intact. No leg edema. Skin: Warm and dry. No petechiae, rash or ecchymosis. Neuro: Alert. Oriented x3. CN 2-12 grossly intact. Sensation grossly intact in all four extremities and DTR are symmetric. Psych: Appropriate mood and affect. Good insight. Home Medications Medication Instructions Recorded Amlodipine Besylate [Norvasc -] 5 mg PO DAILY #30 tablet 12/30/16 Atorvastatin Ca [Lipitor] 20 mg PO HS #30 tablet 12/30/16 Docusate Sodium [Colace -] 100 mg PO BID PRN #30 cap 12/30/16 Glipizide [Glipizide ER] 10 mg PO DAILY #30 tab.er.24 12/30/16 Lisinopril [Prinivil] 10 mg PO DAILY@1200 #30 tablet 12/30/16 levETIRAcetam [Keppra -] 1,000 mg PO BID #60 tablet 12/30/16 Apixaban [Eliquis -] 5 mg PO BID 30 Days #60 tablet 07/19/18 Aspirin Coated [Ecotrin -] 81 mg PO DAILY 30 Days #30 07/19/18 tablet.ec Blood-Glucose Meter [Blood Glucose 1 each MC DAILY #1 each 07/19/18 Monitoring] Insulin (Levemir) [Levemir Vial] 30 units SQ AM #1 vial 07/19/18 Lancets/Blood Glucose Strips [Fora 1 each MC DAILY #30 combo..pkg 07/19/18 [id number] Strp-Lnct] Syrge-Ndl,Ins 0.3 ml Half Danis 1 each MC DAILY #30 disp.syrin 07/19/18 [Insulin Syringe] ASSESSMENT AND PLAN: 1. Headache - Patient felt better while in the ER and was painfree, but says he didnot feel comfortable going home. No obvious cause for the headache. Head CT scan did not show any acute abnormality. 2. DM As long as he is eating well, will continue the home diabetes drugs and implement sliding scale insulin regimen. Provide comprehensive diabetes care with patient teaching and counseling about the importance of adherence to prescribed diabetes regimen, euglycemia, eye care and foot care. 3. Low MCV Anemia - Etiology unclear. Do basic anemia work up including serial stool guaiacs, reticulocyte count and iron studies. 4. Morbid Obesity Counseled on the risks associated with obesity. Will provide patient all the necessary assistance, counseling and positive reinforcement to facilitate weight loss. Consult resolution rep. 5. Hypertension - Restart outpatient antihypertensive drugs and revise regimen to ensure smooth [id number] good BP control. Nonpharmacologic measures to control hypertension like weight loss, salt restriction and exercise discussed. 6. DVT prophylaxis - On Eliquis for DVT 7. Advance directives - Full code
[2018-07-19] MEDS ORDERED: ACETAMINOPHEN INJECTION 100 ML IVPB ONE (23:01)
--- NOTE | 2018-07-19 23:03 | HP ---
CHIEF COMPLAINT: Headache , no feeling safe on his own PCP: Dr Addi Momin ([facility] ) HISTORY OF PRESENT ILLNESS: The patient is a 57 year old male, with a significant past medical history of DVT (IVC filter), DM, HTN, HLD, who presents to the emergency department with, a left sided frontal headache local , non radiating , dull, 4-5/10. Patient was discharged earlier today a TIA (admitted 07/15). He denies this is the worst headache of his life. He denies any recent fevers, chills, or dizziness. He denies any recent nausea, vomit, diarrhea or constipation. He denies any recent chest pain or shortness of breath. He denies any recent dysuria, frequency, urgency or hematuria. pt is admitted due to safety he said he is not feeling safe by him self at home t was able to walk with me all wholway without any imbalance or dizziness ER course was notable for: (1)CT head Ngative for IC bleeding (2) (3) Recent Travel:denies PAST MEDICAL HISTORY: DVT (IVC filter) on coumadin, DM, HTN, HLD PAST SURGICAL HISTORY: IVC filter Social History: Smokin/2 PPD since age of 16 , he said he quit today Alcohol: quit 1979 Drugs: denies Family History:non contributory Allergies No Known Allergies Allergy (Verified 07/19/18 20:45) HOME MEDICATIONS: Home Medications Medication Instructions Recorded Amlodipine Besylate [Norvasc -] 5 mg PO DAILY #30 tablet 12/30/16 Atorvastatin Ca [Lipitor] 20 mg PO HS #30 tablet 12/30/16 Docusate Sodium [Colace -] 100 mg PO BID PRN #30 cap 12/30/16 Glipizide [Glipizide ER] 10 mg PO DAILY #30 tab.er.24 12/30/16 Lisinopril [Prinivil] 10 mg PO DAILY@1200 #30 tablet 12/30/16 levETIRAcetam [Keppra -] 1,000 mg PO BID #60 tablet 12/30/16 Apixaban [Eliquis -] 5 mg PO BID 30 Days #60 tablet 07/19/18 Aspirin Coated [Ecotrin -] 81 mg PO DAILY 30 Days #30 07/19/18 tablet.ec Blood-Glucose Meter [Blood Glucose 1 each MC DAILY #1 each 07/19/18 Monitoring] Insulin (Levemir) [Levemir Vial] 30 units SQ AM #1 vial 07/19/18 Lancets/Blood Glucose Strips [Fora 1 each DAILY #30 combo..pkg 07/19/18 [id number] Strp-Lnct] Syrge-Ndl,Ins 0.3 ml Half Danis 1 each DAILY #30 disp.syrin 07/19/18 [Insulin Syringe] REVIEW OF SYSTEMS CONSTITUTIONAL: Absent: fever, chills, diaphoresis, generalized weakness, malaise, loss of appetite, weight change HEENT: Absent: rhinorrhea, nasal congestion, throat pain, throat swelling, difficulty swallowing, mouth swelling, ear pain, eye pain, visual changes CARDIOVASCULAR: Absent: chest pain, syncope, palpitations, irregular heart rate, lightheadedness , peripheral edema RESPIRATORY: Absent: cough, shortness of breath, dyspnea with exertion, orthopnea, wheezing, stridor, hemoptysis GASTROINTESTINAL: Absent: abdominal pain, abdominal distension, nausea, vomiting, diarrhea, constipation, melena, hematochezia GENITOURINARY: Absent: dysuria, frequency, urgency, hesitancy, hematuria, flank pain, genital pain MUSCULOSKELETAL: Absent: myalgia, arthralgia, joint swelling, back pain, neck pain SKIN: Absent: rash, itching, pallor HEMATOLOGIC/IMMUNOLOGIC: Absent: easy bleeding, easy bruising, lymphadenopathy, frequent infections ENDOCRINE: Absent: unexplained weight gain, unexplained weight loss, heat intolerance, cold intolerance NEUROLOGIC: Absent: headache, focal weakness or paresthesias, dizziness, unsteady gait, seizure, mental status changes, bladder or bowel incontinence PSYCHIATRIC: Absent: anxiety, depression, suicidal or homicidal ideation, hallucinations. PHYSICAL EXAMINATION Vital Signs - 24 hr 07/19/18 20:36 Temperature 97.7 F Pulse Rate 66 Respiratory 18 Rate Blood Pressure 124/85 O2 Sat by Pulse 97 Oximetry (%) GENERAL: AAOx3 in NAD HEAD: NC/AT EYES: EOMI, Conjunctiva clear, sclera anicteric ENT: moist mucous membrane NECK: Supple, no JVD LUNGS: CTA B/L, no crackles no wheezing no accessory muscle use. HEART: RRR, NSR, normal s1, s2, murmur no M/R/G ABDOMEN: Soft, ND, NT, +BS 4 Q, no CVA Tenderness LOWER EXTREMITIES: no edema, +2DP pulse, NEUROLOGICAL: CNII-XII grossly intact . Normal speech. Normal gait, Strength 5 /5 upper and lower ext , sensation intact , reflexes intact . PSYCHIATRIC: Cooperative. Good eye contact. Appropriate mood and affect. SKIN: Warm, dry, ASSESSMENT/PLAN: 57 y/o male with PMH of LLE DVT, seizures, DM, HTN, HLD, who presented to the ED with complaints ofleft frontal headach admitted for safety issue , he is not feeling safe at home by him self. # headache, * frontal , local non radiating * Tylenol for pain , * CT engative for acute pathology #H/O TIA/CVA last admission * CT ehad today with no iC bleeding * COtinue Eliquis 5 BID #Seizures * Continue Keppra 1gm BID PO #DM * Continue BGM ACHS with ISS coverage Added Levemir 30 units in AM per recent DC paper #HLD * Continue Lipitor 40mg HS #HTN * Continue Norvasc 5mg qdaily, lisinopril 10 #DVT proph * Eliquis 5 BID # Dispo * admit to obs M/S # Pt does not feel safe at home on his own * licensed social worker, case management social worker , in AM for Dispo and placement Visit type - Emergency Visit Emergency Visit: Yes ED Registration Date: 07/19/18 Care time: The patient presented to the Emergency Department on the above date and was hospitalized for further evaluation of their emergent condition. - New Patient This patient is new to me today: Yes Date on this admission: 07/20/18 - Critical Care Critical Care patient: No
[2018-07-20] MEDS ORDERED: DOCUSATE SODIUM 100 MG CAPSULE (FP) PO PRN (00:02)
[2018-07-20] MEDS: INSULIN SLIDING SCALE (NOVOLOG) 1 VIAL SQ SCH ×2 (06:16→12:08)
[2018-07-20] MEDS ORDERED: INSULIN (NOVOLOG) ASPART 100 UNITS/ML 10ML VIAL ONE (06:36)
[2018-07-20] MEDS ORDERED: INSULIN (LEVEMIR) 100 UNITS/ML UNITS SQ ONE (06:36)
[2018-07-20 06:49] VITALS: BMI 43.2
[2018-07-20] MEDS ORDERED: INSULIN (LEVEMIR) 100 UNITS/ML UNITS SQ SCH (07:00)
[2018-07-20] MEDS ORDERED: PNEUMOCOCCAL 23 VACCINE 0.5 ML VIAL IM ONE (07:15)
[2018-07-20] MEDS ORDERED: FLU VACCINE QUAD 60 MCG/0.5 ML (MDV 18-19) IM ONE (09:00)
[2018-07-20 09:53] LABS: BASO % 0.7 % (0-2.0); EOS % 2.2 % (0-4.5); HEMATOCRIT 33.5 % (35.4-49); HEMOGLOBIN 10.9 GM/dL (11.7-16.9); LYMPH % 31.9 % (8-40); MCH 23.8 pg (25.7-33.7); MCHC 32.4 g/dl (32.0-35.9); MEAN CELL VOLUME 73.4 fl (80-96); MEAN PLT VOLUME 9.1 fl (7.5-11.1); NEUT % 57.2 % (42.8-82.8); PLATELET COUNT 175 K/MM3 (134-434); RBC 4.57 M/mm3 (4.00-5.60); RDW 13.1 % (11.9-15.9); WHITE BLOOD COUNT 7.1 K/mm3 (4.0-10.0)
[2018-07-20] MEDS ORDERED: amLODIPine BESYLATE 5 MG TABLET (FP) PO SCH (10:00)
[2018-07-20] MEDS ORDERED: ASPIRIN COATED 81 MG TABLET.EC PO SCH (10:00)
[2018-07-20] MEDS ORDERED: PNEUMOC 13-VAL CONJ-DIP CRM/PF 0.5 ML DISP.SYRIN IM ONE (10:00)
[2018-07-20] MEDS ORDERED: APIXABAN 5 MG TABLET PO SCH (10:00)
[2018-07-20] MEDS ORDERED: levETIRAcetam 500 MG TABLET (FP) PO SCH (10:00)
[2018-07-20 10:04] LABS: INR 1.18 (0.83-1.09); PROTHROMBIN TIME (PATIENT) 13.9 SEC (9.7-13.0)
[2018-07-20 10:07] LABS: ACTIVATED PTT 32.2 SECONDS (25.2-36.5)
[2018-07-20 10:46] LABS: ALBUMIN 3.2 g/dl (3.4-5.0); ALK PHOS 71 U/L (45-117); ANION GAP 5 MMOL/L (8-16); BILIRUBIN,TOTAL 0.6 mg/dL (0.2-1); BLOOD UREA NITROGEN 13 mg/dL (7-18); CALCIUM 8.6 mg/dL (8.5-10.1); CHLORIDE 104 mmol/L (98-107); CO2 27 mmol/L (21-32); CREATININE 1.1 mg/dL (0.55-1.3); SGOT/AST 32 U/L (15-37); SGPT/ALT 35 U/L (13-61); SODIUM 135 mmol/L (136-145); TOT PROT 6.1 g/dl (6.4-8.2)
[2018-07-20 12:00] LABS: GLUCOSE,RANDOM 339 mg/dL (74-106)
[2018-07-20] MEDS ORDERED: LISINOPRIL 10 MG TABLET (FP) PO SCH (12:00)
--- NOTE | 2018-07-20 12:05 | EKG ---
Test Reason : Blood Pressure : / mmHG Vent. Rate : 074 BPM Atrial Rate : 074 BPM P-R Int : 176 ms QRS Dur : 118 ms QT Int : 384 ms P-R-T Axes : 065 -41 -24 degrees QTc Int : 426 ms NORMAL SINUS RHYTHM LEFT AXIS DEVIATION LEFT VENTRICULAR HYPERTROPHY WITH QRS WIDENING CANNOT RULE OUT SEPTAL INFARCT (CITED ON OR BEFORE 15-JUL-2018) ABNORMAL ECG WHEN COMPARED WITH ECG OF 20-JUL-2018 00:04, NO SIGNIFICANT CHANGE WAS FOUND Confirmed by BLESSING FLOYD MD ([id number]) on 07/20/2018 12:05:08 PM Referred By: Zehra GANN Confirmed By:BLESSING FLOYD MD
--- NOTE | 2018-07-20 12:07 | EKG ---
Test Reason : Blood Pressure : / mmHG Vent. Rate : 072 BPM Atrial Rate : 072 BPM P-R Int : 166 ms QRS Dur : 122 ms QT Int : 402 ms P-R-T Axes : 061 -40 -05 degrees QTc Int : 440 ms NORMAL SINUS RHYTHM LEFT AXIS DEVIATION LEFT VENTRICULAR HYPERTROPHY WITH QRS WIDENING CANNOT RULE OUT SEPTAL INFARCT (CITED ON OR BEFORE 15-JUL-2018) ABNORMAL ECG WHEN COMPARED WITH ECG OF 15-JUL-2018 08:59, QUESTIONABLE CHANGE IN INITIAL FORCES OF SEPTAL LEADS Confirmed by EVERETT TRUONG, BLESSING ([id number]) on 07/20/2018 12:07:00 PM Referred By: Confirmed By:BLESSING FLOYD MD
--- NOTE | 2018-07-20 13:19 | PN ---
Teaching Attending Note Name of Resident: Danis Brandt ATTENDING PHYSICIAN STATEMENT I saw and evaluated the patient. I reviewed the resident's note and discussed the case with the resident. I agree with the resident's findings and plan as documented. SUBJECTIVE: No HUNG , no visual changes , no weakness, numbness or tingling. he stated he felt that his gait was not back to normal when he went home yesterdya, and he did not want his nephew to help him. today he feels his gait is back to normal and he feels safe to return home OBJECTIVE: NAD , MMM, missing some front teeth CV: RRR Lungs: CTAB Ext: No edema or erythema Neuro: EOMI, round equal pupils reactive to light. nl facial sensation , tongue and uvula at mid line . strength 5/5 in upper and lower extremities , proximally and distally. sensation to light touch NL. reflexes 2+ biceps , and 1+ knee jerk b/l. ASSESSMENT AND PLAN: 56 y/o gentleman with h/o HTN, DM , HLP, CVA , Seizure disorder, LLE DVT in 2017 s/o thrombectomy and IVC filter,non compliance, and recent hospitalization 07/15-07/19 for L sided weakness, and was diagnosed with acute CVA. He returned last night as he did not feel his gait was normal for him 1- Recent diagnosis of an occipital stroke, with microvasular disease. neuro exam as above , non focal, he did well with PT and feel shis gait is Normal again - cont Asa ( d/w Dr. Maza , indicated in addition to the eliquis as cause of stroke was not known yet) - cont statin - f/u with neuro 2- DM: - dc home glipizide - dc home on lantus and SSI . 3- H/o recent LLE DVT, s/p IVC filter and throbectomy. was not compliant with coumadin and was started on eliquis last admission - cont eliquis . instructed to be compliant . 4- HTN: Cont norvasc and lisinopril 5- h/o Seizures, last EEG was neg . results reviewed. - cont Keppra Dispo: dc home with PT. he was advised of a NH placement if he feels any issue with safety or ambulation at home , but he declined NH and states he feels safe to dc home
[2018-07-20 14:47] VITALS: BP 110/61; PULSE 78; TEMP 98.1
--- NOTE | 2018-07-20 15:11 | DS ---
Physical Exam: SUBJECTIVE: Patient seen and examined at bedside no acute events overnight patient is no longer having gait instability and his blurred vision is better; denies CP/SOb/N/V fevers or chills OBJECTIVE: Vital Signs Period Temp Pulse Resp BP Sys/Navarrete Pulse Ox Last 24 Hr 97.6 F-98.1 F 66-78 18-18 110-132/61-88 96-99 PHYSICAL EXAM GENERAL: The patient is awake, alert, and fully oriented, in no acute distress. EYES: PEERLA; EOMI; no scleral icterus. NECK: no JVD; no lymphadenopathy. LUNGS: Breath sounds equal, clear to auscultation bilaterally, no wheezes, no crackles, no accessory muscle use. HEART: Regular rate and rhythm, S1, S2 without murmur, rub or gallop. ABDOMEN: Soft, nontender, nondistended, normoactive bowel sounds, no guarding, no rebound, no hepatosplenomegaly, no masses. EXTREMITIES: 2+ pulses, warm, well-perfused, no edema. PSYCH: Normal mood, normal affect. SKIN: Warm, dry, normal turgor, no rashes or lesions noted. LABS Laboratory Results - last 24 hr 07/20/18 07/20/18 07/20/18 03:21 05:33 09:35 WBC 7.1 RBC 4.57 Hgb 10.9 L Hct 33.5 L MCV 73.4 L MCH 23.8 L MCHC 32.4 RDW 13.1 Plt Count 175 MPV 9.1 Absolute Neuts (auto) 4.1 Neutrophils % 57.2 D Lymphocytes % 31.9 D Monocytes % 8.0 Eosinophils % 2.2 Basophils % 0.7 Nucleated RBC % 0 PT with INR INR PTT (Actin FS) Sodium Potassium Chloride Carbon Dioxide Anion Gap BUN Creatinine Creat Clearance w eGFR POC Glucometer 319 Random Glucose Calcium Total Bilirubin AST ALT Alkaline Phosphatase Troponin I < 0.02 Total Protein Albumin 07/20/18 07/20/18 07/20/18 09:35 09:35 12:03 WBC RBC Hgb Hct MCV MCH MCHC RDW Plt Count MPV Absolute Neuts (auto) Neutrophils % Lymphocytes % Monocytes % Eosinophils % Basophils % Nucleated RBC % PT with INR 13.90 H INR 1.18 H PTT (Actin FS) 32.2 Sodium 135 L Potassium 4.0 Chloride 104 Carbon Dioxide 27 Anion Gap 5 L BUN 13 Creatinine 1.1 Creat Clearance w eGFR 69.24 POC Glucometer 330 Random Glucose 339 H* Calcium 8.6 Total Bilirubin 0.6 AST 32 ALT 35 Alkaline Phosphatase 71 Troponin I Total Protein 6.1 L Albumin 3.2 L HOSPITAL COURSE: Date of Admission:07/19/18 57 M with h/o DVT (IVC filter) on coumadin (though he had not been taking it), DM, HTN, HLD, presenting to ED with L sided tingling and weakness. Pt states that onset occurred about 30 minutes prior to arrival. Denies any symptoms when he woke up today. Pt states that he feels "pins and needles" in his L arm and leg. Denies slurred speech. Denies headache. Denies dizziness.He admits that he has been non-compliant with all of his meds for 4 months, including his coumadin. Head CT results noted above. Vitals were stable when patient came in. imaging noted above./ he was seen by neurology who suggested brain MRI, carotid, neck MRA. patient was initially started on lovenox for AC with bridging with coumadin and started on baby aspirin in addition to his home meds of keppra, lipitor,norvasc. his sugars were also not under control while he was in the hospital. He usually took glipizide 10 daily' while here in the hospital he was started on an insulin sliding scale, however his sugars were still not controlled so we started him on levemir 30 units in the morning. his insurance was able to cover eliquis 5 BID so he was taken off the coumadin and will start on eliquis 5 BID. he was stable to be d/c home with follow up to see dr pepe the neurologist in addition we gave patient referral to see an web marketing strategist as his sugars have been not well controlled and he needs diabetic counseling/ medication recommendations. He came back a few hours later - because he felt unsafe to go home. he was seen by PT here and walked over 300 feet. he was d/c home with home PT we did not continue him on the glipizide we sent him an ISS in addition to levemir 30 units. he was given an kennedy referral, neuro and PCP referral Date of Discharge: 07/20/18 Minutes to complete discharge: 39 Discharge Summary Reason For Visit: WEAKNESS Condition: Improved - Instructions Diet, Activity, Other Instructions: We discussed with your pharmacy you will be receiving all of your medications that we had discussed earlier. You were seen by physical therapy MEDICATIONS: Please continue to take all of your medications as prescribed Please take Eliquis 5mg twice a day instead of the Warfarin Please continue taking Aspirin 81mg DAILY For your glycemic control we started you on levemir 30 units to be taken in the morning and we will also be sending you on an insulin sliding scale. You will need to check your sugars before each meal and give yourself certain number of units of insulin according to the follow scale: BGM: 101-150: 0 units 151-200: 2 units 201-250: 4 units 251-300: 6 units 301-350: 8 units 351-400: 10 units >400: 12 units- call doctor do NOT continue taking the Glipizide It is very important for you to follow a low carb/low fat diet and to monitor your sugars before each meal and to log them and bring them into both the primary care physician in addition to when you see the web marketing strategist Dr. Antony. Your Hba1c came back at 9.1, please repeat this in 3 months. We are referring you to a primary care physician located at [address] [place] [address] please see them within one to two days upon discharge Please follow up with the neurologist, Dr. Pepe within one week We are also referring you to an web marketing strategist, Dr. Antony to follow up with to obtain proper diabetic counseling and medication recommendations follow up with Dr. Block. as you will need prolonged cardiac monitoring to find out a reason for your stroke Please refrain from smoking cigarettes. *if you begin to experience numbness/tingling/gait instability, chest pains shortness of breath please return to the emergency room immediately, Referrals: Joel Pepe MD [Staff Physician] - 1 Week Chong Fontana MD [Staff Physician] - 1 Week Aristides Antony MD [Staff Physician] - 1 Week Zeeshan Block MD [Staff Physician] - Disposition: VNS/HOME HEALTH CARE - Home Medications Comprehensive Discharge Medication List: Ambulatory Orders Amlodipine Besylate [Norvasc -] 5 mg PO DAILY #30 tablet 12/30/16 Atorvastatin Ca [Lipitor] 20 mg PO HS #30 tablet 12/30/16 Docusate Sodium [Colace -] 100 mg PO BID PRN #30 cap 12/30/16 Lisinopril [Prinivil] 10 mg PO DAILY@1200 #30 tablet 12/30/16 levETIRAcetam [Keppra -] 1,000 mg PO BID #60 tablet 12/30/16 Apixaban [Eliquis -] 5 mg PO BID 30 Days #60 tablet 07/19/18 Aspirin Coated [Ecotrin -] 81 mg PO DAILY 30 Days #30 tablet.ec 07/19/18 Blood-Glucose Meter [Blood Glucose Monitoring] 1 each MC DAILY #1 each 07/19/18 Insulin (Levemir) [Levemir Vial] 30 units SQ AM #1 vial 07/19/18 Lancets/Blood Glucose Strips [Fora [id number] Strp-Lnct] 1 each MC DAILY # 30 combo..pkg 07/19/18 Syrge-Ndl,Ins 0.3 ml Half Danis [Insulin Syringe] 1 each MC DAILY #30 disp.syrin 07/19/18 Insulin Sliding Scale [Novolog Vial Sliding Scale -] 1 vial SQ ACHS #1 vial Problem List - Problems (1) Headache Code(s): R51 - HEADACHE (2) Diabetes type 2, uncontrolled Code(s): E11.65 - TYPE 2 DIABETES MELLITUS WITH HYPERGLYCEMIA (3) Hyperlipidemia Code(s): E78.5 - HYPERLIPIDEMIA, UNSPECIFIED (4) Hypertension Code(s): I10 - ESSENTIAL (PRIMARY) HYPERTENSION Qualifiers: Hypertension type: essential hypertension Qualified Code(s): I10 - Essential (primary) hypertension This patient is new to me today: Yes Date on this admission: 07/20/18 Emergency Visit: Yes ED Registration Date: 07/19/18 Care time: The patient presented to the Emergency Department on the above date and was hospitalized for further evaluation of their emergent condition. Critical Care patient: No - Discharge Referral Referred to [facility] No
[2018-07-20] MEDS ORDERED: ATORVASTATIN CA 20 MG TABLET (FP) PO SCH (22:00)
== END 2018-07-20 15:36 | disposition home health service (06) ==
LOC: JER 20:36 → JERBED 23:56 → J7W 07-20 05:17
PROVIDERS: ADMIT Internal Medicine; ATTEND Internal Medicine
PROC: 3E033NZ Introduction of Analgesics, Hypnotics, Sedatives into Peripheral Vein, Percutaneous Approach (ICD-10-PCS; principal; 2018-07-19)
PROC: 3E013VG Introduction of Insulin into Subcutaneous Tissue, Percutaneous Approach (ICD-10-PCS; 2018-07-19)
DX: R53.1 Weakness (principal); R51 Headache; I10 Essential (primary) hypertension; E78.5 Hyperlipidemia, unspecified; E11.9 Type 2 diabetes mellitus without complications; G40.909 Epilepsy, unspecified, not intractable, without status epilepticus; D64.89 Other specified anemias; E66.01 Morbid (severe) obesity due to excess calories; Z68.41 Body mass index [BMI] 40.0-44.9, adult; Z91.14 Patient's other noncompliance with medication regimen; Z79.82 Long term (current) use of aspirin; Z79.84 Long term (current) use of oral hypoglycemic drugs; Z86.73 Personal history of transient ischemic attack (TIA), and cerebral infarction without residual deficits; Z86.718 Personal history of other venous thrombosis and embolism; Z95.828 Presence of other vascular implants and grafts
CPT/HCPCS: 36415; 70450-TC; 80053; 82962; 84484; 85025; 85610; 85730; 93005; 93010; 96372; 96374; 99285-25; G0378; J0131

== ENCOUNTER 2020-08-13 21:14 | Observation (INO) | payer OTHER ==
[2020-08-13 22:56] LABS: BASO % 0.6 % (0-2.0); EOS % 0.5 % (0-4.5); HEMATOCRIT 34.9 % (35.4-49); HEMOGLOBIN 11.1 GM/dL (11.7-16.9); LYMPH % 15.3 % (8-40); MCH 23.3 pg (25.7-33.7); MCHC 31.8 g/dl (32.0-35.9); MEAN CELL VOLUME 73.3 fl (80-96); MEAN PLT VOLUME 8.4 fl (7.5-11.1); MONO % 4.5 % (3.8-10.2); NEUT % 79.1 % (42.8-82.8); PLATELET COUNT 246 K/MM3 (134-434); RBC 4.76 M/mm3 (4.00-5.60); RDW 13.3 % (11.9-15.9); WHITE BLOOD COUNT 10.2 K/mm3 (4.0-10.0)
[2020-08-13 23:16] LABS: CHLORIDE 103 mmol/L (98-107); SODIUM 136 mmol/L (136-145)
[2020-08-13 23:19] LABS: ALBUMIN 3.6 g/dl (3.4-5.0); ANION GAP 6 MMOL/L (8-16); BLOOD UREA NITROGEN 18.3 mg/dL (7-18); CALCIUM 8.8 mg/dL (8.5-10.1); CO2 27 mmol/L (21-32); GLUCOSE,RANDOM 269 mg/dL (74-106)
[2020-08-13 23:23] LABS: SGOT/AST 22 U/L (15-37); SGPT/ALT 24 U/L (13-61)
[2020-08-13 23:24] LABS: BILIRUBIN,TOTAL 0.3 mg/dL (0.2-1)
[2020-08-13 23:25] LABS: ALK PHOS 60 U/L (45-117)
[2020-08-14 01:01] LABS: EPI CELLS 18 /uL (0-25.1); HYALINE CASTS 2 /uL (0-3.1); URINE APPEARANCE CLEAR; URINE BACTERIA 673 /uL (0-1359); URINE BILIRUBIN NEGATIVE (NEGATIVE); URINE COLOR YELLOW; URINE GLUCOSE (UA) 3+ (NEGATIVE); URINE KETONE NEGATIVE (NEGATIVE); URINE LEUK ESTERASE TRACE (NEGATIVE); URINE NITRITE NEGATIVE (NEGATIVE); URINE PROTEIN 2+ (NEGATIVE); URINE RBC 10 /uL (0-23.9); URINE WBC 64 /uL (0-25.8)
[2020-08-14 01:12] LABS: METHADONE, UR NEGATIVE ng/ml (CUTOFF=300); OPIATES, URI NEGATIVE ng/ml (CUTOFF=300); PHENCYCLIDINE,URINE NEGATIVE ng/ml (CUTOFF=25); URINE AMPHETAMINES NEGATIVE ng/ml (CUTOFF=500); URINE BARBITURATES NEGATIVE ng/ml (CUTOFF=200); URINE BENZODIAZEPINES NEGATIVE ng/ml (CUTOFF=200)
[2020-08-14 01:22] LABS: COCAINE, UR NEGATIVE ng/ml (CUTOFF=300)
[2020-08-14] MEDS ORDERED: LACTATED RINGERS SOLUTION 1,000 ML/1,000 ML INFUS.BAG IV SCH (02:15)
[2020-08-14] MEDS ORDERED: SODIUM CHLORIDE 1,000 ML IV SCH (03:45)
[2020-08-14 06:48] LABS: BASO % 0.6 % (0-2.0); EOS % 0.5 % (0-4.5); HEMATOCRIT 33.1 % (35.4-49); HEMOGLOBIN 10.4 GM/dL (11.7-16.9); LYMPH % 24.5 % (8-40); MCH 23.2 pg (25.7-33.7); MCHC 31.4 g/dl (32.0-35.9); MEAN CELL VOLUME 73.7 fl (80-96); MEAN PLT VOLUME 8.2 fl (7.5-11.1); MONO % 5.2 % (3.8-10.2); NEUT % 69.2 % (42.8-82.8); PLATELET COUNT 225 K/MM3 (134-434); RBC 4.49 M/mm3 (4.00-5.60); RDW 13.4 % (11.9-15.9)
[2020-08-14 07:14] LABS: ALBUMIN 3.3 g/dl (3.4-5.0); BLOOD UREA NITROGEN 26.2 mg/dL (7-18); CALCIUM 8.3 mg/dL (8.5-10.1)
[2020-08-14 07:18] LABS: CREATININE 2.1 mg/dL (0.55-1.3)
[2020-08-14 07:19] LABS: BILIRUBIN,TOTAL 0.3 mg/dL (0.2-1); TOT PROT 6.3 g/dl (6.4-8.2)
[2020-08-14] MEDS: INSULIN SLIDING SCALE (NOVOLOG) 1 VIAL SQ SCH ×4 (09:58→22:00)
[2020-08-14] MEDS ORDERED: NICOTINE 14 MG/24 HOURS TOPICAL PATCH TD SCH (10:00)
[2020-08-14] MEDS ORDERED: APIXABAN 5 MG TABLET PO SCH (10:00)
[2020-08-14] MEDS ORDERED: APIXABAN 5 MG TABLET ONE (10:03)
[2020-08-14 18:27] VITALS: BMI 44.4
[2020-08-14] MEDS: SODIUM CHLORIDE 1,000 ML IV SCH (21:56)
[2020-08-14] MEDS ORDERED: ATORVASTATIN CA 20 MG TABLET (FP) PO SCH (22:00)
[2020-08-14] MEDS: ATORVASTATIN CA 20 MG TABLET (FP) PO SCH (22:00)
[2020-08-14] MEDS: APIXABAN 5 MG TABLET PO SCH (22:00)
[2020-08-15 02:09] LABS: EPI CELLS 12 /uL (0-25.1); HYALINE CASTS 1 /uL (0-3.1); PH,URINE 5.5 (5.0-8.0); URINE APPEARANCE CLEAR; URINE BACTERIA 747 /uL (0-1359); URINE BILIRUBIN NEGATIVE (NEGATIVE); URINE COLOR YELLOW; URINE GLUCOSE (UA) 1+ (NEGATIVE); URINE KETONE NEGATIVE (NEGATIVE); URINE LEUK ESTERASE 1+ (NEGATIVE); URINE NITRITE NEGATIVE (NEGATIVE); URINE PROTEIN TRACE (NEGATIVE); URINE RBC 5 /uL (0-23.9); URINE WBC 108 /uL (0-25.8)
[2020-08-15] MEDS: INSULIN SLIDING SCALE (NOVOLOG) 1 VIAL SQ SCH ×4 (07:03→21:24)
[2020-08-15 09:46] LABS: BASO % 0.5 % (0-2.0); EOS % 2.7 % (0-4.5); HEMATOCRIT 34.7 % (35.4-49); HEMOGLOBIN 10.9 GM/dL (11.7-16.9); LYMPH % 44.6 % (8-40); MCH 23.4 pg (25.7-33.7); MCHC 31.5 g/dl (32.0-35.9); MEAN CELL VOLUME 74.1 fl (80-96); MEAN PLT VOLUME 8.5 fl (7.5-11.1); MONO % 7.1 % (3.8-10.2); NEUT % 45.1 % (42.8-82.8); PLATELET COUNT 224 K/MM3 (134-434); RBC 4.68 M/mm3 (4.00-5.60); RDW 13.2 % (11.9-15.9); WHITE BLOOD COUNT 8.2 K/mm3 (4.0-10.0)
[2020-08-15 09:50] LABS: IRON SERUM 103 ug/dL (50-175)
[2020-08-15 09:51] LABS: TOTAL IRON BINDING CAPACITY 277 ug/dL (250-450)
[2020-08-15 10:14] LABS: ALBUMIN 3.3 g/dl (3.4-5.0); CALCIUM 8.8 mg/dL (8.5-10.1)
[2020-08-15 10:18] LABS: BILIRUBIN,TOTAL 0.4 mg/dL (0.2-1); CREATININE 1.3 mg/dL (0.55-1.3); TOT PROT 6.4 g/dl (6.4-8.2)
[2020-08-15] MEDS: APIXABAN 5 MG TABLET PO SCH ×2 (10:39→21:21)
[2020-08-15] MEDS: NICOTINE 14 MG/24 HOURS TOPICAL PATCH TD SCH (10:39)
[2020-08-15] MEDS: SODIUM CHLORIDE 1,000 ML IV SCH (20:18)
[2020-08-15] MEDS ORDERED: INSULIN (NOVOLOG) ASPART 100 UNITS/ML 10ML VIAL ONE (21:11)
[2020-08-15] MEDS: ATORVASTATIN CA 20 MG TABLET (FP) PO SCH (21:21)
[2020-08-15] MEDS: levETIRAcetam 500 MG TABLET (FP) PO SCH (21:47)
[2020-08-15 23:00] VITALS: TEMP 97.6
[2020-08-16] MEDS: INSULIN SLIDING SCALE (NOVOLOG) 1 VIAL SQ SCH (06:41)
[2020-08-16 08:21] VITALS: BP 146/96; PULSE 60
[2020-08-16] MEDS: levETIRAcetam 500 MG TABLET (FP) PO SCH (09:15)
[2020-08-16] MEDS: APIXABAN 5 MG TABLET PO SCH (09:15)
[2020-08-16] MEDS: NICOTINE 14 MG/24 HOURS TOPICAL PATCH TD SCH (09:16)
[2020-08-17] MEDS ORDERED: sitaGLIPtin PHOSPHATE 50 MG TABLET PO SCH (07:00)
== END 2020-08-16 11:01 | disposition home or self-care (01) ==
LOC: JER 21:14 → JERBED 08-14 02:05 → INTOOBSV 08-14 02:05 → J6S 08-14 16:16
PROVIDERS: ADMIT Hospitalist; ATTEND Family Medicine
PROC: 3E013VG Introduction of Insulin into Subcutaneous Tissue, Percutaneous Approach (ICD-10-PCS; principal; 2020-08-14)
PROC: 3E0337Z Introduction of Electrolytic and Water Balance Substance into Peripheral Vein, Percutaneous Approach (ICD-10-PCS; 2020-08-14)
DX: N17.9 Acute kidney failure, unspecified (principal); E11.9 Type 2 diabetes mellitus without complications; I10 Essential (primary) hypertension; R82.5 Elevated urine levels of drugs, medicaments and biological substances; E78.5 Hyperlipidemia, unspecified; E66.01 Morbid (severe) obesity due to excess calories; R42 Dizziness and giddiness; Z68.41 Body mass index [BMI] 40.0-44.9, adult; Z79.01 Long term (current) use of anticoagulants; Z87.898 Personal history of other specified conditions; Z79.4 Long term (current) use of insulin; Z86.718 Personal history of other venous thrombosis and embolism; Z86.73 Personal history of transient ischemic attack (TIA), and cerebral infarction without residual deficits
CPT/HCPCS: 36415; 70450-TC; 71045-TC-FY; 76775-TC; 80053; 80177; 80307; 81003; 82436; 82550; 82553; 82570; 82607; 82728; 82962; 83036; 83540; 83550; 84133; 84156; 84300; 84484; 85025; 93005; 93010; 96360; 96372; 99285-25; C9803; G0378; U0003; U0005